=== PATIENT | male | born 1950 | race Caucasian/White ===

== ENCOUNTER 2016-09-06 10:58 | Emergency (ER) | payer MEDICAID, OTHER ==
[2016-09-06] MEDS ORDERED: HYDROmorphone 1 MG/ML SYRINGE IVP STA ×3 (11:21→15:28)
[2016-09-06] MEDS ORDERED: ONDANSETRON 4 MG/2 ML VIAL IVP STA (11:21)
[2016-09-06] MEDS ORDERED: SODIUM CHLORIDE 0.9% 1,000 ML IV ONE ×2 (11:21→15:48)
[2016-09-06] MEDS ORDERED: ONDANSETRON 4 MG/2 ML VIAL ONE (11:27)
[2016-09-06] MEDS ORDERED: HYDROmorphone 1 MG/ML SYRINGE ONE ×3 (11:27→15:41)
--- NOTE | 2016-09-06 11:28 | ED Physician Documentation ---
History of Present Illness - Stated complaint Stated Complaint: BACK,LEG,FOOT PX - Chief complaint Chief Complaint: Back Pain - Additonal information Additional information: hx from pt and sister 66 male Pmhx HTN no blood thinners 4 days ago was working in [email or web address], slipped on [employer], fell 12 ft down onto cement landed first on R foot,t hen on buttocks, then hit his head no LOC has had severe low back, inguinal and RLE pain in too much pain to get up so has been in bed urinating in a coffee can for 4 days - urine output getting less and darker possibly bloody denies ABEL denies neck pain complains of low sternal and upper mid abd pain c/of R inguinal and R testicular pain R buttock pain R LE pain Review of Systems Constitutional: denies: Fever Ears: denies: Drainage/discharge Nose: denies: Epistaxis Cardiac: reports: Chest pain / pressure Respiratory: denies: Dyspnea GI: reports: Abdominal Pain. denies: Vomiting, Diarrhea : reports: Hematuria Musculoskeletal: reports: Back pain, Extremity pain Neurologic: denies: Focal weakness, Numbness Endocrine: denies: Easy bruising / bleeding Immunocompromised: denies: Immunocompromised PD PAST MEDICAL HISTORY - Past Medical History Cardiovascular: Hypertension Respiratory: None Endocrine/Autoimmune: None GI: None : None HEENT: None Psych: None Musculoskeletal: None Derm: None - Past Surgical History HEENT: Tonsil/Adenoidectomy - Present Medications Home Medications: Ambulatory Orders Medication Instructions Recorded Confirmed Hydrocodone/Acetaminophen 1 each PO .FREQ PRN 09/03/12 09/06/16 [Hydrocodon-Acetaminophen 5-325] Lisinopril [Prinivil] 5 mg PO DAILY 09/03/12 09/06/16 - Allergies Allergies/Adverse Reactions: Allergies Allergy/AdvReac Type Severity Reaction Status Date / Time No Known Drug Allergies Allergy Verified 09/06/16 11:07 PD ED PE NORMAL - Vitals Vital signs reviewed: Yes (hypotesnive to SBP 80, tachy to HR 150 appears NSR on tele) - General General: Alert and 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 - HEENT HEENT: Atraumatic (no visible lac or swelling) - Neck Neck: No bony TTP (but high force mechanism and distracting injuries so collared and will image) - Cardiac Cardiac: RRR (tachy) - Respiratory Respiratory: No respiratory distress, Clear bilaterally, Other (no rib TTP, TTP s crepitus to low sternum) - Abdomen Abdomen: Soft, Other (mid upper abd pain, no licer spleen TTP, no guarding rebound bruising or distension, FAST = no FF, very small bladder) - Male Male : Other (no ecchymosis, testes desc and NT) - Derm Derm: Other (aged accymosis to valentin radial hand, R buttock, RLE) - Extremities Extremities: Other (valentin radial hand ecchymossis but NT and full ROM, pelvis stable, deformity swelling and ecchymosis s open wound to RLE, + pulse sens motor, calf cmpt soft) - Neuro Neuro: Alert and 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, 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, No motor deficit, No sensory deficit, Normal speech Results - Vitals Vitals: Vital Signs - 24 hr 09/06/16 09/06/16 09/06/16 11:03 11:24 12:00 Temperature 36.9 C Heart Rate 120 H 91 95 Respiratory 18 18 18 Rate Blood Pressure 88/67 L 105/73 125/96 H O2 Saturation 98 96 99 09/06/16 09/06/16 09/06/16 13:00 13:30 13:45 Temperature Heart Rate 80 80 80 Respiratory 17 19 20 Rate Blood Pressure 123/71 96/65 109/77 O2 Saturation 98 100 99 09/06/16 09/06/16 09/06/16 13:53 13:58 14:35 Temperature Heart Rate 80 80 79 Respiratory 20 16 17 Rate Blood Pressure 96/63 109/77 115/78 O2 Saturation 100 98 99 09/06/16 09/06/16 09/06/16 15:00 15:30 16:00 Temperature Heart Rate 81 82 94 Respiratory 14 12 12 Rate Blood Pressure 112/79 123/74 119/79 O2 Saturation 99 99 99 09/06/16 09/06/16 09/06/16 16:30 17:00 17:30 Temperature 36.8 C Heart Rate 83 82 80 Respiratory 19 20 20 Rate Blood Pressure 123/70 108/76 116/79 O2 Saturation 100 94 100 Oxygen O2 Source Room air - EKG (time done) 1116 Rate: Rate (enter#) (97) Rhythm: NSR [place]: Normal QRS: Normal Ischemia: Normal ST segments - Labs Labs: Laboratory Tests 09/06/16 09/06/16 09/06/16 11:15 11:15 11:15 WBC 13.2 H RBC 4.35 L Hgb 15.0 Hct 43.5 MCV 100.1 H MCH 34.6 H MCHC 34.5 RDW 12.3 Plt Count 255 MPV 7.3 L Neut # 10.8 H Lymph # 1.2 L Barron # 1.1 H Eos # 0.0 Baso # 0.1 Absolute Nucleated RBC 0.01 Nucleated RBCs 0.1 Sodium 135 Potassium 3.6 Chloride 94 L Carbon Dioxide 30 Anion Gap 11.0 BUN 15 Creatinine 0.7 Estimated GFR (MDRD) 114 Glucose 158 H Calcium 9.1 Total Bilirubin 1.2 H AST 30 ALT 25 Alkaline Phosphatase 68 Troponin I < 0.04 Total Protein 7.0 Albumin 3.7 Globulin 3.3 Albumin/Globulin Ratio 1.1 Lipase 24 Urine Color Urine Clarity Urine pH Ur Specific [place] Urine Protein Urine Glucose (UA) Urine Ketones Urine Occult Blood Urine Nitrite Urine Bilirubin Urine Urobilinogen Ur Leukocyte Esterase Ur Microscopic Review Urine Culture Comments Blood Type Blood Type Recheck Antibody Screen Crossmatch IS Only 09/06/16 09/06/16 09/06/16 11:15 13:36 16:00 WBC RBC Hgb Hct MCV MCH MCHC RDW Plt Count MPV Neut # Lymph # Barron # Eos # Baso # Absolute Nucleated RBC Nucleated RBCs Sodium Potassium Chloride Carbon Dioxide Anion Gap BUN Creatinine Estimated GFR (MDRD) Glucose Calcium Total Bilirubin AST ALT Alkaline Phosphatase Troponin I Total Protein Albumin Globulin Albumin/Globulin Ratio Lipase Urine Color DARK YELLOW Urine Clarity CLEAR Urine pH 5.5 Ur Specific [place] 1.010 Urine Protein NEGATIVE Urine Glucose (UA) NEGATIVE Urine Ketones 15 H Urine Occult Blood NEGATIVE Urine Nitrite NEGATIVE Urine Bilirubin NEGATIVE Urine Urobilinogen 4 H Ur Leukocyte Esterase NEGATIVE Ur Microscopic Review NOT INDICATED Urine Culture Comments NOT INDICATED Blood Type O POSITIVE Blood Type Recheck O POSITIVE Antibody Screen NEGATIVE Crossmatch IS Only See Detail - Rads (name of study) CTH Radiology: See rad report (no acute) CT CS Radiology: See rad report (no acute) CTA chest Radiology: See rad report (no acute) hands Radiology: See rad report (no fx) tib fib Radiology: See rad report ankle Radiology: See rad report (neg) foot Radiology: See rad report (comminuted displaced calcanela fracture) calcaneus Radiology: See rad report (comminuted intra-articualr right calcaneal fx mildly displaced) pelvis Radiology: See rad report (no acute fx) pcxr Radiology: See rad report (no acute) CT abd pelvis Radiology: See rad report (3.2 cm AAA L spine fx no solid organ injury or FF) CT L spine Radiology: See rad report (compression fx L2 and L3 20% loss of height, no posterior elements, L1 spinous process fx, L2 L transverse process fx) Departure - Departure Disposition: 02 Transfer Acute Care Hosp Clinical Impression: Tachycardia Fall Qualifiers: Encounter type: initial encounter Qualified Code(s): W19.XXXA - Unspecified fall, initial encounter Hypotension Qualifiers: Hypotension type: unspecified hypotension type Qualified Code(s): I95.9 - Hypotension, unspecified Fracture of lumbar spine Qualifiers: Encounter type: initial encounter Lumbar vertebra fracture level: unspecified lumbar vertebra Fracture type: closed Fracture morphology: unspecified fracture morphology Qualified Code(s): S32.009A - Unspecified fracture of unspecified lumbar vertebra, initial encounter for closed fracture Calcaneus fracture, right Qualifiers: Encounter type: initial encounter Calcaneus location: unspecified portion of calcaneus Fracture type: closed Fracture alignment: displaced Qualified Code(s) : S92.001A - Unspecified fracture of right calcaneus, initial encounter for closed fracture Condition: Fair Discharge Date/Time: 09/06/16 18:00
[2016-09-06 11:37] LABS: BASOPHILS # (AUTO) 0.1 10^3/uL (0.0-0.1); BASOPHILS % (AUTO) 0.6 %; EOSINOPHILS % (AUTO) 0.3 %; HCT - HEMATOCRIT 43.5 % (42.0-52.0); LYMPHOCYTES # (AUTO) 1.2 10^3/uL (1.5-3.5); LYMPHOCYTES % (AUTO) 9.4 %; MEAN CORPUSCULAR HEMOGLOBIN 34.6 pg (27.0-31.0); MEAN CORPUSCULAR HGB CONC 34.5 g/dL (32.0-36.0); MEAN CORPUSCULAR VOLUME 100.1 fL (80.0-94.0); MEAN PLATELET VOLUME 7.3 fL (7.4-11.4); MONOCYTES # (AUTO) 1.1 10^3/uL (0.0-1.0); MONOCYTES % (AUTO) 8.1 %; NEUTROPHILS # (AUTO) 10.8 10^3/uL (1.5-6.6); NEUTROPHILS % (AUTO) 81.6 %; NUCLEATED RED BLOOD CELLS AUTO 0.1 /100WBC; RED BLOOD COUNT 4.35 10^6/uL (4.70-6.10); RED CELL DISTRIBUTION WIDTH 12.3 % (12.0-15.0); UNCORRECTED WHITE BLOOD COUNT 13.2 x10^3/uL; WHITE BLOOD COUNT 13.2 x10^3/uL (4.8-10.8)
[2016-09-06 11:46] LABS: ALBUMIN/GLOBULIN RATIO 1.1 (1.0-2.2); BILIRUBIN,TOTAL 1.2 mg/dL (0.2-1.0); CALCIUM 9.1 mg/dL (8.5-10.3); CREATININE 0.7 mg/dL (0.6-1.2); POTASSIUM 3.6 mmol/L (3.5-5.0)
--- NOTE | 2016-09-06 12:17 | XRAY Report ---
EXAM: PELVIS RADIOGRAPHY EXAM DATE: 09/06/2016 11:48 AM. CLINICAL HISTORY: Fall injury. Pain. COMPARISON: None. TECHNIQUE: 1 view. FINDINGS: Bones: No definite radiographic evidence of acute fracture or bone lesions. There is diminished bilat eral femoral headneck offset. Joints: Degenerative changes of the visualized lower lumbar spine. Soft Tissues: Normal. No soft tissue swelling. IMPRESSION: 1. No definite radiographic evidence of acute bony pelvic injury. 2. Diminished bilateral femoral headneck offset which may be cause for cam-type femoral acetabular i mpingement. 3. Degenerative changes of the visualized lower lumbar spine. [facility] Referring Provider Line: [phone] SITE ID: [id number]
--- NOTE | 2016-09-06 12:18 | XRAY Report ---
EXAM: CHEST RADIOGRAPHY EXAM DATE: 09/06/2016 12:00 PM. CLINICAL HISTORY: Fall injury. Pain. COMPARISON: None. TECHNIQUE: 1 view. FINDINGS: Lungs/Pleura: No focal opacities evident. No pleural effusion. No pneumothorax. Mediastinum: Within exam limitations, cardiomediastinal contour is normal. Other: None. IMPRESSION: Normal single view chest. [facility] Referring Provider Line: [phone] SITE ID: [id number]
[2016-09-06] MEDS ORDERED: IOPAMIDOL-300 100 ML VIAL IVP ONE (12:51)
--- NOTE | 2016-09-06 13:03 | CT Preliminary Report ---
Exam: CT Chest Angio (PE) IMPRESSION: Normal pulmonary CT angiogram. No evidence of traumatic aortic injury. No pneumothorax or pulmonary contusion. No pulmonary emboli. [facility] SITE ID: [id number]
--- NOTE | 2016-09-06 13:04 | CT Preliminary Report ---
Exam: CT Head W/O IMPRESSION: No acute findings. No intracranial hemorrhage, or fractures. [facility] SITE ID: [id number]
--- NOTE | 2016-09-06 13:05 | CT Report ---
EXAM: CT ANGIOGRAM CHEST EXAM DATE: 09/06/2016 12:25 PM. CLINICAL HISTORY: Fell 12 ft onto cement hypotensive tachy. COMPARISON: None. TECHNIQUE: Routine helical imaging was performed through the chest in the pulmonary arterial phase. I V Contrast: 100 mL Isovue 300. Reconstructions: Coronal 3-D MIP reconstructions.Sagittal and coronal. In accordance with CT protocol optimization, one or more of the following dose reduction techniques w ere utilized for this exam: automated exposure control, adjustment of mA and/or KV based on patient s ize, or use of iterative reconstructive technique. FINDINGS: Pulmonary Arteries: Diagnostic quality: Adequate through the segmental arteries. No evidence for acute or chronic pulmona ry emboli. RV/LV is within normal limits. There is no interventricular septal bowing. There is no reflux of cont rast material in the IVC. Lungs/Pleura: No consolidation, nodules, or edema. No effusions or pneumothorax. Mediastinum: Normal. No cardiac enlargement or adenopathy. Thoracic Aorta: Unremarkable. No evidence of traumatic aortic injury. Upper Abdomen: Please see separate CT. Other: None. IMPRESSION: Normal pulmonary CT angiogram. No evidence of traumatic aortic injury. No pneumothorax or pulmonary contusion. No pulmonary emboli. [facility] Referring Provider Line: [phone] SITE ID: [id number]
--- NOTE | 2016-09-06 13:06 | CT Preliminary Report ---
Exam: CT Cervical Spine W/O IMPRESSION: Extensive degenerative changes. No evidence of acute fracture. [facility] SITE ID: [id number]
--- NOTE | 2016-09-06 13:07 | CT Report ---
EXAM: CT HEAD EXAM DATE: 09/06/2016 12:53 PM. CLINICAL HISTORY: Fell 12 ft onto cement hypotensive and tachycardia. COMPARISON: None. TECHNIQUE: Multiaxial CT images were obtained from the foramen magnum to the vertex. IV contrast: Non e. Reformats: Coronal. In accordance with CT protocol optimization, one or more of the following dose reduction techniques w ere utilized for this exam: automated exposure control, adjustment of mA and/or KV based on patient s ize, or use of iterative reconstructive technique. FINDINGS: Parenchyma: No intraparenchymal hemorrhage. No evidence of mass, midline shift, or CT findings of inf arction. Daly-white differentiation is distinct. Extraaxial Spaces: Normal for age. No subdural or epidural collections identified. Ventricles: Normal in size and position. Sinuses: Imaged paranasal sinuses, orbits, and mastoids show no significant abnormality. Bones: No evidence of fracture or calvarial defect. Other: None. IMPRESSION: No acute findings. No intracranial hemorrhage, or fractures. [facility] Referring Provider Line: [phone] SITE ID: [id number]
--- NOTE | 2016-09-06 13:09 | CT Report ---
EXAM: CT CERVICAL SPINE WITHOUT CONTRAST DATE: 09/06/2016 12:53 PM HISTORY: Fell 12 ft onto cement hypotensive tachy. COMPARISONS: None. TECHNIQUE: Thin-section axial images were acquired of the cervical spine without contrast. Post-proce ssing: Coronal and sagittal reformats. Other: None. In accordance with CT protocol optimization, one or more of the following dose reduction techniques w ere utilized for this exam: automated exposure control, adjustment of mA and/or KV based on patient s ize, or use of iterative reconstructive technique. FINDINGS: Alignment: Normal. No scoliosis or spondylolisthesis. Bones: No fracture or bone lesion. Interspace Levels/Facets: C1-C2: Unremarkable. C2-C3: Mild facet arthropathy. C3-C4: Right worse than left facet arthropathy, producing right worse than left osseous neural forami nal narrowing. C4-C5: Left worse than right facet arthropathy, producing left worse than right osseous neural forami nal narrowing. C5-C6: Disk osteophyte and facet arthropathy, producing mild spinal stenosis and bilateral foraminal narrowing. C6-C7: Disk osteophyte and facet arthropathy, producing mild spinal stenosis and bilateral foraminal narrowing. C7-T1: Unremarkable. Musculature: Normal. No fatty atrophy. Other: The paravertebral and prevertebral soft tissues are normal. The lung apices are clear. IMPRESSION: Extensive degenerative changes. No evidence of acute fracture. [facility] Referring Provider Line: [phone] SITE ID: [id number]
--- NOTE | 2016-09-06 13:10 | CT Preliminary Report ---
Exam: CT Lumbar Spine W/O IMPRESSION: Compression fractures of L2 and L3, with approximately 20% anterior height loss of L2. Mi nimally displaced fractures of the spinous process of L1 and the left transverse process of L2. [facility] SITE ID: [id number]
--- NOTE | 2016-09-06 13:13 | CT Report ---
EXAM: CT LUMBAR SPINE WITHOUT CONTRAST EXAM DATE: 09/06/2016 12:53 PM. CLINICAL HISTORY: Fell 12 ft severe L spine pain. COMPARISONS: None. TECHNIQUE: Thin-section axial images were acquired of the lumbar spine from T12 to S1 without contras t. Post-processing: Coronal and sagittal reformats. Other: None. In accordance with CT protocol optimization, one or more of the following dose reduction techniques w ere utilized for this exam: automated exposure control, adjustment of mA and/or KV based on patient s ize, or use of iterative reconstructive technique. FINDINGS: Alignment: Normal. No scoliosis or spondylolisthesis. Bones: Five isp-ydz-imrazzp lumbar vertebral bodies are present. There is anterior wedge compression deformity of L2, with approximately 20% anterior height loss, as well as a mild compression deformity of L3. No extension into the posterior elements is identified. There is a minimally displaced fractu re of the spinous process of L1, and the left transverse process of L2. Disk Levels/Facets: T12-L1: Unremarkable. L1-L2: Mild broad-based disk bulge, without significant spinal or foraminal narrowing. L2-L3: Mild broad-based disk bulge, without significant spinal or foraminal narrowing. L3-L4: Moderate broad-based disk bulge, producing mild bilateral foraminal narrowing. L4-L5: Moderate broad-based disk bulge, producing mild bilateral foraminal narrowing. L5-S1: Unremarkable. Musculature: Normal. No fatty atrophy. Other: Minimal aneurysmal dilatation of the abdominal aorta distally, measuring 3.2 cm. IMPRESSION: Compression fractures of L2 and L3, with approximately 20% anterior height loss of L2. Mi nimally displaced fractures of the spinous process of L1 and the left transverse process of L2. [facility] Referring Provider Line: [phone] SITE ID: [id number]
--- NOTE | 2016-09-06 13:33 | XRAY Preliminary Report ---
Exam: XR Hand 3 View BILAT IMPRESSION: Old, healed right fifth metacarpal fracture. No evidence of acute fracture. Right worse t lamb left osteoarthritis. [facility] SITE ID: [id number]
--- NOTE | 2016-09-06 13:34 | XRAY Preliminary Report ---
Exam: XR Calcaneus RT IMPRESSION: Comminuted, intra-articular right calcaneal fracture, mildly displaced. [facility] SITE ID: [id number]
--- NOTE | 2016-09-06 13:35 | XRAY Preliminary Report ---
Exam: XR Tib/Fib RT IMPRESSION: Normal tibia/fibula radiography. [facility] SITE ID: [id number]
--- NOTE | 2016-09-06 13:36 | XRAY Preliminary Report ---
Exam: XR Ankle 3 View RT IMPRESSION: No evidence of tibia or fibula fracture. Comminuted, mildly displaced calcaneal fracture. [facility] SITE ID: [id number]
--- NOTE | 2016-09-06 13:36 | XRAY Report ---
EXAMS: 1. Right Hand Radiography 2. Left Hand Radiography EXAM DATE: 09/06/2016 01:14 PM. CLINICAL HISTORY: Fall 12 ft to [place] bruising valentin radial hands. COMPARISON: None. TECHNIQUE: 3 views each hand. FINDINGS: Right: Bones: Old, healed fifth metacarpal fracture. No evidence of acute fracture. Joints: Osteoarthritis, worst in the first carpometacarpal joint. Soft Tissues: Normal. No soft tissue swelling. Left: Bones: Normal. No fractures or bone lesions. Joints: Osteoarthritis, less severe than in the right hand. Soft Tissues: Normal. No soft tissue swelling. IMPRESSION: Old, healed right fifth metacarpal fracture. No evidence of acute fracture. Right worse t lamb left osteoarthritis. [facility] Referring Provider Line: [phone] SITE ID: [id number]
--- NOTE | 2016-09-06 13:37 | XRAY Report ---
EXAM: RIGHT CALCANEUS RADIOGRAPHY EXAM DATE: 09/06/2016 01:15 PM. CLINICAL HISTORY: Fall 12 ft onto cement. COMPARISON: None. TECHNIQUE: 2 views. FINDINGS: Bones: Comminuted right calcaneal fracture, with mild displacement. Joints: Fracture extension to the talocalcaneal joints. Soft Tissues: Soft tissue swelling. IMPRESSION: Comminuted, intra-articular right calcaneal fracture, mildly displaced. [facility] Referring Provider Line: [phone] SITE ID: [id number]
--- NOTE | 2016-09-06 13:38 | XRAY Report ---
EXAM: RIGHT TIBIA/FIBULA RADIOGRAPHY EXAM DATE: 09/06/2016 01:14 PM. CLINICAL HISTORY: Fell 12 ft deformity RLE. COMPARISON: None. TECHNIQUE: 2 views. FINDINGS: Bones: Normal. No fracture or bone lesion. Joints: The visualized knee and ankle joints are normal. No effusions. Soft Tissues: Normal. No soft tissue swelling. IMPRESSION: Normal tibia/fibula radiography. [facility] Referring Provider Line: [phone] SITE ID: [id number]
--- NOTE | 2016-09-06 13:38 | XRAY Preliminary Report ---
Exam: XR Foot 3 View RT IMPRESSION: Comminuted, mildly displaced calcaneal fracture. [facility] SITE ID: [id number]
--- NOTE | 2016-09-06 13:39 | XRAY Report ---
EXAM: RIGHT ANKLE RADIOGRAPHY EXAM DATE: 09/06/2016 01:12 PM. CLINICAL HISTORY: Fell 12 ft deformity RLE. COMPARISON: None. TECHNIQUE: 3 views. FINDINGS: Bones: Comminuted right calcaneal fracture, better seen on calcaneal films of the same day. No tibia or fibula fracture. Joints: Likely intra-articular extension of calcaneal fracture. Soft Tissues: Soft tissue swelling. IMPRESSION: No evidence of tibia or fibula fracture. Comminuted, mildly displaced calcaneal fracture. [facility] Referring Provider Line: [phone] SITE ID: [id number]
--- NOTE | 2016-09-06 13:40 | XRAY Report ---
EXAM: RIGHT FOOT RADIOGRAPHY EXAM DATE: 09/06/2016 01:13 PM. CLINICAL HISTORY: Fell 12 ft, deformity to RLE. COMPARISON: None. TECHNIQUE: 3 views. FINDINGS: Bones: Comminuted, mildly displaced calcaneal fracture. Joints: Likely intra-articular extension of the calcaneal fracture. Soft Tissues: Soft tissue swelling. IMPRESSION: Comminuted, mildly displaced calcaneal fracture. [facility] Referring Provider Line: [phone] SITE ID: [id number]
--- NOTE | 2016-09-06 15:14 | CT Preliminary Report ---
Exam: CT Abdomen/Pelvis W/ IMPRESSION: Small distal abdominal aortic aneurysm, measuring 3.2 cm. Lumbar spine fractures, better delineated on lumbar spine CT of the same day. No evidence of solid or hollow organ injury. [facility] SITE ID: [id number]
--- NOTE | 2016-09-06 15:17 | CT Report ---
EXAM: CT ABDOMEN AND PELVIS EXAM DATE: 09/06/2016 12:53 PM. CLINICAL HISTORY: Fell 12 ft onto cement hypotensive tachy. COMPARISONS: None. TECHNIQUE: Routine helical CT imaging was performed through the abdomen and pelvis. IV contrast: 100 mL Isovue 300. Enteric contrast: No. Reconstructions: Coronal and sagittal. In accordance with CT protocol optimization, one or more of the following dose reduction techniques w ere utilized for this exam: automated exposure control, adjustment of mA and/or KV based on patient s ize, or use of iterative reconstructive technique. FINDINGS: Lung Bases: Please see separate chest CT. Liver: Normal. No masses. Gallbladder/Bile Ducts: Unremarkable. Spleen: Normal. Pancreas: Normal. Adrenal Glands: Normal. Kidneys: Cortical cysts. No hydronephrosis or nephrolithiasis. Peritoneal Cavity/Bowel: Normal. No free fluid, free air or adenopathy. No masses or acute inflammato ry process. The appendix is well visualized and normal. Pelvic Organs: Normal. The bladder and visualized pelvic organs are within normal limits. Vasculature: Mild dilatation of the distal abdominal aorta, measuring 3.2 cm. Bones: Lumbar spine fractures, better delineated on lumbar spine CT of the same day. Other: None. IMPRESSION: Small distal abdominal aortic aneurysm, measuring 3.2 cm. Lumbar spine fractures, better delineated on lumbar spine CT of the same day. No evidence of solid or hollow organ injury. [facility] Referring Provider Line: [phone] SITE ID: [id number]
[2016-09-06 16:20] LABS: PH,URINE 5.5 PH (5.0-7.5)
[2016-09-06 16:28] LABS: BILIRUBIN,URINE NEGATIVE (NEGATIVE); UA CHARGE (STRIP ONLY) YES; UR CULTURE IF IND NOT INDICATED
[2016-09-06] MEDS ORDERED: NICOTINE 21 MG PATCH TOP STA (16:52)
[2016-09-06] MEDS ORDERED: NICOTINE 21 MG PATCH TOP ONE (16:57)
[2016-09-06 17:53] VITALS: BP 116/79
== END 2016-09-06 18:00 | disposition short-term general hospital (02) ==
LOC: ED 10:58
DX: S32.018A Other fracture of first lumbar vertebra, initial encounter for closed fracture (principal); S32.020A Wedge compression fracture of second lumbar vertebra, initial encounter for closed fracture; S32.030A Wedge compression fracture of third lumbar vertebra, initial encounter for closed fracture; S92.061A Displaced intraarticular fracture of right calcaneus, initial encounter for closed fracture; S32.028A Other fracture of second lumbar vertebra, initial encounter for closed fracture; W17.89XA Other fall from one level to another, initial encounter; E86.0 Dehydration; R00.0 Tachycardia, unspecified; I44.4 Left anterior fascicular block; R94.31 Abnormal electrocardiogram [ECG] [EKG]; I71.4 Abdominal aortic aneurysm, without rupture; I95.9 Hypotension, unspecified; I10 Essential (primary) hypertension
CPT/HCPCS: 36415; 70450; 71010; 71275; 72125; 72131; 72170; 73130; 73590; 73610; 73630; 73650; 74177; 80053; 81003; 83690; 84484; 85025; 86850; 86900; 86901; 86920; 93005; 93010; 96361; 96374; 96375; 96376; 99285; A9270; J1170; Q9967; 81001; 87086

== ENCOUNTER 2017-09-25 09:02 | Emergency (ER) | payer MEDICAID, MEDICARE ==
[2017-09-25 09:14] VITALS: BP 117/82
[2017-09-25] MEDS ORDERED: AMOXICILLIN 250 MG CAPSULE PO STA (10:17)
--- NOTE | 2017-09-25 10:19 | ED Physician Documentation ---
History of Present Illness - Stated complaint Stated Complaint: L FACE SWELLING - Chief complaint Chief Complaint: Heent - Additonal information Additional information: hx from pt 67 male R upper dental decay and pain waiting for dental need ab swelling waxes and wanes no fever no immunosupr Review of Systems Constitutional: denies: Fever Throat: reports: Dental pain / toothache Immunocompromised: denies: Immunocompromised PD PAST MEDICAL HISTORY - Past Medical History Past Medical History: Yes Cardiovascular: Hypertension Respiratory: None Endocrine/Autoimmune: None GI: None : None HEENT: None Psych: None Musculoskeletal: None Derm: None - Past Surgical History Past Surgical History: Yes Ortho: Shoulder arthroplasty, Spine surgery HEENT: Tonsil/Adenoidectomy - Present Medications Home Medications: Ambulatory Orders Medication Instructions Recorded Confirmed Hydrocodone/Acetaminophen 1 each PO .FREQ PRN 09/03/12 09/06/16 [Hydrocodon-Acetaminophen 5-325] Lisinopril [Prinivil] 5 mg PO DAILY 09/03/12 09/06/16 Amoxicillin 500 mg PO Q8H #30 capsule 09/25/17 - Allergies Allergies/Adverse Reactions: Allergies Allergy/AdvReac Type Severity Reaction Status Date / Time No Known Drug Allergies Allergy Verified 09/25/17 09:14 - Social History Does the pt smoke?: Yes Smoking Status: Current every day smoker Does the pt drink ETOH?: Yes Does the pt have substance abuse?: No - Immunizations Immunizations: TDAP current <10years - POLST Patient has POLST: No PD ED PE NORMAL - Vitals Vital signs reviewed: Yes (RR is not 97) - General General: Alert and 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 - HEENT HEENT: Other (extensive deay TTP upper right prmoalr molar, no drainable asbcess no trisumus, no submandibular or neck swelling, + adenopathy) - Cardiac Cardiac: RRR, No murmur - Respiratory Respiratory: No respiratory distress Results - Vitals Vitals: Vital Signs - 24 hr 09/25/17 09:11 Temperature 36.7 C Heart Rate 96 Respiratory 97 H Rate Blood Pressure 117/82 H O2 Saturation 95 Oxygen O2 Source Room air PD MEDICAL DECISION MAKING - Sepsis Event Vital Signs: Vital Signs - 24 hr 09/25/17 09:11 Temperature 36.7 C Heart Rate 96 Respiratory 97 H Rate Blood Pressure 117/82 H O2 Saturation 95 Oxygen O2 Source Room air Departure - Departure Disposition: 01 Home, Self Care Clinical Impression: Dental infection Condition: Good Instructions: ED Abscess Dental Prescriptions: Amoxicillin 500 mg PO Q8H #30 capsule Comments: Motrin (with food) and tylenol as needed for pain Follow up with your dentist as planned
== END 2017-09-25 10:15 | disposition home or self-care (01) ==
LOC: ED 09:02
DX: K04.7 Periapical abscess without sinus (principal); I10 Essential (primary) hypertension
CPT/HCPCS: 99283; A9270

== ENCOUNTER 2017-11-03 10:58 | Day surgery (SDC) | payer MEDICARE ==
[~2017-11-03 10:58] MED LIST: ceFAZolin 2 GM/50 ML 2 GM/50 ML BAG IV ONE
[2017-11-03] MEDS ORDERED: LACTATED RINGERS 1,000 ML IV ONE (11:03)
[2017-11-03] MEDS ORDERED: BUPIVACAINE 0.5% PF 30 ML VIAL ONE (11:43)
[2017-11-03] MEDS ORDERED: BUPIVACAINE 0.5% PF 30 ML VIAL INFIL ONE ×2 (13:46)
[2017-11-03] MEDS ORDERED: ROPIVACAINE 0.5% PF 20 ML AMPULE EP ONE (14:00)
[2017-11-03] MEDS ORDERED: MIDAZOLAM 2 MG/2 ML VIAL IVP ONE (14:00)
[2017-11-03] MEDS ORDERED: DEXAMETHASONE 4 MG/ML VIAL IVP ONE (14:00)
[2017-11-03] MEDS ORDERED: fentaNYL 100 MCG/2 ML VIAL IVP ONE (14:00)
[2017-11-03] MEDS ORDERED: LIDOCAINE-MPF 2% 5 ML VIAL IM ONE (14:00)
--- NOTE | 2017-11-03 14:27 | OPERATIVE REPORT ---
Operative Report - General Procedure Date: 11/03/17 Planned Procedure: Excision of LEFT elbow mass x3 (suspect olecranon bursae) Pre-Op Diagnosis: LEFT elbow mass x3 (suspect olecranon bursae) Procedure Performed: Excision of LEFT elbow mass x3 (suspect olecranon bursae) Post Op Diagnosis: LEFT elbow mass x3 (suspect olecranon bursae) - Procedure Note Primary Surgeon: Dave Frausto MD Anesthesia Provider: Alissa Reyna CRNA and Dave Martin MD Anesthesia Technique: Local (20 mL of 1/2% marcaine), Regional block IV Fluids (mL): 400 Estimated Blood Loss (mL): 30 Complications: None. - Other Other Information/Narrative: OPERATIVE DESCRIPTION/REPORT: After verbal and written informed consent was obtained detailing the risks of infection, bleeding requiring transfusion with its risks, nerve injury, and , and after I met with the patient confirming the surgery and the site of the surgery and after initialing the site of the surgery with a surgical marker , the patient was brought to the operative suite and placed supine on the operating table. Great care was taken to avoid pressure points to prevent pressure necrosis or nerve injury. Monitoring devices were applied along with TEDs and pneumatic compressive stockings (to prevent DVT). The patient received preoperative antibiotics for surgical prophylaxis. Alissa Reyna placed a regional block and the patient was insensate for the entire procedure. Dr. Martin then took over the patient's care. The patient was prepped and draped in the usual sterile manner. With the patient draped my initials were clearly visible. A "time in" then confirmed that the patient was identified with 3 identifiers (name, date and medical record number), the history and physical was in the chart, the signed consent confirming the procedure was in the chart, the patient was in the correct position, the aforementioned prophylactic measures were in place or given, we had the correct personnel and equipment to complete the procedure and that anesthesia, surgery and nursing were given an opportunity to express any concerns. With the agreement of everyone in the room, we proceeded with the operation. An elliptical incision was made encompassing the lesions and dissection was carried down to the subcutaneous tissues using a combination of Bovie electracautery, and scalpel. Hemostasis was obtained via application of Bovie. The lesions were totally excised and sent for pathologic evaluation. The apparent connection to the joint was cauterized closed. The skin incision was approximated using interrupted alternating simple and mattress 3-0 Nylon. A dressing was applied. At this point a time out was performed that confirmed that all the counts were correct, the procedure that was performed, the blood loss, the IV fluids administered, and the patients condition. Having tolerated the procedure well, the patient was subsequently taken to recovery room in good and stable condition. [employer] disclaimer: This document was created in part using voice recognition technology. Because of the inherent limitations of the system ([employer]'s [employer] user manual states that the licensee understands that speech recognition is a statistical process and that recognition errors are inherent in the process), occasional same sounding word substitutions and grammatical errors do occur and persist despite proofreading. Please read this document for context.
[2017-11-03 14:43] VITALS: BP 150/95
== END 2017-11-03 10:59 | disposition home or self-care (01) ==
LOC: SDS 10:58
PROVIDERS: ATTEND Surgery
PROC: 0JBH0ZZ Excision of Left Lower Arm Subcutaneous Tissue and Fascia, Open Approach (ICD-10-PCS; principal; 2017-11-03 12:30)
DX: L72.0 Epidermal cyst (principal); M25.522 Pain in left elbow; J43.9 Emphysema, unspecified; I10 Essential (primary) hypertension; F17.210 Nicotine dependence, cigarettes, uncomplicated
CPT/HCPCS: 11406; 88304; J0690; J7120

== ENCOUNTER 2022-04-28 09:36 | Inpatient (IN) | payer MEDICARE ==
--- NOTE | 2022-04-28 10:27 | ED Physician Documentation ---
PD HPI DYSPNEA - Stated complaint Stated Complaint: SOA - Chief complaint Chief Complaint: Resp - History obtained from History obtained from: Patient, Family (his grandson gives independent description of his symptoms progression over the past several days.) - History of Present Illness Timing - onset: How many days ago (5-6) Timing - onset during: Light activity Timing - duration: Days (The patient states he has had gradually worsening general weakness, cough, wheezing and trouble breathing over the last 5 to 6 days which is significantly worsened into today. His grandson is with him and corroborates the information.) Timing - details: Gradual onset, Still present Inciting event(s): URI, Other (history of COPD, has nebs/MDIs at home. Does not have home oxygen.) Associated symptoms: Cough, Wheezing, Chest pain / discomfort. No: Fever, Bilateral edema Similar symptoms before: Diagnosis (COPD exacerbations with URIs and infections in the past.) Recently seen: Not recently seen Review of Systems Constitutional: reports: Chills, Myalgias Nose: reports: Congestion Throat: denies: Sore throat Cardiac: reports: Palpitations (for several days). denies: Chest pain / pressure, Pedal edema, Calf pain Respiratory: reports: Dyspnea, Cough, Wheezing GI: denies: Vomiting, Diarrhea Skin: denies: Rash Neurologic: denies: Altered mental status PD PAST MEDICAL HISTORY - Past Medical History Cardiovascular: Hypertension, Other Respiratory: COPD, Emphysema Endocrine/Autoimmune: None GI: GERD : None HEENT: None Psych: None Musculoskeletal: Chronic back pain Derm: None - Past Surgical History Past Surgical History: Yes Ortho: Shoulder arthroplasty, Spine surgery HEENT: Tonsil/Adenoidectomy - Present Medications Home Medications: Ambulatory Orders Medication Instructions Recorded Confirmed Albuterol Sulfate [Proair Hfa 1 puffs PO Q4HR PRN 11/03/17 11/03/17 Inhaler] Amlodipine Besylate [Norvasc] 10 mg PO DAILY 04/28/22 Hydrocodone/Acetaminophen 1 - 2 tab PO Q12H PRN 04/28/22 [Hydrocodone-Acetamin 10-325 mg] Lisinopril [Zestril] 30 mg PO DAILY 04/28/22 - Allergies Allergies/Adverse Reactions: Allergies Allergy/AdvReac Type Severity Reaction Status Date / Time No Known Drug Allergies Allergy Verified 04/28/22 10:16 - Social History Does the pt smoke?: Yes Smoking Status: Current every day smoker Does the pt drink ETOH?: Yes Does the pt have substance abuse?: No - Immunizations Immunizations: TDAP current <10years - POLST Patient has POLST: No PD ED PE NORMAL - Vitals Vital signs reviewed: Yes - General General: Alert and 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, Well developed/nourished, Other (He is having work of breathing with partial sentence dyspnea and prolonged expiratory phase with diffuse wheezing.) - HEENT HEENT: Pharynx benign. No: Moist mucous membranes - Neck Neck: Supple, no meningeal sign, No adenopathy - Cardiac Cardiac: No: RRR (Irregular and fast heart rate ranging from 1 20-1 45 consistent with atrial fibrillation and bundle branch block.) - Respiratory Respiratory: Other (Notable diffuse expiratory wheezing with prolonged expiratory phase and partial sentence dyspnea. Oxygenation is initially low but improved with nasal cannula or partial facemask. He is in proved to better oxygenation after DuoNeb x2.). No: Clear bilaterally - Abdomen Abdomen: Soft, Non tender - Derm Derm: Normal color, Warm and dry - Extremities Extremities: Normal ROM s pain, No edema, No calf tenderness / cord - Neuro Neuro: Alert and 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, No motor deficit, Normal speech Eye Opening: Spontaneous Motor: Obeys Commands Verbal: Oriented GCS Score: 15 Results - Vitals Vitals: Vital Signs - 24 hr 04/28/22 04/28/22 04/28/22 10:07 10:51 10:52 Temperature 36 C L Heart Rate 145 H 89 131 H Respiratory 24 19 24 Rate Blood Pressure 111/83 H 113/90 H O2 Saturation 91 L 98 If not protocol 3 : Oxygen Flow, liters/minute 04/28/22 04/28/22 04/28/22 10:58 11:26 11:47 Temperature Heart Rate 138 H 129 H 139 H Respiratory 21 24 18 Rate Blood Pressure 113/90 H 105/85 H O2 Saturation 99 96 If not protocol 3 : Oxygen Flow, liters/minute 04/28/22 04/28/22 04/28/22 12:08 12:10 12:39 Temperature Heart Rate 131 H 131 H 137 H Respiratory 24 24 24 Rate Blood Pressure 134/118 H 122/90 H O2 Saturation 100 100 If not protocol 4 4 : Oxygen Flow, liters/minute 04/28/22 04/28/22 04/28/22 13:20 13:27 13:35 Temperature Heart Rate 133 H 122 H 122 H Respiratory 26 H 31 H 26 H Rate Blood Pressure 126/78 119/93 H O2 Saturation 98 100 If not protocol 4 2 : Oxygen Flow, liters/minute 04/28/22 04/28/22 04/28/22 14:16 14:52 15:53 Temperature Heart Rate 156 H 143 H 131 H Respiratory 24 24 24 Rate Blood Pressure 121/87 H 103/79 144/126 H O2 Saturation 100 96 100 If not protocol 2 2 2 : Oxygen Flow, liters/minute Oxygen O2 Source Nasal cannula - EKG (time done) 10:22 Rate: Rate (enter#) (142) Rhythm: Atrial fibrillation Intervals: RBBB Ischemia: Non specific changes Compare to prior EKG: Changed from prior EKG (Prior EKG from several years ago showed sinus rhythm without a bundle branch block.) - Labs Labs: Laboratory Tests 04/28/22 04/28/22 04/28/22 10:18 10:18 10:24 WBC 20.6 H RBC 4.87 Hgb 17.2 Hct 50.3 MCV 103.3 H MCH 35.3 H MCHC 34.2 RDW 12.4 Plt Count 230 MPV 10.2 Neut # (Auto) 13.7 H Lymph # (Auto) 1.1 L Clare # (Auto) 1.7 H Eos # (Auto) 3.9 H Baso # (Auto) 0.1 Absolute Nucleated RBC 0.00 Nucleated RBC % 0.0 Manual Slide Review Indicated WBC Morphology 2 PT 11.3 INR 1.0 D-Dimer 522.1 H Bld Gas Analysis Time Sample Site ABG pH ABG pCO2 ABG pO2 ABG HCO3 ABG Total CO2 ABG O2 Saturation ABG Base Excess Casper Test O2 Delivery Device O2 Liters/Min Sodium Potassium Chloride Carbon Dioxide Anion Gap BUN Creatinine Estimated GFR (MDRD) Glucose Calcium Magnesium Total Bilirubin AST ALT Alkaline Phosphatase Troponin I High Sens B-Natriuretic Peptide Total Protein Albumin Globulin Albumin/Globulin Ratio Lipase Nasal Adenovirus (PCR) Nasal B. parapertussis DNA (PCR) Nasal Coronavir 229E PCR Nasal Coronavir HKU1 PCR Nasal Coronavir NL63 PCR Nasal Coronavir OC43 PCR Nasal Enterovir/Rhinovir PCR Nasal Influenza B PCR Nasal Influenza A PCR Nasal Parainfluen 1 PCR Nasal Parainfluen 2 PCR Nasal Parainfluen 3 PCR Nasal Parainfluen 4 PCR Nasal RSV (PCR) Nasal B.pertussis DNA PCR Nasal C.pneumoniae (PCR) Damian Human Metapneumo PCR Nasal M.pneumoniae (PCR) Nasal SARS-CoV-2 (PCR) 04/28/22 04/28/22 04/28/22 10:24 10:24 10:24 WBC RBC Hgb Hct MCV MCH MCHC RDW Plt Count MPV Neut # (Auto) Lymph # (Auto) Clare # (Auto) Eos # (Auto) Baso # (Auto) Absolute Nucleated RBC Nucleated RBC % Manual Slide Review WBC Morphology PT INR D-Dimer Bld Gas Analysis Time Sample Site ABG pH ABG pCO2 ABG pO2 ABG HCO3 ABG Total CO2 ABG O2 Saturation ABG Base Excess Casper Test O2 Delivery Device O2 Liters/Min Sodium 117 L* Potassium 6.2 H* Chloride 75 L* Carbon Dioxide 31 Anion Gap 11.0 BUN 21 H Creatinine 0.6 Estimated GFR (MDRD) 134 Glucose 124 H Calcium 8.9 Magnesium 1.9 Total Bilirubin 1.0 AST 45 H ALT 41 Alkaline Phosphatase 68 Troponin I High Sens 81.3 H* B-Natriuretic Peptide Total Protein 7.2 Albumin 3.5 Globulin 3.7 Albumin/Globulin Ratio 0.9 L Lipase 30 Nasal Adenovirus (PCR) Nasal B. parapertussis DNA (PCR) Nasal Coronavir 229E PCR Nasal Coronavir HKU1 PCR Nasal Coronavir NL63 PCR Nasal Coronavir OC43 PCR Nasal Enterovir/Rhinovir PCR Nasal Influenza B PCR Nasal Influenza A PCR Nasal Parainfluen 1 PCR Nasal Parainfluen 2 PCR Nasal Parainfluen 3 PCR Nasal Parainfluen 4 PCR Nasal RSV (PCR) Nasal B.pertussis DNA PCR Nasal C.pneumoniae (PCR) Damian Human Metapneumo PCR Nasal M.pneumoniae (PCR) Nasal SARS-CoV-2 (PCR) 04/28/22 04/28/22 04/28/22 10:24 10:39 12:30 WBC RBC Hgb Hct MCV MCH MCHC RDW Plt Count MPV Neut # (Auto) Lymph # (Auto) Clare # (Auto) Eos # (Auto) Baso # (Auto) Absolute Nucleated RBC Nucleated RBC % Manual Slide Review WBC Morphology PT INR D-Dimer Bld Gas Analysis Time 1239 Sample Site LEFT BRACHIAL ABG pH 7.31 L ABG pCO2 65 H* ABG pO2 114 H ABG HCO3 32.2 H ABG Total CO2 34.2 H ABG O2 Saturation 98 ABG Base Excess 3.5 H Casper Test NOT APPLICABLE O2 Delivery Device NASAL CANNULA O2 Liters/Min 2.00 Sodium Potassium Chloride Carbon Dioxide Anion Gap BUN Creatinine Estimated GFR (MDRD) Glucose Calcium Magnesium Total Bilirubin AST ALT Alkaline Phosphatase Troponin I High Sens B-Natriuretic Peptide 628 H Total Protein Albumin Globulin Albumin/Globulin Ratio Lipase Nasal Adenovirus (PCR) NOT DETECTED Nasal B. parapertussis DNA (PCR) NOT DETECTED Nasal Coronavir 229E PCR NOT DETECTED Nasal Coronavir HKU1 PCR NOT DETECTED Nasal Coronavir NL63 PCR NOT DETECTED Nasal Coronavir OC43 PCR DETECTED A Nasal Enterovir/Rhinovir PCR NOT DETECTED Nasal Influenza B PCR NOT DETECTED Nasal Influenza A PCR NOT DETECTED Nasal Parainfluen 1 PCR NOT DETECTED Nasal Parainfluen 2 PCR NOT DETECTED Nasal Parainfluen 3 PCR NOT DETECTED Nasal Parainfluen 4 PCR NOT DETECTED Nasal RSV (PCR) NOT DETECTED Nasal B.pertussis DNA PCR NOT DETECTED Nasal C.pneumoniae (PCR) NOT DETECTED Damian Human Metapneumo PCR NOT DETECTED Nasal M.pneumoniae (PCR) NOT DETECTED Nasal SARS-CoV-2 (PCR) NOT DETECTED 04/28/22 04/28/22 13:55 14:36 WBC RBC Hgb Hct MCV MCH MCHC RDW Plt Count MPV Neut # (Auto) Lymph # (Auto) Clare # (Auto) Eos # (Auto) Baso # (Auto) Absolute Nucleated RBC Nucleated RBC % Manual Slide Review WBC Morphology PT INR D-Dimer Bld Gas Analysis Time Sample Site ABG pH ABG pCO2 ABG pO2 ABG HCO3 ABG Total CO2 ABG O2 Saturation ABG Base Excess Casper Test O2 Delivery Device O2 Liters/Min Sodium 117 L* Potassium 5.7 H Chloride 77 L* Carbon Dioxide 29 Anion Gap 11.0 BUN 18 Creatinine 0.6 Estimated GFR (MDRD) 134 Glucose 109 H Calcium 8.3 L Magnesium Total Bilirubin AST ALT Alkaline Phosphatase Troponin I High Sens 47.5 H* B-Natriuretic Peptide Total Protein Albumin Globulin Albumin/Globulin Ratio Lipase Nasal Adenovirus (PCR) Nasal B. parapertussis DNA (PCR) Nasal Coronavir 229E PCR Nasal Coronavir HKU1 PCR Nasal Coronavir NL63 PCR Nasal Coronavir OC43 PCR Nasal Enterovir/Rhinovir PCR Nasal Influenza B PCR Nasal Influenza A PCR Nasal Parainfluen 1 PCR Nasal Parainfluen 2 PCR Nasal Parainfluen 3 PCR Nasal Parainfluen 4 PCR Nasal RSV (PCR) Nasal B.pertussis DNA PCR Nasal C.pneumoniae (PCR) Damian Human Metapneumo PCR Nasal M.pneumoniae (PCR) Nasal SARS-CoV-2 (PCR) - Rads (name of study) chest xray Radiology: Prelim report reviewed, EMP read indepedently (Diffuse is interstitial changes consistent with either CHF versus pneumonitis. No effusions. No focal infiltrates.), See rad report chest cTangio Radiology: Prelim report reviewed, See rad report PD Medical Decision Making - ED course Complexity details: d/w patient, d/w family (grandson) Reviewed Lab Results: The patient's chest x-ray shows interstitial fullness. This could be indication for congestive heart failure although the patient does not have history of CHF and does not have any leg edema nor fine crackles per se. Other consideration would be viral pneumonitis and this perhaps fits better since he has been having general illness, fatigue, poor oral intake and cough with wheezing progressing over the last 5 to 6 days. He does have a history of COPD and this has been worse with the current illness. His grandson says the patient has been using his nebulizer and inhalers at home without any improvement. The patient does not have any known history of atrial fibrillation but is in apparent A. fib right now with a fast rate. I presume this is subsequent to illness and exacerbation of his COPD with potential cor pulmonale. His initial troponin is mildly elevated at 80. His BNP is showing moderate elevation at 600s. No prior labs are available for the BNP so no comparisons. We are obtaining respiratory viral panel. Presume he has a an acute viral illness. This subsequently did show a non-COVID coronavirus. Is chemistry panel was also abnormal with a sodium of 117. Again no prior labs for this. He has had poor oral intake for the last several days and per his report. I feel he is likely under hydrated and so was given some IV fluids of just saline as a small bolus. We do not want to to quickly correct his sodium level but I do feel he is likely under hydrated. His potassium was somewhat elevated at 6.5, however his creatinine is good so with no history of renal insufficiency. I think this may likely be falsely elevated with possible hemolysis. We will recheck it. He was given a dose of insulin and D10 initially to correct the potassium while we are reevaluating. A recheck of the potassium however before those meds were even administered showed it only 5.7. I did talk with the hospitalist who initially was clearly stating the patient was appropriate for admission here to the ICU given his multiple illnesses. Subsequently the hospitalist did asked that we repeat the troponin and also get a CT angiogram to evaluate for more significant heart involvement or PE. These are being done. The patient's breathing status did improve with repeat nebulizer treatments. He appears more relaxed with his breathing. I do not feel that he is tiring but more just relaxed with increased airflow. He is maintaining oxygenation at this point now which is nasal cannula and does not need the facemask anymore at this point. The patient is fairly sick with multiple system problems of viral respiratory illness with exacerbation of his COPD and respiratory distress. He is also apparently a new onset A. fib with a right bundle branch block. The monitors kept alarming incessantly because it was interpreting as V. tach despite appearance otherwise. He was given diltiazem IV bolus dosings and then put on a drip to try to slow the rate. He has notable hyponatremia and hyperkalemia. These are being corrected slowly. We want to avoid too quick of correction of the sodium. At this point presumption will be admission to our ICU under the hospitalist service as the repeat troponin is now only 47. He is still going for his PE study. - Critical Care Time(min): 50 Time Includes: Direct patient care (resp distress, hypoxic initially. rapid atrial fib requiring iV meds/drip. Repeat nebs for breathing. ), Reassess patient, Document care, Medical consult Data interpretation: Labs, CXR Procedures excluded from critical care time: EKG Departure - Departure Disposition: 66 [facility] DC/Xfer Clinical Impression: Acute exacerbation of COPD with asthma, Acute hyponatremia, Dyspnea, Atrial fibrillation with rapid ventricular response, RBBB, Lower resp. tract infection Condition: Serious Record reviewed to determine appropriate education?: Yes Discharge Date/Time: 04/28/22 17:15
[2022-04-28 10:34] LABS: BASOPHILS # (AUTO) 0.1 10^3/uL (0.0-0.1); BASOPHILS % (AUTO) 0.2 %; EOSINOPHILS # (AUTO) 3.9 10^3/uL (0.0-0.7); HCT - HEMATOCRIT 50.3 % (42.0-52.0); HGB - HEMOGLOBIN 17.2 g/dL (14.0-18.0); LYMPHOCYTES # (AUTO) 1.1 10^3/uL (1.5-3.5); LYMPHOCYTES % (AUTO) 5.3 %; MEAN CORPUSCULAR HEMOGLOBIN 35.3 pg (27.0-31.0); MEAN CORPUSCULAR HGB CONC 34.2 g/dL (32.0-36.0); MEAN CORPUSCULAR VOLUME 103.3 fL (80.0-94.0); MEAN PLATELET VOLUME 10.2 fL (7.4-11.4); MONOCYTES # (AUTO) 1.7 10^3/uL (0.0-1.0); MONOCYTES % (AUTO) 8.1 %; NEUTROPHILS # (AUTO) 13.7 10^3/uL (1.5-6.6); NEUTROPHILS % (AUTO) 66.3 %; PLT - PLATELET COUNT 230 10^3/uL (130-450); RED BLOOD COUNT 4.87 10^6/uL (4.70-6.10); RED CELL DISTRIBUTION WIDTH 12.4 % (12.0-15.0); WHITE BLOOD COUNT 20.6 x10^3/uL (4.8-10.8)
[2022-04-28 10:36] LABS: SLIDE REVIEW? Indicated
[2022-04-28] MEDS ORDERED: IPRATROPIUM/ALBUTEROL 3 ML NEB INH ONE (10:38)
[2022-04-28] MEDS ORDERED: IPRATROPIUM/ALBUTEROL 3 ML NEB INH STA ×3 (10:42→13:27)
[2022-04-28] MEDS ORDERED: diltiaZEM INJ 5 MG/ML VIAL IVP STA ×4 (10:42→17:37)
--- NOTE | 2022-04-28 10:43 | XRAY Report ---
PROCEDURE: Chest 1 View X-Ray INDICATIONS: Chest pain TECHNIQUE: One view of the chest was acquired. COMPARISON: Single view the chest dated 09/06/2016. FINDINGS: Surgical changes and devices: None. Lungs and pleura: There is mild interstitial prominence in a perihilar distribution. No focal airspa ce consolidation. No pleural effusion or pneumothorax. Mediastinum: Mediastinal contours appear normal. Heart size is normal. Bones and chest wall: No suspicious bony lesions. Overlying soft tissues appear unremarkable. IMPRESSION: Mild bilateral perihilar interstitial prominence which may be associated with mild edema. Reviewed by: Genesis Alves MD on 04/28/2022 10:41 AM [facility] Approved by: Genesis Alves MD on 04/28/2022 10:41 AM [facility] Station ID: [id number]
[2022-04-28 10:48] LABS: ALBUMIN 3.5 g/dL (3.2-5.5); ALBUMIN/GLOBULIN RATIO 0.9 (1.0-2.2); CALCIUM 8.9 mg/dL (8.5-10.3); CREATININE 0.6 mg/dL (0.6-1.2); TOTAL PROTEIN 7.2 g/dL (6.7-8.2)
[2022-04-28 10:51] LABS: POTASSIUM 6.2 mmol/L (3.5-5.0)
[2022-04-28 10:53] LABS: WBC MORPHOLOGY (MULTIPLE) 2 (NORMAL)
[2022-04-28] MEDS ORDERED: SODIUM CHLORIDE 0.9% 500 ML IV STA (10:56)
[2022-04-28] MEDS ORDERED: ALBUTEROL NEB 2.5 MG/3 ML INH STA (11:59)
[2022-04-28] MEDS ORDERED: diltiaZEM INJ 125 MG in DEXTROSE 5% 100 ML IV SCH (12:00)
[2022-04-28 12:10] LABS: B. PARAPERTUSSIS- RESP PCR PAN NOT DETECTED; B. PERTUSSIS- RESP PCR PANEL NOT DETECTED; C. PNEUMONIAE- RESP PCR PANEL NOT DETECTED; CORONAVIRUS 229E-RESP PCR NOT DETECTED; CORONAVIRUS HKU1-RESP PCR NOT DETECTED; CORONAVIRUS NL63-RESP PCR NOT DETECTED; CORONAVIRUS OC43-RESP PCR DETECTED; HUMAN METAPNEUMOVIRUS NOT DETECTED; INFLUENZA A- RESP PCR PANEL NOT DETECTED; INFLUENZA B - RESP PCR PANEL NOT DETECTED; M. PNEUMONIAE- RESP PCR PANEL NOT DETECTED; PARAINFLUENZA VIRUS 1 NOT DETECTED; PARAINFLUENZA VIRUS 2 NOT DETECTED; PARAINFLUENZA VIRUS 3 NOT DETECTED; PARAINFLUENZA VIRUS 4 NOT DETECTED; RHINOVIRUS/ENTEROVIRUS NOT DETECTED; RSV- RESP PCR PANEL NOT DETECTED; SARS-CoV-2 -RESP PCR PANEL NOT DETECTED
[2022-04-28 12:41] LABS: ABG HCO3 32.2 mmol/L (22.0-26.0); ABG PH 7.31 (7.35-7.45); ABG PO2 114 mmHg (80-100); ABG TCO2 34.2 MMOL/L (21.0-29.0)
[2022-04-28 12:42] LABS: ABG BASE EXCESS 3.5 mmol/L (-2.0-3.0); ABG OXYGEN SATURATION 98 % (94-98)
[2022-04-28 12:43] LABS: ABG PCO2 65 mmHg (34-45)
[2022-04-28] MEDS ORDERED: FUROSEMIDE 20 MG/2 ML VIAL IVP STA (13:27)
[2022-04-28] MEDS ORDERED: DEXAMETHASONE 10 MG/ML VIAL IVP STA (13:28)
[2022-04-28] MEDS ORDERED: DEXTROSE 10% 250 ML IV STA (14:04)
[2022-04-28] MEDS ORDERED: INSULIN REGULAR HUMAN 100 UNIT/1 ML 10 ML MDV IVP STA (14:05)
[2022-04-28] MEDS ORDERED: iohexoL-300 100 ML VIAL ONE (14:30)
[2022-04-28 14:51] LABS: CALCIUM 8.3 mg/dL (8.5-10.3); CREATININE 0.6 mg/dL (0.6-1.2); POTASSIUM 5.7 mmol/L (3.5-5.0)
[2022-04-28] MEDS ORDERED: cefTRIAXone 1 GM VIAL IVP STA (15:54)
[2022-04-28] MEDS ORDERED: AZITHROMYCIN INJ 500 MG in SODIUM CHLORIDE 0.9% 250 ML IV STA (15:54)
--- NOTE | 2022-04-28 15:59 | CT Report ---
PROCEDURE: ANGIO CHEST W/WO INDICATIONS: dyspnea, new atrial fib. CONTRAST: 80mL Omni 300 TECHNIQUE: After the administration of intravenous contrast, 2 mm axial images were acquired from the pulmonary apices to the posterior costophrenic angles during the arterial phase. In addition, 1 mm lung kernel and 5 mm soft tissue kernel reconstructions were performed. 3-dimensional coronal oblique maximum int ensity projection (MIP) reformats, 8 mm axial MIP, and 5 mm coronal and sagittal MPR reformats were t hen performed through the thorax. For radiation dose reduction, the following was used: automated exp osure control, adjustment of mA and/or kV according to patient size. COMPARISON: Chest x-ray 04/28/2022 CT chest Angio-Seal 04/08/2016 FINDINGS: Image quality: There is limited visualization of the abdomen secondary to artifact from spinal fixat ion hardware Pulmonary arteries: Pulmonary arteries are normal in size, and demonstrate no intraluminal filling d efects to suggest central pulmonary embolism. Lungs and pleura: Right posterior pleural-based nodule versus scarring is present measuring approxima tely 4 mm compared to 2 mm on prior exam, as seen on series 6 image 58. Patchy opacity is present in the right lower lobe. In addition, nodular clusters are scattered throughout the lungs bilaterally. N o pleural effusions or pneumothorax. Central and peripheral airways are patent. Mediastinum: Heart size is normal, without pericardial effusion. No mediastinal or hilar adenopathy . Thoracic aorta is normal in caliber and enhancement. Esophagus is normal in caliber, with mild to moderate hiatal hernia. Bones and chest wall: No suspicious bony lesions. Ribs and thoracic spine appear intact throughout. No axillary or supraclavicular adenopathy. The thyroid is normal in size and there are no incident al findings. Abdomen: Simple left renal cyst is present. Visualized upper abdominal solid organs appear normal in the early arterial phase of enhancement. IMPRESSION: No pulmonary embolism. Small patchy area of opacity is present within the right base as well as scattered pulmonary nodules suggestive of infection/inflammation. Please consider atypical etiologies such as fungal or mycobacte rial and recommend interval follow-up after appropriate therapy to document resolution. CLINICAL RECOMMENDATION STATEMENTS: In patients <35 years with an ITN detected on CT, MRI, or extrathyroidal ultrasound, the Committee re commends further evaluation with dedicated thyroid ultrasound if the nodule is "e1 cm and has no susp icious imaging features, and if the patient has normal life expectancy. In patients "e35 years with an ITN detected on CT, MRI, or extrathyroidal ultrasound, the Committee r ecommends further evaluation with dedicated thyroid ultrasound if the nodule is "e1.5 cm and has no s uspicious imaging features, and if the patient has normal life expectancy. (ACR, 2014) Reviewed by: Pina Kern MD on 04/28/2022 3:57 PM PST Approved by: Pina Kern MD on 04/28/2022 3:57 PM PST Station ID: [id number]
[2022-04-28] MEDS ORDERED: ONDANSETRON 4 MG/2 ML VIAL IVP PRN (16:01)
[2022-04-28] MEDS ORDERED: LORazepam 2 MG/ML VIAL IVP PRN (16:15)
[2022-04-28 16:22] LABS: MUDS CUTOFF CONCENTRATIONS CUTOFF CONC BELOW:
[2022-04-28 16:30] LABS: BILIRUBIN,URINE NEGATIVE (NEGATIVE); GLUCOSE, URINE (UA) NEGATIVE (NEGATIVE); KETONES,URINE (UA) TRACE mg/dL (NEGATIVE); LEUKOCYTE ESTERASE, URINE NEGATIVE (NEGATIVE); NITRITE,URINE NEGATIVE (NEGATIVE); OCCULT BLOOD,URINE NEGATIVE (NEGATIVE); PH,URINE 5.5 PH (5.0-7.5); PROTEIN,URINE NEGATIVE (NEGATIVE); UROBILINOGEN,URINE 0.2 (NORMAL) E.U./dL (NORMAL)
[2022-04-28 16:34] LABS: CLARITY,URINE CLEAR (CLEAR)
[2022-04-28 16:42] LABS: AMPHETAMINE SCREEN,URINE NEGATIVE (NEGATIVE); BARBITURATE SCREEN,UR NEGATIVE (NEGATIVE); BENZODIAZEPINES SCREEN, URINE NEGATIVE (NEGATIVE); COCAINE SCREEN URINE NEGATIVE (NEGATIVE); METHADONE SCREEN, URINE NEGATIVE (NEGATIVE); METHAMPHETAMINES SCREEN, URINE NEGATIVE (NEGATIVE); OPIATE SCREEN, URINE POSITIVE (NEGATIVE); OXYCODONE SCREEN, URINE NEGATIVE (NEGATIVE); PROPOXYPHENE SCREEN, URINE NEGATIVE (NEGATIVE); THC CANNABINOID SCREEN, URINE NEGATIVE (NEGATIVE); TRICYCLIC ANTIDEPRESSANT,URINE NEGATIVE (NEGATIVE)
[2022-04-28 16:45] LABS: ALBUMIN/GLOBULIN RATIO 0.9 (1.0-2.2); BILIRUBIN,TOTAL 0.9 mg/dL (0.2-1.0); CALCIUM 8.4 mg/dL (8.5-10.3); CREATININE 0.6 mg/dL (0.6-1.2); TOTAL PROTEIN 6.2 g/dL (6.7-8.2)
[2022-04-28 16:46] LABS: BACTERIA,URINE None Seen /HPF (None Seen); RBC,URINE 0-5 /HPF (0-5); SQUAMOUS EPITHELIAL CELL,UR NONE SEEN (<= Few); WBC,URINE 0-3 /HPF (0-3)
[2022-04-28 16:48] LABS: PT - PROTHROMBIN TIME 11.3 secs (9.9-12.6)
[2022-04-28 16:49] LABS: POTASSIUM 6.1 mmol/L (3.5-5.0)
[2022-04-28] MEDS ORDERED: SODIUM CHLORIDE 0.9% 1,000 ML IV SCH (17:00)
[2022-04-28] MEDS ORDERED: iohexoL-300 100 ML VIAL IVP ONE (17:29)
[2022-04-28] MEDS: SODIUM CHLORIDE FLUSH 0.9% 10 ML SYRINGE IVP SCH ×2 (17:36→23:53)
[2022-04-28] MEDS: MORPHINE 2 MG/ML CARPUJECT IVP PRN ×2 (17:44→23:53)
[2022-04-28] MEDS: ACETAMINOPHEN 325 MG TABLET PO PRN (19:57)
--- NOTE | 2022-04-28 20:03 | HISTORY & PHYSICAL EXAMINATION ---
Chief Complaint - Chief Complaint Chief Complaint: Short of breath, cough History of Present Illness - Admitted From Admitted From:: ED - History Obtained From History obtained from: ED provider and the patient - History of Present Illness HPI Comment/Other: This is a 71-year-old male who lives with his son. He is retired from [employer] and [employer]. He drinks 6 beers a day. 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 He has a history of an aneurysm and points to his abdomen. He is a smoker, has a Hx of COPD, is not on home oxygen. The patient presented with 4-5 days of worsening shortness of breath and a cough. He was eating less and less and becoming more weak during this time. In the ED he was found to be in severe respiratory distress, tachypneic, and in new onset of A. fib with RVR. He received Cardizem IV pushes x2 then started on a Cardizem drip. He received Duo nebs and given supplemental oxygen for severe resp distress with desaturation of 91% on room air. His ABG showed pH , pCO2 , pO2 . A lung work-up showed that he has no PE by CTA chest but does have an infiltrate. The ED provider spoke to me about management on the Hospitalist service, and patient is being admitted to the ICU, to continue his IV diltiazem drip and treat his COPD exacerbation and CAP. I discussed the patient's wishes regarding his CODE STATUS and he wants to be a Full Code. History - Past Medical History Cardiovascular: reports: Hypertension, Other Respiratory: reports: COPD, Emphysema Endocrine/Autoimmune: reports: None GI: reports: GERD : reports: None HEENT: reports: None Psych: reports: None Musculoskeletal: reports: Chronic back pain Derm: reports: None MRSA Hx?: No - Past Surgical History Ortho: reports: Shoulder arthroplasty, Spine surgery HEENT: reports: Tonsil/Adenoidectomy - Family & Social History Family History Comment/Other: He does not know about family Hx he said Living arrangement: At home Living Situation: With family Social History Notes: He smokes 1-2 PPD. He drinks 6 beers a day. He denies illicit drug use. - POLST Patient has POLST: No Meds/Allgy - Home Medications Home Medications: Ambulatory Orders Medication Instructions Recorded Confirmed Albuterol Sulfate [Proair Hfa 1 puffs PO Q4HR PRN 11/03/17 11/03/17 Inhaler] Amlodipine Besylate [Norvasc] 10 mg PO DAILY 04/28/22 Hydrocodone/Acetaminophen 1 - 2 tab PO Q12H PRN 04/28/22 [Hydrocodone-Acetamin 10-325 mg] Lisinopril [Zestril] 30 mg PO DAILY 04/28/22 - Allergies Allergies/Adverse Reactions: Allergies Allergy/AdvReac Type Severity Reaction Status Date / Time No Known Drug Allergies Allergy Verified 04/28/22 10:16 Review of Systems - Constitutional Constitutional: reports: Weakness - Respiratory Respiratory: reports: Cough, Sputum production, Wheezing, SOB at rest, SOB with exertion - All Other Systems All Other Systems: reports: Reviewed and negative Exam - Vital Signs Reviewed Vital Signs: Yes Vital Signs: Vital Signs x48h Temp Pulse Pulse Resp BP BP BP 04/28/22 19:00 85 31 H 89/77 L 04/28/22 18:00 115 H 33 H 104/66 04/28/22 17:52 106/59 L 04/28/22 17:38 120 H 28 H 114/74 04/28/22 17:33 04/28/22 17:31 124 H 26 H 107/93 H 04/28/22 17:28 129 H 33 H 118/90 H 04/28/22 17:00 36.8 C 134 H 30 H 116/87 H 04/28/22 16:49 125 H 24 04/28/22 16:15 132 H 24 126/92 H 04/28/22 15:53 131 H 24 144/126 H 04/28/22 14:52 143 H 24 103/79 04/28/22 14:16 156 H 24 121/87 H 04/28/22 13:35 122 H 26 H 119/93 H 04/28/22 13:27 122 H 31 H 04/28/22 13:20 133 H 26 H 126/78 04/28/22 12:39 137 H 24 122/90 H 04/28/22 12:10 131 H 24 04/28/22 12:08 131 H 24 134/118 H Pulse Ox O2 Flow Rate 04/28/22 19:00 95 1 04/28/22 18:00 92 2 04/28/22 17:52 04/28/22 17:38 94 2 04/28/22 17:33 1 04/28/22 17:31 93 2 04/28/22 17:28 93 2 04/28/22 17:00 93 2 04/28/22 16:49 99 04/28/22 16:15 100 2 04/28/22 15:53 100 2 04/28/22 14:52 96 2 04/28/22 14:16 100 2 04/28/22 13:35 100 2 04/28/22 13:27 04/28/22 13:20 98 4 04/28/22 12:39 100 4 04/28/22 12:10 04/28/22 12:08 100 4 - Physical Exam General Appearance: positive: Mild distress (from SOB, has on O2 per n.c. is taking breaths during a sentence), Other (Disheveled, long unkempt hair, long peoples) Eyes Bilateral: positive: Normal inspection, No lid inflammation ENT: positive: Other (Is edentulous upper except 1 black tooth. lower teeth has front teeth missing, others are yellow) Neck: positive: Other (Cannot eval JVP due to long hair and long peoples) Respiratory: positive: Wheezes, Rhonchi Cardiovascular: positive: Other (Cannot hear heart sounds over the loud rhonchi) Abdomen: positive: Non-tender, No distention Skin: positive: Warm, Diaphoresis Extremities: positive: Non-tender, No pedal edema Neurologic/Psychiatric: positive: Oriented x3, Motor nml (No tremor) Conclusion/Plan - Problem List (1) Atrial fibrillation with rapid ventricular response Conclusion/Plan: The patient cannot feel any palpitations. He denies having had recent chest pain. His troponins are negative x2. Plan: Continue with IV diltiazem drip in the ICU, for rate control. Monitor on telemetry Will evaluate for hyperthyroidism, check a TSH Most likely the etiology is his poor pulmonary status, which will be treated. Will obtain an Echo. Without knowing his ejection fraction, currently has [id number] score is 1, therefore will not begin anticoagulants, but start him on an aspirin daily for stroke prophylaxis. (2) New onset a-fib Conclusion/Plan: As in #1. Plan: He does not know what diagnosis he sees his turbine engine assembler for. Will try to obtain records either from his PCP or if he remembers the name, from his Logistics Intern (3) COPD exacerbation Conclusion/Plan: Patient does have positive coronavirus, but it is not SARS COVID-19 He likely has underlying COPD from his smoking history Plan: Give DuoNebs 4 times daily scheduled and every 4 hours as needed Will give Mucinex for pulmonary toilet Will give inhaled steroids via nebulizer We will also treat the pulmonary infection Suppl O2 to keep sats 89-93% in a COPDer (4) CAP (community acquired pneumonia) Conclusion/Plan: He is tachycardic, and has an elevated WBC of 20. No fever. No lactic acid was ordered at admission. He has rhonchi and a wet cough and tachypnea, even at rest. Plan: Obtain sputum for culture We will also obtain blood cultures Continue with empiric ceftriaxone and Zithromax Mucinex for expectoration (5) Alcohol abuse Conclusion/Plan: When asked if he drinks alcohol he admitted he is a beer drinker. When asked how much he drinks, he said "let's say 6 a day". He says his last beer was 4-5 days ago, when he started to feel bad. Plan: Will order a CIWA protocol, and IV Ativan as needed for withdrawal symptoms Will order banana bag in NS starting in the a.m. Will eventually loomis to oral daily thiamine Will request a consult for dealing with alcohol abuse (6) Hyponatremia Conclusion/Plan: Patient did report poor oral intake for the last 3 days which may be adding to hypovolemic hyponatremia. He also admits to 6 beers a day, therefore could have beer potomania as the cause of this low sodium Plan: Continue with IV normal saline. Will follow his serum sodium every 6 hours. Plan is for correction of not more than 6 to 8 mEq in 24 hours (7) Hyperkalemia Conclusion/Plan: Unclear etiology since he has normal BUN/creatinine. Hemolysis was suspected and another potassium was run, came back at 5.7 Plan: Avoid potassium-retaining meds Follow BMP daily (8) Tobacco use Conclusion/Plan: Plan: Nicotine patch will be ordered (9) Poor dentition Conclusion/Plan: Patient has only 1 upper tooth tjat is black and many missing lower teeth, some are black. He says he pulled all those missing teeth on his own because they were very loose and painful. He denies drug abuse. Plan: Will order urine tox screen (MUDS) and check a serum alcohol level Will order oral care Will order a soft diet (10) Abnormal EKG Conclusion/Plan: His EKG is changed from the last one here, done in 2017. The new RBB and extreme right axis deviation suggest Cor Pulmonale. Plan: Will obtain Echo - Lab Results Fish Bones: 04/28/22 10:24 04/28/22 16:14 - Diagnostic Imaging Results Diagnostic Imaging Results: positive: Final report reviewed - EKG Results EKG Interpreted Independently: Yes EKG Comparison: Changed from prior EKG EKG Findings: A. fib with RVR, rate 120-140, right bundle branch block, extreme right axis deviation. Since EKG from 2017, all findings are new, he was in NSR with a narrow QRS complex then. - Other Other Results/Comments: Attestation: The patient is expected to be discharged or transferred to another facility within 96 hours: Yes.
[2022-04-28] MEDS: SODIUM CHLORIDE FLUSH 0.9% 10 ML SYRINGE IVP PRN (20:07)
[2022-04-28] MEDS: diltiaZEM INJ 125 MG in DEXTROSE 5% 100 ML IV SCH (20:28)
[2022-04-28] MEDS ORDERED: ASPIRIN CHEW 81 MG TABLET PO ONE (20:45)
[2022-04-28] MEDS ORDERED: IPRATROPIUM/ALBUTEROL 3 ML NEB INH PRN (20:45)
[2022-04-28] MEDS: NICOTINE 14 MG PATCH TOP SCH (21:12)
[2022-04-28] MEDS: guaiFENesin 600 MG TABLET PO SCH (21:13)
[2022-04-28] MEDS: FAMOTIDINE 20 MG TABLET PO SCH (21:13)
[2022-04-28] MEDS: BUDESONIDE 0.5 MG/2 ML NEB INH SCH (21:27)
[2022-04-28] MEDS: IPRATROPIUM/ALBUTEROL 3 ML NEB INH SCH (21:27)
[2022-04-28] MEDS: ZINC OXIDE 20% OINT 30 GM TUBE TOP PRN (23:00)
[2022-04-29] MEDS ORDERED: INSULIN REGULAR HUMAN 300 UNIT/3 ML VIAL IVP ONE ×2 (00:27→09:26)
[2022-04-29] MEDS ORDERED: DEXTROSE 50% ABBOJECT 25 GM/50 ML SYRINGE IVP ONE ×2 (00:27→09:26)
--- NOTE | 2022-04-29 00:29 | PROVIDER PROGRESS NOTE ---
Hospitalist Cross-cover Note - Cross-Cover Note Cross-Cover Note: Hospitalist Cross Cover K 6.5, prior 6.1 - ordered yelitza iglesias/D50 F/u labs. D/w RN.
[2022-04-29] MEDS: SODIUM CHLORIDE FLUSH 0.9% 10 ML SYRINGE IVP PRN ×4 (00:41→21:14)
[2022-04-29] MEDS ORDERED: SODIUM ZIRCONIUM CYCLOSILICATE 5 GM PACKET PO ONE (01:00)
[2022-04-29] MEDS ORDERED: METOPROLOL 5 MG/5 ML VIAL IVP STA ×2 (01:49→09:24)
[2022-04-29] MEDS ORDERED: BENZONATATE 100 MG CAPSULE PO ONE (02:00)
[2022-04-29] MEDS: diltiaZEM INJ 125 MG in DEXTROSE 5% 100 ML IV SCH ×3 (05:36→20:53)
[2022-04-29 06:05] LABS: BASOPHILS % (AUTO) 0.2 %; EOSINOPHILS # (AUTO) 0.2 10^3/uL (0.0-0.7); EOSINOPHILS % (AUTO) 1.1 %; HCT - HEMATOCRIT 46.3 % (42.0-52.0); HGB - HEMOGLOBIN 15.6 g/dL (14.0-18.0); LYMPHOCYTES # (AUTO) 0.8 10^3/uL (1.5-3.5); LYMPHOCYTES % (AUTO) 4.6 %; MEAN CORPUSCULAR HEMOGLOBIN 35.2 pg (27.0-31.0); MEAN CORPUSCULAR HGB CONC 33.7 g/dL (32.0-36.0); MEAN CORPUSCULAR VOLUME 104.5 fL (80.0-94.0); MEAN PLATELET VOLUME 9.6 fL (7.4-11.4); MONOCYTES # (AUTO) 1.2 10^3/uL (0.0-1.0); MONOCYTES % (AUTO) 6.5 %; NEUTROPHILS # (AUTO) 15.4 10^3/uL (1.5-6.6); NEUTROPHILS % (AUTO) 86.4 %; PLT - PLATELET COUNT 179 10^3/uL (130-450); RED BLOOD COUNT 4.43 10^6/uL (4.70-6.10); RED CELL DISTRIBUTION WIDTH 12.4 % (12.0-15.0); WHITE BLOOD COUNT 17.8 x10^3/uL (4.8-10.8)
[2022-04-29 06:06] LABS: CALCIUM, IONIZED 1.03 mmol/L (1.15-1.33); VBG PH 7.315 (7.31-7.41)
[2022-04-29 06:20] LABS: CALCIUM 8.3 mg/dL (8.5-10.3); CREATININE 0.6 mg/dL (0.6-1.2); MAGNESIUM 1.7 mg/dL (1.7-2.8); PHOSPHORUS 3.4 mg/dL (2.5-4.6)
[2022-04-29] MEDS: MAGNESIUM OXIDE 400 MG TABLET PO SCH ×2 (07:06→15:13)
[2022-04-29] MEDS: CALCIUM CARBONATE CHEW 500 MG TABLET PO SCH ×2 (07:06→12:04)
[2022-04-29] MEDS: BUDESONIDE 0.5 MG/2 ML NEB INH SCH ×2 (07:25→19:07)
[2022-04-29] MEDS: IPRATROPIUM/ALBUTEROL 3 ML NEB INH SCH ×4 (07:25→19:07)
[2022-04-29] MEDS: SODIUM CHLORIDE 0.9% 1,000 ML IV SCH ×3 (08:19→22:00)
[2022-04-29] MEDS: ASPIRIN EC 81 MG TABLET PO SCH (08:26)
[2022-04-29] MEDS: cefTRIAXone 1 GM in SODIUM CHLORIDE 0.9% MINIBAG 100 ML IV SCH (08:26)
[2022-04-29] MEDS: ENOXAPARIN 40 MG/0.4 ML SYRINGE SUBQ SCH (08:26)
[2022-04-29] MEDS: FAMOTIDINE 20 MG TABLET PO SCH ×2 (08:27→20:27)
[2022-04-29] MEDS: SODIUM CHLORIDE FLUSH 0.9% 10 ML SYRINGE IVP SCH ×2 (08:27→16:24)
[2022-04-29] MEDS: NICOTINE 14 MG PATCH TOP SCH (08:27)
[2022-04-29] MEDS: guaiFENesin 600 MG TABLET PO SCH ×2 (08:27→20:29)
[2022-04-29] MEDS: MORPHINE 2 MG/ML CARPUJECT IVP PRN ×4 (08:28→20:30)
[2022-04-29] MEDS ORDERED: THIAMINE 100 MG TABLET PO SCH (09:00)
[2022-04-29] MEDS ORDERED: MULTIVITAMIN 10 ML, THIAMINE INJ 100 MG, MAGNESIUM SULFATE 2 GM, FOLIC ACID INJ 1 MG in... IV SCH ×5 (09:00)
[2022-04-29] MEDS ORDERED: SODIUM CHLORIDE 0.9% 500 ML IV ONE (09:25)
[2022-04-29] MEDS ORDERED: FUROSEMIDE 20 MG/2 ML VIAL IVP STA (09:25)
[2022-04-29] MEDS: METOPROLOL TARTRATE 25 MG TABLET PO SCH ×3 (10:14→21:13)
--- NOTE | 2022-04-29 12:04 | PHARMACY PROGRESS NOTE ---
- Best Possible Medication History Admit Date and Time: 04/28/22 1601 Processed by: Pharmacy Medication History completed: Yes Patient Interview: Completed Secondary Source(s): Prescription bottles, Pharmacy records (pt is still taking amlodipine 5mg (filled 09/18) even though recent refill is 10mg) As the person ultimately responsible for medication therapy, providers are able to order a medication from an existing home medication list in [facility] via the "Reconcile Routine" prior to Confirmation of that medication by academic support director. Such practice is discouraged except when the physician, in their clinical judgment, deems that a medical need exists for a medication without regard to previous use.
[2022-04-29 12:21] LABS: CREATININE 0.6 mg/dL (0.6-1.2); POTASSIUM 5.5 mmol/L (3.5-5.0)
[2022-04-29] MEDS: ZINC OXIDE 20% OINT 30 GM TUBE TOP PRN (15:14)
[2022-04-29] MEDS: AZITHROMYCIN INJ 500 MG in SODIUM CHLORIDE 0.9% 250 ML IV SCH (16:24)
[2022-04-29] MEDS: ACETAMINOPHEN 325 MG TABLET PO PRN ×2 (16:24→20:27)
[2022-04-29 16:56] LABS: CALCIUM, IONIZED 1.06 mmol/L (1.15-1.33); VBG PH 7.324 (7.31-7.41)
[2022-04-29 17:03] LABS: MAGNESIUM 2.4 mg/dL (1.7-2.8); POTASSIUM 5.4 mmol/L (3.5-5.0)
[2022-04-29] MEDS ORDERED: CALCIUM GLUC 1,000MG/50ML-NACL 1,000 MG/50 ML BAG IV ONE (17:39)
--- NOTE | 2022-04-29 20:30 | PROVIDER PROGRESS NOTE ---
Progress Note April 29, 2022 8:25 PM I have been trying to control his heart rate today. Gave him Lopressor 5 mg IV push, and resumed Lopressor 25 mg p.o. twice daily. Heart rate is now down to 90 5 in the evening. Unfortunately has been hypotensive off and on. He was 113 systolic this morning and then dropped to 85 systolic. Stayed in the 90s until the afternoon. Blood pressure came back up to 110 and as high as 124. I gave him a dose of Lasix For low urine output, and he had urine output of 1651 at the time of this dictation. Oxygen has stayed between 1 to 2 L nasal cannula to maintain O2 sats at 92 to 95%. He has been borderline tachypneic all day long at 25 breaths/min and up to 33 breaths/min. Exam: Temperature is 36.9, heart rate 95, blood pressure 97/83. Respirations 33. 95% saturated on 1 L. He is an exhausted elderly gentleman who looks much older than stated age. Some of his teeth are missing. Interesting we have of his peoples. His long peoples has been braided. So he is well-groomed. Voice is low and hoarse. But no throat erythema Shotty neck nodes, but no JVD and a supple Coarse upper airway sounds, occasional rhonchi, and diminished at the bases with fast shallow respiration Irregular rate and rhythm that was very fast this morning and now in the 90s Abdomen soft, nontender, hypoactive bowel sounds Extremities without edema Was 116 last night. 119 this morning, 119 at noon, and 123 tonight. Potassium 5.4 after I gave him an amp of D50 and insulin BUN 16, creatinine 0.6, magnesium 2.4 White cell count coming down to 17.8 from 20.6 Hemoglobin 15.6, hematocrit 46.3, MCV 104.5, platelets 179 Assessment/Plan (1) Atrial fibrillation with rapid ventricular response Conclusion/Plan: The patient cannot feel any palpitations. He denies having had recent chest pain. His troponins are negative x2.But I feel like he has been slowly sliding into congestive heart failure just because of the fast heart rate. As such I gave him Lasix today. He has had good response. I have also given him Lopressor IV and po and that is also worked. But it is resulted in low blood pressure. His TSH is suppressed at 0.19. He does not take thyroid medication at home. Echocardiogram was done today and his ejection fraction is 55 to 60% with indeterminate left ventricular filling pattern due to atrial fibrillation. The left ventricular septal wall is flattened in diastole and systole consistent with right ventricular volume and pressure overload. Systolic function is severely impaired. Left atrial volume index is normal. He has moderate to severe right atrial enlargement. Mild to moderate tricuspid regurgitation. RVSP at rest is [address] angiogram was already done of the chest. He does not have pulmonary emboli. He has right posterior pleural-based nodules that are slightly larger than last exam. He has a small patchy area of opacity in the right lung base Plan: Continue with IV diltiazem drip in the ICU For rate control but slowly start to taper it as I increase his Lopressor Monitor on telemetry Check free T4, free T3, and thyroid ultrasound. We do not have nuclear medicine so I cannot do thyroid uptake. I am hoping the metoprolol will be enough without me having to resort toward use of methimazole, etc. Most likely the etiology is his poor pulmonary status, which will be treated. Increase lopressor from 25 mg po bid today to 50 mg po bid tomorrow Currently has [id number] score is 1, therefore will not begin anticoagulants, but start him on an aspirin daily for stroke prophylaxis. Daughter and son updated at the bedside this morning. (2) New onset a-fib Conclusion/Plan: As in #1. Plan: He does not know what diagnosis he sees his aquatic life laborer for. We are still trying to obtain records from either from his PCP or if he remembers the name, from his Machine Maintenance Technician (3) COPD exacerbation Conclusion/Plan: Patient does have positive coronavirus, but it is not SARS COVID-19 He likely has underlying COPD from his smoking history Plan: Continue +DuoNebs 4 times daily scheduled and every 4 hours as needed +Mucinex for pulmonary toilet + inhaled steroids via nebulizer +treat the pulmonary infection +Suppl O2 to keep sats 89-93% in a COPDer +add solumedrol 40 mg IVP for 3 doses (4) CAP (community acquired pneumonia) Conclusion/Plan: He is tachycardic, and has an elevated WBC of 20. No fever. No lactic acid was ordered at admission. He has rhonchi and a wet cough and tachypnea, even at rest. Sputum gram stain shows many gram-positive cocci, gram-negative bacilli, moderate gram-positive bacilli, many white cells. Culture is pending.Blood culture received and being processed. Plan: Review cultures when ready Continue with empiric ceftriaxone and Zithromax Mucinex for expectoration (5) Alcohol abuse Conclusion/Plan: When asked if he drinks alcohol he admitted he is a beer drinker. When asked how much he drinks, he said "let's say 6 a day". He says his last beer was 4-5 days ago, when he started to feel bad. Plan: On CIWA protocol, and IV Ativan as needed for withdrawal symptoms On banana bag in starting in the a.m. but I will change to po for tomorrow after todays' bag is done (6) Hyponatremia Conclusion/Plan: Patient did report poor oral intake for the last 3 days which may be adding to hypovolemic hyponatremia. He also admits to 6 beers a day, therefore could have beer potomania as the cause of this low sodium With normal saline, sodium has responded 04/28 at 10:30 am 117>> 118>> 119>> 123 this afternoon Plan: Continue with IV normal saline. Will follow his serum sodium every 6 hours. Plan is for correction of not more than 6 to 8 mEq in 24 hours (7) Hyperkalemia Conclusion/Plan: Unclear etiology since he has normal BUN/creatinine. Hemolysis was suspected and another potassium was run, came back at 5.7. This morning it continues to be elevated so I gave him an amp of D50 and insulin IV push. Potassium is come back down. Plan: Avoid potassium-retaining meds Follow BMP daily (8) Tobacco use Conclusion/Plan: Plan: Nicotine patch Use ongoing (9) Poor dentition Conclusion/Plan: Patient has only 1 upper tooth tjat is black and many missing lower teeth, some are black. He says he pulled all those missing teeth on his own because they were very loose and painful. He denies drug abuse. Tox screen is negative. Serum alcohol level undetectable. Plan: Oral care and a soft diet (10) Abnormal EKG Conclusion/Plan: His EKG is changed from the last one here, done in 2017. The new RBB and extreme right axis deviation suggest Cor Pulmonale.Echocardiogram today confirms cor pulmonale. He is not having a pulmonary embolus. He may have pulmonary hypertension from his COPD. RV dysfunction is severe. As such my focus will be diuresis. And controlling his COPD
[2022-04-29] MEDS: methylPREDNISolone SUCCINATE 40 MG/ML VIAL IVP SCH (21:14)
[2022-04-29 23:13] LABS: CALCIUM, IONIZED 1.11 mmol/L (1.15-1.33); VBG PH 7.277 (7.31-7.41)
[2022-04-30] MEDS: MORPHINE 2 MG/ML CARPUJECT IVP PRN ×6 (00:34→23:06)
[2022-04-30] MEDS: ACETAMINOPHEN 325 MG TABLET PO PRN ×4 (00:34→16:25)
[2022-04-30] MEDS: SODIUM CHLORIDE FLUSH 0.9% 10 ML SYRINGE IVP SCH ×3 (00:34→16:42)
[2022-04-30 04:47] LABS: CALCIUM, IONIZED 1.13 mmol/L (1.15-1.33); VBG PH 7.249 (7.31-7.41)
[2022-04-30 05:02] LABS: MAGNESIUM 2.4 mg/dL (1.7-2.8); PHOSPHORUS 3.2 mg/dL (2.5-4.6)
[2022-04-30] MEDS: methylPREDNISolone SUCCINATE 40 MG/ML VIAL IVP SCH ×3 (06:15→21:05)
[2022-04-30] MEDS: IPRATROPIUM/ALBUTEROL 3 ML NEB INH SCH ×4 (07:00→19:00)
[2022-04-30] MEDS: BUDESONIDE 0.5 MG/2 ML NEB INH SCH ×2 (07:00→19:00)
[2022-04-30 07:54] LABS: BASOPHILS % (AUTO) 0.2 %; HCT - HEMATOCRIT 45.5 % (42.0-52.0); HGB - HEMOGLOBIN 14.6 g/dL (14.0-18.0); LYMPHOCYTES # (AUTO) 0.6 10^3/uL (1.5-3.5); LYMPHOCYTES % (AUTO) 3.9 %; MEAN CORPUSCULAR HEMOGLOBIN 35.4 pg (27.0-31.0); MEAN CORPUSCULAR HGB CONC 32.1 g/dL (32.0-36.0); MEAN CORPUSCULAR VOLUME 110.2 fL (80.0-94.0); MEAN PLATELET VOLUME 10.4 fL (7.4-11.4); MONOCYTES # (AUTO) 0.9 10^3/uL (0.0-1.0); MONOCYTES % (AUTO) 5.7 %; NEUTROPHILS # (AUTO) 14.4 10^3/uL (1.5-6.6); NEUTROPHILS % (AUTO) 88.1 %; NRBC ABSOLUTE COUNT (AUTO) 0.02 x10^3/uL; NUCLEATED RED BLOOD CELLS AUTO 0.1 /100WBC; PLT - PLATELET COUNT 201 10^3/uL (130-450); RED BLOOD COUNT 4.13 10^6/uL (4.70-6.10); RED CELL DISTRIBUTION WIDTH 12.7 % (12.0-15.0); WHITE BLOOD COUNT 16.3 x10^3/uL (4.8-10.8)
[2022-04-30 07:58] LABS: SLIDE REVIEW? Indicated
[2022-04-30 08:17] LABS: CALCIUM 8.4 mg/dL (8.5-10.3); CREATININE 0.8 mg/dL (0.6-1.2)
[2022-04-30 08:19] LABS: POTASSIUM 6.1 mmol/L (3.5-5.0)
[2022-04-30] MEDS: METOPROLOL TARTRATE 25 MG TABLET PO SCH ×2 (08:21→20:00)
[2022-04-30] MEDS: THIAMINE 100 MG TABLET PO SCH (08:22)
[2022-04-30] MEDS: guaiFENesin 600 MG TABLET PO SCH ×2 (08:23→20:00)
[2022-04-30] MEDS: NICOTINE 14 MG PATCH TOP SCH (08:23)
[2022-04-30] MEDS: ASPIRIN EC 81 MG TABLET PO SCH (08:23)
[2022-04-30] MEDS: FAMOTIDINE 20 MG TABLET PO SCH ×2 (08:23→20:00)
[2022-04-30] MEDS: FUROSEMIDE 20 MG/2 ML VIAL IVP SCH (08:23)
[2022-04-30 08:26] LABS: PLATELET ESTIMATE, MANUAL NORMAL (130-450,000) (NORMAL); PLATELET MORPHOLOGY NORMAL APPEARANCE (NORMAL); RBC MORPHOLOGY (MULTIPLE) 2+ MACROCYTOSIS (NORMAL)
[2022-04-30] MEDS: cefTRIAXone 1 GM in SODIUM CHLORIDE 0.9% MINIBAG 100 ML IV SCH (08:33)
[2022-04-30] MEDS: ENOXAPARIN 40 MG/0.4 ML SYRINGE SUBQ SCH (08:34)
[2022-04-30] MEDS: diltiaZEM INJ 125 MG in DEXTROSE 5% 100 ML IV SCH ×2 (08:35→20:05)
[2022-04-30] MEDS: PRENATAL VITAMIN TABLET PO SCH (09:15)
[2022-04-30] MEDS: SODIUM CHLORIDE 0.9% 1,000 ML IV SCH (11:40)
[2022-04-30] MEDS: SODIUM CHLORIDE FLUSH 0.9% 10 ML SYRINGE IVP PRN (12:44)
[2022-04-30] MEDS ORDERED: INSULIN REGULAR HUMAN 300 UNIT/3 ML VIAL IVP ONE (14:02)
[2022-04-30] MEDS ORDERED: DEXTROSE 50% ABBOJECT 25 GM/50 ML SYRINGE IVP ONE (14:02)
--- NOTE | 2022-04-30 15:58 | PROVIDER PROGRESS NOTE ---
Progress Note April 30, 2022 3:57 PM ICU note Subjective I felt that the patient has COPD, and whether the COPD caused him to go into for A. fib or pneumonia caused him into A. fib a prolonged episode of atrial fibrillation was causing him to have acute heart failure. I been working on slowing down his heart rate between yesterday and today. He is now on 50 mg p.o. twice daily of metoprolol. This morning his heart rate was in the 80s and 90s. Blood pressure was a little low. Patient was not aware of having palpitations so he really could not tell me if they were gone or not. He thinks that his shortness of breath is better but he was not sure. By this afternoon he is stable with regards to his heart rate but he is refusing to get up out of the chair. He says he is just too tired to want a work with physical therapy. He also tells me that he has pain in his back. Wants to know if he can get different pain medicine besides oxycodone for his back pain since it severe. He says that the pain is off and on and even has it at home. Nursing reports that he has Emili rash in his groin. It is asking for nystatin. His main complaint is just feeling hot. He wants a fan. He wants all of his clothes and sheets taken off. Daughter is exasperated because he keeps on "showing off his junk". But he says he does not care who sees because he is just too hot. He wants a fan. Active Medications Acetaminophen (Acetaminophen 325 Mg Tablet) 650 mg PO Q4HR PRN PRN Reason: Pain 1 to 4, or Fever Last Admin: 04/30/22 12:41 Dose: 650 mg Albuterol/Ipratropium (Ipratropium/Albuterol 3 Ml Neb) 3 ml INH Q4HR PRN PRN Reason: Wheezing Albuterol/Ipratropium (Ipratropium/Albuterol 3 Ml Neb) 3 ml INH RTQID [facility] Last Admin: 04/30/22 15:34 Dose: 3 ml Aspirin (Aspirin Ec 81 Mg Tablet) 81 mg PO DAILY [facility] Last Admin: 04/30/22 08:23 Dose: 81 mg Budesonide (Budesonide 0.5 Mg/2 Ml Neb) 0.5 mg INH RTBID [facility] Last Admin: 04/30/22 07:00 Dose: 0.5 mg Enoxaparin Sodium (Enoxaparin 40 Mg/0.4 Ml Syringe) 40 mg SUBQ DAILY [facility] Last Admin: 04/30/22 08:34 Dose: 40 mg Famotidine (Famotidine 20 Mg Tablet) 20 mg PO BID [facility] Last Admin: 04/30/22 08:23 Dose: 20 mg Furosemide (Furosemide 20 Mg/2 Ml Vial) 20 mg IVP DAILY [facility] Last Admin: 04/30/22 08:23 Dose: 20 mg Guaifenesin (Guaifenesin 600 Mg Tablet) 600 mg PO BID [facility] Last Admin: 04/30/22 08:23 Dose: 600 mg Diltiazem HCl 125 mg/ Dextrose 125 mls @ 5 mls/hr IV .Q25H [facility]; Protocol Last Titration: 04/30/22 15:11 Dose: 15 mg/hr, 15 mls/hr Azithromycin 500 mg/ Sodium (Chloride) 250 mls @ 250 mls/hr IV Q24H [facility] Last Infusion: 04/29/22 17:50 Dose: Infused Ceftriaxone Sodium 1 gm/ (Sodium Chloride) 100 mls @ 200 mls/hr IV DAILY [facility] Last Infusion: 04/30/22 09:03 Dose: Infused Sodium Chloride (Normal Saline 0.9%) 1,000 mls @ 75 mls/hr IV .[id number] [facility] Last Admin: 04/30/22 11:40 Dose: 75 mls/hr Lorazepam (Lorazepam 2 Mg/Ml Vial) 1 mg IVP Q30M PRN; Protocol PRN Reason: CIWA >8 Methylprednisolone (Methylprednisolone Succinate 40 Mg/Ml Vial) 40 mg IVP TID [facility] Last Admin: 04/30/22 14:38 Dose: 40 mg Metoprolol Tartrate (Metoprolol Tartrate 25 Mg Tablet) 50 mg PO BID [facility] Last Admin: 04/30/22 08:21 Dose: 50 mg Morphine Sulfate (Morphine 2 Mg/Ml Carpuject) 2 mg IVP Q4HR PRN PRN Reason: Dyspnea or pain 7-10 Multi-Ingredient Ointment (Zinc Oxide 20% Oint 30 Gm Tube) 1 applic TOP PRN PRN PRN Reason: Skin Care Last Admin: 04/29/22 15:14 Dose: 1 applic Nicotine (Nicotine 14 Mg Patch) 1 patch TOP DAILY [facility] Last Admin: 04/30/22 08:23 Dose: 1 patch Nystatin (Nystatin Cream 15 Gm Tube) 1 applic TOP BID [facility] Ondansetron HCl (Ondansetron 4 Mg/2 Ml Vial) 4 mg IVP Q6HR PRN PRN Reason: Nausea / Vomiting Multivit/Folic Acid/Iron ( Vitamin Tablet) 1 tab PO DAILYWM [facility] Last Admin: 04/30/22 09:15 Dose: 1 tab Sodium Chloride (Sodium Chloride Flush 0.9% 10 Ml Syringe) 10 ml IVP 0100,0900,1700 [facility] Last Admin: 04/30/22 08:25 Dose: 10 ml Sodium Chloride (Sodium Chloride Flush 0.9% 10 Ml Syringe) 10 ml IVP PRN PRN PRN Reason: NEEDED PER PROVIDER ORDERS Last Admin: 04/30/22 12:44 Dose: 10 ml Thiamine HCl (Thiamine 100 Mg Tablet) 100 mg PO DAILY [facility] Last Admin: 04/30/22 08:22 Dose: 100 mg Albuterol Sulfate [Proair Hfa Inhaler] 1 - 2 puffs PO QID PRN 11/03/17 Hydrocodone/Acetaminophen [Hydrocodone-Acetamin 10-325 mg] 1 - 2 tab PO Q12H PRN 04/28/22 Lisinopril [Zestril] 30 mg PO DAILY 04/28/22 Omeprazole 1 cap PO DAILY 04/29/22 amLODIPine [Norvasc] 1 tab PO DAILY 04/29/22 Exam: Alert elderly gentleman who looks much older than stated age, partially edentulous, disheveled. Blood pressure 121/73, and as of 3:30 PM his heart rate is back up to 137. Respirations are got down to 18 and are now back up to 27. He is on 2 L nasal cannula and saturating at 96%. Neck is supple Pain is in the right shoulder, right upper back and worse with movement. Lungs have prolonged end exhalation and now I can hear faint wheezing with rhonchi. He gets easily tachypneic with me trying to sit him up and listen to him or him trying to talk to me. A fast irregular heart rate Abdomen is soft, nontender. He has a [place] catheter in place. The skin of his groin has Emili. Extremities do not have edema. Neurologically he appears to be slightly deaf, very forgetful. Restless but exhausted. But no focal deficits. He uses his arms and hands to reach for food, blankets, anything to make himself comfortable. Speech is low and gruff but audible and lucid. Sodium is 122. He had gotten up to 125 this morning and came back down again. Potassium is 6.1 and I have given him an amp of D50 as well as 10 units of IV push insulin again. BUN 22, creatinine 0.9 BNP 708 White cell count 16.3. Has come down from 20.6 on admission. Hemoglobin 14.6. Has come down from 17.2 on admission. Hematocrit 45.5. Platelets 201 Sputum culture from April 29 has mixed oropharyngeal eulalio present. No beta strep present. There is 2+ gram-negative dick growth also identified. Blood culture from April 28 is without growth after 1 day Assessment/Plan (1) Atrial fibrillation with rapid ventricular response Conclusion/Plan: The patient cannot feel any palpitations. He denies having had recent chest pain. The DD has been worked through to rule out GA, PE or thyroid. His troponins are negative x2. But I feel like he has been slowly sliding into conge stive heart failure just because of the fast heart rate. As such I gave him Lasix yesterday and today. He has had good response. I gave him Lopressor IV and po and that also worked. But it is resulted in low blood pressure. His TSH is suppressed at 0.19. He does not take thyroid medication at home. Echocardiogram was done 04/29 and his ejection fraction is 55 to 60% with indeterminate left ventricular filling pattern due to atrial fibrillation. The left ventricular septal wall is flattened in diastole and systole consistent with right ventricular volume and pressure overload. Systolic function is severely impaired. Left atrial volume index is normal. He has moderate to severe right atrial enlargement. Mild to moderate tricuspid regurgitation. RVSP at rest is [address] angiogram was already done of the chest. He does not have pulmonary emboli. He has right posterior pleural-based nodules that are slightly larger than last exam. He has a small patchy area of opacity in the right lung base Plan: Continue with IV diltiazem drip in the ICU For rate control but slowly start to taper it as I increase his Lopressor. He is on 50 mg po bid now. Still has moments where his heart rate goes up to 130 but right back down to 80s. Continue to monitor on telemetry Check free T4, free T3, and thyroid ultrasound and those are pending. We do not have nuclear medicine so I cannot do thyroid uptake. I am hoping the metoprolol will be enough without me having to resort toward use of methimazole, etc. Most likely the etiology is his poor pulmonary status, which will be treated. He can't have a fan due to his respiratory isolation panel, so aid is getting a cooling rag Currently has [id number] score is 1, therefore will not begin anticoagulants, but start him on an aspirin daily for stroke prophylaxis. Daughter and son updated at the bedside this afternoon. She shares with me that she is a little conflicted right now. Dad did not want to come to the hospital. He did not want any of this. And she is slowly starting to realize that when he leaves here, he may actually go back to smoking and drinking. I told her that he is here now. We will do the best we can by them. We will get him through this phase. But when he is home, and they have time to talk, seriously sit down and discuss goals of care. And his heart as it may be for her, she may have to honor his wishes to not be hospitalized again. If that does happen, to make sure he meets with his primary care provider and get things like advanced wishes, and a POLST form filled out. (2) New onset a-fib Conclusion/Plan: As in #1. 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 No fever. No lactic acid was ordered at admission. He had rhonchi and a wet cough and tachypnea, even at rest. Overnight, his ta chycardia has improved. I would say more than 75% of the time he is in goal of <100 BPM. He continues to have wheezing, rhonchus respiration that brings up phlegm. WBC slightly down. Sputum gram stain shows many gram-positive cocci, gram-negative bacilli, moderate gram-positive bacilli, many white cells. Culture shows mixed oropharangeal eulalio plus a GNR. Blood culture negative. Plan: On empiric ceftriaxone and Zithromax and I will change to single agent levaquin for GNR coverage. Mucinex for expectoration (5) Alcohol abuse Conclusion/Plan: When asked if he drinks alcohol he admitted he is a beer drinker. When asked how much he drinks, he said "let's say 6 a day". He says his last beer was 4-5 days ago, when he started to feel bad.s/p banana bag IV for the first day and now on po vitamins since 04/29. Plan: On CIWA protocol, and IV Ativan as needed for withdrawal symptoms Son says that he is getting go home and get rid of all the beer. And is not to let dad buy anymore. Daughter wonders if dad will still figure out a way to go back to drinking. Again, this is an issue that they will have to dress in the outpatient setting with a lot of hard conversations between them as a family. In the end the patient will have to do want to do this on his own. (6) Hyponatremia Conclusion/Plan: Patient did report poor oral intake for the last 3 days which may be adding to hypovolemic hyponatremia. He also admits to 6 beers a day, therefore could have beer potomania as the cause of this low sodium With normal saline, sodium has responded 04/28 at 10:30 am 117>> 118>> 119>> 123>>121>>125>>122 this afternoon Plan: Continue with IV normal saline. Will follow his serum sodium every 6 hours. Plan is for correction of not more than 6 to 8 mEq in 24 hours (7) Hyperkalemia Conclusion/Plan: Unclear etiology since he has normal BUN/creatinine. Hemolysis was suspected and another potassium was run, came back at 5.7. On a daily basis and this morning it continues to be elevated so I gave him another amp of D50 and insulin IV push. Potassium does come down but I am not clear about the mechanism of wh y he does this. Plan: Avoid potassium-retaining meds Follow BMP daily (8) Tobacco use Conclusion/Plan: Plan: Nicotine patch Use ongoing (9) Poor dentition Conclusion/Plan: Patient has only 1 upper tooth tjat is black and many missing lower teeth, some are black. He says he pulled all those missing teeth on his own because they were very loose and painful. He denies drug abuse. Tox screen is negative. Serum alcohol level undetectable. Plan: Oral care and a soft diet (10) Abnormal EKG Conclusion/Plan: His EKG is changed from the last one here, done in 2017. The new RBB and extreme right axis deviation suggest Cor Pulmonale.Echocardiogram today confirms cor pulmonale. He is not having a pulmonary embolus. He may have pulmonary hypertension from his COPD. RV dysfunction is severe. As such my focus will be diuresis. And controlling his COPD
[2022-04-30] MEDS: AZITHROMYCIN INJ 500 MG in SODIUM CHLORIDE 0.9% 250 ML IV SCH (16:27)
[2022-04-30 17:23] LABS: FREE T3 2.02 pg/mL (2.5-3.9)
[2022-04-30 17:25] LABS: FREE T4 (FREE THYROXINE) 0.68 ng/dL (0.58-1.64)
[2022-04-30] MEDS: NYSTATIN CREAM 15 GM TUBE TOP SCH ×2 (19:26→20:01)
[2022-04-30] MEDS: levoFLOXacin 750 MG/150 ML 750 MG/150 ML BAG IV SCH (19:47)
[2022-04-30 23:44] LABS: CALCIUM, IONIZED 1.06 mmol/L (1.15-1.33); VBG PH 7.302 (7.31-7.41)
[2022-04-30 23:58] LABS: POTASSIUM 6.3 mmol/L (3.5-5.0)
[2022-05-01] MEDS ORDERED: DEXTROSE 50% ABBOJECT 25 GM/50 ML SYRINGE IVP ONE (00:16)
[2022-05-01] MEDS ORDERED: INSULIN REGULAR HUMAN 300 UNIT/3 ML VIAL IVP ONE (00:17)
--- NOTE | 2022-05-01 00:20 | PROVIDER PROGRESS NOTE ---
Regulatory Consultant Note - Regulatory Consultant Note Regulatory Consultant Note: K elevated again d50/insulin and lokema ordered
[2022-05-01] MEDS: SODIUM CHLORIDE FLUSH 0.9% 10 ML SYRINGE IVP SCH ×3 (00:41→16:23)
[2022-05-01] MEDS: SODIUM CHLORIDE 0.9% 1,000 ML IV SCH ×2 (00:50→15:13)
[2022-05-01] MEDS ORDERED: SODIUM ZIRCONIUM CYCLOSILICATE 5 GM PACKET PO ONE (01:00)
[2022-05-01] MEDS ORDERED: CALCIUM GLUC 1,000MG/50ML-NACL 1,000 MG/50 ML BAG IV ONE (01:29)
--- NOTE | 2022-05-01 01:44 | Ultrasound Report ---
PROCEDURE: Head or Neck Soft Tissue INDICATIONS: hyperthryoid TECHNIQUE: Real-time scanning was performed of the thyroid gland, with image documentation. COMPARISON: None FINDINGS: Right: Thyroid lobe measures 4.5 x 2.2 x 1.3 cm, and is heterogeneous in echotexture. Left: Thyroid lobe measures 4.5 x 2.2 x 1.5 cm, and is heterogeneous in echotexture. Isthmus: 0.7 cm thick. Nodule number: 1 Location: Inferior right lobe Size: Less than 0.5 cm. Composition: Solid Echogenicity: Hyperechoic Shape: wider than tall. Margins: Smooth Echogenic foci: None. Total points: 3 ACR TI-RADS category: TI-RADS 3-probably suspicious. Nodule number: 2 Location: Inferior left lobe Size: 1.2 x 0.9 x 1.0 cm. Composition: Cystic Echogenicity: Anechoic Shape: wider than tall. Margins: Smooth Echogenic foci: None Total points: 0 ACR TI-RADS category: TI-RADS 0: Benign. Nodule number: 3 Location: Medial left lobe Size: Less than 0.5 cm. Composition: Cystic Echogenicity: Anechoic Shape: wider than tall. Margins: Smooth Echogenic foci: None Total points: 0 ACR TI-RADS category: TI-RADS 0: Benign. IMPRESSION: 1. Small hyperechoic TI-RADS 3 nodule in the inferior right lobe. Given its size, no further follow-u p is warranted as per recommendations below. ACR TI-RADS definitions and recommendations: TI-RADS 1 (benign): 0 points. FNA not needed. TI-RADS 2 (not suspicious): 2 points. FNA not needed. TI-RADS 3 (mildly suspicious): 3 points. "FNA if 2.5 cm or larger, follow up if 1.5 cm or larger (at 1, 3, and 5 years). TI-RADS 4 (moderately suspicious): 4-6 points. "FNA if 1.5 cm or larger, follow up if 1 cm or larger (at 1, 2, 3, and 5 years). TI-RADS 5 (highly suspicious): 7 points or more. "FNA if 1 cm or larger, follow up if 0.5 cm or larger (every year for 5 years). Reviewed by: Juancarlos Blanco MD on 05/01/2022 1:53 AM PST Approved by: Juancarlos Blanco MD on 05/01/2022 1:53 AM PST Station ID: [id number]
[2022-05-01] MEDS: MORPHINE 2 MG/ML CARPUJECT IVP PRN ×5 (02:24→20:22)
[2022-05-01] MEDS: ACETAMINOPHEN 325 MG TABLET PO PRN ×5 (04:09→21:28)
[2022-05-01 05:01] LABS: BASOPHILS % (AUTO) 0.1 %; HCT - HEMATOCRIT 42.8 % (42.0-52.0); HGB - HEMOGLOBIN 13.7 g/dL (14.0-18.0); LYMPHOCYTES # (AUTO) 0.7 10^3/uL (1.5-3.5); LYMPHOCYTES % (AUTO) 4.4 %; MEAN CORPUSCULAR HEMOGLOBIN 34.9 pg (27.0-31.0); MEAN CORPUSCULAR VOLUME 108.9 fL (80.0-94.0); MONOCYTES # (AUTO) 1.1 10^3/uL (0.0-1.0); MONOCYTES % (AUTO) 7.3 %; NEUTROPHILS # (AUTO) 12.8 10^3/uL (1.5-6.6); NEUTROPHILS % (AUTO) 85.8 %; PLT - PLATELET COUNT 153 10^3/uL (130-450); RED BLOOD COUNT 3.93 10^6/uL (4.70-6.10); RED CELL DISTRIBUTION WIDTH 12.5 % (12.0-15.0); WHITE BLOOD COUNT 14.9 x10^3/uL (4.8-10.8)
[2022-05-01 05:05] LABS: CALCIUM, IONIZED 1.12 mmol/L (1.15-1.33); VBG PH 7.285 (7.31-7.41)
[2022-05-01 05:16] LABS: CALCIUM 8.7 mg/dL (8.5-10.3); CREATININE 0.7 mg/dL (0.6-1.2); MAGNESIUM 2.1 mg/dL (1.7-2.8); PHOSPHORUS 2.6 mg/dL (2.5-4.6); POTASSIUM 5.3 mmol/L (3.5-5.0)
[2022-05-01] MEDS: methylPREDNISolone SUCCINATE 40 MG/ML VIAL IVP SCH ×3 (05:58→22:02)
[2022-05-01] MEDS: diltiaZEM INJ 125 MG in DEXTROSE 5% 100 ML IV SCH ×2 (05:59→18:19)
[2022-05-01] MEDS: IPRATROPIUM/ALBUTEROL 3 ML NEB INH SCH ×4 (07:46→18:54)
[2022-05-01] MEDS: BUDESONIDE 0.5 MG/2 ML NEB INH SCH ×3 (07:46→18:56)
[2022-05-01] MEDS: ASPIRIN EC 81 MG TABLET PO SCH (08:41)
[2022-05-01] MEDS: METOPROLOL TARTRATE 25 MG TABLET PO SCH ×2 (08:41→20:39)
[2022-05-01] MEDS: PRENATAL VITAMIN TABLET PO SCH (08:41)
[2022-05-01] MEDS: THIAMINE 100 MG TABLET PO SCH (08:42)
[2022-05-01] MEDS: FAMOTIDINE 20 MG TABLET PO SCH ×2 (08:42→20:41)
[2022-05-01] MEDS: FUROSEMIDE 20 MG/2 ML VIAL IVP SCH (08:42)
[2022-05-01] MEDS: guaiFENesin 600 MG TABLET PO SCH ×2 (08:44→20:41)
[2022-05-01] MEDS: ENOXAPARIN 40 MG/0.4 ML SYRINGE SUBQ SCH (08:44)
[2022-05-01] MEDS: NICOTINE 14 MG PATCH TOP SCH (08:48)
[2022-05-01] MEDS: NYSTATIN CREAM 15 GM TUBE TOP SCH ×2 (08:50→20:40)
[2022-05-01] MEDS: SODIUM ZIRCONIUM CYCLOSILICATE 5 GM PACKET PO SCH ×3 (11:17→22:01)
[2022-05-01] MEDS: levoFLOXacin 750 MG/150 ML 750 MG/150 ML BAG IV SCH (16:00)
[2022-05-01] MEDS: SACCHAROMYCES BOULARDII 250 MG CAPSULE PO SCH (16:23)
--- NOTE | 2022-05-01 18:55 | PROVIDER PROGRESS NOTE ---
Progress Note May 01, 2022 6:51 PM Although have been able to slow down his heart rate. He still on a Cardizem drip, as well as the metoprolol. He is exhausted, panting. Short of breath. Audibly wheezing even be just ending at the bedside. Potassium was elevated last night and he received an amp of D50 and another dose of IV insulin. Active Medications Acetaminophen (Acetaminophen 325 Mg Tablet) 650 mg PO Q4HR PRN PRN Reason: Pain 1 to 4, or Fever Last Admin: 05/01/22 15:58 Dose: 650 mg Albuterol/Ipratropium (Ipratropium/Albuterol 3 Ml Neb) 3 ml INH Q4HR PRN PRN Reason: Wheezing Albuterol/Ipratropium (Ipratropium/Albuterol 3 Ml Neb) 3 ml INH RTQID [facility] Last Admin: 05/01/22 15:26 Dose: 3 ml Aspirin (Aspirin Ec 81 Mg Tablet) 81 mg PO DAILY [facility] Last Admin: 05/01/22 08:41 Dose: 81 mg Budesonide (Budesonide 0.5 Mg/2 Ml Neb) 0.5 mg INH RTBID [facility] Last Admin: 05/01/22 07:46 Dose: 0.5 mg Diltiazem HCl (Diltiazem 60 Mg Tablet) 60 mg PO Q6HR [facility] Enoxaparin Sodium (Enoxaparin 40 Mg/0.4 Ml Syringe) 40 mg SUBQ DAILY [facility] Last Admin: 05/01/22 08:44 Dose: 40 mg Famotidine (Famotidine 20 Mg Tablet) 20 mg PO BID [facility] Last Admin: 05/01/22 08:42 Dose: 20 mg Furosemide (Furosemide 20 Mg/2 Ml Vial) 20 mg IVP DAILY [facility] Last Admin: 05/01/22 08:42 Dose: 20 mg Guaifenesin (Guaifenesin 600 Mg Tablet) 600 mg PO BID [facility] Last Admin: 05/01/22 08:44 Dose: 600 mg Diltiazem HCl 125 mg/ Dextrose 125 mls @ 5 mls/hr IV .Q25H [facility]; Protocol Last Admin: 05/01/22 18:19 Dose: 15 mg/hr, 15 mls/hr Sodium Chloride (Normal Saline 0.9%) 1,000 mls @ 75 mls/hr IV .[id number] [facility] Last Admin: 05/01/22 15:13 Dose: 75 mls/hr Levofloxacin (Levaquin 750 Mg/150 Ml) 750 mg in 150 mls @ 100 mls/hr IV Q24H [facility] Last Admin: 05/01/22 16:00 Dose: 100 mls/hr Lorazepam (Lorazepam 2 Mg/Ml Vial) 1 mg IVP Q30M PRN; Protocol PRN Reason: CIWA >8 Methylprednisolone (Methylprednisolone Succinate 40 Mg/Ml Vial) 40 mg IVP TID [facility] Last Admin: 05/01/22 15:12 Dose: 40 mg Metoprolol Tartrate (Metoprolol Tartrate 25 Mg Tablet) 50 mg PO BID [facility] Last Admin: 05/01/22 08:41 Dose: 50 mg Morphine Sulfate (Morphine 2 Mg/Ml Carpuject) 2 mg IVP Q4HR PRN PRN Reason: Dyspnea or pain 7-10 Last Admin: 05/01/22 15:59 Dose: 2 mg Multi-Ingredient Ointment (Zinc Oxide 20% Oint 30 Gm Tube) 1 applic TOP PRN PRN PRN Reason: Skin Care Last Admin: 04/29/22 15:14 Dose: 1 applic Nicotine (Nicotine 14 Mg Patch) 1 patch TOP DAILY [facility] Last Admin: 05/01/22 08:48 Dose: 1 patch Nystatin (Nystatin Cream 15 Gm Tube) 1 applic TOP BID [facility] Last Admin: 05/01/22 08:50 Dose: 1 applic Ondansetron HCl (Ondansetron 4 Mg/2 Ml Vial) 4 mg IVP Q6HR PRN PRN Reason: Nausea / Vomiting Multivit/Folic Acid/Iron ( Vitamin Tablet) 1 tab PO DAILYWM [facility] Last Admin: 05/01/22 08:41 Dose: 1 tab Saccharomyces Boulardii (Saccharomyces Boulardii 250 Mg Capsule) 250 mg PO BIDWM [facility] Last Admin: 05/01/22 16:23 Dose: 250 mg Sodium Chloride (Sodium Chloride Flush 0.9% 10 Ml Syringe) 10 ml IVP 0100,0900,1700 [facility] Last Admin: 05/01/22 16:23 Dose: 10 ml Sodium Chloride (Sodium Chloride Flush 0.9% 10 Ml Syringe) 10 ml IVP PRN PRN PRN Reason: NEEDED PER PROVIDER ORDERS Last Admin: 04/30/22 12:44 Dose: 10 ml Sodium Zirconium Cyclosilicate (Sodium Zirconium Cyclosilicate 5 Gm Packet) 10 gm PO TID [facility] Stop: 05/02/22 22:01 Last Admin: 05/01/22 15:13 Dose: 10 gm Thiamine HCl (Thiamine 100 Mg Tablet) 100 mg PO DAILY [facility] Last Admin: 05/01/22 08:42 Dose: 100 mg Albuterol Sulfate [Proair Hfa Inhaler] 1 - 2 puffs PO QID PRN 11/03/17 Hydrocodone/Acetaminophen [Hydrocodone-Acetamin 10-325 mg] 1 - 2 tab PO Q12H PRN 04/28/22 Lisinopril [Zestril] 30 mg PO DAILY 04/28/22 Omeprazole 1 cap PO DAILY 04/29/22 amLODIPine [Norvasc] 1 tab PO DAILY 04/29/22 Temperature is 36.2. Heart rate is 98 at 5 PM. Blood pressure 118/95. Respirations 24. He is 92% on 2 L nasal cannula. 5 foot 11 inches tall, 82 kg. Yesterday he was +2969 cc. Today he is +1980 cc in his fluid balance as of this dictation. Neck is supple I do not see JVD Barrel chest, wheezing diffusely but no use accessory muscles. Minimal exertion causes shortness of breath so he lays very still Tachycardic irregular rate and rhythm Abdomen is obese, soft, protuberant In spite of the positive fluid balance and not feeling any edema Neurologically he just appears confused, tired, but speech is normal. No focal deficits. Sodium is 125. Potassium 5.3. BUN 20, creatinine 0.7. Free T4 0.68 Free T3 is 2.02 and low White cell count 14.9, hemoglobin 13.7, hematocrit 42.8 and platelets 153 Blood culture is negative from April 28 Respiratory culture from April 29 is growing Pseudomonas Assessment/Plan (1) Atrial fibrillation with rapid ventricular response Conclusion/Plan: No PE, OR, or thyroid toxicosis. Cycle troponins are negative x2. Most likely sliding into congestive heart failure because of tachycardia from atrial fibrillation for too long. Echocardiogram is of the an ejection fraction of 55 to 60%. He also seems to have chamber findings consistent with right ventricular volume and pressure overload. Right ventricle systolic function severely impaired. Plan: Continue the diltiazem drip. But I am going to start tapering off by starting Cardizem 60 mg p.o. every 6 hours. Continue metoprolol Continue ICU status Lasix 20 mg IV push (2) New onset a-fib Conclusion/Plan: As in #1. Plan: He does not know what diagnosis he sees his equipment maintenance supervisor for. We are still trying to obtain records from either from his PCP or if he remembers the name, from his Silk Screen Frame Assembler (3) COPD exacerbation Conclusion/Plan: Patient does have positive coronavirus, but it is not SARS COVID-19 He likely has underlying COPD from his smoking history Plan: Continue +DuoNebs 4 times daily scheduled and every 4 hours as needed +Mucinex for pulmonary toilet + inhaled steroids via nebulizer +treat the pulmonary infection +Suppl O2 to keep sats 89-93% in a COPDer +on solumedrol 40 mg IVP for 3 doses but I will extend to 5 doses since he is responding (4) CAP (community acquired pneumonia) Conclusion/Plan: He was tachycardic, and had an elevated WBC of 20. No fever. No lactic acid was ordered at admission. He had rhonchi and a wet cough and tachypnea, even at rest. Overnight, his tachycardia has improved. I would say more than 75% of the time he is in goal of <100 BPM. He continues to have wheezing, rhonchus respiration that brings up phlegm. WBC slightly down. Sputum gram stain shows many gram-positive cocci, gram-negative bacilli, moderate gram-positive bacilli, many white cells. Culture shows mixed oropharangeal eulalio plus a GNR. Blood culture negative. On April 30 I changed him to Levaquin on the basis of the gram-negative bacill i. Today he is identified as growing Pseudomonas aeruginosa. Plan: Continue Levaquin (5) Alcohol abuse Conclusion/Plan: When asked if he drinks alcohol he admitted he is a beer drinker. When asked how much he drinks, he said "let's say 6 a day". He says his last beer was 4-5 days ago, when he started to feel bad.s/p banana bag IV for the first day and now on po vitamins since 04/29. Plan: On CIWA protocol, and IV Ativan as needed for withdrawal symptoms Son says that he is getting go home and get rid of all the beer. And is not to let dad buy anymore. Daughter wonders if dad will still figure out a way to go back to drinking. Again, this is an issue that they will have to dress in the outpatient setting with a lot of hard conversations between them as a family. In the end the patient will have to do want to do this on his own. (6) Hyponatremia Conclusion/Plan: Patient did report poor oral intake for the last 3 days which may be adding to hypovolemic hyponatremia. He also admits to 6 beers a day, therefore could have beer potomania as the cause of this low sodium With normal saline, sodium has responded 04/28 at 10:30 am 117>> 118>> 119>> 123>>121>>125>>122>>125 this afternoon Plan: Continue with IV normal saline. Will follow his serum sodium every 6 hours. Plan is for correction of not more than 6 to 8 mEq in 24 hours (7) Hyperkalemia Conclusion/Plan: Unclear etiology since he has normal BUN/creatinine. Hemolysis was suspected and another potassium was run, came back at 5.7. On a daily basis and this morning it continues to be elevated so I gave him another amp of D50 and insulin IV push. Potassium does come down but I am not clear about the mechanism of why he does this. The only thing I can think of is that he is an alcoholic and there is disruption of renin-angiotensin system with this. Plan: Start Lokelma at 10 mg p.o. 3 times daily for 48 hours. Then switch to 10 p.o. daily and adjust as needed. Avoid potassium-retaining meds Follow BMP daily (8) Tobacco use Conclusion/Plan: Plan: Nicotine patch Use ongoing (9) Poor dentition Conclusion/Plan: Patient has only 1 upper tooth tjat is black and many missing lower teeth, some are black. He says he pulled all those missing teeth on his own because they were very loose and painful. He denies drug abuse. Tox screen is negative. Serum alcohol level undetectable. Plan: Oral care and a soft diet (10) Abnormal EKG Conclusion/Plan: His EKG is changed from the last one here, done in 2017. The new RBB and extreme right axis deviation suggest Cor Pulmonale.Echocardiogram today confirms cor pulmonale. He is not having a pulmonary embolus. He may have pulmonary hypertension from his COPD. RV dysfunction is severe. As such my focus will be diuresis. And controlling his COPD
[2022-05-02] MEDS: MORPHINE 2 MG/ML CARPUJECT IVP PRN ×3 (01:11→13:48)
[2022-05-02] MEDS: SODIUM CHLORIDE FLUSH 0.9% 10 ML SYRINGE IVP SCH ×5 (01:13→22:14)
[2022-05-02] MEDS: SODIUM CHLORIDE 0.9% 1,000 ML IV SCH (04:26)
[2022-05-02 04:56] LABS: BASOPHILS % (AUTO) 0.1 %; EOSINOPHILS % (AUTO) 0.1 %; HCT - HEMATOCRIT 42.8 % (42.0-52.0); HGB - HEMOGLOBIN 13.9 g/dL (14.0-18.0); LYMPHOCYTES # (AUTO) 0.6 10^3/uL (1.5-3.5); LYMPHOCYTES % (AUTO) 5.4 %; MEAN CORPUSCULAR HEMOGLOBIN 35.2 pg (27.0-31.0); MEAN CORPUSCULAR HGB CONC 32.5 g/dL (32.0-36.0); MEAN CORPUSCULAR VOLUME 108.4 fL (80.0-94.0); MEAN PLATELET VOLUME 9.7 fL (7.4-11.4); MONOCYTES # (AUTO) 0.7 10^3/uL (0.0-1.0); MONOCYTES % (AUTO) 6.4 %; NEUTROPHILS # (AUTO) 9.5 10^3/uL (1.5-6.6); NEUTROPHILS % (AUTO) 86.2 %; PLT - PLATELET COUNT 156 10^3/uL (130-450); RED BLOOD COUNT 3.95 10^6/uL (4.70-6.10); RED CELL DISTRIBUTION WIDTH 12.5 % (12.0-15.0)
[2022-05-02 05:04] LABS: CALCIUM 8.5 mg/dL (8.5-10.3); CREATININE 0.6 mg/dL (0.6-1.2); POTASSIUM 4.8 mmol/L (3.5-5.0)
[2022-05-02 06:09] LABS: MAGNESIUM 1.9 mg/dL (1.7-2.8); PHOSPHORUS 2.3 mg/dL (2.5-4.6)
[2022-05-02] MEDS: SODIUM ZIRCONIUM CYCLOSILICATE 5 GM PACKET PO SCH ×3 (06:10→21:55)
[2022-05-02] MEDS: methylPREDNISolone SUCCINATE 40 MG/ML VIAL IVP SCH ×3 (06:10→22:00)
[2022-05-02] MEDS: ACETAMINOPHEN 325 MG TABLET PO PRN (07:00)
[2022-05-02] MEDS: BUDESONIDE 0.5 MG/2 ML NEB INH SCH ×2 (07:36→19:07)
[2022-05-02] MEDS: IPRATROPIUM/ALBUTEROL 3 ML NEB INH SCH ×4 (07:37→19:07)
[2022-05-02] MEDS: METOPROLOL TARTRATE 25 MG TABLET PO SCH ×2 (08:41→20:47)
[2022-05-02] MEDS: ASPIRIN EC 81 MG TABLET PO SCH (08:42)
[2022-05-02] MEDS: PRENATAL VITAMIN TABLET PO SCH (08:42)
[2022-05-02] MEDS: DIGOXIN 500 MCG/2 ML AMP IVP SCH (08:44)
[2022-05-02] MEDS: HYDROcod/ACETAM 5/325 MG TABLET PO SCH ×3 (08:46→21:53)
[2022-05-02] MEDS: SACCHAROMYCES BOULARDII 250 MG CAPSULE PO SCH ×2 (08:48→17:49)
[2022-05-02] MEDS: NEUTRA-PHOS 250 MG TABLET PO SCH ×2 (08:48→11:04)
[2022-05-02] MEDS: FAMOTIDINE 20 MG TABLET PO SCH ×2 (08:48→20:49)
[2022-05-02] MEDS: guaiFENesin 600 MG TABLET PO SCH ×2 (08:48→20:49)
[2022-05-02] MEDS: NICOTINE 14 MG PATCH TOP SCH (08:49)
[2022-05-02] MEDS: THIAMINE 100 MG TABLET PO SCH (08:49)
[2022-05-02] MEDS: ENOXAPARIN 40 MG/0.4 ML SYRINGE SUBQ SCH (08:55)
[2022-05-02] MEDS ORDERED: FUROSEMIDE 20 MG/2 ML VIAL IVP SCH (09:00)
[2022-05-02] MEDS: NYSTATIN CREAM 15 GM TUBE TOP SCH ×2 (11:04→20:53)
[2022-05-02] MEDS: SODIUM CHLORIDE FLUSH 0.9% 10 ML SYRINGE IVP PRN ×2 (14:31→18:32)
[2022-05-02] MEDS: levoFLOXacin 750 MG/150 ML 750 MG/150 ML BAG IV SCH (16:46)
[2022-05-02] MEDS ORDERED: diltiaZEM INJ 5 MG/ML VIAL IVP ONE (17:19)
--- NOTE | 2022-05-02 17:24 | PROVIDER PROGRESS NOTE ---
Subjective - Prog Note Date Prog Note Date: 05/02/22 Prog Note Time: 17:22 - Subjective Subjective: I have got him off the Cardizem drip and started him on Cardizem CD 60 mg p.o. every 6 hours. I have given at single dose of Lanoxin 0.25. And plan to do that daily. Lopressor is 100 mg p.o. twice daily. And with that pulse does not stay consistently down. He is in the 130s, 140s. Blood pressure stable. I am giving him Lasix due to congestive heart failure as well. Although urine output is adequate and he has urinated 1400 cc today, he still not a negative fluid balance. Son is at the bedside has given dad dinner. Current Medications - Current Medications Current Medications: Active Medications Acetaminophen (Acetaminophen 325 Mg Tablet) 650 mg PO Q4HR PRN PRN Reason: Pain 1 to 4, or Fever Last Admin: 05/02/22 07:00 Dose: 650 mg Hydrocodone Bitart/Acetaminophen (Hydrocod/Acetam 5/325 Mg Tablet) 1 tab PO TID [facility] Last Admin: 05/02/22 14:20 Dose: 1 tab Albuterol/Ipratropium (Ipratropium/Albuterol 3 Ml Neb) 3 ml INH Q4HR PRN PRN Reason: Wheezing Albuterol/Ipratropium (Ipratropium/Albuterol 3 Ml Neb) 3 ml INH RTQID [facility] Last Admin: 05/02/22 16:36 Dose: 3 ml Aspirin (Aspirin Ec 81 Mg Tablet) 81 mg PO DAILY [facility] Last Admin: 05/02/22 08:42 Dose: 81 mg Budesonide (Budesonide 0.5 Mg/2 Ml Neb) 0.5 mg INH RTBID [facility] Last Admin: 05/02/22 07:36 Dose: 0.5 mg Digoxin (Digoxin 500 Mcg/2 Ml Amp) 250 mcg IVP DAILY [facility] Last Admin: 05/02/22 08:44 Dose: 250 mcg Diltiazem HCl (Diltiazem 60 Mg Tablet) 60 mg PO Q6HR [facility] Last Admin: 05/02/22 12:49 Dose: 60 mg Diltiazem HCl (Diltiazem Inj 5 Mg/Ml Vial) 15 mg IVP ONCE ONE Stop: 05/02/22 17:20 Enoxaparin Sodium (Enoxaparin 40 Mg/0.4 Ml Syringe) 40 mg SUBQ DAILY [facility] Last Admin: 05/02/22 08:55 Dose: 40 mg Famotidine (Famotidine 20 Mg Tablet) 20 mg PO BID [facility] Last Admin: 05/02/22 08:48 Dose: 20 mg Furosemide (Furosemide 20 Mg/2 Ml Vial) 40 mg IVP BID [facility] Guaifenesin (Guaifenesin 600 Mg Tablet) 600 mg PO BID [facility] Last Admin: 05/02/22 08:48 Dose: 600 mg Diltiazem HCl 125 mg/ Dextrose 125 mls @ 5 mls/hr IV .Q25H [facility]; Protocol Last Titration: 05/01/22 22:18 Dose: 0 mg/hr, 0 mls/hr Levofloxacin (Levaquin 750 Mg/150 Ml) 750 mg in 150 mls @ 100 mls/hr IV Q24H [facility] Last Admin: 05/02/22 16:46 Dose: 100 mls/hr Lorazepam (Lorazepam 2 Mg/Ml Vial) 1 mg IVP Q30M PRN; Protocol PRN Reason: CIWA >8 Methylprednisolone (Methylprednisolone Succinate 40 Mg/Ml Vial) 40 mg IVP TID [facility] Last Admin: 05/02/22 14:19 Dose: 40 mg Metoprolol Tartrate (Metoprolol Tartrate 25 Mg Tablet) 100 mg PO BID [facility] Last Admin: 05/02/22 08:41 Dose: 100 mg Morphine Sulfate (Morphine 2 Mg/Ml Carpuject) 2 mg IVP Q4HR PRN PRN Reason: Dyspnea or pain 7-10 Last Admin: 05/02/22 13:48 Dose: 2 mg Multi-Ingredient Ointment (Zinc Oxide 20% Oint 30 Gm Tube) 1 applic TOP PRN PRN PRN Reason: Skin Care Last Admin: 04/29/22 15:14 Dose: 1 applic Nicotine (Nicotine 14 Mg Patch) 1 patch TOP DAILY [facility] Last Admin: 05/02/22 08:49 Dose: 1 patch Nystatin (Nystatin Cream 15 Gm Tube) 1 applic TOP BID [facility] Last Admin: 05/02/22 11:04 Dose: 1 applic Ondansetron HCl (Ondansetron 4 Mg/2 Ml Vial) 4 mg IVP Q6HR PRN PRN Reason: Nausea / Vomiting Multivit/Folic Acid/Iron ( Vitamin Tablet) 1 tab PO DAILYWM [facility] Last Admin: 05/02/22 08:42 Dose: 1 tab Saccharomyces Boulardii (Saccharomyces Boulardii 250 Mg Capsule) 250 mg PO BIDWM [facility] Last Admin: 05/02/22 08:48 Dose: 250 mg Sodium Chloride (Sodium Chloride Flush 0.9% 10 Ml Syringe) 10 ml IVP 0100,0900,1700 [facility] Last Admin: 05/02/22 09:08 Dose: 10 ml Sodium Chloride (Sodium Chloride Flush 0.9% 10 Ml Syringe) 10 ml IVP PRN PRN PRN Reason: NEEDED PER PROVIDER ORDERS Last Admin: 05/02/22 14:31 Dose: 10 ml Sodium Zirconium Cyclosilicate (Sodium Zirconium Cyclosilicate 5 Gm Packet) 10 gm PO TID [facility] Stop: 05/02/22 22:01 Last Admin: 05/02/22 14:25 Dose: 10 gm Thiamine HCl (Thiamine 100 Mg Tablet) 100 mg PO DAILY [facility] Last Admin: 05/02/22 08:49 Dose: 100 mg Albuterol Sulfate [Proair Hfa Inhaler] 1 - 2 puffs PO QID PRN 11/03/17 Hydrocodone/Acetaminophen [Hydrocodone-Acetamin 10-325 mg] 1 - 2 tab PO Q12H PRN 04/28/22 Lisinopril [Zestril] 30 mg PO DAILY 04/28/22 Omeprazole 1 cap PO DAILY 04/29/22 amLODIPine [Norvasc] 1 tab PO DAILY 04/29/22 Objective - Vital Signs/Intake & Output Reviewed Vital Signs: Yes Vital Signs: Vital Signs x48h Temp Pulse Pulse Resp BP BP Pulse Ox 05/02/22 17:00 70 17 116/74 100 05/02/22 16:46 147 H 05/02/22 16:25 131 H 16 05/02/22 16:00 129 H 21 122/91 H 94 05/02/22 15:30 139 H 05/02/22 15:00 113 H 20 105/65 95 05/02/22 14:32 138 H 05/02/22 14:00 36.3 C L 136 H 25 H 112/82 H 98 05/02/22 13:30 139 H 05/02/22 13:00 129 H 22 119/90 H 95 05/02/22 12:49 118/86 H 05/02/22 12:30 140 H 05/02/22 12:00 112 H 24 116/86 H 95 05/02/22 11:38 122 H 20 05/02/22 11:30 139 H 05/02/22 11:00 109 H 22 109/91 H 95 05/02/22 10:00 114 H 19 113/86 H 99 05/02/22 09:50 86 L O2 Flow Rate 05/02/22 17:00 1.5 05/02/22 16:46 05/02/22 16:25 1 05/02/22 16:00 1.5 05/02/22 15:30 05/02/22 15:00 1.5 05/02/22 14:32 05/02/22 14:00 1.5 05/02/22 13:30 05/02/22 13:00 1.5 05/02/22 12:49 05/02/22 12:30 05/02/22 12:00 1.5 05/02/22 11:38 1.5 05/02/22 11:30 05/02/22 11:00 1.5 05/02/22 10:00 1.5 05/02/22 09:50 1 Intake & Output: Intake & Output 04/29/22 04/30/22 05/01/22 05/02/22 23:59 23:59 23:59 23:59 Intake Total 3921.117 4201.917 3403.334 1902.25 Output Total 1710 1232 1412 1451 Balance 2211.117 2969.917 1991.334 451.25 - Objective General Appearance: positive: Alert (Short of breath but able to complete full sentences with me. He is lying at about 20 to 25 degrees, and audible gurgling in his lungs without a stethoscope), Mild distress Eyes Bilateral: positive: PERRL, EOMI Neck: positive: No JVD. negative: Stiff neck Respiratory: positive: Rales, Rhonchi, Other (Exhausted, tired, and gets tachypneic with just minimal exertion such as setting them up. Physical there is been unable to work with him because of the severe shortness of breath) Cardiovascular: positive: Irregularly irregular, Tachycardia Abdomen: positive: Non-tender, No organomegaly, Nml bowel sounds, No distention Skin: positive: Warm, Dry Extremities: positive: Full ROM, No pedal edema Neurologic/Psychiatric: positive: CN's nml (2-12), Motor nml (No focal deficits, no tremors, but generalized weakness and debility), Disoriented to time - Lab Results Fish Bones: 05/02/22 04:28 05/02/22 04:28 Other Labs: Lab Results x24hrs 05/02/22 05/02/22 05/02/22 Range/Units 04:28 04:28 04:28 WBC 11.0 H (4.8-10.8) x10^3/uL RBC 3.95 L (4.70-6.10) 10^6/uL Hgb 13.9 L (14.0-18.0) g/dL Hct 42.8 (42.0-52.0) % MCV 108.4 H (80.0-94.0) fL MCH 35.2 H (27.0-31.0) pg MCHC 32.5 (32.0-36.0) g/dL RDW 12.5 (12.0-15.0) % Plt Count 156 (130-450) 10^3/uL MPV 9.7 (7.4-11.4) fL Neut # (Auto) 9.5 H (1.5-6.6) 10^3/uL Lymph # (Auto) 0.6 L (1.5-3.5) 10^3/uL Crockett # (Auto) 0.7 (0.0-1.0) 10^3/uL Eos # (Auto) 0.0 (0.0-0.7) 10^3/uL Baso # (Auto) 0.0 (0.0-0.1) 10^3/uL Absolute Nucleated RBC 0.00 x10^3/uL Nucleated RBC % 0.0 /100WBC Sodium 126 L (135-145) mmol/L Potassium 4.8 (3.5-5.0) mmol/L Chloride 89 L (101-111) mmol/L Carbon Dioxide 29 (21-32) mmol/L Anion Gap 8.0 (6-13) BUN 17 (6-20) mg/dL Creatinine 0.6 (0.6-1.2) mg/dL Estimated GFR (MDRD) 134 (>89) Glucose 152 H (70-100) mg/dL Calcium 8.5 (8.5-10.3) mg/dL Phosphorus 2.3 L (2.5-4.6) mg/dL Magnesium 1.9 (1.7-2.8) mg/dL ABX Reporting Has patient been on IV antibiotics over the past 48 hours?: Yes Assessment/Plan - Problem List (1) Atrial fibrillation with rapid ventricular response Impression: No PE, NM, or thyroid toxicosis. Cycle troponins are negative x2. Most likely sliding into congestive heart failure because of tachycardia from atrial fibrillation for too long. Echocardiogram is of the an ejection fraction of 55 to 60%. He also seems to have chamber findings consistent with right ventricular volume and pressure overload. Right ventricle systolic function severely impaired. Cardizem drip discontinued by yesterday evening. Now on Cardizem 60 every 6 hours. Metoprolol 100 mg p.o. twice daily. Lanoxin 0.25 mg given this morning. No real results. I gave him Lasix 40 mg IV push instead of 20 and he has had adequate urine output but not enough Plan: Diltiazem 15 mg IV push x1 Lopressor 5 mg IV push x1 ICU status to remain Increase Lasix to 40 mg IV push twice daily (2) New onset a-fib Conclusion/Plan: As in #1. Plan: He does not know what diagnosis he sees his senior software systems engineer for. We are still trying to obtain records from either from his PCP or if he remembers the name, from his Refrigeration Systems Installer (3) COPD exacerbation Conclusion/Plan: Patient does have positive coronavirus, but it is not SARS COVID-19 He likely has underlying COPD from his smoking history Plan: Continue +DuoNebs 4 times daily scheduled and every 4 hours as needed +Mucinex for pulmonary toilet + inhaled steroids via nebulizer +treat the pulmonary infection +Suppl O2 to keep sats 89-93% in a COPDer +I will stop Solu-Medrol IV (4) CAP (community acquired pneumonia) Conclusion/Plan: He was tachycardic, and had an elevated WBC of 20. No fever. No lactic acid was ordered at admission. He had rhonchi and a wet cough and tachypnea, even at rest. Overnight, his tachycardia has improved. I would say more than 75% of the time he is in goal of <100 BPM. He continues to have wheezing, rhonchus respiration that brings up phlegm. WBC slightly down. Sputum gram stain shows many gram-positive cocci, gram-negative bacilli, moderate gram-positive bacilli, many white cells. Culture shows mixed oropharangeal eulalio plus a GNR. Blood culture negative. On April 30, I changed him to Levaquin on the basis of the gram-negative bacilli. Identified as growing Pseudomonas aeruginosa 2/ Plan: Continue Levaquin, Day #3 after tx w rocephin and azithromycin (5) Alcohol abuse Conclusion/Plan: When asked if he drinks alcohol he admitted he is a beer drinker. When asked how much he drinks, he said "let's say 6 a day". He says his last beer was 4-5 days ago, when he started to feel bad.s/p banana bag IV for the first day and now on po vitamins since 04/29. Plan: On CIWA protocol, and IV Ativan as needed for withdrawal symptoms Son says that he is getting go home and get rid of all the beer. And is not to let dad buy anymore. Daughter wonders if dad will still figure out a way to go back to drinking. Again, this is an issue that they will have to dress in the outpatient setting with a lot of hard conversations between them as a family. In the end the patient will have to do want to do this on his own. (6) Hyponatremia Conclusion/Plan: Patient did report poor oral intake for the last 3 days which may be adding to hypovolemic hyponatremia. He also admits to 6 beers a day, therefore could have beer potomania as the cause of this low sodium With normal saline, sodium has responded 04/28 at 10:30 am 117>> 118>> 119>> 123>>121>>125>>122>>125>>126 Plan: NS stopped today to avoid fluid overload. (7) Hyperkalemia Conclusion/Plan: Unclear etiology since he has normal BUN/creatinine. Hemolysis was suspected and another potassium was run, came back at 5.7. On a daily basis and this morning it continues to be elevated so I gave him another amp of D50 and insulin IV push. Potassium does come down but I am not clear about the mechanism of why he does this. The only thing I can think of is that he is an alcoholic and there is disruption of renin-angiotensin system with this. I Started Lokelma at 10 mg p.o. 3 times daily for 48 hours. Its working and that potassium was 4.8 this morning. Switch to 10 p.o. daily tomorrow and adjust as needed. Plan: Avoid potassium-retaining meds Follow BMP daily as above w Lokelma (8) Tobacco use Conclusion/Plan: Plan: Nicotine patch Use ongoing (9) Poor dentition Conclusion/Plan: Patient has only 1 upper tooth tjat is black and many missing lower teeth, some are black. He says he pulled all those missing teeth on his own because they were very loose and painful. He denies drug abuse. Tox screen is negative. Serum alcohol level undetectable. Plan: Oral care and a soft diet (10) Abnormal EKG Conclusion/Plan: His EKG is changed from the last one here, done in 2017. The new RBB and extreme right axis deviation suggest Cor Pulmonale.Echocardiogram today confirms cor pulmonale. He is not having a pulmonary embolus. He may have pulmonary hypertension from his COPD. RV dysfunction is severe. As such my focus will be diuresis. And controlling his COPD
[2022-05-02] MEDS ORDERED: METOPROLOL 5 MG/5 ML VIAL IVP STA (19:24)
[2022-05-02] MEDS: FUROSEMIDE 20 MG/2 ML VIAL IVP SCH (20:52)
[2022-05-03] MEDS: ACETAMINOPHEN 325 MG TABLET PO PRN (02:01)
[2022-05-03] MEDS: MORPHINE 2 MG/ML CARPUJECT IVP PRN ×3 (03:33→16:36)
[2022-05-03] MEDS: HYDROcod/ACETAM 5/325 MG TABLET PO SCH ×3 (05:39→21:44)
[2022-05-03] MEDS: methylPREDNISolone SUCCINATE 40 MG/ML VIAL IVP SCH ×2 (05:39→20:58)
[2022-05-03] MEDS: BUDESONIDE 0.5 MG/2 ML NEB INH SCH ×2 (06:58→18:11)
[2022-05-03] MEDS: IPRATROPIUM/ALBUTEROL 3 ML NEB INH SCH ×4 (06:58→18:11)
[2022-05-03] MEDS ORDERED: AMIODARONE 150 MG/100 ML 100 ML IV ONE ×2 (07:42→13:32)
[2022-05-03] MEDS ORDERED: AMIODARONE 360 MG/200 ML 200 ML IV ONE ×2 (07:42→13:32)
[2022-05-03] MEDS ORDERED: ESMOLOL 100 MG/10 ML VIAL IVP ONE (07:44)
[2022-05-03] MEDS: METOPROLOL TARTRATE 25 MG TABLET PO SCH (07:59)
[2022-05-03] MEDS: DIGOXIN 500 MCG/2 ML AMP IVP SCH (07:59)
[2022-05-03] MEDS ORDERED: AMIODARONE 360 MG/200 ML 200 ML IV SCH ×3 (08:00→20:00)
[2022-05-03] MEDS: NICOTINE 14 MG PATCH TOP SCH (08:08)
[2022-05-03] MEDS: FAMOTIDINE 20 MG TABLET PO SCH ×2 (08:10→20:59)
[2022-05-03] MEDS: THIAMINE 100 MG TABLET PO SCH ×2 (08:11→08:22)
[2022-05-03] MEDS: ASPIRIN EC 81 MG TABLET PO SCH (08:13)
[2022-05-03] MEDS: guaiFENesin 600 MG TABLET PO SCH ×2 (08:13→20:59)
[2022-05-03 08:16] LABS: HCT - HEMATOCRIT 43.3 % (42.0-52.0); HGB - HEMOGLOBIN 14.2 g/dL (14.0-18.0); LYMPHOCYTES # (AUTO) 0.4 10^3/uL (1.5-3.5); LYMPHOCYTES % (AUTO) 5.3 %; MEAN CORPUSCULAR HEMOGLOBIN 35.1 pg (27.0-31.0); MEAN CORPUSCULAR HGB CONC 32.8 g/dL (32.0-36.0); MEAN CORPUSCULAR VOLUME 106.9 fL (80.0-94.0); MEAN PLATELET VOLUME 9.9 fL (7.4-11.4); MONOCYTES # (AUTO) 0.6 10^3/uL (0.0-1.0); MONOCYTES % (AUTO) 7.7 %; NEUTROPHILS # (AUTO) 6.6 10^3/uL (1.5-6.6); NEUTROPHILS % (AUTO) 85.6 %; PLT - PLATELET COUNT 151 10^3/uL (130-450); RED BLOOD COUNT 4.05 10^6/uL (4.70-6.10); RED CELL DISTRIBUTION WIDTH 12.5 % (12.0-15.0); WHITE BLOOD COUNT 7.8 x10^3/uL (4.8-10.8)
[2022-05-03] MEDS: SACCHAROMYCES BOULARDII 250 MG CAPSULE PO SCH ×2 (08:22→17:37)
[2022-05-03] MEDS: PRENATAL VITAMIN TABLET PO SCH (08:22)
[2022-05-03] MEDS: SODIUM CHLORIDE FLUSH 0.9% 10 ML SYRINGE IVP SCH ×2 (08:23→17:38)
[2022-05-03] MEDS: ENOXAPARIN 40 MG/0.4 ML SYRINGE SUBQ SCH (08:25)
[2022-05-03 08:26] LABS: CALCIUM 8.6 mg/dL (8.5-10.3); CALCIUM, IONIZED 1.08 mmol/L (1.15-1.33); CREATININE 0.6 mg/dL (0.6-1.2); POTASSIUM 4.1 mmol/L (3.5-5.0); VBG PH 7.424 (7.31-7.41)
[2022-05-03] MEDS: FUROSEMIDE 20 MG/2 ML VIAL IVP SCH ×2 (08:30→20:59)
[2022-05-03] MEDS: ESMOLOL 2.5 GM/250 ML BAG IV SCH ×3 (08:57→13:27)
[2022-05-03] MEDS: NYSTATIN CREAM 15 GM TUBE TOP SCH (09:13)
[2022-05-03 09:15] LABS: MAGNESIUM 1.9 mg/dL (1.7-2.8); PHOSPHORUS 2.5 mg/dL (2.5-4.6)
[2022-05-03] MEDS ORDERED: SODIUM ZIRCONIUM CYCLOSILICATE 5 GM PACKET PO SCH (14:00)
[2022-05-03] MEDS: CALCIUM CARBONATE CHEW 500 MG TABLET PO SCH ×2 (15:13→18:22)
[2022-05-03] MEDS: levoFLOXacin 750 MG/150 ML 750 MG/150 ML BAG IV SCH (17:27)
--- NOTE | 2022-05-03 17:55 | PROVIDER PROGRESS NOTE ---
Progress Note May 03, 2022 5:34 PM This morning I tried an esmolol drip on him. In reading up-to-date, I was looking for a drug that I could try and control his rate with. He is considered with preserved ejection fraction. Really did not change his rate and it dropped his pressure into the 60s systolic. So I stop the esmolol and switch him to amiodarone which is more for rate control in reduced ejection fraction.. Amiodarone has not made much difference and he is on 140. As of now he has been on a Cardizem drip, Cardizem 60 mg p.o. every 6 hours, metoprolol 100 mg p.o. twice daily was discontinued this morning because of esmolol. Digoxin several doses and now on a daily basis. Nothing is working at controlling his rate. With regards to diuresis, he was -293 yesterday. As of this dictation he is - 699 cc. Today is the first time the patient voluntarily asked to get out of bed. We walked him to the bedside chair and he watched some TV and ate some food. Today was also the first time he wanted some food and ate some pancakes. After a while he was tired and got back in bed. But this is a tremendous improvement in someone who has been very grumpy, not wanting to get up and move, and refused to work with physical therapy. Active Medications Acetaminophen (Acetaminophen 325 Mg Tablet) 650 mg PO Q4HR PRN PRN Reason: Pain 1 to 4, or Fever Last Admin: 05/03/22 02:01 Dose: 650 mg Hydrocodone Bitart/Acetaminophen (Hydrocod/Acetam 5/325 Mg Tablet) 1 tab PO TID [facility] Last Admin: 05/03/22 13:51 Dose: 1 tab Albuterol/Ipratropium (Ipratropium/Albuterol 3 Ml Neb) 3 ml INH Q4HR PRN PRN Reason: Wheezing Albuterol/Ipratropium (Ipratropium/Albuterol 3 Ml Neb) 3 ml INH RTQID [facility] Last Admin: 05/03/22 15:07 Dose: 3 ml Apixaban (Apixaban 5 Mg Tablet) 5 mg PO BID [facility] Aspirin (Aspirin Ec 81 Mg Tablet) 81 mg PO DAILY [facility] Last Admin: 05/03/22 08:13 Dose: 81 mg Budesonide (Budesonide 0.5 Mg/2 Ml Neb) 0.5 mg INH RTBID [facility] Last Admin: 05/03/22 06:58 Dose: 0.5 mg Calcium Carbonate/Glycine (Calcium Carbonate Chew 500 Mg Tablet) 1,250 mg PO Q4H [facility]; Protocol Stop: 05/03/22 19:01 Last Admin: 05/03/22 15:13 Dose: 1,250 mg Digoxin (Digoxin 500 Mcg/2 Ml Amp) 250 mcg IVP DAILY [facility] Last Admin: 05/03/22 07:59 Dose: 250 mcg Diltiazem HCl (Diltiazem 60 Mg Tablet) 60 mg PO Q6HR [facility] Last Admin: 05/03/22 11:57 Dose: 60 mg Famotidine (Famotidine 20 Mg Tablet) 20 mg PO BID [facility] Last Admin: 05/03/22 08:10 Dose: 20 mg Furosemide (Furosemide 20 Mg/2 Ml Vial) 40 mg IVP BID [facility] Last Admin: 05/03/22 08:30 Dose: 40 mg Guaifenesin (Guaifenesin 600 Mg Tablet) 600 mg PO BID [facility] Last Admin: 05/03/22 08:13 Dose: 600 mg Levofloxacin (Levaquin 750 Mg/150 Ml) 750 mg in 150 mls @ 100 mls/hr IV Q24H [facility] Last Admin: 05/03/22 17:27 Dose: 100 mls/hr Esmolol HCl (Brevibloc) 2.5 gm in 250 mls @ 24.75 mls/hr IV .Q10H7M [facility]; Protocol Last Titration: 05/03/22 13:45 Dose: 0 mg/kg/min, 0 mls/hr Amiodarone HCl/Dextrose (Nexterone 360 Mg/200 Ml) 200 mls @ 33.333 mls/hr IV ONCE ONE Stop: 05/03/22 19:31 Last Admin: 05/03/22 13:52 Dose: 33.333 mls/hr Amiodarone HCl/Dextrose (Nexterone 360 Mg/200 Ml) 200 mls @ 16.667 mls/hr IV .Q12H [facility] Lorazepam (Lorazepam 2 Mg/Ml Vial) 1 mg IVP Q30M PRN; Protocol PRN Reason: CIWA >8 Methylprednisolone (Methylprednisolone Succinate 40 Mg/Ml Vial) 40 mg IVP BID [facility] Morphine Sulfate (Morphine 2 Mg/Ml Carpuject) 2 mg IVP Q4HR PRN PRN Reason: Dyspnea or pain 7-10 Last Admin: 05/03/22 16:36 Dose: 2 mg Multi-Ingredient Ointment (Zinc Oxide 20% Oint 30 Gm Tube) 1 applic TOP PRN PRN PRN Reason: Skin Care Last Admin: 04/29/22 15:14 Dose: 1 applic Nicotine (Nicotine 14 Mg Patch) 1 patch TOP DAILY [facility] Last Admin: 05/03/22 08:08 Dose: 1 patch Nystatin (Nystatin Cream 15 Gm Tube) 1 applic TOP BID [facility] Last Admin: 05/03/22 09:13 Dose: 1 applic Ondansetron HCl (Ondansetron 4 Mg/2 Ml Vial) 4 mg IVP Q6HR PRN PRN Reason: Nausea / Vomiting Multivit/Folic Acid/Iron ( Vitamin Tablet) 1 tab PO DAILYWM [facility] Last Admin: 05/03/22 08:22 Dose: 1 tab Saccharomyces Boulardii (Saccharomyces Boulardii 250 Mg Capsule) 250 mg PO BIDWM [facility] Last Admin: 05/03/22 17:37 Dose: 250 mg Sodium Chloride (Sodium Chloride Flush 0.9% 10 Ml Syringe) 10 ml IVP 0100,0900,1700 [facility] Last Admin: 05/03/22 17:38 Dose: 10 ml Sodium Chloride (Sodium Chloride Flush 0.9% 10 Ml Syringe) 10 ml IVP PRN PRN PRN Reason: NEEDED PER PROVIDER ORDERS Last Admin: 05/02/22 18:32 Dose: 10 ml Sodium Zirconium Cyclosilicate (Sodium Zirconium Cyclosilicate 5 Gm Packet) 10 gm PO 1400 [facility] Last Admin: 05/03/22 13:52 Dose: 10 gm Thiamine HCl (Thiamine 100 Mg Tablet) 100 mg PO DAILY [facility] Last Admin: 05/03/22 08:22 Dose: 100 mg Home Meds: Albuterol Sulfate [Proair Hfa Inhaler] 1 - 2 puffs PO QID PRN 11/03/17 Hydrocodone/Acetaminophen [Hydrocodone-Acetamin 10-325 mg] 1 - 2 tab PO Q12H PRN 04/28/22 Lisinopril [Zestril] 30 mg PO DAILY 04/28/22 Omeprazole 1 cap PO DAILY 04/29/22 amLODIPine [Norvasc] 1 tab PO DAILY 04/29/22 Exam: Temperature is 36.9. Heart rate varies between 126-140. Blood pressure is 119/87 on the amiodarone drip. Respirations are 14. He is 93% on room air. He came off nasal cannula oxygen this morning at around 11 AM. Patient appears much more comfortable in spite of his heart rate. He keeps on insisting that he does not feel the fast heart rate. He does not have tachypnea, his voice is stronger. Neck has shotty adenopathy and is supple Coarse upper airway sounds, scant wheezing. Yesterday he was audibly gurgling without a stethoscope and that is gone today. No tachypnea at rest. Only gets tachypneic and short of breath with getting up out of bed Abdomen is soft, nontender, nondistended, and last bowel movement was April 30 Extremities are only with trace edema Neurologically he is alert, oriented to the fact he is in the hospital. Has flashes of anger and frustration because he just does not want to be here. He never wanted to be here in the first place and is mad at his daughter. Sodium 132. He began at 117 on admission. Slowly coming up Potassium is 4.1. After several D50's and IV insulin pushes, I started him on Lokelma 10, 3 times daily for 2 days. His potassium has responded to that and was 4.8 yesterday BUN and creatinine are stable at 18 and 0.6. Random glucose 205, phosphorus 2.5, magnesium 1.9 White cell count normal at 7.8, hemoglobin 14.2, hematocrit 43, platelets 151 Respiratory culture with Pseudomonas aeruginosa Blood culture negative after 2 days Assessment/plan 1. Atrial fibrillation with rapid ventricular response. This is a new diagnosis for him. No PE, [place], thyrotoxicosis. Cycle troponins were plateaued or stable. I feel that he has had some congestive heart failure because of the A. fib has been so prolonged. Echocardiogram showed an ejection fraction of 55 to 60% and right-sided failure seems evident. Summary of what I have tried is in history of today. I spoke to cardiology on-call at [facility]. Sujatha Kelly was able to advise me over the phone. He recommends metoprolol 100 mg every 6 hours. Diltiazem CD2 140 mg twice daily and load the dig. If this does not work, unfortunately, we really need to prove if he has a clot in his atrium or not. Because the next step would be cardioversion. He knows that we cannot get transesophageal echo here. If we can get a really good CT of the heart, and be convinced there is no clot, we can then cardiovert him here. If we cannot, he will need transfer. 2. COPD exacerbation. He was positive for non-COVID coronavirus. His underlying COPD is from smoking. He is on duo nebs, Mucinex, inhaled steroids, and most currently Levaquin for Pseudomonas in his phlegm. He is also been able to come off oxygen today. Overall I would say he is improved from this problem. I am hoping he is at baseline. Plan: Discontinue Solu-Medrol and continue the nebulizers 3. Community-acquired pneumonia. Status post 3 days of Rocephin and azithromycin. Now on Levaquin. He is now on a 6-day here. Because of his illness, I would continue Levaquin until he has been on antibiotics for 10 days. 4. Alcohol abuse. Initially he was on CIWA protocol but he never went through withdrawal. Currently on multivitamins. 5. Hyponatremia has finally resolved. Stop IV fluids 6. Hyperkalemia has also resolved with Lokelma. I will reduce that to once a day. 7. Tobacco abuse. Continue nicotine patch 8. Poor dentition. He is on oral care and a soft diet. 9. Cor pulmonale on echocardiogram. Especially made worse by his A. fib with RVR. He is responding to the diuresis today. This is the first time he has been up and not so dyspneic.
[2022-05-03] MEDS: METOPROLOL TARTRATE 50 MG TABLET PO SCH (18:28)
[2022-05-03] MEDS: ZINC OXIDE 20% OINT 30 GM TUBE TOP PRN (19:59)
[2022-05-03] MEDS: APIXABAN 5 MG TABLET PO SCH (20:59)
[2022-05-03] MEDS: diltiaZEM CD 240 MG CAPSULE PO SCH (20:59)
[2022-05-04] MEDS: METOPROLOL TARTRATE 50 MG TABLET PO SCH ×4 (00:04→17:08)
[2022-05-04] MEDS: NYSTATIN CREAM 15 GM TUBE TOP SCH ×3 (00:06→22:02)
[2022-05-04] MEDS: SODIUM CHLORIDE FLUSH 0.9% 10 ML SYRINGE IVP SCH ×3 (00:06→17:06)
[2022-05-04] MEDS: IPRATROPIUM/ALBUTEROL 3 ML NEB INH SCH ×4 (07:25→20:01)
[2022-05-04] MEDS: BUDESONIDE 0.5 MG/2 ML NEB INH SCH ×2 (07:25→20:00)
[2022-05-04] MEDS ORDERED: AMIODARONE 150 MG/100 ML 100 ML IV ONE (07:42)
[2022-05-04 08:09] LABS: CALCIUM 8.7 mg/dL (8.5-10.3); CREATININE 0.7 mg/dL (0.6-1.2); POTASSIUM 3.9 mmol/L (3.5-5.0)
[2022-05-04] MEDS: MORPHINE 2 MG/ML CARPUJECT IVP PRN (08:13)
[2022-05-04 09:00] LABS: CALCIUM, IONIZED 1.07 mmol/L (1.15-1.33); VBG PH 7.456 (7.31-7.41)
[2022-05-04] MEDS: AMIODARONE 150 MG/100 ML 100 ML IV SCH ×4 (09:07→22:03)
[2022-05-04] MEDS: PRENATAL VITAMIN TABLET PO SCH (09:08)
[2022-05-04] MEDS: APIXABAN 5 MG TABLET PO SCH ×2 (09:08→21:10)
[2022-05-04] MEDS: ASPIRIN EC 81 MG TABLET PO SCH (09:08)
[2022-05-04] MEDS: SACCHAROMYCES BOULARDII 250 MG CAPSULE PO SCH ×2 (09:08→17:06)
[2022-05-04 09:09] LABS: MAGNESIUM 1.8 mg/dL (1.7-2.8); PHOSPHORUS 2.7 mg/dL (2.5-4.6)
[2022-05-04] MEDS: FAMOTIDINE 20 MG TABLET PO SCH ×2 (09:09→21:10)
[2022-05-04] MEDS: FUROSEMIDE 20 MG/2 ML VIAL IVP SCH ×2 (09:09→21:10)
[2022-05-04] MEDS: DIGOXIN 500 MCG/2 ML AMP IVP SCH (09:09)
[2022-05-04] MEDS: guaiFENesin 600 MG TABLET PO SCH ×2 (09:09→21:10)
[2022-05-04] MEDS: diltiaZEM CD 240 MG CAPSULE PO SCH ×2 (09:09→21:10)
[2022-05-04] MEDS: NICOTINE 14 MG PATCH TOP SCH (09:10)
[2022-05-04] MEDS: methylPREDNISolone SUCCINATE 40 MG/ML VIAL IVP SCH ×2 (09:10→21:10)
[2022-05-04] MEDS: HYDROcod/ACETAM 5/325 MG TABLET PO SCH ×8 (09:12→23:13)
[2022-05-04 10:17] LABS: BASOPHILS % (AUTO) 0.1 %; HCT - HEMATOCRIT 41.5 % (42.0-52.0); HGB - HEMOGLOBIN 13.7 g/dL (14.0-18.0); LYMPHOCYTES # (AUTO) 0.5 10^3/uL (1.5-3.5); LYMPHOCYTES % (AUTO) 4.5 %; MEAN CORPUSCULAR VOLUME 106.1 fL (80.0-94.0); MEAN PLATELET VOLUME 10.1 fL (7.4-11.4); MONOCYTES # (AUTO) 0.9 10^3/uL (0.0-1.0); MONOCYTES % (AUTO) 7.9 %; NEUTROPHILS # (AUTO) 9.5 10^3/uL (1.5-6.6); PLT - PLATELET COUNT 137 10^3/uL (130-450); RED BLOOD COUNT 3.91 10^6/uL (4.70-6.10); RED CELL DISTRIBUTION WIDTH 12.5 % (12.0-15.0); WHITE BLOOD COUNT 11.1 x10^3/uL (4.8-10.8)
[2022-05-04] MEDS: CALCIUM CARBONATE CHEW 500 MG TABLET PO SCH ×2 (11:02→14:57)
[2022-05-04] MEDS: MAGNESIUM OXIDE 400 MG TABLET PO SCH ×2 (11:02→17:05)
--- NOTE | 2022-05-04 13:17 | PROVIDER PROGRESS NOTE ---
Progress Note May 04, 2022 12:49 PM Seen this morning. Always watching TV, and I have to mute the remote because is pretty loud. He really did not want to talk to me this morning. Said he wanted his pain medicine because he feels "lousy" and hurts all over. I had resumed Vicodin twice a day but he tells me that he takes 4 tablets a day. He explains that he takes 1 Vicodin and cuts it in half and takes half of Vicodin every 2 hours when he is awake. He really does not feel the palpitations. I explained to him that I spoke to cardiology yesterday and change him to a new drug regimen. He is still on amiodarone drip. Digoxin daily. Cardizem CD 240 twice daily, metoprolol 100 mg p.o. every 6 hours. He waved me away and says "I do not care". He really just wants me to change his Vicodin. As such I really cannot get a review of systems on him this morning. He is not in a good mood. Active Medications Hydrocodone Bitart/Acetaminophen (Hydrocod/Acetam 5/325 Mg Tablet) 0.5 tab PO Q2H [facility] Last Admin: 05/04/22 13:09 Dose: 0.5 tab Albuterol/Ipratropium (Ipratropium/Albuterol 3 Ml Neb) 3 ml INH Q4HR PRN PRN Reason: Wheezing Albuterol/Ipratropium (Ipratropium/Albuterol 3 Ml Neb) 3 ml INH RTQID [facility] Last Admin: 05/04/22 11:18 Dose: Not Given Apixaban (Apixaban 5 Mg Tablet) 5 mg PO BID [facility] Last Admin: 05/04/22 09:08 Dose: 5 mg Aspirin (Aspirin Ec 81 Mg Tablet) 81 mg PO DAILY [facility] Last Admin: 05/04/22 09:08 Dose: 81 mg Budesonide (Budesonide 0.5 Mg/2 Ml Neb) 0.5 mg INH RTBID [facility] Last Admin: 05/04/22 07:25 Dose: 0.5 mg Calcium Carbonate/Glycine (Calcium Carbonate Chew 500 Mg Tablet) 1,250 mg PO Q4H [facility]; Protocol Stop: 05/04/22 14:01 Last Admin: 05/04/22 11:02 Dose: 1,250 mg Digoxin (Digoxin 500 Mcg/2 Ml Amp) 250 mcg IVP DAILY [facility] Last Admin: 05/04/22 09:09 Dose: 250 mcg Diltiazem HCl (Diltiazem Cd 240 Mg Capsule) 240 mg PO BID [facility] Last Admin: 05/04/22 09:09 Dose: 240 mg Famotidine (Famotidine 20 Mg Tablet) 20 mg PO BID [facility] Last Admin: 05/04/22 09:09 Dose: 20 mg Furosemide (Furosemide 20 Mg/2 Ml Vial) 40 mg IVP BID [facility] Last Admin: 05/04/22 09:09 Dose: 40 mg Guaifenesin (Guaifenesin 600 Mg Tablet) 600 mg PO BID [facility] Last Admin: 05/04/22 09:09 Dose: 600 mg Levofloxacin (Levaquin 750 Mg/150 Ml) 750 mg in 150 mls @ 100 mls/hr IV Q24H [facility] Last Admin: 05/03/22 17:27 Dose: 100 mls/hr Amiodarone HCl/Dextrose (Nexterone 150 Mg/100 Ml Bag) 100 mls @ 20 mls/hr IV Q5H [facility] Last Admin: 05/04/22 13:09 Dose: 0.5 mg/min, 20 mls/hr Lorazepam (Lorazepam 2 Mg/Ml Vial) 1 mg IVP Q30M PRN; Protocol PRN Reason: CIWA >8 Magnesium Oxide (Magnesium Oxide 400 Mg Tablet) 400 mg PO Q6H [facility]; Protocol Stop: 05/04/22 16:01 Last Admin: 05/04/22 11:02 Dose: 400 mg Methylprednisolone (Methylprednisolone Succinate 40 Mg/Ml Vial) 40 mg IVP BID [facility] Last Admin: 05/04/22 09:10 Dose: 40 mg Metoprolol Tartrate (Metoprolol Tartrate 50 Mg Tablet) 100 mg PO Q6H [facility] Last Admin: 05/04/22 13:08 Dose: 100 mg Morphine Sulfate (Morphine 2 Mg/Ml Carpuject) 2 mg IVP Q4HR PRN PRN Reason: Dyspnea or pain 7-10 Last Admin: 05/04/22 08:13 Dose: 2 mg Multi-Ingredient Ointment (Zinc Oxide 20% Oint 30 Gm Tube) 1 applic TOP PRN PRN PRN Reason: Skin Care Last Admin: 05/03/22 19:59 Dose: 1 applic Nicotine (Nicotine 14 Mg Patch) 1 patch TOP DAILY [facility] Last Admin: 05/04/22 09:10 Dose: 1 patch Nystatin (Nystatin Cream 15 Gm Tube) 1 applic TOP BID [facility] Last Admin: 05/04/22 09:11 Dose: 1 applic Ondansetron HCl (Ondansetron 4 Mg/2 Ml Vial) 4 mg IVP Q6HR PRN PRN Reason: Nausea / Vomiting Multivit/Folic Acid/Iron ( Vitamin Tablet) 1 tab PO DAILYWM [facility] Last Admin: 05/04/22 09:08 Dose: 1 tab Saccharomyces Boulardii (Saccharomyces Boulardii 250 Mg Capsule) 250 mg PO BIDWM [facility] Last Admin: 05/04/22 09:08 Dose: 250 mg Sodium Chloride (Sodium Chloride Flush 0.9% 10 Ml Syringe) 10 ml IVP 0100,0900,1700 [facility] Last Admin: 05/04/22 09:12 Dose: 10 ml Sodium Chloride (Sodium Chloride Flush 0.9% 10 Ml Syringe) 10 ml IVP PRN PRN PRN Reason: NEEDED PER PROVIDER ORDERS Last Admin: 05/02/22 18:32 Dose: 10 ml Thiamine HCl (Thiamine 100 Mg Tablet) 100 mg PO DAILY [facility] Last Admin: 05/03/22 08:22 Dose: 100 mg Home Meds: Albuterol Sulfate [Proair Hfa Inhaler] 1 - 2 puffs PO QID PRN 11/03/17 Hydrocodone/Acetaminophen [Hydrocodone-Acetamin 10-325 mg] 1 - 2 tab PO Q12H PRN 04/28/22 Lisinopril [Zestril] 30 mg PO DAILY 04/28/22 Omeprazole 1 cap PO DAILY 04/29/22 amLODIPine [Norvasc] 1 tab PO DAILY 04/29/22 Exam: Temperature is 36.7. Heart rate continues to be tacky between 120 and as high as 155. Blood pressure 104/71. Respirations 25. He was on room air yesterday but needed to go back on oxygen in the solvent recoverer hours as he was asleep. This morning he is needing 1 L to saturating between 89 to 93%. My goal is to keep it between 88 to 92%. Alert, oriented to place, not time. Neck is supple shoddy adenopathy Lungs have prolonged and exhalation, a right lower lung rub, occasional coarse rhonchi. Gurgling lung sounds and quite a bit of phlegm have resolved over the last 2 days. When he gets up out of bed to sit in a chair he gets quite tachypneic and it takes him about 2 minutes to recover. Tachycardic irregular rate and rhythm Abdomen protuberant, soft, nontender, normal bowel sounds and his last bowel movement was May 01. [place] is draining clear, yellow urine. He almost accidentally pulled it out when he was trying to get up to the chair. Extremities have 1+ edema. Neurologically he is oriented to place, person, but short attention span. Irritable. Can get quite angry at times. And then he can be flat, unresponsive. He is consistent in saying "I just want a get out of here". Lab: Sodium is 132. Started at 117 on admission. Been slowly climbing every day. Potassium 3.9. Unresponsive to D50 and IV insulin push x4. Started on Lokelma 10 mg, 3 times daily, for 2 days. Potassium responded and came down to 4.1 yesterday. BUN 20, creatinine 0.7, fasting glucose 147, phosphorus 2.7, magnesium 1.8 White cell count 11.1. Back up again from 7.8 yesterday. Hemoglobin 13.7. Hematocrit 41.5. Platelets 137 Assessment/plan 1. New onset atrial fibrillation with rapid ventricular response. No PE, ID, thyrotoxicosis. Cycled troponins were plateaued or stable. Congestive heart failure resulted from this. A. fib is very prolonged and rate has not been able to be slowed down. Echocardiogram shows an ejection fraction of 55 to 60%, and right-sided heart failure is seen. Treatment up to now has been Cardizem drip with metoprolol and digoxin. Cardizem 60 mg p.o. every 6 hours with metoprolol 100 mg p.o. twice daily and digoxin. I spoke to [facility] cardiology May 03 and they recommend Cardizem CD to 40 mg p.o. twice daily, metoprolol 100 mg p.o. every 6 hours, digoxin. I still have him on amiodarone. If this does not work I am supposed to be considering transferring to higher level of care. He will need a transesophageal echo to evaluate for clot, and then cardioversion. He did suggest that if we cannot get a transesophageal echo to consider a CT of the chest to really look at the heart. Get a radiologist that knows what he is looking to see if there is clot in the heart or not. Plan: Today is day #2 of this. I started this therapy yesterday afternoon. I will give it another 24 hours. If this does not work we will have to consider transfer. 2. Cor pulmonale and probable acute right-sided heart failure made worse by Neal ventura with RVR. I have been aggressively diuresing for 2 days now. I initially started at 20 mg of Lasix and increased to 40 mg of Lasix to then 40 mg twice daily. There is been a noticeable improvement in mobility, shortness of breath. Fluid balance started getting minimally negative on May 02 at -294. May 03 he was -1219. As of today he is -475. Daily weights still not being recorded. When the order was written on April 28 weight was recorded at 77.56 kg. He is 82.5 today. Or at least that is what is recorded on the top of the information sheet on this patient for today. I will speak to nursing. 3. Community-acquired pneumonia. Status post 3 days of Rocephin and azithromycin. Now on Levaquin. Today is day 7 of antibiotics. I plan on 10 days total. Sputum cultures grew out Pseudomonas and Levaquin covers that. 4. COPD. He was felt to be in acute exacerbation during the stay. He was positive for non-COVID coronavirus. He has underlying COPD from smoking. Tr eatment has consisted of DuoNebs, Mucinex, inhaled steroids, IV steroids and antibiotics. Oxygen requirement has lessened over the last 2 days. He was on room air for a while yesterday but this morning had to come back on oxygen as he went to sleep. Intravenous steroids decreased to twice daily May 03. I will give 1 dose tomorrow then stop. 5. Hyperkalemia. Did not respond to D50 and insulin after several times. He is not on any medications that would do this. In reviewing the literature, it is associated with cirrhosis. It has to do with cation exchange at the kidney tubules. In any case, he is responding to Lokelma. He has successfully come down with 10 mg 3 times a day. I then decreasing to 10 mg daily. Today he is 3.9. I will stop Lokelma and resume it as needed. 6. Hyponatremia on admission. Again associated with cirrhosis. With normal saline, he has come up to 132 since May 03. IV fluids stopped May 02. He is not on any maintenance IV fluids right now. We are encouraging him to make sure he drinks enough water. But not too much. 7. Alcohol abuse. Was placed on CIWA protocol but did not need it. Currently on multivitamins. 8. Tobacco abuse. On a nicotine patch. 9. Poor dentition, on oral care, soft diet, and has been seen by head well puller.
[2022-05-04] MEDS: levoFLOXacin 750 MG/150 ML 750 MG/150 ML BAG IV SCH (17:06)
[2022-05-04] MEDS: SODIUM CHLORIDE FLUSH 0.9% 10 ML SYRINGE IVP PRN (21:11)
[2022-05-04] MEDS: ZINC OXIDE 20% OINT 30 GM TUBE TOP PRN (22:03)
[2022-05-05] MEDS: METOPROLOL TARTRATE 50 MG TABLET PO SCH ×3 (00:07→12:58)
[2022-05-05] MEDS: HYDROcod/ACETAM 5/325 MG TABLET PO SCH ×8 (00:57→15:12)
[2022-05-05] MEDS: SODIUM CHLORIDE FLUSH 0.9% 10 ML SYRINGE IVP SCH ×2 (00:57→09:24)
[2022-05-05] MEDS: AMIODARONE 150 MG/100 ML 100 ML IV SCH ×2 (03:17→09:21)
[2022-05-05 05:17] LABS: CALCIUM 8.9 mg/dL (8.5-10.3); CREATININE 0.7 mg/dL (0.6-1.2); POTASSIUM 3.9 mmol/L (3.5-5.0)
[2022-05-05 06:02] LABS: MAGNESIUM 1.6 mg/dL (1.7-2.8); PHOSPHORUS 2.3 mg/dL (2.5-4.6)
[2022-05-05 06:02] LABS: BASOPHILS % (AUTO) 0.1 %; HCT - HEMATOCRIT 44.6 % (42.0-52.0); HGB - HEMOGLOBIN 14.4 g/dL (14.0-18.0); LYMPHOCYTES # (AUTO) 0.4 10^3/uL (1.5-3.5); LYMPHOCYTES % (AUTO) 2.6 %; MEAN CORPUSCULAR HEMOGLOBIN 34.4 pg (27.0-31.0); MEAN CORPUSCULAR HGB CONC 32.3 g/dL (32.0-36.0); MEAN CORPUSCULAR VOLUME 106.7 fL (80.0-94.0); MEAN PLATELET VOLUME 9.9 fL (7.4-11.4); MONOCYTES # (AUTO) 1.1 10^3/uL (0.0-1.0); MONOCYTES % (AUTO) 6.6 %; NEUTROPHILS # (AUTO) 14.2 10^3/uL (1.5-6.6); NEUTROPHILS % (AUTO) 89.4 %; PLT - PLATELET COUNT 130 10^3/uL (130-450); RED BLOOD COUNT 4.18 10^6/uL (4.70-6.10); RED CELL DISTRIBUTION WIDTH 12.6 % (12.0-15.0); WHITE BLOOD COUNT 15.9 x10^3/uL (4.8-10.8)
[2022-05-05] MEDS ORDERED: MAGNESIUM OXIDE 400 MG TABLET PO ONE (06:05)
[2022-05-05] MEDS: NEUTRA-PHOS 250 MG TABLET PO SCH ×2 (06:35→09:23)
[2022-05-05] MEDS: BUDESONIDE 0.5 MG/2 ML NEB INH SCH (07:21)
[2022-05-05] MEDS: IPRATROPIUM/ALBUTEROL 3 ML NEB INH SCH ×2 (07:22→11:30)
[2022-05-05] MEDS: CALCIUM CARBONATE CHEW 500 MG TABLET PO SCH ×2 (09:20→12:58)
[2022-05-05] MEDS: SACCHAROMYCES BOULARDII 250 MG CAPSULE PO SCH (09:21)
[2022-05-05] MEDS: APIXABAN 5 MG TABLET PO SCH (09:21)
[2022-05-05] MEDS: PRENATAL VITAMIN TABLET PO SCH (09:21)
[2022-05-05] MEDS: FUROSEMIDE 20 MG/2 ML VIAL IVP SCH (09:22)
[2022-05-05] MEDS: guaiFENesin 600 MG TABLET PO SCH (09:22)
[2022-05-05] MEDS: diltiaZEM CD 240 MG CAPSULE PO SCH (09:22)
[2022-05-05] MEDS: DIGOXIN 500 MCG/2 ML AMP IVP SCH (09:22)
[2022-05-05] MEDS: FAMOTIDINE 20 MG TABLET PO SCH (09:22)
[2022-05-05] MEDS: ASPIRIN EC 81 MG TABLET PO SCH (09:22)
[2022-05-05] MEDS: methylPREDNISolone SUCCINATE 40 MG/ML VIAL IVP SCH (09:23)
[2022-05-05] MEDS: NICOTINE 14 MG PATCH TOP SCH (09:24)
[2022-05-05] MEDS: THIAMINE 100 MG TABLET PO SCH (09:24)
[2022-05-05] MEDS: NYSTATIN CREAM 15 GM TUBE TOP SCH (09:24)
[2022-05-05] MEDS ORDERED: AMIODARONE 200 MG TABLET PO SCH (10:00)
[2022-05-05 14:05] VITALS: BP 118/83
--- NOTE | 2022-05-05 14:25 | Discharge Plan ---
Discharge Plan Problem Reviewed?: Yes Disposition: 06 Home Health Service Condition: Poor Prescriptions: diltiaZEM CD [Cardizem Cd] 240 mg PO BID #60 cap Ipratropium/Albuterol [Duoneb] 3 ml INH RTQID #120 ml Apixaban [Eliquis] 5 mg PO BID #60 tab Metoprolol Tartrate [Lopressor] 100 mg PO BID #60 tab Nystatin Cream [Mycostatin Cream] 1 applic TOP BID #3 each HYDROcod/ACETAM 5/325 [[place] 5/325] 0.5 tab PO Q2H #30 tab Budesonide [Pulmicort] 0.5 mg INH RTBID #60 ml Diet: Regular Activity Restrictions: Activity as Tolerated Shower Restrictions: No Driving Restrictions: Yes (no driving) Health Concerns: You have emphysema, smoke currently, and drink about a sixpack a day of beer and came into the hospital with 4 to 5 days of coughing, progressive shortness of breath, and just not eating very well because you had no appetite. You getting weaker and weaker and your family brought you to the emergency room. They found you to have a new irregular heartbeat that is very fast. That irregular heartbeat is called atrial fibrillation. In addition to the irregular heartbeat, you had a coronavirus that was not COVID but still caused you to have viral pneumonia and decompensation of your emphysema. We treated you with steroids, nebulizers, oxygen, and multiple, multiple, multiple medications to try and slow down your heart rate. Nothing worked. You are now better from your pneumonia. You are better from your emphysema. You have finally started eating again. You are very sure that you no longer want to come to the hospital again. I have explained to you that you cannot maintain a heart rate this fast for very long before eventually you will start to go into severe congestive heart failure and be very short of breath. You understand that. You said you do not want to stay anymore. The neck step would have been to transfer you to [place] to get your heart regulated and you have decided you really do not want to do that. On the day of discharge you made it very clear to me, your son Satnam, and your daughter Millie, as well as your sister that you want to go home. What ever happens will happen. You do not ever want to come back to the hospital again. You understand that you could possibly at home and you are at peace with that. Plan of Treatment: We currently have you on a very large dose of heart rate lowering medication. It is a tremendous amount of medicine. This dosing was recommended by cardiology at [facility]. Their understanding was that you were going to go see them to get your heart regulated but you do not want to do that anymore. So I will be sending you home on: 1. Cardizem CD 240 mg tablet twice a day 2. Metoprolol 100 mg tablet twice a day (the double backer wanted you on 4 times a day but that really is a lot of medicine) 3. Digoxin 0.125 mg tablet once a day 4. A blood thinner to prevent you from having strokes from the irregular heartbeat. I have sent you home on Eliquis but if your insurance plan wants to do have Xarelto or Pradaxa the pharmacist consider substitute for that. You have chronic pain. You take half of Vicodin tablet every 2 hours when you are awake. I have given you 30 tablets and you need to get refills from your primary care provider. For your emphysema I am prescribing DuoNeb nebulizer up to 4 times a day. As needed. And you will take on a regular dosage, not as needed, a steroid called Pulmicort/budesonide twice a day. Please see your primary care provider in follow-up. Your regular primary care provider is Anna Gregorio. Please see her as soon as possible In making clear that you never wanted to come back to the hospital and received aggressive treatment, you had me fill out a POLST form you are I DO NOT RESUSCITATE, comfort measures only. You do not want to be ever hospitalized again. I asked her several times if you understood that you did not want come back to the hospital and you said you understood and did not want to come back. Your daughter Millie, son Satnam are on the back of that POLST form as emergency contacts. Copy of the POLST form is For our records and you are given the original No Smoking: If you smoke, Please STOP! Call for help. Follow-up with: Marcela Gregorio ARNP [Primary Care Provider] -
--- NOTE | 2022-05-05 16:38 | DISCHARGE SUMMARY ---
"Discharge Summary Admit Date: 04/28/22 Discharge Date: 05/05/22 Discharging Provider: Violeta Rossi MD Primary Care Provider: Marcela Gregorio Code Status: Do Not Attempt Resuscitation Condition at Discharge: Poor Discharge Disposition: Home Health Service - DIAGNOSES Discharge Diagnoses with Status of Each Condition: 1. Atrial fibrillation with rapid ventricular response, present on admission and still present at discharge. 2. COPD with exacerbation 3. Coronavirus, [id number], infection 4. Acute on chronic respiratory failure with hypercapnia and hypoxia resolved now with chronic respiratory failure with hypoxia 5. Acute urinary retention 6. Cor pulmonale 7. Acute right-sided heart failure 8. Community-acquired pneumonia, Pseudomonas aeruginosa on sputum 9. Hyperkalemia 10. Hyponatremia 11. Chronic alcohol abuse 12. Chronic tobacco abuse 13. Poor dentition - HPI History of Present Illness: This is a 71-year-old male who lives with his son. He is retired from [employer] and [employer]. He drinks 6 beers a day. He has a Manager Government for some cardiac diagnosis that he is not aware of. He has a history of an aneurysm and points to his abdomen. He is a smoker, has a Hx of COPD, is not on home oxygen. The patient presented with 4-5 days of worsening shortness of breath and a cough. He was eating less and less and becoming more weak during this time. In the ED he was found to be in severe respiratory distress, tachypneic, and in new onset of A. fib with RVR. He received Cardizem IV pushes x2 then started on a Cardizem drip. He received Duo nebs and given supplemental oxygen for severe resp distress with desaturation of 91% on room air. His ABG showed pH , pCO2 , pO2 . A lung work-up showed that he has no PE by CTA chest but does have an infiltrate. The ED provider spoke to me about management on the Hospitalist service, and patient is being admitted to the ICU, to continue his IV diltiazem drip and treat his COPD exacerbation and CAP. I discussed the patient's wishes regarding his CODE STATUS and he wants to be a Full Code. - Past Medical History Cardiovascular: reports: Hypertension, Other Respiratory: reports: COPD, Emphysema Endocrine/Autoimmune: reports: None GI: reports: GERD : reports: None HEENT: reports: None Psych: reports: None Musculoskeletal: reports: Chronic back pain Derm: reports: None MRSA Hx?: No - Past Surgical History Ortho: reports: Shoulder arthroplasty, Spine surgery HEENT: reports: Tonsil/Adenoidectomy - CONSULTS | PROCEDURES Procedures: 1. Echocardiogram with normal left ventricular size and function. Ejection fraction 55%. Left atrium normal. Mildly dilated right ventricle with severely reduced function. Moderate pulmonary hypertension. Atrial fibrillation present. Moderate to severe right atrial enlargement. Mild to moderate tricuspid regurgitation. RVSP at rest 54 mmHg. 2. Chest x-ray with mild bilateral perihilar interstitial prominence associated with mild edema 3. Chest/thorax CT angiogram does not show pulmonary embolism. Pulmonary no dules present. Patchy lung opacities in the right lower lobe. The nodular clusters are scattered throughout both lung asencio bilaterally. Thoracic aorta normal. (Patient states he has a history of an abdominal aortic aneurysm) 4. Pseudomonas aeruginosa on sputum 5. Blood cultures negative at 5 days 6. Thyroid ultrasound has a small hyperechoic nodule in the inferior right pole. Given its size no further follow-up needed. 7. TSH 0.19 and low. Free thyroxine is 0.68 and normal. Free T3 is 2.02 and borderline low with normal being 2.5 - HOSPITAL COURSE Hospital Course: The patient's medical problems gradually improved and resolved with diuretics, appropriate IV fluids, antibiotics. Steroids. Emphysema improved to the point that he was able to get out of bed and ambulate in the room but was still significantly dyspneic with exertion. He was not hypoxic at rest with O2 sats of 91% on room air. With exertion on room air his O2 sats were 85%. On 2 L nasal cannula his O2 sats were 92%. I am ordering home oxygen, room air at rest, 2 L/min with exertion to treat his COPD. It took us quite some time to turn the corner with regards to his endurance and his appetite. He just was not eating for several days and finally the last 2 to 3 days of admission started increasing his food intake. However, the 1 thing that we could not control was his heart rate. He initially was tried on Cardizem IV push. Lopressor IV push. Then a Cardizem drip. Then transitioning to Cardizem 60 mg p.o. every 6 hours. We tried an esmolol drip, that only bottomed out his pressure. And no rate control. Then I tried amiodarone drip. Again no effect on his pulse rate at all. I spoke to [facility] cardiology on-call and they recommended Cardizem CD2 140 mg p.o. twice daily. Metoprolol 100 mg p.o. every 6 hours. Daily digoxin. I started anticoagulation because of the A-fib and he is on Eliquis now. All of that did not control his heart rate. In the meantime the patient was improving his endurance in the room, and starting to eat more. His personal frustration at being in the hospital was more and more evident. He had always told his children that he did not want to be in the hospital. Did not want things done to him. But he had gotten so sick at home that his daughter called the ambulance and that is what brought him in. He made it very clear to his son Satnam and his daughter Millie, that he did not want to do this again. When the time came for me to suggest transfer to higher level of care to [facility] for cardioversion and a transesophageal echo he refused. He also had me fill out a POLST form in front of his daughter, son, and sister to be DO NOT RESUSCITATE, comfort measures. He did not want to come back to the hospital. I told him that he was doing so much better, and I would really like to see if controlling his heart rate would make a difference in his overall status but he refused. I also explained to him that his heart could not take this for much longer. You basically running a marathon for the entire week he was here. This was a new diagnosis. And eventually his heart would give out on him and he may at home because of heart failure and COPD. He said that was okay with him. He told us that he did not have any intention of stopping drinking. Nor did he have any intention of stopping smoking. He just wanted us to leave him alone and to let him live his life as he saw fit. He did receive empiric antibiotics for his pneumonia. This was changed to Levaquin when Pseudomonas was identified. Within 24 hours of changing him to Levaquin he turned the corner from a cardiopulmonary perspective except for the heart rate. At discharge the patient's heart rate still varies between 108 and as high as 133. It is A-fib. Temperature is 36.6. Blood pressure 118/83, respirations 30 with walking in the room, 22 at baseline sitting. O2 sats are as above. He is a disheveled elderly gentleman who looks older than stated age. He is managed to bradycardia his peoples into 4 separate little ronnie. Shotty neck adenopathy. Coarse upper airway lung sounds. During his admission he had rhonchi, wheezing, and gurgling. The gurgling was audible without stethoscope. Today he is with prolonged and exhalation, and occasional cough that brings up phlegm but much improved overall. He is easily tachypneic with exertion. A fast irregular rate and rhythm. Abdomen is protuberant, soft, nontender with normal bowel sounds. Extremities without edema. [place] had been discontinued yesterday and has had no more recurrence of urinary urgency. Or retention. He is ambulating in the room with standby assist using a walker. Greater than 30 minutes was spent coordinating discharge. While children disagreed with their father's decision, they were supporting him and were going to go home with him and make sure he stayed okay. I did send him out on Cardizem CD twice daily, but I reduce the Lopressor to twice daily just for the sake that it may be nervous to send him home on Lopressor 4 times a day. He is also on digoxin 0.125 daily. I hope he follows up with his primary care provider. I hope that she is able to send him to his cell preparer and may be his cell preparer can talk him into getting further care for his A-fib with RVR. - ALLERGIES Allergies/Adverse Reactions: Allergies Allergy/AdvReac Type Severity Reaction Status Date / Time No Known Drug Allergies Allergy Verified 04/28/22 10:16 - MEDICATIONS Home Medications: Ambulatory Orders Medication Instructions Recorded Confirmed Albuterol Sulfate [Proair Hfa 1 - 2 puffs PO QID PRN 11/03/17 04/29/22 Inhaler] Omeprazole 1 cap PO DAILY 04/29/22 04/29/22 Apixaban [Eliquis] 5 mg PO BID #60 tab 05/05/22 Budesonide [Pulmicort] 0.5 mg INH RTBID #60 ml 05/05/22 Digoxin [Lanoxin] 125 mcg PO DAILY #30 tablet 05/05/22 HYDROcod/ACETAM 5/325 [[place] 5/325] 0.5 tab PO Q2H #30 tab 05/05/22 Ipratropium/Albuterol [Duoneb] 3 ml INH RTQID #120 ml 05/05/22 Metoprolol Tartrate [Lopressor] 100 mg PO BID #60 tab 05/05/22 Nystatin Cream [Mycostatin Cream] 1 applic TOP BID #3 each 05/05/22 diltiaZEM CD [Cardizem Cd] 240 mg PO BID #60 cap 05/05/22 guaiFENesin [Mucinex] 600 mg PO BID tab 05/05/22 - LABS Result Diagrams: 05/05/22 05:53 05/05/22 04:21"
== END 2022-05-05 15:35 | disposition home health service (06) | DRG 177 ==
LOC: ED 09:36 → ICU 16:01
PROVIDERS: ADMIT Internal Medicine; ATTEND Specialist
DX: J15.1 Pneumonia due to Pseudomonas (principal); J96.21 Acute and chronic respiratory failure with hypoxia; J96.22 Acute and chronic respiratory failure with hypercapnia; E87.1 Hypo-osmolality and hyponatremia; I48.91 Unspecified atrial fibrillation; J22 Unspecified acute lower respiratory infection; Z20.822 Contact with and (suspected) exposure to COVID-19; I10 Essential (primary) hypertension; F17.200 Nicotine dependence, unspecified, uncomplicated; J43.9 Emphysema, unspecified; B34.2 Coronavirus infection, unspecified; R33.9 Retention of urine, unspecified; I27.81 Cor pulmonale (chronic); I11.0 Hypertensive heart disease with heart failure; I50.811 Acute right heart failure; E87.5 Hyperkalemia; F10.10 Alcohol abuse, uncomplicated; F17.210 Nicotine dependence, cigarettes, uncomplicated; R53.1 Weakness; Z66 Do not resuscitate; R63.0 Anorexia; Z68.23 Body mass index [BMI] 23.0-23.9, adult; E04.1 Nontoxic single thyroid nodule; I27.20 Pulmonary hypertension, unspecified; I45.10 Unspecified right bundle-branch block; R94.31 Abnormal electrocardiogram [ECG] [EKG]; I95.9 Hypotension, unspecified; R91.8 Other nonspecific abnormal finding of lung field; R00.0 Tachycardia, unspecified; K08.109 Complete loss of teeth, unspecified cause, unspecified class; M54.9 Dorsalgia, unspecified; B37.2 Candidiasis of skin and nail; M25.511 Pain in right shoulder; H91.90 Unspecified hearing loss, unspecified ear; G89.29 Other chronic pain
CPT/HCPCS: 36415; 36600; 71045; 71275; 76536; 80048; 80053; 80306; 81001; 82330; 82803; 83690; 83735; 83880; 84100; 84132; 84295; 84439; 84443; 84481; 84484; 85025; 85379; 85610; 87040; 87070; 87077; 87150; 87181; 87205; 87633; 93005; 93306; 94640; 94761; 96361; 96374; 96375; 97161; 99285; 99291; A9270; G0480; J0282; J1650; J1815; J3411; J3490; J7626; Q9967; 80320; 87086

== ENCOUNTER 2022-07-01 14:53 | Outpatient (CLI) | payer MEDICARE | END 2022-07-01 14:54 | disposition critical access hospital (66) | LOC: EMS 14:53 | DX: R41.0 Disorientation, unspecified (principal); R53.1 Weakness | CPT/HCPCS: A0425; A0429 ==

== ENCOUNTER 2022-07-01 15:18 | Inpatient (IN) | payer MEDICARE ==
[2022-07-01] MEDS ORDERED: SODIUM CHLORIDE 0.9% 1,000 ML IV STA ×3 (15:27→18:08)
--- NOTE | 2022-07-01 15:38 | ED Physician Documentation ---
History of Present Illness - Stated complaint Stated Complaint: CONFUSION - Chief complaint Chief Complaint: Neuro - History obtained from History obtained from: Patient, EMS - Additonal information Additional information: Patient is a 71-year-old male who is brought in by EMS today. Reported complaint is weakness and confusion. He reportedly lives at home alone. His family checks on him daily. EMS states that the family told them he has had increased confusion over the past 1 week. Today they went to check on him and found him on the ground, covered in feces. EMS was dispatched and brought the patient here. Upon arrival, the patient is awake, alert. He states that he fell this morning, injuring his back. He states he did strike his head. He is on Eliquis for atrial fibrillation. Denies any fevers. States that he has a chronic cough. He states that he has mid and low back pain. No numbness or tingling. He usually takes Vicodin for pain at home. He does drink beer on a regular basis. Review of Systems Constitutional: denies: Fever Nose: denies: Rhinorrhea / runny nose, Congestion Throat: denies: Sore throat Cardiac: denies: Chest pain / pressure Respiratory: reports: Cough (chronic, unchanged) GI: reports: Diarrhea. denies: Abdominal Pain, Nausea, Vomiting, Hematemesis, Bloody / black stool : denies: Dysuria Skin: denies: Rash Musculoskeletal: reports: Back pain (mid/low back). denies: Neck pain Neurologic: reports: Head injury. denies: Focal weakness, Numbness, Headache PD PAST MEDICAL HISTORY - Past Medical History Cardiovascular: Hypertension, Atrial fibrillation, Other Respiratory: COPD, Emphysema Endocrine/Autoimmune: None GI: GERD : None HEENT: None Psych: None Musculoskeletal: Chronic back pain Derm: None - Past Surgical History Past Surgical History: Yes Ortho: Shoulder arthroplasty, Spine surgery HEENT: Tonsil/Adenoidectomy - Present Medications Home Medications: Ambulatory Orders Medication Instructions Recorded Confirmed Albuterol Sulfate [Proair Hfa 1 - 2 puffs PO QID PRN 11/03/17 04/29/22 Inhaler] Omeprazole 1 cap PO DAILY 04/29/22 04/29/22 Apixaban [Eliquis] 5 mg PO BID #60 tab 05/05/22 Budesonide [Pulmicort] 0.5 mg INH RTBID #60 ml 05/05/22 Digoxin [Lanoxin] 125 mcg PO DAILY #30 tablet 05/05/22 HYDROcod/ACETAM 5/325 [[place] 5/325] 0.5 tab PO Q2H #30 tab 05/05/22 Ipratropium/Albuterol [Duoneb] 3 ml INH RTQID #120 ml 05/05/22 Metoprolol Tartrate [Lopressor] 100 mg PO BID #60 tab 05/05/22 Nystatin Cream [Mycostatin Cream] 1 applic TOP BID #3 each 05/05/22 diltiaZEM CD [Cardizem Cd] 240 mg PO BID #60 cap 05/05/22 guaiFENesin [Mucinex] 600 mg PO BID tab 05/05/22 - Allergies Allergies/Adverse Reactions: Allergies Allergy/AdvReac Type Severity Reaction Status Date / Time No Known Drug Allergies Allergy Verified 04/28/22 10:16 - Social History Does the pt smoke?: Yes Smoking Status: Current every day smoker Does the pt drink ETOH?: Yes Does the pt have substance abuse?: No - Immunizations Immunizations: TDAP current <10years - POLST Patient has POLST: No PD ED PE NORMAL - Vitals Vital signs reviewed: Yes - General General: No acute distress, Well developed/nourished, Other (Alert, oriented to person and place, not to time) - HEENT HEENT: PERRL, Moist mucous membranes - Neck Neck: Supple, no meningeal sign, No bony TTP - Cardiac Cardiac: RRR, Strong equal pulses - Respiratory Respiratory: No respiratory distress, Clear bilaterally - Abdomen Abdomen: Soft, Non tender, Non distended - Back Back: Other (Tender palpation lower thoracic and upper lumbar spine, midline. No step-off or deformity.) - Derm Derm: Warm and dry, No rash - Extremities Extremities: No deformity, No tenderness to palpate, Normal ROM s pain, Other (Skin tears to the left forearm, very small, do not need repair.) - Neuro Neuro: mastic floor layer 2-12 intact, No motor deficit, No sensory deficit, Normal speech, Other (Normal sensation in the bilateral lower extremities. Able to move toes, knees and hips bilaterally. No saddle anesthesia) - Psych Psych: Normal mood, Normal affect Results - Vitals Vitals: Vital Signs - 24 hr 07/01/22 07/01/22 07/01/22 15:22 15:58 16:31 Temperature 37.1 C Heart Rate 122 H 101 H 120 H Respiratory 22 22 20 Rate Blood Pressure 84/62 L 102/72 105/93 H O2 Saturation 94 96 94 If not protocol 3 3 : Oxygen Flow, liters/minute 07/01/22 07/01/22 07/01/22 17:33 18:08 18:40 Temperature Heart Rate 135 H 134 H 135 H Respiratory 26 H 21 21 Rate Blood Pressure 121/77 120/66 123/78 O2 Saturation 94 97 94 If not protocol 3 3 3 : Oxygen Flow, liters/minute 07/01/22 19:13 Temperature Heart Rate 121 H Respiratory 21 Rate Blood Pressure 124/75 O2 Saturation 94 If not protocol 3 : Oxygen Flow, liters/minute Oxygen O2 Source Nasal cannula Oxygen Flow Rate 3 - EKG (time done) 1923 EKG releavant findings:: EKG personally interpreted by author of this note. Relevant findings are: Rate: Rate (enter#) (about 150) Rhythm: Atrial fibrillation [place]: Anterior hemiblock (LAFB) Intervals: RBBB Compare to prior EKG: Unchanged from prior EKG (04-28-22) - Labs Labs: Laboratory Tests 07/01/22 07/01/22 07/01/22 15:53 15:53 15:53 WBC 14.3 H RBC 2.90 L Hgb 10.0 L Hct 31.3 L MCV 107.9 H MCH 34.5 H MCHC 31.9 L RDW 13.4 Plt Count 168 MPV 10.5 Neut # (Auto) MEASUREMENT ANALYST Lymph # (Auto) MEASUREMENT ANALYST [place] # (Auto) MEASUREMENT ANALYST Eos # (Auto) MEASUREMENT ANALYST Baso # (Auto) MEASUREMENT ANALYST Absolute Nucleated RBC MEASUREMENT ANALYST Total Counted 100 Band Neuts % (Manual) 6 Abnorm Lymph % (Manual) 0 Nucleated RBC % MEASUREMENT ANALYST Neutrophils # (Manual) 13.0 H Lymphocytes # (Manual) 0.3 L Monocytes # (Manual) 1.0 Eosinophils # (Manual) 0.0 Basophils # (Manual) 0.0 Differential Comment MANUAL DIFFERENTIAL Manual Slide Review Indicated Platelet Estimate NORMAL (130-450,000) Platelet Morphology NORMAL APPEARANCE RBC Morph Micro Appear 3+ STOMATOCYTES Sodium 138 Potassium 3.5 Chloride 80 L* Carbon Dioxide 41 H* Anion Gap 17.0 H BUN 19 Creatinine 1.1 Estimated GFR (MDRD) 66 L Glucose 100 Lactic Acid Calcium 8.4 L Phosphorus 3.3 Magnesium 1.3 L Total Bilirubin 1.2 H AST 41 ALT 16 Alkaline Phosphatase 57 Total Creatine Kinase 308 H Total Protein 6.1 L Albumin 2.7 L Globulin 3.4 Albumin/Globulin Ratio 0.8 L Lipase 22 TSH 0.73 Urine Color Urine Clarity Urine pH Ur Specific [place] Urine Protein Urine Glucose (UA) Urine Ketones Urine Occult Blood Urine Nitrite Urine Bilirubin Urine Urobilinogen Ur Leukocyte Esterase Urine RBC Urine WBC Urine WBC Clumps Ur Squamous Epith Cells Urine Bacteria Ur Microscopic Review Urine Culture Comments Nasal Adenovirus (PCR) Nasal B. parapertussis DNA (PCR) Nasal Coronavir 229E PCR Nasal Coronavir HKU1 PCR Nasal Coronavir NL63 PCR Nasal Coronavir OC43 PCR Nasal Enterovir/Rhinovir PCR Nasal Influenza B PCR Nasal Influenza A PCR Nasal Parainfluen 1 PCR Nasal Parainfluen 2 PCR Nasal Parainfluen 3 PCR Nasal Parainfluen 4 PCR Nasal RSV (PCR) Nasal B.pertussis DNA PCR Nasal C.pneumoniae (PCR) Damian Human Metapneumo PCR Nasal M.pneumoniae (PCR) Nasal SARS-CoV-2 (PCR) Salicylates < 6.0 Urine Opiates Screen Ur Oxycodone Screen Urine Methadone Screen Ur Propoxyphene Screen Acetaminophen < 10 L Ur Barbiturates Screen Ur Tricyclics Screen Ur Phencyclidine Scrn Ur Amphetamine Screen U Methamphetamines Scrn U Benzodiazepines Scrn Urine Cocaine Screen U Cannabinoids Screen Ethyl Alcohol < 5.0 07/01/22 07/01/22 07/01/22 16:13 16:13 17:36 WBC RBC Hgb Hct MCV MCH MCHC RDW Plt Count MPV Neut # (Auto) Lymph # (Auto) [place] # (Auto) Eos # (Auto) Baso # (Auto) Absolute Nucleated RBC Total Counted Band Neuts % (Manual) Abnorm Lymph % (Manual) Nucleated RBC % Neutrophils # (Manual) Lymphocytes # (Manual) Monocytes # (Manual) Eosinophils # (Manual) Basophils # (Manual) Differential Comment Manual Slide Review Platelet Estimate Platelet Morphology RBC Morph Micro Appear Sodium Potassium Chloride Carbon Dioxide Anion Gap BUN Creatinine Estimated GFR (MDRD) Glucose Lactic Acid 3.2 H* Calcium Phosphorus Magnesium Total Bilirubin AST ALT Alkaline Phosphatase Total Creatine Kinase Total Protein Albumin Globulin Albumin/Globulin Ratio Lipase TSH Urine Color YELLOW Urine Clarity HAZY Urine pH 7.0 Ur Specific [place] 1.010 Urine Protein 100 H Urine Glucose (UA) NEGATIVE Urine Ketones NEGATIVE Urine Occult Blood LARGE H Urine Nitrite NEGATIVE Urine Bilirubin NEGATIVE Urine Urobilinogen 1 (NORMAL) Ur Leukocyte Esterase LARGE H Urine RBC 11-25 H Urine WBC >25 H Urine WBC Clumps PRESENT Ur Squamous Epith Cells NONE SEEN Urine Bacteria Many H Ur Microscopic Review INDICATED Urine Culture Comments INDICATED Nasal Adenovirus (PCR) NOT DETECTED Nasal B. parapertussis DNA (PCR) NOT DETECTED Nasal Coronavir 229E PCR NOT DETECTED Nasal Coronavir HKU1 PCR NOT DETECTED Nasal Coronavir NL63 PCR NOT DETECTED Nasal Coronavir OC43 PCR NOT DETECTED Nasal Enterovir/Rhinovir PCR NOT DETECTED Nasal Influenza B PCR NOT DETECTED Nasal Influenza A PCR NOT DETECTED Nasal Parainfluen 1 PCR NOT DETECTED Nasal Parainfluen 2 PCR NOT DETECTED Nasal Parainfluen 3 PCR NOT DETECTED Nasal Parainfluen 4 PCR NOT DETECTED Nasal RSV (PCR) NOT DETECTED Nasal B.pertussis DNA PCR NOT DETECTED Nasal C.pneumoniae (PCR) NOT DETECTED [place] Human Metapneumo PCR NOT DETECTED Nasal M.pneumoniae (PCR) NOT DETECTED Nasal SARS-CoV-2 (PCR) NOT DETECTED Salicylates Urine Opiates Screen POSITIVE H Ur Oxycodone Screen NEGATIVE Urine Methadone Screen NEGATIVE Ur Propoxyphene Screen NEGATIVE Acetaminophen Ur Barbiturates Screen NEGATIVE Ur Tricyclics Screen NEGATIVE Ur Phencyclidine Scrn NEGATIVE Ur Amphetamine Screen NEGATIVE U Methamphetamines Scrn NEGATIVE U Benzodiazepines Scrn NEGATIVE Urine Cocaine Screen NEGATIVE U Cannabinoids Screen NEGATIVE Ethyl Alcohol - Rads (name of study) CT head Relevant Findings:: Final report received, See rad report CT neck Relevant Findings:: Final report received, See rad report CT chest Relevant Findings:: Final report received, See rad report CT abd/pelvis Relevant Findings:: Final report received, See rad report PD Medical Decision Making - ED course Complexity details: reviewed results, re-evaluated patient, considered differential, d/w patient, d/w weight loss sales consultant ED course: 71-year-old male presents to the emergency department found to be in atrial fibrillation with rapid ventricular response. Initially hypotensive, responded well to IV fluids. Lactate is elevated, appears to be uroseptic. Started on Rocephin. Patient's mental status continued to improve with IV fluids. Head CT, cervical spine CT, chest CT did not show any acute abnormalities. Abdomen pelvis CT do show a infrarenal abdominal aortic aneurysm that is larger than 6 years ago, but still under the threshold for surgery. There is no rupture. Also appears to have cystitis on CT. The patient's atrial fibrillation with rapid ventricular response was unable to be controlled with IV pushes, therefore a diltiazem drip was started. He is on Eliquis at home. We will admit the patient for further care. This document was made in part using voice recognition software. While efforts are made to proofread this document, sound alike and grammatical errors may occur. Patient has a POLST form that states DNR. - Sepsis Event Sepsis Onset Date: 07/01/22 Sepsis Onset Time: 18:34 Current Stage of Sepsis: Sepsis Possible source of Sepsis: Genitourinary Mental/Cognitive Status: Alert/Oriented X3 Reason for not giving 30ml/kg crystalloid fluids: Not in septic shock Capillary refill: Less than 2 seconds Peripheral Pulse Strength: 2+ Slightly Diminished Peripheral Pulse Location: Radial Bedside ultrasound performed: No Departure - Departure Disposition: 66 [facility] DC/Xfer Clinical Impression: Atrial fibrillation with RVR Sepsis Qualifiers: Sepsis type: sepsis due to unspecified organism Sepsis acute organ dysfunction status: without acute organ dysfunction Qualified Code(s): A41.9 - Sepsis, unspecified organism UTI (urinary tract infection) Qualifiers: Urinary tract infection type: acute cystitis Hematuria presence: without hematuria Qualified Code(s): N30.00 - Acute cystitis without hematuria Condition: Stable Discharge Date/Time: 07/01/22 20:11
[2022-07-01 15:58] LABS: BASOPHILS % (AUTO) 0.3 %; HCT - HEMATOCRIT 31.3 % (42.0-52.0); LYMPHOCYTES % (AUTO) 1.6 %; MEAN CORPUSCULAR HEMOGLOBIN 34.5 pg (27.0-31.0); MEAN CORPUSCULAR HGB CONC 31.9 g/dL (32.0-36.0); MEAN CORPUSCULAR VOLUME 107.9 fL (80.0-94.0); MEAN PLATELET VOLUME 10.5 fL (7.4-11.4); MONOCYTES % (AUTO) 3.4 %; NEUTROPHILS % (AUTO) 94.1 %; PLT - PLATELET COUNT 168 10^3/uL (130-450); RED CELL DISTRIBUTION WIDTH 13.4 % (12.0-15.0); WHITE BLOOD COUNT 14.3 x10^3/uL (4.8-10.8)
[2022-07-01 15:59] LABS: SLIDE REVIEW? Indicated
[2022-07-01 16:00] LABS: ABNORMAL LYMPHS % (MANUAL) 0 %
[2022-07-01 16:18] LABS: MUDS CUTOFF CONCENTRATIONS CUTOFF CONC BELOW:
[2022-07-01 16:19] LABS: ACETAMINOPHEN < 10 ug/mL (10-30); ALBUMIN 2.7 g/dL (3.2-5.5); ALBUMIN/GLOBULIN RATIO 0.8 (1.0-2.2); ALKALINE PHOSPHATASE 57 IU/L (42-121); ALT ALANINE AMINOTRANSFERASE 16 IU/L (10-60); AST ASPARTATE AMINOTRANSFERASE 41 IU/L (10-42); BILIRUBIN,TOTAL 1.2 mg/dL (0.2-1.0); BUN - BLOOD UREA NITROGEN 19 mg/dL (6-20); CALCIUM 8.4 mg/dL (8.5-10.3); CK- CREATINE KINASE 308 IU/L (22-269); CREATININE 1.1 mg/dL (0.6-1.2); ETOH - ETHANOL < 5.0 mg/dL; GFR - MDRD 66 (>89); GLUCOSE 100 mg/dL (70-100); LIPASE 22 U/L (22-51); MAGNESIUM 1.3 mg/dL (1.7-2.8); PHOSPHORUS 3.3 mg/dL (2.5-4.6); POTASSIUM 3.5 mmol/L (3.5-5.0); SALICYLATE < 6.0 mg/dL; SODIUM 138 mmol/L (135-145); TOTAL PROTEIN 6.1 g/dL (6.7-8.2)
[2022-07-01 16:21] LABS: BILIRUBIN,URINE NEGATIVE (NEGATIVE); GLUCOSE, URINE (UA) NEGATIVE (NEGATIVE); KETONES,URINE (UA) NEGATIVE (NEGATIVE); LEUKOCYTE ESTERASE, URINE LARGE (NEGATIVE); NITRITE,URINE NEGATIVE (NEGATIVE); OCCULT BLOOD,URINE LARGE (NEGATIVE); PROTEIN,URINE 100 mg/dL (NEGATIVE); UROBILINOGEN,URINE 1 (NORMAL) E.U./dL (NORMAL)
[2022-07-01 16:22] LABS: CARBON DIOXIDE - CO2 41 mmol/L (21-32); CHLORIDE 80 mmol/L (101-111)
[2022-07-01 16:27] LABS: CLARITY,URINE HAZY (CLEAR)
[2022-07-01] MEDS ORDERED: iohexoL-300 100 ML VIAL ONE (16:27)
[2022-07-01 16:36] LABS: AMPHETAMINE SCREEN,URINE NEGATIVE (NEGATIVE); COCAINE SCREEN URINE NEGATIVE (NEGATIVE); METHAMPHETAMINES SCREEN, URINE NEGATIVE (NEGATIVE); OPIATE SCREEN, URINE POSITIVE (NEGATIVE); THC CANNABINOID SCREEN, URINE NEGATIVE (NEGATIVE)
[2022-07-01 16:37] LABS: BARBITURATE SCREEN,UR NEGATIVE (NEGATIVE); BENZODIAZEPINES SCREEN, URINE NEGATIVE (NEGATIVE); METHADONE SCREEN, URINE NEGATIVE (NEGATIVE); OXYCODONE SCREEN, URINE NEGATIVE (NEGATIVE); PROPOXYPHENE SCREEN, URINE NEGATIVE (NEGATIVE); TRICYCLIC ANTIDEPRESSANT,URINE NEGATIVE (NEGATIVE)
[2022-07-01] MEDS ORDERED: MAGNESIUM SULFATE 2 GRAM 2 GM/50 ML BAG IV ONE ×2 (16:38→19:21)
[2022-07-01 16:42] LABS: WBC CLUMPS,URINE PRESENT; WBC,URINE >25 /HPF (0-3)
[2022-07-01 16:43] LABS: BACTERIA,URINE Many /HPF (None Seen); SQUAMOUS EPITHELIAL CELL,UR NONE SEEN (<= Few)
[2022-07-01 16:56] LABS: BAND NEUTROPHILS % (MANUAL) 6 %; LYMPHOCYTES # (MANUAL) 0.3 10^3/uL (1.5-3.5); LYMPHOCYTES % (MANUAL) 2 %
[2022-07-01 16:57] LABS: DIFFERENTIAL COMMENT MANUAL DIFFERENTIAL; PLATELET ESTIMATE, MANUAL NORMAL (130-450,000) (NORMAL); PLATELET MORPHOLOGY NORMAL APPEARANCE (NORMAL); RBC MORPHOLOGY (MULTIPLE) 3+ STOMATOCYTES (NORMAL)
[2022-07-01] MEDS ORDERED: diltiaZEM INJ 5 MG/ML VIAL IVP STA (17:06)
[2022-07-01] MEDS ORDERED: cefTRIAXone 1 GM VIAL IVP STA (17:06)
[2022-07-01 17:19] LABS: B. PARAPERTUSSIS- RESP PCR PAN NOT DETECTED; B. PERTUSSIS- RESP PCR PANEL NOT DETECTED; C. PNEUMONIAE- RESP PCR PANEL NOT DETECTED; CORONAVIRUS 229E-RESP PCR NOT DETECTED; CORONAVIRUS HKU1-RESP PCR NOT DETECTED; CORONAVIRUS NL63-RESP PCR NOT DETECTED; CORONAVIRUS OC43-RESP PCR NOT DETECTED; HUMAN METAPNEUMOVIRUS NOT DETECTED; INFLUENZA A- RESP PCR PANEL NOT DETECTED; INFLUENZA B - RESP PCR PANEL NOT DETECTED; M. PNEUMONIAE- RESP PCR PANEL NOT DETECTED; PARAINFLUENZA VIRUS 1 NOT DETECTED; PARAINFLUENZA VIRUS 2 NOT DETECTED; PARAINFLUENZA VIRUS 3 NOT DETECTED; PARAINFLUENZA VIRUS 4 NOT DETECTED; RHINOVIRUS/ENTEROVIRUS NOT DETECTED; RSV- RESP PCR PANEL NOT DETECTED; SARS-CoV-2 -RESP PCR PANEL NOT DETECTED
--- NOTE | 2022-07-01 17:30 | CT Report ---
PROCEDURE: HEAD WO INDICATIONS: fall, altered, head pain, on eliquis TECHNIQUE: Noncontrast 4.5 mm thick angled axial sections acquired from the foramen magnum to the vertex. For r adiation dose reduction, the following was used: automated exposure control, adjustment of mA and/or kV according to patient size. COMPARISON: CT head 09/06/2016. FINDINGS: Image quality: Excellent. CSF spaces: Basal cisterns are patent. No extra-axial fluid collections. Ventricles are age-approp riate in size and shape. Brain: No midline shift. No intracranial masses or hemorrhage. Mild age-appropriate parenchymal vol ume loss with resulting ventricular and sulcal prominence. Skull and face: Calvarium and visualized facial bones are intact, without suspicious lesions. Sinuses: Visualized sinuses and mastoids are clear. IMPRESSION: No acute intracranial pathology. Reviewed by: Ernesto Jacobs MD on 07/01/2022 5:28 PM PDT Approved by: Ernesto Jacobs MD on 07/01/2022 5:28 PM PDT Station ID: [id number]
--- NOTE | 2022-07-01 17:34 | CT Report ---
PROCEDURE: CERVICAL SPINE WO INDICATIONS: fall, altered TECHNIQUE: Noncontrast 3 mm thick sections acquired from the skull base to the T4 level. Sagittal and coronal r eformats were then constructed. For radiation dose reduction, the following was used: automated exp osure control, adjustment of mA and/or kV according to patient size. COMPARISON: Cervical spine CT 09/06/2016 FINDINGS: Image quality: Excellent. Bones: No acute fractures or dislocations. Visualized superior ribs are intact. Multilevel disc sp pietro narrowing and degenerative endplate changes are seen. There is multilevel uncovertebral joint and facet hypertrophy resulting in multifocal neural foraminal narrowing. No high-grade narrowing of the bony spinal canal is seen. Soft tissues: Prevertebral soft tissues are normal in thickness. No paravertebral hematomas. No ap ical pneumothoraces. Atherosclerotic calcifications are seen at the bilateral carotid bifurcations. IMPRESSION: No acute, displaced fracture or traumatic subluxation. Multilevel spondylosis has mildly progressed w hen compared to the CT from 09/06/2016. Reviewed by: Ernesto Jacobs MD on 07/01/2022 5:32 PM PDT Approved by: Ernesto Jacobs MD on 07/01/2022 5:32 PM PDT Station ID: [id number]
[2022-07-01] MEDS ORDERED: iohexoL-300 100 ML VIAL IVP ONE (17:47)
--- NOTE | 2022-07-01 18:19 | CT Report ---
PROCEDURE: CHEST W INDICATIONS: fall, altered, back/chest pain CONTRAST: 100ml Omnipaque 300 TECHNIQUE: After the administration of intravenous contrast, 1 mm axial images were acquired from the pulmonary apices through the posterior costophrenic angles. Axial 5 mm soft tissue kernel reconstructions were performed as well as 8 mm axial MIP and coronal and sagittal 5 mm reformations. For radiation dose reduction, the following was used: automated exposure control, adjustment of mA and/or kV according to patient size. COMPARISON: CTA chest 09/06/2016. FINDINGS: Image quality: Excellent. Lungs and pleura: No pleural effusions. No pneumothorax. No suspicious pulmonary nodules which requi re follow up. Mild posterior dependent atelectasis in the lung bases. No focal pulmonary contusion or laceration. Evaluation of the lungs is mildly degraded by respiratory motion. Mediastinum: Heart size is borderline enlarged. No pericardial effusions. Moderate coronary artery ca lcifications. No mediastinal adenopathy by size criteria. No large vessel abnormality. Chest wall and lower neck: Thyroid is unremarkable. No axillary or supraclavicular adenopathy by size . Bones: No aggressive osseous abnormality. No left lower rib fractures are seen. No definite acute dis placed rib fracture is seen. No acute vertebral body compression fracture. Mild chronic compression d eformity of the L2 vertebral body. Postsurgical changes are partially imaged in the lumbar spine. Upper Abdomen: See the report from the CT of the abdomen and pelvis performed at same time. IMPRESSION: No acute osseous fracture or acute traumatic findings are seen in the chest. Reviewed by: Ernesto Jacobs MD on 07/01/2022 6:18 PM PDT Approved by: Ernesto Jacobs MD on 07/01/2022 6:18 PM PDT Station ID: [id number]
--- NOTE | 2022-07-01 18:27 | CT Report ---
PROCEDURE: ABDOMEN/PELVIS W INDICATIONS: fall, abd/back pain, altered CONTRAST: 100ml Omnipaque 300 TECHNIQUE: After the administration of intravenous contrast, 5 mm thick sections acquired from the diaphragms to the symphysis. 5 mm thick coronal and sagittal reformats were acquired. For radiation dose reducti on, the following was used: automated exposure control, adjustment of mA and/or kV according to hoang ent size. COMPARISON: CT abdomen/pelvis 09/06/2016 FINDINGS: Image quality: Excellent. Lung bases and heart: Mild dependent atelectasis at the left lung base. Liver: Unremarkable. Gallbladder and biliary tree: Unremarkable. No biliary dilation. Spleen: Unremarkable. Pancreas: Unremarkable. Adrenals: Unremarkable. Kidneys and ureters: Bilateral renal cysts. Bowel and peritoneum: No bowel distension. No pathologic free fluid. Lymph nodes: No central or retroperitoneal adenopathy. Vessels: Fusiform infrarenal abdominal aortic aneurysm is seen measuring up to 4.3 x 4.3 cm in diamet er. Severe aortic other scattered calcifications. PELVIS Reproductive organs: Unremarkable. Bladder: Bladder is decompressed, which limits evaluation. There may be trace pericystic fat strandin g. Recommend correlation for cystitis. Lymph nodes: Unremarkable. Bones: No aggressive osseous abnormality. Postsurgical changes are seen from L1 through L3. Mild winterizer bethanie compression fracture of L2. No acute osseous fracture is seen. Other: Small bilateral fat-containing inguinal hernias small fat-containing periumbilical hernia. Mil d soft tissue anasarca . IMPRESSION: 1.No acute traumatic findings in the abdomen or pelvis. 2.Subtle fat stranding adjacent to the decompressed bladder could indicate cystitis. Recommend clinic al correlation. 3.Mild diffuse soft tissue anasarca and may be related to mild fluid overload. 4.Fusiform infrarenal abdominal aortic aneurysm measuring 4.3 cm, previously measuring 3.3 cm in diam eter on CT from 09/06/2016. Reviewed by: Ernesto Jacobs MD on 07/01/2022 6:25 PM PDT Approved by: Ernesto Jacobs MD on 07/01/2022 6:25 PM PDT Station ID: [id number]
[2022-07-01] MEDS: diltiaZEM INJ 125 MG in DEXTROSE 5% 100 ML IV STA (18:41)
[2022-07-01] MEDS ORDERED: TEMAZEPAM 15 MG CAPSULE PO PRN (19:16)
[2022-07-01] MEDS ORDERED: IPRATROPIUM 0.2 MG/ML NEB INH PRN (19:16)
[2022-07-01] MEDS ORDERED: ALBUTEROL NEB 2.5 MG/3 ML INH PRN (19:16)
--- NOTE | 2022-07-01 19:30 | HISTORY & PHYSICAL EXAMINATION ---
Chief Complaint - Chief Complaint Chief Complaint: Found on floor by family members History of Present Illness - Admitted From Admitted From:: Home - History Obtained From Records Reviewed: Yes History obtained from: ER, Chart review and RN Exam Limitations: Patient has altered mental status - History of Present Illness HPI Comment/Other: Patient is a 71-year-old male who is brought in by EMS today. Reported complaint is weakness and confusion. He reportedly lives at home alone. His family checks on him daily. EMS states that the family told them he has had increased confusion over the past 1 week. Today they went to check on him and found him on the ground, covered in feces. EMS was dispatched and brought the patient here. Upon arrival, the patient is awake, alert. He states that he fell this morning, injuring his back. He states he did strike his head. He is on Eliquis for atrial fibrillation. Denies any fevers. States that he has a chronic cough. He states that he has mid and low back pain. No numbness or tingling. He usually takes Vicodin for pain at home. He does drink beer on a regular basis. 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 No other active complaints, has 2 ivlines, refused central line,hemodyanmics are acceptable, continue to be on Cardizem drip for his A fib for rate control, EKG pending ER MD will call me if any significant abnormality. History - Past Medical History Cardiovascular: reports: Hypertension, Atrial fibrillation, Other Respiratory: reports: COPD, Emphysema Endocrine/Autoimmune: reports: None GI: reports: GERD : reports: None HEENT: reports: None Psych: reports: None Musculoskeletal: reports: Chronic back pain Derm: reports: None MRSA Hx?: No - Past Surgical History Ortho: reports: Shoulder arthroplasty, Spine surgery HEENT: reports: Tonsil/Adenoidectomy - Family & Social History Family History Comment/Other: He does not know about family Hx he said Living Situation: With family Social History Notes: He smokes 1-2 PPD. He drinks 6 beers a day. He denies illicit drug use. - POLST Patient has POLST: No Meds/Allgy - Home Medications Home Medications: Ambulatory Orders Medication Instructions Recorded Confirmed Albuterol Sulfate [Proair Hfa 1 - 2 puffs PO QID PRN 11/03/17 04/29/22 Inhaler] Omeprazole 1 cap PO DAILY 04/29/22 04/29/22 Apixaban [Eliquis] 5 mg PO BID #60 tab 05/05/22 Budesonide [Pulmicort] 0.5 mg INH RTBID #60 ml 05/05/22 Digoxin [Lanoxin] 125 mcg PO DAILY #30 tablet 05/05/22 HYDROcod/ACETAM 5/325 [[place] 5/325] 0.5 tab PO Q2H #30 tab 05/05/22 Ipratropium/Albuterol [Duoneb] 3 ml INH RTQID #120 ml 05/05/22 Metoprolol Tartrate [Lopressor] 100 mg PO BID #60 tab 05/05/22 Nystatin Cream [Mycostatin Cream] 1 applic TOP BID #3 each 05/05/22 diltiaZEM CD [Cardizem Cd] 240 mg PO BID #60 cap 05/05/22 guaiFENesin [Mucinex] 600 mg PO BID tab 05/05/22 - Allergies Allergies/Adverse Reactions: Allergies Allergy/AdvReac Type Severity Reaction Status Date / Time No Known Drug Allergies Allergy Verified 04/28/22 10:16 Review of Systems - Constitutional Constitutional: reports: Weakness - Cardiovascular Cariovascular: reports: Irregular heart rate, Palpitations - Respiratory Respiratory: reports: Cough, SOB with exertion - Neurological Neurological: reports: Memory problems Prior Level of Functionality: Independent lives alone Exam - Vital Signs Vital Signs: Vital Signs x48h Temp Pulse Resp BP Pulse Ox O2 Flow Rate 07/01/22 19:13 121 H 21 124/75 94 3 07/01/22 18:40 135 H 21 123/78 94 3 07/01/22 18:08 134 H 21 120/66 97 3 07/01/22 17:33 135 H 26 H 121/77 94 3 07/01/22 16:31 120 H 20 105/93 H 94 3 07/01/22 15:58 101 H 22 102/72 96 3 07/01/22 15:22 37.1 C 122 H 22 84/62 L 94 - Physical Exam General Appearance: positive: No acute distress Eyes Bilateral: positive: Normal inspection ENT: positive: Dry mucous membranes Neck: positive: Nml inspection, Thyroid nml Respiratory: positive: Chest non-tender Cardiovascular: positive: Irregularly irregular Abdomen: positive: Non-tender, Nml bowel sounds Back: positive: Nml inspection Skin: positive: Other (Bruise and skin tears) Extremities: positive: Full ROM, Nml appearance Neurologic/Psychiatric: positive: Other (Moving all 4 extremities, falls asleep and confused) Sepsis Event Note (H) - Evaluation Current Stage of Sepsis: Sepsis Possible source of Sepsis: positive: Genitourinary Conclusion/Plan - Problem List (1) Atrial fibrillation with rapid ventricular response Conclusion/Plan: Admit to ICU Cardizme Drip at 5 mg/hr Start po cardizem in order to assist wean off of the drip Continue Digoxin Check Dig level in am Continue Metoprolol EKG pending to be followed Rate control strategy found on ground by family all work up negative for any bleeding Will continue Eliquis (2) Sepsis Conclusion/Plan: IVF Repoeat lactic acid as per protocol IV rocephin since source is UTI Allso mildly dehydrate likely contributed from ETOH use Qualifiers: Sepsis type: sepsis due to unspecified organism Sepsis acute organ dysfunction status: without acute organ dysfunction Qualified Code(s): A41.9 - Sepsis, unspecified organism (3) UTI (urinary tract infection) Conclusion/Plan: Follow up on cultures IV rocephin Monitor ofr urinary retention Qualifiers: Urinary tract infection type: acute cystitis Hematuria presence: without hematuria Qualified Code(s): N30.00 - Acute cystitis without hematuria (4) Alcohol abuse Conclusion/Plan: Monitor for any signs of withdrawl Ativan ivp prn anxiety, signs of with drawl (5) Tachycardia Conclusion/Plan: Multifactorial Optimize electrolyes Replace Mg Hydration Pt/OT evel pain control if any pain when asked by me in ER patient did not have any pain - Lab Results Lab results reviewed: Yes Fish Bones: 07/01/22 15:53 07/01/22 15:53 - EKG Results EKG Interpreted Independently: No EKG Comparison: Other (EKG not done and will be done soon in ER)
[2022-07-01] MEDS ORDERED: LORazepam 2 MG/ML VIAL IVP PRN ×2 (19:40→22:14)
[2022-07-01] MEDS: SODIUM CHLORIDE 0.9% 1,000 ML IV SCH (20:52)
[2022-07-01] MEDS: HYDROcod/ACETAM 5/325 MG TABLET PO PRN (20:58)
[2022-07-01] MEDS: METOPROLOL TARTRATE 50 MG TABLET PO SCH (21:02)
[2022-07-01] MEDS: FAMOTIDINE 20 MG TABLET PO SCH (21:02)
[2022-07-01] MEDS: APIXABAN 5 MG TABLET PO SCH (21:03)
[2022-07-01] MEDS: diltiaZEM 30 MG TABLET PO SCH (21:03)
[2022-07-02] MEDS: HYDROcod/ACETAM 5/325 MG TABLET PO PRN (01:20)
[2022-07-02] MEDS: SODIUM CHLORIDE FLUSH 0.9% 10 ML SYRINGE IVP SCH ×3 (01:20→16:46)
[2022-07-02 04:26] LABS: BASOPHILS % (AUTO) 0.3 %; HCT - HEMATOCRIT 27.4 % (42.0-52.0); HGB - HEMOGLOBIN 8.8 g/dL (14.0-18.0); LYMPHOCYTES % (AUTO) 3.1 %; MEAN CORPUSCULAR HEMOGLOBIN 35.1 pg (27.0-31.0); MEAN CORPUSCULAR HGB CONC 32.1 g/dL (32.0-36.0); MEAN CORPUSCULAR VOLUME 109.2 fL (80.0-94.0); MEAN PLATELET VOLUME 10.7 fL (7.4-11.4); MONOCYTES % (AUTO) 3.5 %; NEUTROPHILS % (AUTO) 92.7 %; PLT - PLATELET COUNT 160 10^3/uL (130-450); RED BLOOD COUNT 2.51 10^6/uL (4.70-6.10); RED CELL DISTRIBUTION WIDTH 13.4 % (12.0-15.0); WHITE BLOOD COUNT 10.3 x10^3/uL (4.8-10.8)
[2022-07-02 04:27] LABS: CALCIUM, IONIZED 1.02 mmol/L (1.15-1.33); VBG PH 7.511 (7.31-7.41)
[2022-07-02 04:31] LABS: ABNORMAL LYMPHS % (MANUAL) 0 %
[2022-07-02] MEDS: diltiaZEM INJ 125 MG in DEXTROSE 5% 100 ML IV STA (04:34)
[2022-07-02 04:39] LABS: ALBUMIN 2.3 g/dL (3.2-5.5); ALBUMIN/GLOBULIN RATIO 0.9 (1.0-2.2); BILIRUBIN,TOTAL 0.9 mg/dL (0.2-1.0); CALCIUM 7.8 mg/dL (8.5-10.3); MAGNESIUM 2.1 mg/dL (1.7-2.8); PHOSPHORUS 4.2 mg/dL (2.5-4.6); POTASSIUM 3.1 mmol/L (3.5-5.0)
[2022-07-02 04:48] LABS: BAND NEUTROPHILS % (MANUAL) 7 %; DIFFERENTIAL COMMENT MANUAL DIFFERENTIAL; LYMPHOCYTES # (MANUAL) 0.3 10^3/uL (1.5-3.5); LYMPHOCYTES % (MANUAL) 3 %; METAMYELOCYTES % (MANUAL) 2 %; MONOCYTES # (MANUAL) 0.1 10^3/uL (0.0-1.0); NEUTROPHILS # (MANUAL) 9.7 10^3/uL (1.5-6.6); PLATELET ESTIMATE, MANUAL NORMAL (130-450,000) (NORMAL); PLATELET MORPHOLOGY NORMAL APPEARANCE (NORMAL); RBC MORPHOLOGY (MULTIPLE) NORMAL APPEARANCE (NORMAL); WBC MORPHOLOGY (MULTIPLE) NORMAL APPEARANCE (NORMAL)
[2022-07-02] MEDS: POTASSIUM CHLOR 10 MEQ/100 ML 10 MEQ/100 ML BAG IV SCH ×8 (05:16→18:29)
[2022-07-02 05:52] LABS: MAGNESIUM 2.2 mg/dL (1.7-2.8); PHOSPHORUS 4.3 mg/dL (2.5-4.6)
[2022-07-02] MEDS: BUDESONIDE 0.5 MG/2 ML NEB INH SCH ×2 (06:51→20:00)
[2022-07-02] MEDS: IPRATROPIUM/ALBUTEROL 3 ML NEB INH SCH ×4 (06:51→20:00)
[2022-07-02] MEDS: CALCIUM CARBONATE CHEW 500 MG TABLET PO SCH ×2 (06:55→11:12)
[2022-07-02] MEDS: SODIUM CHLORIDE 0.9% 1,000 ML IV SCH ×2 (06:56→15:32)
[2022-07-02] MEDS ORDERED: PANTOPRAZOLE 40 MG TABLET PO SCH (07:00)
[2022-07-02] MEDS: cefTRIAXone 1 GM in SODIUM CHLORIDE 0.9% MINIBAG 100 ML IV SCH (08:29)
[2022-07-02] MEDS: APIXABAN 5 MG TABLET PO SCH ×2 (08:29→09:16)
[2022-07-02] MEDS: diltiaZEM 30 MG TABLET PO SCH (08:30)
[2022-07-02] MEDS: METOPROLOL TARTRATE 50 MG TABLET PO SCH (08:30)
[2022-07-02] MEDS: FAMOTIDINE 20 MG TABLET PO SCH ×2 (08:30→09:16)
[2022-07-02] MEDS ORDERED: DIGOXIN 125 MCG TABLET PO SCH (09:00)
[2022-07-02] MEDS ORDERED: ethyl alcohoL 62% SWAB AMPULE NAS ONE (09:05)
[2022-07-02] MEDS: ethyl alcohoL 62% SWAB AMPULE NAS SCH (10:10)
--- NOTE | 2022-07-02 11:48 | PHARMACY PROGRESS NOTE ---
- Best Possible Medication History Admit Date and Time: 07/01/221915 Processed by: Pharmacy Medication History completed: Yes Patient Interview: Pt unable to participate Secondary Source(s): Insurance records (Cannot get a hold of daughter who is the next of kin. Pt also unable to participate due to confusion. Medrec performed utilizing insurance records.) As the person ultimately responsible for medication therapy, providers are able to order a medication from an existing home medication list in [facility] via the "Reconcile Routine" prior to Confirmation of that medication by computer support analyst. Such practice is discouraged except when the physician, in their clinical judgment, deems that a medical need exists for a medication without regard to previous use.
[2022-07-02] MEDS ORDERED: METOPROLOL 5 MG/5 ML VIAL IVP PRN (11:50)
[2022-07-02] MEDS ORDERED: SODIUM CHLORIDE 0.9% 500 ML IV ONE (11:53)
[2022-07-02] MEDS ORDERED: DIGOXIN 500 MCG/2 ML AMP IVP STA (11:55)
[2022-07-02] MEDS: NICOTINE 21 MG PATCH TOP SCH (12:20)
[2022-07-02 12:53] LABS: DIGOXIN 0.7 ng/mL
--- NOTE | 2022-07-02 15:03 | PROVIDER PROGRESS NOTE ---
Subjective - Subjective Pt reports feeling: No change Objective - Vital Signs/Intake & Output Reviewed Vital Signs: Yes Vital Signs: Vital Signs Temp Pulse Pulse Resp BP Pulse Ox O2 Flow Rate 07/02/22 14:37 85 27 H 07/02/22 14:00 76 15 102/64 98 2 07/02/22 13:00 87 29 H 100/60 95 2 07/02/22 12:00 98.6 C H 79 25 H 102/61 95 2 07/02/22 11:00 87 22 94/58 L 95 2 Intake & Output: Intake & Output 06/29/22 06/30/22 07/01/22 07/02/22 23:59 23:59 23:59 23:59 Intake Total 2571.522 2411.666 Output Total 2500 918 Balance -7603.631 6184.666 - Objective General Appearance: positive: Mild distress (from coughing, despite being somnolent) Eyes Bilateral: positive: No lid inflammation ENT: positive: Other (Very disheveled, has dark, leathery skin and flushed cheeks and no) Neck: positive: Nml inspection Respiratory: positive: Other (Poor air mvm, rhonchi heard) Cardiovascular: positive: No murmur (but distant heart sounds) Abdomen: positive: No distention Skin: positive: Warm, Other (skin bruising and some skin tears present) Extremities: positive: Non-tender, No pedal edema Neurologic/Psychiatric: positive: Other (Somnolent, awakens and is confused, is moving all extremities spontaneously) - Lab Results Fish Bones: 07/02/22 04:13 07/02/22 13:21 Other Labs: Lab Results x24hrs 07/02/22 07/02/22 07/02/22 Range/Units 13:21 05:28 04:13 WBC (4.8-10.8) x10^3/uL RBC (4.70-6.10) 10^6/uL Hgb (14.0-18.0) g/dL Hct (42.0-52.0) % MCV (80.0-94.0) fL MCH (27.0-31.0) pg MCHC (32.0-36.0) g/dL RDW (12.0-15.0) % Plt Count (130-450) 10^3/uL MPV (7.4-11.4) fL Neut # (Auto) Lymph # (Auto) Freestone # (Auto) Eos # (Auto) Baso # (Auto) Absolute Nucleated RBC Total Counted Band Neuts % (Manual) (0 - 10) % Abnorm Lymph % (Manual) % Metamyelocytes % ( - 0) % Nucleated RBC % Neutrophils # (Manual) (1.5-6.6) 10^3/uL Lymphocytes # (Manual) (1.5-3.5) 10^3/uL Monocytes # (Manual) (0.0-1.0) 10^3/uL Eosinophils # (Manual) (0-0.7) 10^3/uL Basophils # (Manual) (0-0.1) 10^3/uL Differential Comment Manual Slide Review WBC Morphology (NORMAL) Platelet Estimate (NORMAL) Platelet Morphology (NORMAL) RBC Morph Micro Appear (NORMAL) VBG pH (7.31-7.41) Ionized Calcium (1.15-1.33) mmol/L Sodium (135-145) mmol/L Potassium 3.2 L (3.5-5.0) mmol/L Chloride (101-111) mmol/L Carbon Dioxide (21-32) mmol/L Anion Gap (6-13) BUN (6-20) mg/dL Creatinine (0.6-1.2) mg/dL Estimated GFR (MDRD) (>89) Glucose (70-100) mg/dL Lactic Acid (0.5-2.2) mmol/L Calcium (8.5-10.3) mg/dL Phosphorus 4.3 (2.5-4.6) mg/dL Magnesium 2.2 (1.7-2.8) mg/dL Total Bilirubin (0.2-1.0) mg/dL AST (10-42) IU/L ALT (10-60) IU/L Alkaline Phosphatase (42-121) IU/L Total Creatine Kinase (22-269) IU/L Troponin I High Sens (2.3-19.7) ng/L Total Protein (6.7-8.2) g/dL Albumin (3.2-5.5) g/dL Globulin (2.1-4.2) g/dL Albumin/Globulin Ratio (1.0-2.2) Lipase (22-51) U/L TSH (0.34-5.60) uIU/mL Urine Color Urine Clarity (CLEAR) Urine pH (5.0-7.5) PH Ur Specific Blaine (1.002-1.030) Urine Protein (NEGATIVE) mg/dL Urine Glucose (UA) (NEGATIVE) mg/dL Urine Ketones (NEGATIVE) mg/dL Urine Occult Blood (NEGATIVE) Urine Nitrite (NEGATIVE) Urine Bilirubin (NEGATIVE) Urine Urobilinogen (NORMAL) E.U./dL Ur Leukocyte Esterase (NEGATIVE) Urine RBC (0-5) /HPF Urine WBC (0-3) /HPF Urine WBC Clumps Ur Squamous Epith Cells (<= Few) Urine Bacteria (None Seen) /HPF Ur Microscopic Review Urine Culture Comments Nasal Adenovirus (PCR) Nasal B. parapertussis DNA (PCR) Nasal Coronavir 229E PCR Nasal Coronavir HKU1 PCR Nasal Coronavir NL63 PCR Nasal Coronavir OC43 PCR Nasal Enterovir/Rhinovir PCR Nasal Influenza B PCR Nasal Influenza A PCR Nasal Parainfluen 1 PCR Nasal Parainfluen 2 PCR Nasal Parainfluen 3 PCR Nasal Parainfluen 4 PCR Nasal RSV (PCR) Nasal Screen MRSA (PCR) (NEGATIVE) Nasal B.pertussis DNA PCR Nasal C.pneumoniae (PCR) Damian Human Metapneumo PCR Nasal M.pneumoniae (PCR) Nasal SARS-CoV-2 (PCR) Last Dose Date UNK Last Dose Time UNK Digoxin 0.7 ng/mL Salicylates mg/dL Urine Opiates Screen (NEGATIVE) Ur Oxycodone Screen (NEGATIVE) Urine Methadone Screen (NEGATIVE) Ur Propoxyphene Screen (NEGATIVE) Acetaminophen (10-30) ug/mL Ur Barbiturates Screen (NEGATIVE) Ur Tricyclics Screen (NEGATIVE) Ur Phencyclidine Scrn (NEGATIVE) Ur Amphetamine Screen (NEGATIVE) U Methamphetamines Scrn (NEGATIVE) U Benzodiazepines Scrn (NEGATIVE) Urine Cocaine Screen (NEGATIVE) U Cannabinoids Screen (NEGATIVE) Ethyl Alcohol mg/dL 07/02/22 07/02/22 07/02/22 Range/Units 04:13 04:13 04:13 WBC (4.8-10.8) x10^3/uL RBC (4.70-6.10) 10^6/uL Hgb (14.0-18.0) g/dL Hct (42.0-52.0) % MCV (80.0-94.0) fL MCH (27.0-31.0) pg MCHC (32.0-36.0) g/dL RDW (12.0-15.0) % Plt Count (130-450) 10^3/uL MPV (7.4-11.4) fL Neut # (Auto) Lymph # (Auto) Fre[place] # (Auto) Eos # (Auto) Baso # (Auto) Absolute Nucleated RBC Total Counted Band Neuts % (Manual) (0 - 10) % Abnorm Lymph % (Manual) % Metamyelocytes % ( - 0) % Nucleated RBC % Neutrophils # (Manual) (1.5-6.6) 10^3/uL Lymphocytes # (Manual) (1.5-3.5) 10^3/uL Monocytes # (Manual) (0.0-1.0) 10^3/uL Eosinophils # (Manual) (0-0.7) 10^3/uL Basophils # (Manual) (0-0.1) 10^3/uL Differential Comment Manual Slide Review WBC Morphology (NORMAL) Platelet Estimate (NORMAL) Platelet Morphology (NORMAL) RBC Morph Micro Appear (NORMAL) VBG pH 7.511 H (7.31-7.41) Ionized Calcium 1.02 L (1.15-1.33) mmol/L Sodium 138 (135-145) mmol/L Potassium 3.1 L (3.5-5.0) mmol/L Chloride 84 L (101-111) mmol/L Carbon Dioxide 42 H* (21-32) mmol/L Anion Gap 12.0 (6-13) BUN 20 (6-20) mg/dL Creatinine 1.0 (0.6-1.2) mg/dL Estimated GFR (MDRD) 74 L (>89) Glucose 114 H (70-100) mg/dL Lactic Acid 0.9 (0.5-2.2) mmol/L Calcium 7.8 L (8.5-10.3) mg/dL Phosphorus 4.2 (2.5-4.6) mg/dL Magnesium 2.1 (1.7-2.8) mg/dL Total Bilirubin 0.9 (0.2-1.0) mg/dL AST 29 (10-42) IU/L ALT 13 (10-60) IU/L Alkaline Phosphatase 51 (42-121) IU/L Total Creatine Kinase (22-269) IU/L Troponin I High Sens (2.3-19.7) ng/L Total Protein 5.0 L (6.7-8.2) g/dL Albumin 2.3 L (3.2-5.5) g/dL Globulin 2.7 (2.1-4.2) g/dL Albumin/Globulin Ratio 0.9 L (1.0-2.2) Lipase (22-51) U/L TSH (0.34-5.60) uIU/mL Urine Color Urine Clarity (CLEAR) Urine pH (5.0-7.5) PH Ur Specific Blaine (1.002-1.030) Urine Protein (NEGATIVE) mg/dL Urine Glucose (UA) (NEGATIVE) mg/dL Urine Ketones (NEGATIVE) mg/dL Urine Occult Blood (NEGATIVE) Urine Nitrite (NEGATIVE) Urine Bilirubin (NEGATIVE) Urine Urobilinogen (NORMAL) E.U./dL Ur Leukocyte Esterase (NEGATIVE) Urine RBC (0-5) /HPF Urine WBC (0-3) /HPF Urine WBC Clumps Ur Squamous Epith Cells (<= Few) Urine Bacteria (None Seen) /HPF Ur Microscopic Review Urine Culture Comments Nasal Adenovirus (PCR) Nasal B. parapertussis DNA (PCR) Nasal Coronavir 229E PCR Nasal Coronavir HKU1 PCR Nasal Coronavir NL63 PCR Nasal Coronavir OC43 PCR Nasal Enterovir/Rhinovir PCR Nasal Influenza B PCR Nasal Influenza A PCR Nasal Parainfluen 1 PCR Nasal Parainfluen 2 PCR Nasal Parainfluen 3 PCR Nasal Parainfluen 4 PCR Nasal RSV (PCR) Nasal Screen MRSA (PCR) (NEGATIVE) Nasal B.pertussis DNA PCR Nasal C.pneumoniae (PCR) Damian Human Metapneumo PCR Nasal M.pneumoniae (PCR) Nasal SARS-CoV-2 (PCR) Last Dose Date Last Dose Time Digoxin ng/mL Salicylates mg/dL Urine Opiates Screen (NEGATIVE) Ur Oxycodone Screen (NEGATIVE) Urine Methadone Screen (NEGATIVE) Ur Propoxyphene Screen (NEGATIVE) Acetaminophen (10-30) ug/mL Ur Barbiturates Screen (NEGATIVE) Ur Tricyclics Screen (NEGATIVE) Ur Phencyclidine Scrn (NEGATIVE) Ur Amphetamine Screen (NEGATIVE) U Methamphetamines Scrn (NEGATIVE) U Benzodiazepines Scrn (NEGATIVE) Urine Cocaine Screen (NEGATIVE) U Cannabinoids Screen (NEGATIVE) Ethyl Alcohol mg/dL 07/02/22 07/01/22 07/01/22 Range/Units 04:13 20:19 19:25 WBC 10.3 (4.8-10.8) x10^3/uL RBC 2.51 L (4.70-6.10) 10^6/uL Hgb 8.8 L (14.0-18.0) g/dL Hct 27.4 L (42.0-52.0) % MCV 109.2 H (80.0-94.0) fL MCH 35.1 H (27.0-31.0) pg MCHC 32.1 (32.0-36.0) g/dL RDW 13.4 (12.0-15.0) % Plt Count 160 (130-450) 10^3/uL MPV 10.7 (7.4-11.4) fL Neut # (Auto) Not Reportable Lymph # (Auto) Not Reportable Freestone # (Auto) Not Reportable Eos # (Auto) Not Reportable Baso # (Auto) Not Reportable Absolute Nucleated RBC Not Reportable Total Counted 100 Band Neuts % (Manual) 7 (0 - 10) % Abnorm Lymph % (Manual) 0 % Metamyelocytes % 2 H ( - 0) % Nucleated RBC % Not Reportable Neutrophils # (Manual) 9.7 H (1.5-6.6) 10^3/uL Lymphocytes # (Manual) 0.3 L (1.5-3.5) 10^3/uL Monocytes # (Manual) 0.1 (0.0-1.0) 10^3/uL Eosinophils # (Manual) 0.0 (0-0.7) 10^3/uL Basophils # (Manual) 0.0 (0-0.1) 10^3/uL Differential Comment MANUAL DIFFERENTIAL Manual Slide Review WBC Morphology NORMAL APPEARANCE (NORMAL) Platelet Estimate NORMAL (130-450,000) (NORMAL) Platelet Morphology NORMAL APPEARANCE (NORMAL) RBC Morph Micro Appear NORMAL APPEARANCE (NORMAL) VBG pH (7.31-7.41) Ionized Calcium (1.15-1.33) mmol/L Sodium (135-145) mmol/L Potassium (3.5-5.0) mmol/L Chloride (101-111) mmol/L Carbon Dioxide (21-32) mmol/L Anion Gap (6-13) BUN (6-20) mg/dL Creatinine (0.6-1.2) mg/dL Estimated GFR (MDRD) (>89) Glucose (70-100) mg/dL Lactic Acid (0.5-2.2) mmol/L Calcium (8.5-10.3) mg/dL Phosphorus (2.5-4.6) mg/dL Magnesium (1.7-2.8) mg/dL Total Bilirubin (0.2-1.0) mg/dL AST (10-42) IU/L ALT (10-60) IU/L Alkaline Phosphatase (42-121) IU/L Total Creatine Kinase (22-269) IU/L Troponin I High Sens 50.3 H* (2.3-19.7) ng/L Total Protein (6.7-8.2) g/dL Albumin (3.2-5.5) g/dL Globulin (2.1-4.2) g/dL Albumin/Globulin Ratio (1.0-2.2) Lipase (22-51) U/L TSH (0.34-5.60) uIU/mL Urine Color Urine Clarity (CLEAR) Urine pH (5.0-7.5) PH Ur Specific Blaine (1.002-1.030) Urine Protein (NEGATIVE) mg/dL Urine Glucose (UA) (NEGATIVE) mg/dL Urine Ketones (NEGATIVE) mg/dL Urine Occult Blood (NEGATIVE) Urine Nitrite (NEGATIVE) Urine Bilirubin (NEGATIVE) Urine Urobilinogen (NORMAL) E.U./dL Ur Leukocyte Esterase (NEGATIVE) Urine RBC (0-5) /HPF Urine WBC (0-3) /HPF Urine WBC Clumps Ur Squamous Epith Cells (<= Few) Urine Bacteria (None Seen) /HPF Ur Microscopic Review Urine Culture Comments Nasal Adenovirus (PCR) Nasal B. parapertussis DNA (PCR) Nasal Coronavir 229E PCR Nasal Coronavir HKU1 PCR Nasal Coronavir NL63 PCR Nasal Coronavir OC43 PCR Nasal Enterovir/Rhinovir PCR Nasal Influenza B PCR Nasal Influenza A PCR Nasal Parainfluen 1 PCR Nasal Parainfluen 2 PCR Nasal Parainfluen 3 PCR Nasal Parainfluen 4 PCR Nasal RSV (PCR) Nasal Screen MRSA (PCR) POSITIVE A* (NEGATIVE) Nasal B.pertussis DNA PCR Nasal C.pneumoniae (PCR) Damian Human Metapneumo PCR Nasal M.pneumoniae (PCR) Nasal SARS-CoV-2 (PCR) Last Dose Date Last Dose Time Digoxin ng/mL Salicylates mg/dL Urine Opiates Screen (NEGATIVE) Ur Oxycodone Screen (NEGATIVE) Urine Methadone Screen (NEGATIVE) Ur Propoxyphene Screen (NEGATIVE) Acetaminophen (10-30) ug/mL Ur Barbiturates Screen (NEGATIVE) Ur Tricyclics Screen (NEGATIVE) Ur Phencyclidine Scrn (NEGATIVE) Ur Amphetamine Screen (NEGATIVE) U Methamphetamines Scrn (NEGATIVE) U Benzodiazepines Scrn (NEGATIVE) Urine Cocaine Screen (NEGATIVE) U Cannabinoids Screen (NEGATIVE) Ethyl Alcohol mg/dL 07/01/22 07/01/22 07/01/22 Range/Units 17:36 16:13 16:13 WBC (4.8-10.8) x10^3/uL RBC (4.70-6.10) 10^6/uL Hgb (14.0-18.0) g/dL Hct (42.0-52.0) % MCV (80.0-94.0) fL MCH (27.0-31.0) pg MCHC (32.0-36.0) g/dL RDW (12.0-15.0) % Plt Count (130-450) 10^3/uL MPV (7.4-11.4) fL Neut # (Auto) Lymph # (Auto) Freestone # (Auto) Eos # (Auto) Baso # (Auto) Absolute Nucleated RBC Total Counted Band Neuts % (Manual) (0 - 10) % Abnorm Lymph % (Manual) % Metamyelocytes % ( - 0) % Nucleated RBC % Neutrophils # (Manual) (1.5-6.6) 10^3/uL Lymphocytes # (Manual) (1.5-3.5) 10^3/uL Monocytes # (Manual) (0.0-1.0) 10^3/uL Eosinophils # (Manual) (0-0.7) 10^3/uL Basophils # (Manual) (0-0.1) 10^3/uL Differential Comment Manual Slide Review WBC Morphology (NORMAL) Platelet Estimate (NORMAL) Platelet Morphology (NORMAL) RBC Morph Micro Appear (NORMAL) VBG pH (7.31-7.41) Ionized Calcium (1.15-1.33) mmol/L Sodium (135-145) mmol/L Potassium (3.5-5.0) mmol/L Chloride (101-111) mmol/L Carbon Dioxide (21-32) mmol/L Anion Gap (6-13) BUN (6-20) mg/dL Creatinine (0.6-1.2) mg/dL Estimated GFR (MDRD) (>89) Glucose (70-100) mg/dL Lactic Acid 3.2 H* (0.5-2.2) mmol/L Calcium (8.5-10.3) mg/dL Phosphorus (2.5-4.6) mg/dL Magnesium (1.7-2.8) mg/dL Total Bilirubin (0.2-1.0) mg/dL AST (10-42) IU/L ALT (10-60) IU/L Alkaline Phosphatase (42-121) IU/L Total Creatine Kinase (22-269) IU/L Troponin I High Sens (2.3-19.7) ng/L Total Protein (6.7-8.2) g/dL Albumin (3.2-5.5) g/dL Globulin (2.1-4.2) g/dL Albumin/Globulin Ratio (1.0-2.2) Lipase (22-51) U/L TSH (0.34-5.60) uIU/mL Urine Color YELLOW Urine Clarity HAZY (CLEAR) Urine pH 7.0 (5.0-7.5) PH Ur Specific Blaine 1.010 (1.002-1.030) Urine Protein 100 H (NEGATIVE) mg/dL Urine Glucose (UA) NEGATIVE (NEGATIVE) mg/dL Urine Ketones NEGATIVE (NEGATIVE) mg/dL Urine Occult Blood LARGE H (NEGATIVE) Urine Nitrite NEGATIVE (NEGATIVE) Urine Bilirubin NEGATIVE (NEGATIVE) Urine Urobilinogen 1 (NORMAL) (NORMAL) E.U./dL Ur Leukocyte Esterase LARGE H (NEGATIVE) Urine RBC 11-25 H (0-5) /HPF Urine WBC >25 H (0-3) /HPF Urine WBC Clumps PRESENT Ur Squamous Epith Cells NONE SEEN (<= Few) Urine Bacteria Many H (None Seen) /HPF Ur Microscopic Review INDICATED Urine Culture Comments INDICATED Nasal Adenovirus (PCR) NOT DETECTED Nasal B. parapertussis DNA (PCR) NOT DETECTED Nasal Coronavir 229E PCR NOT DETECTED Nasal Coronavir HKU1 PCR NOT DETECTED Nasal Coronavir NL63 PCR NOT DETECTED Nasal Coronavir OC43 PCR NOT DETECTED Nasal Enterovir/Rhinovir PCR NOT DETECTED Nasal Influenza B PCR NOT DETECTED Nasal Influenza A PCR NOT DETECTED Nasal Parainfluen 1 PCR NOT DETECTED Nasal Parainfluen 2 PCR NOT DETECTED Nasal Parainfluen 3 PCR NOT DETECTED Nasal Parainfluen 4 PCR NOT DETECTED Nasal RSV (PCR) NOT DETECTED Nasal Screen MRSA (PCR) (NEGATIVE) Nasal B.pertussis DNA PCR NOT DETECTED Nasal C.pneumoniae (PCR) NOT DETECTED Damian Human Metapneumo PCR NOT DETECTED Nasal M.pneumoniae (PCR) NOT DETECTED Nasal SARS-CoV-2 (PCR) NOT DETECTED Last Dose Date Last Dose Time Digoxin ng/mL Salicylates mg/dL Urine Opiates Screen POSITIVE H (NEGATIVE) Ur Oxycodone Screen NEGATIVE (NEGATIVE) Urine Methadone Screen NEGATIVE (NEGATIVE) Ur Propoxyphene Screen NEGATIVE (NEGATIVE) Acetaminophen (10-30) ug/mL Ur Barbiturates Screen NEGATIVE (NEGATIVE) Ur Tricyclics Screen NEGATIVE (NEGATIVE) Ur Phencyclidine Scrn NEGATIVE (NEGATIVE) Ur Amphetamine Screen NEGATIVE (NEGATIVE) U Methamphetamines Scrn NEGATIVE (NEGATIVE) U Benzodiazepines Scrn NEGATIVE (NEGATIVE) Urine Cocaine Screen NEGATIVE (NEGATIVE) U Cannabinoids Screen NEGATIVE (NEGATIVE) Ethyl Alcohol mg/dL 07/01/22 07/01/22 07/01/22 Range/Units 15:53 15:53 15:53 WBC 14.3 H (4.8-10.8) x10^3/uL RBC 2.90 L (4.70-6.10) 10^6/uL Hgb 10.0 L (14.0-18.0) g/dL Hct 31.3 L (42.0-52.0) % MCV 107.9 H (80.0-94.0) fL MCH 34.5 H (27.0-31.0) pg MCHC 31.9 L (32.0-36.0) g/dL RDW 13.4 (12.0-15.0) % Plt Count 168 (130-450) 10^3/uL MPV 10.5 (7.4-11.4) fL Neut # (Auto) [employer] MAINFRAME DEVELOPER Lymph # (Auto) COBOL MAINFRAME DEVELOPER Freestone # (Auto) COBOL MAINFRAME DEVELOPER Eos # (Auto) COBOL MAINFRAME DEVELOPER Baso # (Auto) COBOL MAINFRAME DEVELOPER Absolute Nucleated RBC [employer]BOL MAINFRAME DEVELOPER Total Counted 100 Band Neuts % (Manual) 6 (0 - 10) % Abnorm Lymph % (Manual) 0 % Metamyelocytes % ( - 0) % Nucleated RBC % COBOL MAINFRAME DEVELOPER Neutrophils # (Manual) 13.0 H (1.5-6.6) 10^3/uL Lymphocytes # (Manual) 0.3 L (1.5-3.5) 10^3/uL Monocytes # (Manual) 1.0 (0.0-1.0) 10^3/uL Eosinophils # (Manual) 0.0 (0-0.7) 10^3/uL Basophils # (Manual) 0.0 (0-0.1) 10^3/uL Differential Comment MANUAL DIFFERENTIAL Manual Slide Review Indicated WBC Morphology (NORMAL) Platelet Estimate NORMAL (130-450,000) (NORMAL) Platelet Morphology NORMAL APPEARANCE (NORMAL) RBC Morph Micro Appear 3+ STOMATOCYTES (NORMAL) VBG pH (7.31-7.41) Ionized Calcium (1.15-1.33) mmol/L Sodium 138 (135-145) mmol/L Potassium 3.5 (3.5-5.0) mmol/L Chloride 80 L* (101-111) mmol/L Carbon Dioxide 41 H* (21-32) mmol/L Anion Gap 17.0 H (6-13) BUN 19 (6-20) mg/dL Creatinine 1.1 (0.6-1.2) mg/dL Estimated GFR (MDRD) 66 L (>89) Glucose 100 (70-100) mg/dL Lactic Acid (0.5-2.2) mmol/L Calcium 8.4 L (8.5-10.3) mg/dL Phosphorus 3.3 (2.5-4.6) mg/dL Magnesium 1.3 L (1.7-2.8) mg/dL Total Bilirubin 1.2 H (0.2-1.0) mg/dL AST 41 (10-42) IU/L ALT 16 (10-60) IU/L Alkaline Phosphatase 57 (42-121) IU/L Total Creatine Kinase 308 H (22-269) IU/L Troponin I High Sens (2.3-19.7) ng/L Total Protein 6.1 L (6.7-8.2) g/dL Albumin 2.7 L (3.2-5.5) g/dL Globulin 3.4 (2.1-4.2) g/dL Albumin/Globulin Ratio 0.8 L (1.0-2.2) Lipase 22 (22-51) U/L TSH 0.73 (0.34-5.60) uIU/mL Urine Color Urine Clarity (CLEAR) Urine pH (5.0-7.5) PH Ur Specific Blaine (1.002-1.030) Urine Protein (NEGATIVE) mg/dL Urine Glucose (UA) (NEGATIVE) mg/dL Urine Ketones (NEGATIVE) mg/dL Urine Occult Blood (NEGATIVE) Urine Nitrite (NEGATIVE) Urine Bilirubin (NEGATIVE) Urine Urobilinogen (NORMAL) E.U./dL Ur Leukocyte Esterase (NEGATIVE) Urine RBC (0-5) /HPF Urine WBC (0-3) /HPF Urine WBC Clumps Ur Squamous Epith Cells (<= Few) Urine Bacteria (None Seen) /HPF Ur Microscopic Review Urine Culture Comments Nasal Adenovirus (PCR) Nasal B. parapertussis DNA (PCR) Nasal Coronavir 229E PCR Nasal Coronavir HKU1 PCR Nasal Coronavir NL63 PCR Nasal Coronavir OC43 PCR Nasal Enterovir/Rhinovir PCR Nasal Influenza B PCR Nasal Influenza A PCR Nasal Parainfluen 1 PCR Nasal Parainfluen 2 PCR Nasal Parainfluen 3 PCR Nasal Parainfluen 4 PCR Nasal RSV (PCR) Nasal Screen MRSA (PCR) (NEGATIVE) Nasal B.pertussis DNA PCR Nasal C.pneumoniae (PCR) Damian Human Metapneumo PCR Nasal M.pneumoniae (PCR) Nasal SARS-CoV-2 (PCR) Last Dose Date Last Dose Time Digoxin ng/mL Salicylates < 6.0 mg/dL Urine Opiates Screen (NEGATIVE) Ur Oxycodone Screen (NEGATIVE) Urine Methadone Screen (NEGATIVE) Ur Propoxyphene Screen (NEGATIVE) Acetaminophen < 10 L (10-30) ug/mL Ur Barbiturates Screen (NEGATIVE) Ur Tricyclics Screen (NEGATIVE) Ur Phencyclidine Scrn (NEGATIVE) Ur Amphetamine Screen (NEGATIVE) U Methamphetamines Scrn (NEGATIVE) U Benzodiazepines Scrn (NEGATIVE) Urine Cocaine Screen (NEGATIVE) U Cannabinoids Screen (NEGATIVE) Ethyl Alcohol < 5.0 mg/dL Sepsis Event Note (H) - Evaluation Current Stage of Sepsis: Sepsis Possible source of Sepsis: positive: Genitourinary Assessment/Plan - Problem List (1) Sepsis Impression: The source appears to be a UTI. All labs were reviewed. His repeat lactic acid as per protocol, has normalized. However he is still hypotensive, has AMS, and elevated Bands of 7% on his CBC Plan: Cont IV fluids Cont IV rocephin since for source being a UTI Allso mildly dehydrate likely contributed from ETOH use Qualifiers: Sepsis type: sepsis due to unspecified organism Sepsis acute organ dysfunction status: without acute organ dysfunction Qualified Code(s): A41.9 - Sepsis, unspecified organism (2) Hypotension This is probably multifactorial: From his sepsis, from dehydration and from his tachycardia Plan: Remain in the ICU We will obtain an Echo If his EF is normal we will give saline boluses and cont iv fluids (3) AMS He reportedly lives at home alone. His family checks on him daily. EMS said that the family reported he had increased confusion over the past 1 week and when they went to check on him, they found him on the ground, covered in feces. He is mostly asleep today, when awakens he is oriented to self only. He did not pass his RN's swallow screen. This persistent AMS may be from the sepsis and hypotension, but more likely from alcohol withdrawl. Plan: On his BMP has an elevated bicarb, therefore he is likely a CO2 retainer, so will order titratimng suppl O2 down, target sats can be 88% or above, otherwise he will get sleepy from CO2 narcosis. Remain in ICU Supportive care, treating his blood pressure and infection (4) Alcohol abuse Conclusion/Plan: He does drink beer, the amount is unknown. When he was here in 2019, abstaining from alcohol was advised and he refused to do that saying it was one of his pleasures. Plan: Monitor for signs of withdrawl, will order a CIWA protocol Ativan ivp prn anxiety, signs of withdrawl on CIWA protocol PT/OT evals eventually, when he awakens (5) UTI (urinary tract infection) Conclusion/Plan: As per abn U/A Plan: Await cultures Continue empiric IV rocephin Monitor of urinary retention Qualifiers: Urinary tract infection type: acute cystitis Hematuria presence: without hematuria Qualified Code(s): N30.00 - Acute cystitis without hematuria (6) Atrial fibrillation Conclusion/Plan: He was admitted to the ICU needing a Cardizem drip at 5 mg/hr due to Afib with RVR. The Cardizem drip is off and the heart rate is A-fib in the 80s today. Since he was found on ground by family, and all work up negative for any bleeding, Eliquis was to be resumed today, but hje cannot swallow. Plan: Since he is unable to swallow, we cannot resume his oral Cardizem, metoprolol or oral digoxin Will continue Digoxin in iv form. Check a Dig level before that We will obtain an Echocardiogram. From the Echo we will get his CHADS2 score. From his CHADS2 score, we will ascertain if he needs Eliquis to be resumed, he cannot take it currently since he cannot swallow. (7) Tobacco use Despite being somnolent, he has a deep and very wet and productive cough. Exan shows poor air movement, as in a COPDer. On his BMP has an elevatedbicarb, therefore he is likely a CO2 retainer Plan: We will give a nicotine patch topically When he is more awake, we will start p.o. meds for pulmonary toilet (8) Poor hygiene He was found on the ground of his house covered with feces Plan: When he is stable we will order showering (9) Tachycardia Conclusion/Plan: Resolved Multifactorial: from dehydration, sepsis, hypotension, Plan: Optimize electrolyes following BMP daily Cont iv hydration since he cannot swallow yet Qualifiers: Sepsis type: sepsis due to unspecified organism Sepsis acute organ dysfunction status: without acute organ dysfunction
[2022-07-02] MEDS: ACETAMINOPHEN 325 MG TABLET PO PRN ×2 (16:13→20:11)
[2022-07-02] MEDS: POTASSIUM CHLORIDE 20 MEQ/15 ML UDC PO SCH (22:30)
[2022-07-03] MEDS: SODIUM CHLORIDE FLUSH 0.9% 10 ML SYRINGE IVP SCH ×3 (00:07→16:52)
[2022-07-03] MEDS: POTASSIUM CHLORIDE 20 MEQ/15 ML UDC PO SCH (00:35)
[2022-07-03] MEDS: SODIUM CHLORIDE 0.9% 1,000 ML IV SCH ×3 (01:09→19:58)
[2022-07-03 05:02] LABS: CALCIUM, IONIZED 1.07 mmol/L (1.15-1.33); VBG PH 7.438 (7.31-7.41)
[2022-07-03 05:05] LABS: HCT - HEMATOCRIT 28.4 % (42.0-52.0); HGB - HEMOGLOBIN 8.9 g/dL (14.0-18.0); MEAN CORPUSCULAR HEMOGLOBIN 34.9 pg (27.0-31.0); MEAN CORPUSCULAR HGB CONC 31.3 g/dL (32.0-36.0); MEAN CORPUSCULAR VOLUME 111.4 fL (80.0-94.0); MEAN PLATELET VOLUME 10.9 fL (7.4-11.4); RED BLOOD COUNT 2.55 10^6/uL (4.70-6.10); RED CELL DISTRIBUTION WIDTH 13.5 % (12.0-15.0); WHITE BLOOD COUNT 8.8 x10^3/uL (4.8-10.8)
[2022-07-03 05:17] LABS: ALBUMIN 2.3 g/dL (3.2-5.5); ALBUMIN/GLOBULIN RATIO 0.8 (1.0-2.2); BILIRUBIN,TOTAL 0.5 mg/dL (0.2-1.0); CALCIUM 7.9 mg/dL (8.5-10.3); CREATININE 0.7 mg/dL (0.6-1.2); POTASSIUM 3.4 mmol/L (3.5-5.0); TOTAL PROTEIN 5.3 g/dL (6.7-8.2)
[2022-07-03 05:24] LABS: DIGOXIN 0.5 ng/mL
[2022-07-03 05:55] LABS: PHOSPHORUS 2.5 mg/dL (2.5-4.6)
[2022-07-03] MEDS: CALCIUM CARBONATE CHEW 500 MG TABLET PO SCH ×2 (06:10→09:16)
[2022-07-03] MEDS: BUDESONIDE 0.5 MG/2 ML NEB INH SCH ×2 (06:41→20:30)
[2022-07-03] MEDS: IPRATROPIUM/ALBUTEROL 3 ML NEB INH SCH ×4 (06:41→20:30)
[2022-07-03] MEDS ORDERED: DIGOXIN 500 MCG/2 ML AMP IVP SCH (09:00)
[2022-07-03] MEDS: ethyl alcohoL 62% SWAB AMPULE NAS SCH ×2 (09:07→21:12)
[2022-07-03] MEDS: cefTRIAXone 1 GM in SODIUM CHLORIDE 0.9% MINIBAG 100 ML IV SCH (09:07)
[2022-07-03] MEDS: PRENATAL VITAMIN TABLET PO SCH (09:07)
[2022-07-03] MEDS: guaiFENesin 600 MG TABLET PO SCH ×2 (09:07→21:12)
[2022-07-03] MEDS: POTASSIUM CHLORIDE 20 MEQ TABLET PO SCH ×2 (09:07→09:49)
[2022-07-03] MEDS: NICOTINE 21 MG PATCH TOP SCH (09:07)
[2022-07-03] MEDS: THIAMINE 100 MG TABLET PO SCH (09:08)
--- NOTE | 2022-07-03 09:25 | PROVIDER PROGRESS NOTE ---
Subjective - Subjective Pt reports feeling: Improved (I saw him twice today, in the morning he was asleep and slept through breakfast, at midday he was awake and able to feed himself pured food, spoke normally) Objective - Vital Signs/Intake & Output Reviewed Vital Signs: Yes Vital Signs: Vital Signs Temp Pulse Pulse Resp BP Pulse Ox O2 Flow Rate 07/03/22 09:08 93 07/03/22 09:00 97 26 H 129/78 100 2 07/03/22 08:00 98 29 H 128/85 H 97 2 07/03/22 07:45 37.3 C 07/03/22 07:00 111 H 36 H 135/80 H 89 L 2 07/03/22 06:42 104 H 32 H 2 07/03/22 06:00 93 22 112/78 100 2 Intake & Output: Intake & Output 06/30/22 07/01/22 07/02/22 07/03/22 23:59 23:59 23:59 23:59 Intake Total 4242.158 9676.333 961.667 Output Total 2500 1408 670 Balance -2347.883 0003.333 291.667 - Objective General Appearance: positive: No acute distress, Alert, Other (Disheveled hair, but has a long well-kempt peoples) Eyes Bilateral: positive: Normal inspection, No lid inflammation ENT: positive: ENT inspection nml, No signs of dehydration, Other (Poor dentition, several missing teeth in front) Neck: positive: Nml inspection, No JVD Respiratory: positive: No respiratory distress, Rhonchi Cardiovascular: positive: No murmur Abdomen: positive: Non-tender, No distention Skin: positive: Warm, Dry Extremities: positive: Non-tender, No pedal edema - Lab Results Fish Bones: 07/03/22 04:25 07/03/22 04:25 Other Labs: Lab Results x24hrs 07/03/22 07/03/22 07/03/22 Range/Units 04:25 04:25 04:25 WBC (4.8-10.8) x10^3/uL RBC (4.70-6.10) 10^6/uL Hgb (14.0-18.0) g/dL Hct (42.0-52.0) % MCV (80.0-94.0) fL MCH (27.0-31.0) pg MCHC (32.0-36.0) g/dL RDW (12.0-15.0) % Plt Count (130-450) 10^3/uL MPV (7.4-11.4) fL VBG pH 7.438 H (7.31-7.41) Ionized Calcium 1.07 L (1.15-1.33) mmol/L Sodium (135-145) mmol/L Potassium (3.5-5.0) mmol/L Chloride (101-111) mmol/L Carbon Dioxide (21-32) mmol/L Anion Gap (6-13) BUN (6-20) mg/dL Creatinine (0.6-1.2) mg/dL Estimated GFR (MDRD) (>89) Glucose (70-100) mg/dL Calcium (8.5-10.3) mg/dL Phosphorus 2.5 (2.5-4.6) mg/dL Magnesium 2.0 (1.7-2.8) mg/dL Total Bilirubin (0.2-1.0) mg/dL AST (10-42) IU/L ALT (10-60) IU/L Alkaline Phosphatase (42-121) IU/L Total Protein (6.7-8.2) g/dL Albumin (3.2-5.5) g/dL Globulin (2.1-4.2) g/dL Albumin/Globulin Ratio (1.0-2.2) Last Dose Date 07/02/22 Last Dose Time 1155 Digoxin 0.5 ng/mL 07/03/22 07/03/22 07/02/22 Range/Units 04:25 04:25 20:51 WBC 8.8 (4.8-10.8) x10^3/uL RBC 2.55 L (4.70-6.10) 10^6/uL Hgb 8.9 L (14.0-18.0) g/dL Hct 28.4 L (42.0-52.0) % MCV 111.4 H (80.0-94.0) fL MCH 34.9 H (27.0-31.0) pg MCHC 31.3 L (32.0-36.0) g/dL RDW 13.5 (12.0-15.0) % Plt Count 152 (130-450) 10^3/uL MPV 10.9 (7.4-11.4) fL VBG pH (7.31-7.41) Ionized Calcium (1.15-1.33) mmol/L Sodium 139 (135-145) mmol/L Potassium 3.4 L 3.3 L (3.5-5.0) mmol/L Chloride 92 L (101-111) mmol/L Carbon Dioxide 40 H* (21-32) mmol/L Anion Gap 7.0 (6-13) BUN 20 (6-20) mg/dL Creatinine 0.7 (0.6-1.2) mg/dL Estimated GFR (MDRD) 112 (>89) Glucose 129 H (70-100) mg/dL Calcium 7.9 L (8.5-10.3) mg/dL Phosphorus (2.5-4.6) mg/dL Magnesium (1.7-2.8) mg/dL Total Bilirubin 0.5 (0.2-1.0) mg/dL AST 33 (10-42) IU/L ALT 16 (10-60) IU/L Alkaline Phosphatase 80 (42-121) IU/L Total Protein 5.3 L (6.7-8.2) g/dL Albumin 2.3 L (3.2-5.5) g/dL Globulin 3.0 (2.1-4.2) g/dL Albumin/Globulin Ratio 0.8 L (1.0-2.2) Last Dose Date Last Dose Time Digoxin ng/mL 07/02/22 07/02/22 Range/Units 13:21 04:13 WBC (4.8-10.8) x10^3/uL RBC (4.70-6.10) 10^6/uL Hgb (14.0-18.0) g/dL Hct (42.0-52.0) % MCV (80.0-94.0) fL MCH (27.0-31.0) pg MCHC (32.0-36.0) g/dL RDW (12.0-15.0) % Plt Count (130-450) 10^3/uL MPV (7.4-11.4) fL VBG pH (7.31-7.41) Ionized Calcium (1.15-1.33) mmol/L Sodium (135-145) mmol/L Potassium 3.2 L (3.5-5.0) mmol/L Chloride (101-111) mmol/L Carbon Dioxide (21-32) mmol/L Anion Gap (6-13) BUN (6-20) mg/dL Creatinine (0.6-1.2) mg/dL Estimated GFR (MDRD) (>89) Glucose (70-100) mg/dL Calcium (8.5-10.3) mg/dL Phosphorus (2.5-4.6) mg/dL Magnesium (1.7-2.8) mg/dL Total Bilirubin (0.2-1.0) mg/dL AST (10-42) IU/L ALT (10-60) IU/L Alkaline Phosphatase (42-121) IU/L Total Protein (6.7-8.2) g/dL Albumin (3.2-5.5) g/dL Globulin (2.1-4.2) g/dL Albumin/Globulin Ratio (1.0-2.2) Last Dose Date UNK Last Dose Time UNK Digoxin 0.7 ng/mL Sepsis Event Note (H) - Evaluation Current Stage of Sepsis: Sepsis Possible source of Sepsis: positive: Genitourinary Assessment/Plan - Problem List (1) Sepsis Impression: The source appears to be a UTI. All labs were reviewed. His repeat lactic acid has normalized. Today his hypotension has AMS are better, and elevated Bands of 7% on his CBC have decreased to Plan: Cont IV fluids Cont IV rocephin since for source being a UTI Qualifiers: Sepsis type: sepsis due to unspecified organism Sepsis acute organ dysfunction status: without acute organ dysfunction Qualified Code(s): A41.9 - Sepsis, unspecified organism (2) AMS He reportedly lives at home alone. His family checks on him daily. EMS said that the family reported he had increased confusion over the past 1 week and when they went to check on him, they found him on the ground, covered in feces. He is mostly asleep 4/5, awoke today and is oriented to self and slt to place. He did pass his RN's swallow screen. The persistent AMS was likely from the sepsis, hypotension and from alcohol withdrawal, all of which are better. Plan: On his BMP has an elevated bicarb, therefore he is likely a CO2 retainer, so will order titratimng suppl O2 down, target sats can be 88% or above, otherwise he will get sleepy from CO2 narcosis. Remain in ICU, transfer to [facility] tomorrow Start advancing his diet, continue treating his infection (3) Alcohol abuse Conclusion/Plan: He does drink beer, the amount is unknown. When he was here in 2019, abstaining from alcohol was advised and he refused to do that saying it was one of his pleasures. Plan: Continue CIWA protocol, with Ativan iv prn anxiety, signs of withdrawl on CIWA protocol PT/OT evals probably tomorrow, when he is more awake (4) UTI (urinary tract infection) Conclusion/Plan: As per abn U/A Plan: Await cultures Continue empiric IV rocephin Monitor for urinary retention Qualifiers: Urinary tract infection type: acute cystitis Hematuria presence: without hematuria Qualified Code(s): N30.00 - Acute cystitis without hematuria (5) Atrial fibrillation Conclusion/Plan: He was admitted to the ICU needing a Cardizem drip at 5 mg/hr due to Afib with RVR. The Cardizem drip is off and the heart rate is A-fib in the 80-100s today. Since he was found on ground by family, and all work up negative for any bleeding, Eliquis was to be resumed, but he cannot swallow. We obtained an Echocardiogram>> it showed normal LVEF of 55%, but Cor Pulmonale is present, likely from his heavy smoking Hx and COPD. From the Echo, his CHADS2 score = 0, therefore no anticoagulant is recommended, he can be on an aspirin daily for stroke prophylaxis. All labs were reviewed. His Dig level is not toxic. Plan: Since he was unable to swallow, we could not resume his oral Cardizem, metoprolol or oral digoxin. Will resume Digoxin and will start Toprol today. From his CHADS2 score, we ascertained that Eliquis is not necessary, he can be on an aspirin daily for stroke prophylaxis. (6) Tobacco use Despite being somnolent, he has a deep and very wet and productive cough. Exam shows poor air movement, as in a COPDer. All labs were reviewed. On his BMP, he has an elevated bicarb, therefore he is likely a CO2 retainer Plan: Continue a nicotine patch topically We will start p.o. meds for pulmonary toilet (7) Poor hygiene He was found on the ground of his house covered with feces Plan: When he is stable we will order OT eval and showering (8) Tachycardia Conclusion/Plan: Resolved Multifactorial: from alcohol withdrawal, dehydration, sepsis, and hypotension Plan: Optimize electrolyes following BMP daily Cont iv hydration until adequately hydrating orally (9) Hypotension Resolved with iv fluids This was probably multifactorial: From his sepsis, from dehydration and from his tachycardia Plan: Continue on IV fluids and will transfer out of ICU probably tomorrow
[2022-07-03] MEDS: ACETAMINOPHEN 325 MG TABLET PO PRN ×3 (11:34→21:12)
[2022-07-03] MEDS: ASPIRIN CHEW 81 MG TABLET PO SCH (11:35)
[2022-07-03] MEDS: KETOROLAC 30 MG/ML VIAL IVP PRN (18:04)
[2022-07-03] MEDS: METOPROLOL SUCCINATE 25 MG TABLET PO SCH (21:12)
[2022-07-03] MEDS: ZINC OXIDE 20% OINT 30 GM TUBE TOP SCH (21:13)
[2022-07-04] MEDS: SODIUM CHLORIDE FLUSH 0.9% 10 ML SYRINGE IVP SCH ×4 (00:19→23:35)
[2022-07-04] MEDS: guaiFENesin/DEXTROMETHORPHAN 10 ML UDC PO PRN (00:39)
[2022-07-04 05:02] LABS: HCT - HEMATOCRIT 28.7 % (42.0-52.0); HGB - HEMOGLOBIN 8.8 g/dL (14.0-18.0); MEAN CORPUSCULAR HEMOGLOBIN 34.5 pg (27.0-31.0); MEAN CORPUSCULAR HGB CONC 30.7 g/dL (32.0-36.0); MEAN CORPUSCULAR VOLUME 112.5 fL (80.0-94.0); MEAN PLATELET VOLUME 10.9 fL (7.4-11.4); RED BLOOD COUNT 2.55 10^6/uL (4.70-6.10); RED CELL DISTRIBUTION WIDTH 13.5 % (12.0-15.0); WHITE BLOOD COUNT 9.8 x10^3/uL (4.8-10.8)
[2022-07-04 05:06] LABS: CALCIUM, IONIZED 1.03 mmol/L (1.15-1.33); VBG PH 7.537 (7.31-7.41)
[2022-07-04 05:09] LABS: ALBUMIN 2.3 g/dL (3.2-5.5); ALBUMIN/GLOBULIN RATIO 0.8 (1.0-2.2); BILIRUBIN,TOTAL 0.6 mg/dL (0.2-1.0); CALCIUM 7.8 mg/dL (8.5-10.3); CREATININE 0.6 mg/dL (0.6-1.2); POTASSIUM 3.9 mmol/L (3.5-5.0); TOTAL PROTEIN 5.1 g/dL (6.7-8.2)
[2022-07-04] MEDS: SODIUM CHLORIDE 0.9% 1,000 ML IV SCH (05:57)
[2022-07-04] MEDS: CALCIUM CARBONATE CHEW 500 MG TABLET PO SCH ×2 (06:56→11:12)
[2022-07-04] MEDS: IPRATROPIUM/ALBUTEROL 3 ML NEB INH SCH ×4 (07:29→18:34)
[2022-07-04] MEDS: BUDESONIDE 0.5 MG/2 ML NEB INH SCH ×2 (07:29→18:34)
[2022-07-04] MEDS ORDERED: POTASSIUM CHLORIDE 20 MEQ TABLET PO ONE (08:00)
[2022-07-04] MEDS: PRENATAL VITAMIN TABLET PO SCH (08:21)
[2022-07-04] MEDS: THIAMINE 100 MG TABLET PO SCH (08:21)
[2022-07-04] MEDS: ethyl alcohoL 62% SWAB AMPULE NAS SCH ×2 (08:22→20:44)
[2022-07-04] MEDS: DIGOXIN 125 MCG TABLET PO SCH (08:22)
[2022-07-04] MEDS: ASPIRIN CHEW 81 MG TABLET PO SCH (08:22)
[2022-07-04] MEDS: NICOTINE 21 MG PATCH TOP SCH (08:22)
[2022-07-04] MEDS: guaiFENesin 600 MG TABLET PO SCH ×2 (08:22→20:43)
[2022-07-04] MEDS: cefTRIAXone 1 GM in SODIUM CHLORIDE 0.9% MINIBAG 100 ML IV SCH (08:23)
[2022-07-04] MEDS: ZINC OXIDE 20% OINT 30 GM TUBE TOP SCH ×2 (08:24→20:46)
[2022-07-04] MEDS: METOPROLOL SUCCINATE 25 MG TABLET PO SCH ×2 (08:24→20:44)
[2022-07-04] MEDS: ACETAMINOPHEN 325 MG TABLET PO PRN ×2 (11:09→20:43)
[2022-07-04 15:23] LABS: CALCIUM, IONIZED 1.08 mmol/L (1.15-1.33); VBG PH 7.49 (7.31-7.41)
[2022-07-04] MEDS: SODIUM CHLORIDE FLUSH 0.9% 10 ML SYRINGE IVP PRN (16:13)
[2022-07-04] MEDS: KETOROLAC 30 MG/ML VIAL IVP PRN ×2 (16:13→23:34)
--- NOTE | 2022-07-04 16:48 | PROVIDER PROGRESS NOTE ---
Assessment/Plan - Problem List (1) Bacteremia due to Enterobacter species Assessment/Plan: As per blood cx result. Source is his UTI. Plan: He has been on appropriate empiric IV antibiotics, based on the sensitivities of this Enterobacter Plan to change him to oral antibiotics, based on sensitivities we will start Cipro We will plan a 10-day total course of antibiotics, since he has responded well, no longer septic (2) Alcohol withdrawal Assessment/Plan: He reportedly lives at home alone. His family checks on him daily. EMS said that the family reported he had increased confusion over the past 1 week and when they went to check on him, they found him on the ground, covered in feces. He is awake and pass his RN's swallow screen. A diet was ordered. The persistent AMS was likely from the sepsis, hypotension and from alcohol withdrawal, all of which are better. Plan: On his BMP has an elevated bicarb, therefore he is likely a CO2 retainer, so will order titratimng suppl O2 down, target sats can be 88% or above, otherwise he will get sleepy from CO2 narcosis. Start advancing his diet, continue treating his infection He is out of ICU, on MedSurg today (3) UTI (urinary tract infection) Conclusion/Plan: His urine culture is growing Enterobacter, the same days and his blood. I reviewed the sensitivities. The empiric IV Rocephin was appropriate Plan: The empiric IV rocephin was appropriate and will change to Cipro oral, based on sens Continue [place] one more day for urinary retention Qualifiers: Urinary tract infection type: acute cystitis Hematuria presence: without hematuria Qualified Code(s): N30.00 - Acute cystitis without hematuria (4) Atrial fibrillation Conclusion/Plan: He was admitted to the ICU needing a Cardizem drip at 5 mg/hr due to Afib with RVR. The Cardizem drip is off and the heart rate is A-fib in the 80-100s today. Since he was found on ground by family, and all work up negative for any bleeding, Eliquis was to be resumed, but he cannot swallow. We obtained an Echocardiogram>> it showed normal LVEF of 55%, but Cor Pulmonale is present, likely from his heavy smoking Hx and COPD. From the Echo, his CHADS2 score = 0, therefore no anticoagulant is recommended, he can be on an aspirin daily for stroke prophylaxis. All labs were reviewed. His Dig level is not toxic. Plan: Since he was unable to swallow, we could not resume his oral Cardizem, metopr olol or oral digoxin. We can now resume all his po rate-control meds today. From his CHADS2 score, we ascertained that Eliquis is not necessary, he can be on an aspirin daily for stroke prophylaxis. This was ordered. (5) Tobacco use Despite being somnolent, he has a deep and very wet and productive cough. Exam shows poor air movement, as in a COPDer. All labs were reviewed. On his BMP, he has an elevated bicarb, therefore he is likely a CO2 retainer Plan: Continue a nicotine patch topically Cont p.o. meds for pulmonary toilet (6) Alcohol abuse Conclusion/Plan: He does drink beer, the amount is unknown. When he was here in 2019, abstaining from alcohol was advised and he refused to do that saying it was one of his pleasures. Plan: Continue CIWA protocol, with Ativan iv prn anxiety, signs of withdrawl on CIWA protocol PT/OT evals since he is more awake (7) Poor hygiene He was found on the ground of his house covered with feces Plan: When he is stable we will order OT eval and start showering (8) Tachycardia Conclusion/Plan: Resolved Multifactorial: from alcohol withdrawal, dehydration, sepsis, and hypotension Plan: Optimize electrolyes following BMP daily Cont iv hydration until adequately hydrating orally (9) Hypotension Resolved with iv fluids This was probably multifactorial: From his sepsis, from dehydration and from his tachycardia Plan: We can now resume all his po rate-control meds today. (10) Sepsis Impression: Resolved The source appeared to be a UTI caausing bacteremia. Plan: Cont IV fluids Cont antibx as above Qualifiers: Sepsis type: sepsis due to unspecified organism Sepsis acute organ dysfunction status: without acute organ dysfunction Qualified Code(s): A41.9 - Sepsis, unspecified organism - Current Meds Current Meds: Current Medications Generic Name Dose Route Start Last Admin Trade Name Freq PRN Reason Stop Dose Admin Acetaminophen 650 mg 07/01/22 19:16 07/04/22 11:09 Acetaminophen 325 Mg Tablet PO 650 mg Q4HR PRN Administration Pain 1 to 4, or Fever Albuterol/Ipratropium 3 ml 07/02/22 07:00 07/04/22 16:40 Ipratropium/Albuterol 3 Ml Neb INH Not Given RTQID STACEY Alcohol 1 amp 07/02/22 21:00 07/04/22 08:22 Ethyl Alcohol 62% Swab Ampule IRVING 1 amp BID STACEY Administration Aspirin 81 mg 07/03/22 12:00 07/04/22 08:22 Aspirin Chew 81 Mg Tablet PO 81 mg DAILY STACEY Administration Budesonide 0.5 mg 07/02/22 07:00 07/04/22 07:29 Budesonide 0.5 Mg/2 Ml Neb INH 0.5 mg RTBID STACEY Administration Digoxin 125 mcg 07/04/22 09:00 07/04/22 08:22 Digoxin 125 Mcg Tablet PO 125 mcg DAILY STACEY Administration Guaifenesin 600 mg 07/03/22 09:00 07/04/22 08:22 Guaifenesin 600 Mg Tablet PO 600 mg BID STACEY Administration Guaifenesin 10 ml 07/03/22 07:47 07/04/22 00:39 Guaifenesin/Dextromethorphan 10 Ml Udc PO 10 ml Q6HR PRN Administration Cough Ceftriaxone Sodium 1 gm/ 100 mls @ 200 mls/hr 07/02/22 09:00 07/04/22 08:23 Sodium Chloride IV 200 mls/hr DAILY STACEY Administration Ketorolac Tromethamine 30 mg 07/03/22 17:43 07/04/22 16:13 Ketorolac 30 Mg/Ml Vial IVP 07/08/22 17:42 30 mg Q6HR PRN Administration Severe Pain (Level 7-10) Metoprolol Succinate 25 mg 07/03/22 21:00 07/04/22 08:24 Metoprolol Succinate 25 Mg Tablet PO 25 mg BID STACEY Administration Multi-Ingredient Ointment 1 applic 07/03/22 21:00 07/04/22 08:24 Zinc Oxide 20% Oint 30 Gm Tube TOP 1 applic BID STACEY Administration Nicotine 1 patch 07/02/22 12:00 07/04/22 08:22 Nicotine 21 Mg Patch TOP 1 patch DAILY STACEY Administration Multivit/Folic Acid/Iron 1 tab 07/03/22 08:00 07/04/22 08:21 Vitamin Tablet PO 1 tab DAILYWM STACEY Administration Sodium Chloride 10 ml 07/02/22 01:00 07/04/22 08:23 Sodium Chloride Flush 0.9% 10 Ml Syringe IVP 10 ml 0100,0900,1700 STACEY Administration Sodium Chloride 10 ml 07/01/22 19:16 07/04/22 16:13 Sodium Chloride Flush 0.9% 10 Ml Syringe IVP 10 ml PRN PRN Administration NEEDED PER PROVIDER ORDERS Thiamine HCl 100 mg 07/03/22 09:00 07/04/22 08:21 Thiamine 100 Mg Tablet PO 100 mg DAILY STACEY Administration - Lab Result Fish Bone Diagrams: 07/06/22 05:20 07/06/22 05:20 - Additional Planning My Orders: My Active Orders 07/03/22 17:43 Ketorolac Inj (30Mg) [Toradol Inj (30Mg)] 30 mg IVP Q6HR PRN 07/03/22 21:00 Metoprolol Succinate [Toprol Xl] 25 mg PO BID Zinc Oxide 20% Oint [Zinc Oxide] 1 applic TOP BID 07/04/22 Evaluate and Treat OT [OT] Routine Evaluate and Treat PT [PT] Routine 07/04/22 09:00 Digoxin [Lanoxin] 125 mcg PO DAILY 07/04/22 Lunch DIET [Soft Mechanical Diet] [DIET] 07/04/22 14:32 Telemetry- [RC] Q4HR 07/05/22 05:00 CBC W/O DIFF (HEMOGRAM) [HEME] DAILYLAB CMP [COMPREHENSIVE METABOLIC PANEL] [CHEM] DAILYLAB 07/06/22 05:00 CBC W/O DIFF (HEMOGRAM) [HEME] DAILYLAB CMP [COMPREHENSIVE METABOLIC PANEL] [CHEM] DAILYLAB Subjective - Subjective Patient Reports: Resting Comfortably, Headache (Reminds us that we have not resumed his scheduled pain meds), Shortness of Breath (Describes shortness of breath with activities) Objective Vital Signs: Vital Signs - 24 hr 07/03/22 07/03/22 07/03/22 17:00 18:00 19:00 Temperature Heart Rate Heart Rate [ Brachial] Heart Rate [ 116 H 110 H 99 Monitoring electrodes] Heart Rate [ Sitting] Heart Rate [ Standing] Heart Rate [ Supine] Respiratory 22 30 H 30 H Rate Respiratory Rate [Sitting] Respiratory Rate [Standing] Respiratory Rate [Supine] Blood Pressure 145/91 H 133/81 H 130/76 [Left Brachial artery] Blood Pressure [Right Brachial artery] Blood Pressure [Sitting] Blood Pressure [Standing] Blood Pressure [Supine] O2 Saturation 95 95 96 O2 Saturation [ Sitting] O2 Saturation [ Standing] O2 Saturation [ Supine] O2 Saturation [ With Activity] If not protocol 2 2 2 : Oxygen Flow, liters/minute 07/03/22 07/03/22 07/03/22 20:00 20:30 21:00 Temperature 37.2 C Heart Rate 96 Heart Rate [ Brachial] Heart Rate [ 98 99 Monitoring electrodes] Heart Rate [ Sitting] Heart Rate [ Standing] Heart Rate [ Supine] Respiratory 22 24 25 H Rate Respiratory Rate [Sitting] Respiratory Rate [Standing] Respiratory Rate [Supine] Blood Pressure 140/86 H 133/96 H [Left Brachial artery] Blood Pressure [Right Brachial artery] Blood Pressure [Sitting] Blood Pressure [Standing] Blood Pressure [Supine] O2 Saturation 98 97 O2 Saturation [ Sitting] O2 Saturation [ Standing] O2 Saturation [ Supine] O2 Saturation [ With Activity] If not protocol 2 2 2 : Oxygen Flow, liters/minute 07/03/22 07/03/22 07/04/22 22:00 23:00 00:00 Temperature 37.2 C Heart Rate Heart Rate [ Brachial] Heart Rate [ 96 97 91 Monitoring electrodes] Heart Rate [ Sitting] Heart Rate [ Standing] Heart Rate [ Supine] Respiratory 25 H 20 28 H Rate Respiratory Rate [Sitting] Respiratory Rate [Standing] Respiratory Rate [Supine] Blood Pressure 139/92 H 131/84 H 147/99 H [Left Brachial artery] Blood Pressure [Right Brachial artery] Blood Pressure [Sitting] Blood Pressure [Standing] Blood Pressure [Supine] O2 Saturation 97 98 97 O2 Saturation [ Sitting] O2 Saturation [ Standing] O2 Saturation [ Supine] O2 Saturation [ With Activity] If not protocol 2 2 2 : Oxygen Flow, liters/minute 07/04/22 07/04/22 07/04/22 01:00 02:00 03:00 Temperature Heart Rate Heart Rate [ Brachial] Heart Rate [ 100 99 104 H Monitoring electrodes] Heart Rate [ Sitting] Heart Rate [ Standing] Heart Rate [ Supine] Respiratory 23 25 H 31 H Rate Respiratory Rate [Sitting] Respiratory Rate [Standing] Respiratory Rate [Supine] Blood Pressure 137/75 H 161/84 H 133/96 H [Left Brachial artery] Blood Pressure [Right Brachial artery] Blood Pressure [Sitting] Blood Pressure [Standing] Blood Pressure [Supine] O2 Saturation 95 96 97 O2 Saturation [ Sitting] O2 Saturation [ Standing] O2 Saturation [ Supine] O2 Saturation [ With Activity] If not protocol 2 2 2 : Oxygen Flow, liters/minute 07/04/22 07/04/22 07/04/22 04:00 05:00 06:00 Temperature Heart Rate Heart Rate [ Brachial] Heart Rate [ 102 H 100 93 Monitoring electrodes] Heart Rate [ Sitting] Heart Rate [ Standing] Heart Rate [ Supine] Respiratory 31 H 27 H 27 H Rate Respiratory Rate [Sitting] Respiratory Rate [Standing] Respiratory Rate [Supine] Blood Pressure 151/84 H 146/93 H 140/82 H [Left Brachial artery] Blood Pressure [Right Brachial artery] Blood Pressure [Sitting] Blood Pressure [Standing] Blood Pressure [Supine] O2 Saturation 96 98 97 O2 Saturation [ Sitting] O2 Saturation [ Standing] O2 Saturation [ Supine] O2 Saturation [ With Activity] If not protocol 2 2 2 : Oxygen Flow, liters/minute 07/04/22 07/04/22 07/04/22 07:00 07:33 08:00 Temperature 37.2 C Heart Rate 97 Heart Rate [ Brachial] Heart Rate [ 114 H 108 H Monitoring electrodes] Heart Rate [ Sitting] Heart Rate [ Standing] Heart Rate [ Supine] Respiratory 24 27 H 25 H Rate Respiratory Rate [Sitting] Respiratory Rate [Standing] Respiratory Rate [Supine] Blood Pressure 158/98 H 137/80 H [Left Brachial artery] Blood Pressure [Right Brachial artery] Blood Pressure [Sitting] Blood Pressure [Standing] Blood Pressure [Supine] O2 Saturation 97 96 O2 Saturation [ Sitting] O2 Saturation [ Standing] O2 Saturation [ Supine] O2 Saturation [ With Activity] If not protocol 2 2 2 : Oxygen Flow, liters/minute 07/04/22 07/04/22 07/04/22 08:28 09:00 10:00 Temperature Heart Rate Heart Rate [ Brachial] Heart Rate [ 113 H 115 H 91 Monitoring electrodes] Heart Rate [ Sitting] Heart Rate [ Standing] Heart Rate [ Supine] Respiratory 19 29 H 29 H Rate Respiratory Rate [Sitting] Respiratory Rate [Standing] Respiratory Rate [Supine] Blood Pressure 137/80 H 140/85 H 147/86 H [Left Brachial artery] Blood Pressure [Right Brachial artery] Blood Pressure [Sitting] Blood Pressure [Standing] Blood Pressure [Supine] O2 Saturation 94 92 96 O2 Saturation [ Sitting] O2 Saturation [ Standing] O2 Saturation [ Supine] O2 Saturation [ With Activity] If not protocol 2 2 : Oxygen Flow, liters/minute 07/04/22 07/04/22 07/04/22 10:30 10:35 11:00 Temperature Heart Rate Heart Rate [ Brachial] Heart Rate [ 95 Monitoring electrodes] Heart Rate [ 111 H 111 H Sitting] Heart Rate [ 101 H 101 H Standing] Heart Rate [ 91 91 Supine] Respiratory 17 Rate Respiratory 28 H Rate [Sitting] Respiratory 27 H Rate [Standing] Respiratory 32 H Rate [Supine] Blood Pressure 145/81 H [Left Brachial artery] Blood Pressure [Right Brachial artery] Blood Pressure 161/89 H 161/89 H [Sitting] Blood Pressure 142/82 H 142/82 H [Standing] Blood Pressure 147/86 H 147/86 H [Supine] O2 Saturation 93 O2 Saturation [ 96 Sitting] O2 Saturation [ 97 Standing] O2 Saturation [ 94 Supine] O2 Saturation [ 96 With Activity] If not protocol 2 : Oxygen Flow, liters/minute 07/04/22 07/04/22 07/04/22 11:35 12:00 16:00 Temperature 37 C 36.5 C Heart Rate 90 Heart Rate [ 90 Brachial] Heart Rate [ 108 H Monitoring electrodes] Heart Rate [ Sitting] Heart Rate [ Standing] Heart Rate [ Supine] Respiratory 19 28 H 18 Rate Respiratory Rate [Sitting] Respiratory Rate [Standing] Respiratory Rate [Supine] Blood Pressure 142/87 H [Left Brachial artery] Blood Pressure 147/79 H [Right Brachial artery] Blood Pressure [Sitting] Blood Pressure [Standing] Blood Pressure [Supine] O2 Saturation 95 100 O2 Saturation [ Sitting] O2 Saturation [ Standing] O2 Saturation [ Supine] O2 Saturation [ With Activity] If not protocol 2 2 2 : Oxygen Flow, liters/minute Oxygen O2 Source [With Activity] Nasal cannula O2 Source Nasal cannula Oxygen Flow Rate 3 I&O (Last 24 Hrs): Intake and Output Totals x24h 07/02/22 07/03/22 07/04/22 23:59 23:59 23:59 Intake Total 6090.333 3766.334 1798.333 Output Total 1408 1408 1337 Balance 4682.333 2358.334 461.333 General: Alert, Oriented x3 (Slow to answer but appropriate) HEENT: Mucous membr. moist/pink, Other (Hair is disheveled but peoples is well- kempt and clean, face is flushed and skin on face is oily) Neck: Supple, Other (Cannot evaluate JVP due to peoples) Neuro: Alert, Non Focal Cardiovascular: No murmurs Respiratory: No respiratory distress (At rest, is wearing O2 per nasal cannula) Abdomen: Soft, No tenderness Extremities: No clubbing, No edema - Results Results: Laboratory Results WBC 9.8 x10^3/uL (4.8-10.8) 07/04/22 04:39 RBC 2.55 10^6/uL (4.70-6.10) L 07/04/22 04:39 Hgb 8.8 g/dL (14.0-18.0) L 07/04/22 04:39 Hct 28.7 % (42.0-52.0) L 07/04/22 04:39 MCV 112.5 fL (80.0-94.0) H 07/04/22 04:39 MCH 34.5 pg (27.0-31.0) H 07/04/22 04:39 MCHC 30.7 g/dL (32.0-36.0) L 07/04/22 04:39 RDW 13.5 % (12.0-15.0) 07/04/22 04:39 Plt Count 127 10^3/uL (130-450) L 07/04/22 04:39 MPV 10.9 fL (7.4-11.4) 07/04/22 04:39 Neut # (Auto) Not Reportable 07/02/22 04:13 Lymph # (Auto) Not Reportable 07/02/22 04:13 Schley # (Auto) Not Reportable 07/02/22 04:13 Eos # (Auto) Not Reportable 07/02/22 04:13 Baso # (Auto) Not Reportable 07/02/22 04:13 Absolute Nucleated RBC Not Reportable 07/02/22 04:13 Total Counted 100 07/02/22 04:13 Band Neuts % (Manual) 7 % (0-10) 07/02/22 04:13 Abnorm Lymph % (Manual) 0 % 07/02/22 04:13 Metamyelocytes % 2 % (-0) H 07/02/22 04:13 Nucleated RBC % Not Reportable 07/02/22 04:13 Neutrophils # (Manual) 9.7 10^3/uL (1.5-6.6) H 07/02/22 04:13 Lymphocytes # (Manual) 0.3 10^3/uL (1.5-3.5) L 07/02/22 04:13 Monocytes # (Manual) 0.1 10^3/uL (0.0-1.0) 07/02/22 04:13 Eosinophils # (Manual) 0.0 10^3/uL (0-0.7) 07/02/22 04:13 Basophils # (Manual) 0.0 10^3/uL (0-0.1) 07/02/22 04:13 Differential Comment MANUAL DIFFERENTIAL 07/02/22 04:13 Manual Slide Review Indicated 07/01/22 15:53 WBC Morphology NORMAL APPEARANCE (NORMAL) 07/02/22 04:13 Platelet Estimate NORMAL (130-450,000) (NORMAL) 07/02/22 04:13 Platelet Morphology NORMAL APPEARANCE (NORMAL) 07/02/22 04:13 RBC Morph Micro Appear NORMAL APPEARANCE (NORMAL) 07/02/22 04:13 VBG pH 7.490 (7.31-7.41) H 07/04/22 15:20 Ionized Calcium 1.08 mmol/L (1.15-1.33) L 07/04/22 15:20 Sodium 140 mmol/L (135-145) 07/04/22 04:39 Potassium 3.9 mmol/L (3.5-5.0) 07/04/22 15:20 Chloride 97 mmol/L (101-111) L 07/04/22 04:39 Carbon Dioxide 38 mmol/L (21-32) H 07/04/22 04:39 Anion Gap 5.0 (6-13) L 07/04/22 04:39 BUN 18 mg/dL (6-20) 07/04/22 04:39 Creatinine 0.6 mg/dL (0.6-1.2) 07/04/22 04:39 Estimated GFR (MDRD) 134 (>89) 07/04/22 04:39 Glucose 103 mg/dL (70-100) H 07/04/22 04:39 Lactic Acid 0.9 mmol/L (0.5-2.2) 07/02/22 04:13 Calcium 7.8 mg/dL (8.5-10.3) L 07/04/22 04:39 Phosphorus 2.5 mg/dL (2.5-4.6) 07/03/22 04:25 Magnesium 2.0 mg/dL (1.7-2.8) 07/03/22 04:25 Total Bilirubin 0.6 mg/dL (0.2-1.0) 07/04/22 04:39 AST 41 IU/L (10-42) 07/04/22 04:39 ALT 25 IU/L (10-60) 07/04/22 04:39 Alkaline Phosphatase 93 IU/L (42-121) 07/04/22 04:39 Total Creatine Kinase 308 IU/L (22-269) H 07/01/22 15:53 Troponin I High Sens 50.3 ng/L (2.3-19.7) H* 07/01/22 19:25 Total Protein 5.1 g/dL (6.7-8.2) L 07/04/22 04:39 Albumin 2.3 g/dL (3.2-5.5) L 07/04/22 04:39 Globulin 2.8 g/dL (2.1-4.2) 07/04/22 04:39 Albumin/Globulin Ratio 0.8 (1.0-2.2) L 07/04/22 04:39 Lipase 22 U/L (22-51) 07/01/22 15:53 TSH 0.73 uIU/mL (0.34-5.60) 07/01/22 15:53 Urine Color YELLOW 07/01/22 16:13 Urine Clarity HAZY (CLEAR) 07/01/22 16:13 Urine pH 7.0 PH (5.0-7.5) 07/01/22 16:13 Ur Specific [place] 1.010 (1.002-1.030) 07/01/22 16:13 Urine Protein 100 mg/dL (NEGATIVE) H 07/01/22 16:13 Urine Glucose (UA) NEGATIVE mg/dL (NEGATIVE) 07/01/22 16:13 Urine Ketones NEGATIVE mg/dL (NEGATIVE) 07/01/22 16:13 Urine Occult Blood LARGE (NEGATIVE) H 07/01/22 16:13 Urine Nitrite NEGATIVE (NEGATIVE) 07/01/22 16:13 Urine Bilirubin NEGATIVE (NEGATIVE) 07/01/22 16:13 Urine Urobilinogen 1 (NORMAL) E.U./dL (NORMAL) 07/01/22 16:13 Ur Leukocyte Esterase LARGE (NEGATIVE) H 07/01/22 16:13 Urine RBC 11-25 /HPF (0-5) H 07/01/22 16:13 Urine WBC >25 /HPF (0-3) H 07/01/22 16:13 Urine WBC Clumps PRESENT 07/01/22 16:13 Ur Squamous Epith Cells NONE SEEN (<= Few) 07/01/22 16:13 Urine Bacteria Many /HPF (None Seen) H 07/01/22 16:13 Ur Microscopic Review INDICATED 07/01/22 16:13 Urine Culture Comments INDICATED 07/01/22 16:13 Nasal Adenovirus (PCR) NOT DETECTED 07/01/22 16:13 Nasal B. parapertussis DNA (PCR) NOT DETECTED 07/01/22 16:13 Nasal Coronavir 229E PCR NOT DETECTED 07/01/22 16:13 Nasal Coronavir HKU1 PCR NOT DETECTED 07/01/22 16:13 Nasal Coronavir NL63 PCR NOT DETECTED 07/01/22 16:13 Nasal Coronavir OC43 PCR NOT DETECTED 07/01/22 16:13 Nasal Enterovir/Rhinovir PCR NOT DETECTED 07/01/22 16:13 Nasal Influenza B PCR NOT DETECTED 07/01/22 16:13 Nasal Influenza A PCR NOT DETECTED 07/01/22 16:13 Nasal Parainfluen 1 PCR NOT DETECTED 07/01/22 16:13 Nasal Parainfluen 2 PCR NOT DETECTED 07/01/22 16:13 Nasal Parainfluen 3 PCR NOT DETECTED 07/01/22 16:13 Nasal Parainfluen 4 PCR NOT DETECTED 07/01/22 16:13 Nasal RSV (PCR) NOT DETECTED 07/01/22 16:13 Nasal Screen MRSA (PCR) POSITIVE (NEGATIVE) A* 07/01/22 20:19 Nasal B.pertussis DNA PCR NOT DETECTED 07/01/22 16:13 Nasal C.pneumoniae (PCR) NOT DETECTED 07/01/22 16:13 [place] Human Metapneumo PCR NOT DETECTED 07/01/22 16:13 Nasal M.pneumoniae (PCR) NOT DETECTED 07/01/22 16:13 Nasal SARS-CoV-2 (PCR) NOT DETECTED 07/01/22 16:13 Last Dose Date 07/02/22 07/03/22 04:25 Last Dose Time 1155 07/03/22 04:25 Digoxin 0.5 ng/mL 07/03/22 04:25 Salicylates < 6.0 mg/dL 07/01/22 15:53 Urine Opiates Screen POSITIVE (NEGATIVE) H 07/01/22 16:13 Ur Oxycodone Screen NEGATIVE (NEGATIVE) 07/01/22 16:13 Urine Methadone Screen NEGATIVE (NEGATIVE) 07/01/22 16:13 Ur Propoxyphene Screen NEGATIVE (NEGATIVE) 07/01/22 16:13 Acetaminophen < 10 ug/mL (10-30) L 07/01/22 15:53 Ur Barbiturates Screen NEGATIVE (NEGATIVE) 07/01/22 16:13 Ur Tricyclics Screen NEGATIVE (NEGATIVE) 07/01/22 16:13 Ur Phencyclidine Scrn NEGATIVE (NEGATIVE) 07/01/22 16:13 Ur Amphetamine Screen NEGATIVE (NEGATIVE) 07/01/22 16:13 U Methamphetamines Scrn NEGATIVE (NEGATIVE) 07/01/22 16:13 U Benzodiazepines Scrn NEGATIVE (NEGATIVE) 07/01/22 16:13 Urine Cocaine Screen NEGATIVE (NEGATIVE) 07/01/22 16:13 U Cannabinoids Screen NEGATIVE (NEGATIVE) 07/01/22 16:13 Ethyl Alcohol < 5.0 mg/dL 07/01/22 15:53 - Procedures Procedures: Procedures EXCISION OF L LOW ARM SUBCU/FASCIA, OPEN APPROACH (11/03/17) OTH CHEST CAGE OSTECTOMY (09/03/12) ROTATOR CUFF REPAIR (07/12/13) Sepsis Event Note (H) - Evaluation Current Stage of Sepsis: Sepsis Possible source of Sepsis: positive: Genitourinary
[2022-07-05] MEDS: KETOROLAC 30 MG/ML VIAL IVP PRN (05:26)
[2022-07-05 05:40] LABS: HCT - HEMATOCRIT 28.8 % (42.0-52.0); HGB - HEMOGLOBIN 8.9 g/dL (14.0-18.0); MEAN CORPUSCULAR HEMOGLOBIN 34.1 pg (27.0-31.0); MEAN CORPUSCULAR HGB CONC 30.9 g/dL (32.0-36.0); MEAN CORPUSCULAR VOLUME 110.3 fL (80.0-94.0); MEAN PLATELET VOLUME 10.7 fL (7.4-11.4); PLT - PLATELET COUNT 143 10^3/uL (130-450); RED BLOOD COUNT 2.61 10^6/uL (4.70-6.10); RED CELL DISTRIBUTION WIDTH 13.3 % (12.0-15.0); WHITE BLOOD COUNT 11.4 x10^3/uL (4.8-10.8)
[2022-07-05 05:49] LABS: ALBUMIN 2.2 g/dL (3.2-5.5); ALBUMIN/GLOBULIN RATIO 0.8 (1.0-2.2); BILIRUBIN,TOTAL 0.3 mg/dL (0.2-1.0); CALCIUM 7.9 mg/dL (8.5-10.3); CREATININE 0.6 mg/dL (0.6-1.2); POTASSIUM 3.8 mmol/L (3.5-5.0)
[2022-07-05] MEDS: IPRATROPIUM/ALBUTEROL 3 ML NEB INH SCH ×4 (07:42→17:27)
[2022-07-05] MEDS: BUDESONIDE 0.5 MG/2 ML NEB INH SCH ×2 (07:42→17:27)
[2022-07-05] MEDS: ACETAMINOPHEN 325 MG TABLET PO PRN (08:32)
[2022-07-05] MEDS: cefTRIAXone 1 GM in SODIUM CHLORIDE 0.9% MINIBAG 100 ML IV SCH (08:32)
[2022-07-05] MEDS: ASPIRIN CHEW 81 MG TABLET PO SCH (08:32)
[2022-07-05] MEDS: ethyl alcohoL 62% SWAB AMPULE NAS SCH ×2 (08:33→21:01)
[2022-07-05] MEDS: METOPROLOL SUCCINATE 25 MG TABLET PO SCH ×2 (08:33→20:58)
[2022-07-05] MEDS: PRENATAL VITAMIN TABLET PO SCH (08:33)
[2022-07-05] MEDS: THIAMINE 100 MG TABLET PO SCH (08:33)
[2022-07-05] MEDS: guaiFENesin 600 MG TABLET PO SCH ×2 (08:33→20:58)
[2022-07-05] MEDS: NICOTINE 21 MG PATCH TOP SCH (08:33)
[2022-07-05] MEDS: SODIUM CHLORIDE FLUSH 0.9% 10 ML SYRINGE IVP SCH ×3 (08:33→23:54)
[2022-07-05] MEDS: DIGOXIN 125 MCG TABLET PO SCH (08:33)
[2022-07-05] MEDS: ZINC OXIDE 20% OINT 30 GM TUBE TOP SCH ×2 (09:18→20:59)
[2022-07-05 09:29] LABS: BASOPHILS % (AUTO) 0.4 %; EOSINOPHILS % (AUTO) 0.9 %; LYMPHOCYTES % (AUTO) 10.8 %; MONOCYTES % (AUTO) 11.6 %; NEUTROPHILS % (AUTO) 70.4 %
[2022-07-05 09:33] LABS: SLIDE REVIEW? Indicated
[2022-07-05 09:43] LABS: ABNORMAL LYMPHS % (MANUAL) 0 %
[2022-07-05 09:47] LABS: BAND NEUTROPHILS % (MANUAL) 2 %; DIFFERENTIAL COMMENT MANUAL DIFFERENTIAL; EOSINOPHILS # (MANUAL) 0.1 10^3/uL (0-0.7); LYMPHOCYTES # (MANUAL) 1.5 10^3/uL (1.5-3.5); LYMPHOCYTES % (MANUAL) 13 %; METAMYELOCYTES % (MANUAL) 1 %; MONOCYTES # (MANUAL) 0.9 10^3/uL (0.0-1.0); NEUTROPHILS # (MANUAL) 8.8 10^3/uL (1.5-6.6); PLATELET ESTIMATE, MANUAL NORMAL (130-450,000) (NORMAL); PLATELET MORPHOLOGY NORMAL APPEARANCE (NORMAL); RBC MORPHOLOGY (MULTIPLE) 1+ MACROCYTOSIS (NORMAL)
[2022-07-05] MEDS: HYDROcod/ACETAM 10 MG/325 MG TABLET PO PRN ×2 (11:03→20:59)
--- NOTE | 2022-07-05 19:30 | PROVIDER PROGRESS NOTE ---
Assessment/Plan - Problem List (1) Bacteremia due to Enterobacter species Assessment/Plan: As per blood cx. Source is his UTI. Plan: Awaiting sens to adjust antibx. (2) UTI (urinary tract infection) Conclusion/Plan: As per abn U/A. The cx has grown out Eneterobacter. It is also in his blood cx. Plan: Await sens Continue empiric IV rocephin Monitor for urinary retention Qualifiers: Urinary tract infection type: acute cystitis Hematuria presence: without hematuria Qualified Code(s): N30.00 - Acute cystitis without hematuria (3) Atrial fibrillation Conclusion/Plan: Resolved He was admitted to the ICU needing a Cardizem drip at 5 mg/hr due to Afib with RVR. The Cardizem drip is off and the heart rate is A-fib in the 80-100s today. Since he was found on ground by family, and all work up negative for any bleeding, Eliquis was to be resumed, but he cannot swallow. We obtained an Echocardiogram>> it showed normal LVEF of 55%, but Cor Pulmonale is present, likely from his heavy smoking Hx and COPD. From the Echo, his CHADS2 score = 0, therefore no anticoagulant is recommended, he can be on an aspirin daily for stroke prophylaxis. All labs were reviewed. His Dig level is not toxic. Plan: When he was unable to swallow being on Ativan in the ICU, we could not resume his oral Cardizem, metoprolol or oral Digoxin. We are resuming these staggered, to not produce hypotension. From his CHADS2 score, we ascertained that Eliquis is not necessary, he can be on an aspirin daily for stroke prophylaxis. (4) PSVT Patient presented in A-fib, presumably because he had not taken his dig, Cardizem and metoprolol. He needed med adjustment then converted to sinus rhythm He is on MedSurg on telemetry and today he had a burst of PSVT at a very rapid rate of 178. Plan: He is going to be back on hisDdig and metoprolol and Cardizem doses. We will give additional beta-chelita, Cardizem or dig IV pushes if there are further PSVT's (5) Alcohol abuse Conclusion/Plan: He does drink beer, the amount is unknown. When he was here in 2019, abstaining from alcohol was advised and he refused to do that saying it was one of his pleasures. Plan: Continue CIWA protocol, with Ativan iv prn anxiety, signs of withdrawl on CIWA protocol Cont Thiamine and a vitamin PT/OT eval and management planned. (6) Tobacco use Despite being somnolent, he has a deep and very wet and productive cough. Exam shows poor air movement, as in a COPDer. All labs were reviewed. On his BMP, he has an elevated bicarb, therefore he is likely a CO2 retainer Plan: Continue a nicotine patch topically Continue p.o. meds for pulmonary toilet (7) Poor hygiene He was found on the ground of his house covered with feces Plan: When he is stable we will order OT and showering (8) Hypotension Resolved with iv fluids This was probably multifactorial: From his sepsis, from dehydration and from his tachycardia Plan: Continue on IV fluids and will taper down the iv rate (9) Sepsis Impression: Resolved The source appears to be a UTI. All labs were reviewed. His repeat lactic acid has normalized. Today his hypotension has AMS are better, and elevated Bands of 7% on his CBC have decreased to Plan: Cont IV fluids Cont IV rocephin for source being bacteremia from a UTI Qualifiers: Sepsis type: sepsis due to unspecified organism Sepsis acute organ dysfunction status: without acute organ dysfunction Qualified Code(s): A41.9 - Sepsis, unspecified organism (10) Alcohol withdrawal Assessment/Plan: Resolved He reportedly lives at home alone. His family checks on him daily. EMS said that the family reported he had increased confusion over the past 1 week and w hen they went to check on him, they found him on the ground, covered in feces. He was mostly asleep in the ICU, then awoke an was oriented to self and place. He did pass his RN's swallow screen. The persistent AMS was likely from the sepsis, hypotension and from alcohol withdrawal, all of which are better. Plan: Continue CIWA protocol, with Ativan iv prn anxiety, signs of withdrawl on CIWA protocol. SW to see re abuse - Current Meds Current Meds: Current Medications Generic Name Dose Route Start Last Admin Trade Name Freq PRN Reason Stop Dose Admin Acetaminophen 650 mg 07/01/22 19:16 07/05/22 08:32 Acetaminophen 325 Mg Tablet PO 650 mg Q4HR PRN Administration Pain 1 to 4, or Fever Hydrocodone Bitart/Acetaminophen 1 - 2 tab 07/05/22 10:38 07/05/22 11:03 Hydrocod/Acetam 10 Mg/325 Mg Tablet PO 2 tab Q12H PRN Administration Moderate Pain (Level 4-6) Albuterol/Ipratropium 3 ml 07/02/22 07:00 07/05/22 17:27 Ipratropium/Albuterol 3 Ml Neb INH Not Given RTQID STACEY Alcohol 1 amp 07/02/22 21:00 07/05/22 08:33 Ethyl Alcohol 62% Swab Ampule IRVING 1 amp BID STACEY Administration Aspirin 81 mg 07/03/22 12:00 07/05/22 08:32 Aspirin Chew 81 Mg Tablet PO 81 mg DAILY STACEY Administration Budesonide 0.5 mg 07/02/22 07:00 07/05/22 17:27 Budesonide 0.5 Mg/2 Ml Neb INH Not Given RTBID [facility] Digoxin 125 mcg 07/04/22 09:00 07/05/22 08:33 Digoxin 125 Mcg Tablet PO 125 mcg DAILY STACEY Administration Guaifenesin 600 mg 07/03/22 09:00 07/05/22 08:33 Guaifenesin 600 Mg Tablet PO 600 mg BID STACEY Administration Guaifenesin 10 ml 07/03/22 07:47 07/04/22 00:39 Guaifenesin/Dextromethorphan 10 Ml Udc PO 10 ml Q6HR PRN Administration Cough Ketorolac Tromethamine 30 mg 07/03/22 17:43 07/05/22 05:26 Ketorolac 30 Mg/Ml Vial IVP 07/08/22 17:42 30 mg Q6HR PRN Administration Severe Pain (Level 7-10) Metoprolol Succinate 25 mg 07/03/22 21:00 07/05/22 08:33 Metoprolol Succinate 25 Mg Tablet PO 25 mg BID [facility] Administration Multi-Ingredient Ointment 1 applic 07/03/22 21:00 07/05/22 09:18 Zinc Oxide 20% Oint 30 Gm Tube TOP 1 applic BID STACEY Administration Nicotine 1 patch 07/02/22 12:00 07/05/22 08:33 Nicotine 21 Mg Patch TOP 1 patch DAILY STACEY Administration Multivit/Folic Acid/Iron 1 tab 07/03/22 08:00 07/05/22 08:33 Vitamin Tablet PO 1 tab DAILYWM STACEY Administration Sodium Chloride 10 ml 07/02/22 01:00 07/05/22 18:12 Sodium Chloride Flush 0.9% 10 Ml Syringe IVP 10 ml 0100,0900,1700 STACEY Administration Sodium Chloride 10 ml 07/01/22 19:16 07/04/22 16:13 Sodium Chloride Flush 0.9% 10 Ml Syringe IVP 10 ml PRN PRN Administration NEEDED PER PROVIDER ORDERS Thiamine HCl 100 mg 07/03/22 09:00 07/05/22 08:33 Thiamine 100 Mg Tablet PO 100 mg DAILY STACEY Administration - Lab Result Fish Bone Diagrams: 07/08/22 04:38 07/08/22 04:38 - Additional Planning My Orders: My Active Orders 07/05/22 10:38 HYDROcodone/ACET 10/325 [[place] 10 mg/325 mg] 1 - 2 tab PO Q12H PRN 07/06/22 05:00 CBC - COMP BLD CT W/AUTO DIFF [HEME] DAILYLAB CMP [COMPREHENSIVE METABOLIC PANEL] [CHEM] DAILYLAB 07/06/22 09:00 levoFLOXacin [Levaquin] 750 mg PO DAILY 07/07/22 05:00 CBC - COMP BLD CT W/AUTO DIFF [HEME] DAILYLAB 07/08/22 05:00 CBC - COMP BLD CT W/AUTO DIFF [HEME] DAILYLAB Subjective - Subjective Patient Reports: Feeling Better (Feels slt stronger, but not moving around much yet.) Nursing Reports: Other (Cough has diminished) Objective Vital Signs: Vital Signs - 24 hr 07/04/22 07/04/22 07/05/22 21:00 23:48 05:26 Temperature 36.5 C 36.9 C 36.6 C Heart Rate Heart Rate [ 103 H 55 L 62 Brachial] Respiratory 16 20 20 Rate Blood Pressure [Left Brachial artery] Blood Pressure 135/70 H 133/79 H 133/81 H [Right Brachial artery] O2 Saturation 98 98 99 If not protocol 2 2 2 : Oxygen Flow, liters/minute 07/05/22 07/05/22 07/05/22 07:47 08:04 10:42 Temperature 36.5 C Heart Rate 62 61 Heart Rate [ 60 Brachial] Respiratory 17 20 18 Rate Blood Pressure [Left Brachial artery] Blood Pressure 140/88 H [Right Brachial artery] O2 Saturation 96 If not protocol 1.5 2 1.5 : Oxygen Flow, liters/minute 07/05/22 07/05/22 07/05/22 13:00 15:06 15:50 Temperature 36.6 C 36.5 C Heart Rate 86 Heart Rate [ 108 H 104 H Brachial] Respiratory 20 17 24 Rate Blood Pressure 110/72 120/61 [Left Brachial artery] Blood Pressure [Right Brachial artery] O2 Saturation 98 96 If not protocol 2 2 2 : Oxygen Flow, liters/minute Oxygen O2 Source [With Activity] Nasal cannula O2 Source Nasal cannula Oxygen Flow Rate 3 I&O (Last 24 Hrs): Intake and Output Totals x24h 07/03/22 07/04/22 07/05/22 23:59 23:59 23:59 Intake Total 3766.334 2218.333 960 Output Total 1408 1687 1000 Balance 2358.334 531.333 -40 General: Alert, Oriented x3 HEENT: Other (Disheveled, face i flushed, has a kempt peoples) Neck: Supple, Other (Cannot eval JVP due to peoples) Neuro: Alert, Non Focal (No tremor, no nystagmus) Cardiovascular: No murmurs Respiratory: No respiratory distress, Other (Poor air mvm but no wheezing or rhonchi) Abdomen: Soft, No tenderness Extremities: No clubbing, No edema, No tenderness/swelling - Results Results: Laboratory Results WBC 11.4 x10^3/uL (4.8-10.8) H 07/05/22 05:20 RBC 2.61 10^6/uL (4.70-6.10) L 07/05/22 05:20 Hgb 8.9 g/dL (14.0-18.0) L 07/05/22 05:20 Hct 28.8 % (42.0-52.0) L 07/05/22 05:20 MCV 110.3 fL (80.0-94.0) H 07/05/22 05:20 MCH 34.1 pg (27.0-31.0) H 07/05/22 05:20 MCHC 30.9 g/dL (32.0-36.0) L 07/05/22 05:20 RDW 13.3 % (12.0-15.0) 07/05/22 05:20 Plt Count 143 10^3/uL (130-450) 07/05/22 05:20 MPV 10.7 fL (7.4-11.4) 07/05/22 05:20 Neut # (Auto) Not Reportable 07/05/22 05:20 Lymph # (Auto) Not Reportable 07/05/22 05:20 [place] # (Auto) Not Reportable 07/05/22 05:20 Eos # (Auto) Not Reportable 07/05/22 05:20 Baso # (Auto) Not Reportable 07/05/22 05:20 Absolute Nucleated RBC Not Reportable 07/05/22 05:20 Total Counted 100 07/05/22 05:20 Band Neuts % (Manual) 2 % (0-10) 07/05/22 05:20 Abnorm Lymph % (Manual) 0 % 07/05/22 05:20 Metamyelocytes % 1 % (-0) H 07/05/22 05:20 Nucleated RBC % Not Reportable 07/05/22 05:20 Neutrophils # (Manual) 8.8 10^3/uL (1.5-6.6) H 07/05/22 05:20 Lymphocytes # (Manual) 1.5 10^3/uL (1.5-3.5) 07/05/22 05:20 Monocytes # (Manual) 0.9 10^3/uL (0.0-1.0) 07/05/22 05:20 Eosinophils # (Manual) 0.1 10^3/uL (0-0.7) 07/05/22 05:20 Basophils # (Manual) 0.0 10^3/uL (0-0.1) 07/05/22 05:20 Differential Comment MANUAL DIFFERENTIAL 07/05/22 05:20 Manual Slide Review Indicated 07/05/22 05:20 WBC Morphology NORMAL APPEARANCE (NORMAL) 07/02/22 04:13 Platelet Estimate NORMAL (130-450,000) (NORMAL) 07/05/22 05:20 Platelet Morphology NORMAL APPEARANCE (NORMAL) 07/05/22 05:20 RBC Morph Micro Appear 1+ MACROCYTOSIS (NORMAL) 07/05/22 05:20 VBG pH 7.490 (7.31-7.41) H 07/04/22 15:20 Ionized Calcium 1.08 mmol/L (1.15-1.33) L 07/04/22 15:20 Sodium 140 mmol/L (135-145) 07/05/22 05:20 Potassium 3.8 mmol/L (3.5-5.0) 07/05/22 05:20 Chloride 98 mmol/L (101-111) L 07/05/22 05:20 Carbon Dioxide 38 mmol/L (21-32) H 07/05/22 05:20 Anion Gap 4.0 (6-13) L 07/05/22 05:20 BUN 17 mg/dL (6-20) 07/05/22 05:20 Creatinine 0.6 mg/dL (0.6-1.2) 07/05/22 05:20 Estimated GFR (MDRD) 134 (>89) 07/05/22 05:20 Glucose 103 mg/dL (70-100) H 07/05/22 05:20 Lactic Acid 0.9 mmol/L (0.5-2.2) 07/02/22 04:13 Calcium 7.9 mg/dL (8.5-10.3) L 07/05/22 05:20 Phosphorus 2.5 mg/dL (2.5-4.6) 07/03/22 04:25 Magnesium 2.0 mg/dL (1.7-2.8) 07/03/22 04:25 Total Bilirubin 0.3 mg/dL (0.2-1.0) 07/05/22 05:20 AST 25 IU/L (10-42) 07/05/22 05:20 ALT 24 IU/L (10-60) 07/05/22 05:20 Alkaline Phosphatase 89 IU/L (42-121) 07/05/22 05:20 Ammonia 29.0 umol/L (7-35) 07/05/22 09:34 Total Creatine Kinase 308 IU/L (22-269) H 07/01/22 15:53 Troponin I High Sens 50.3 ng/L (2.3-19.7) H* 07/01/22 19:25 Total Protein 5.0 g/dL (6.7-8.2) L 07/05/22 05:20 Albumin 2.2 g/dL (3.2-5.5) L 07/05/22 05:20 Globulin 2.8 g/dL (2.1-4.2) 07/05/22 05:20 Albumin/Globulin Ratio 0.8 (1.0-2.2) L 07/05/22 05:20 Lipase 22 U/L (22-51) 07/01/22 15:53 TSH 0.73 uIU/mL (0.34-5.60) 07/01/22 15:53 Urine Color YELLOW 07/01/22 16:13 Urine Clarity HAZY (CLEAR) 07/01/22 16:13 Urine pH 7.0 PH (5.0-7.5) 07/01/22 16:13 Ur Specific [place] 1.010 (1.002-1.030) 07/01/22 16:13 Urine Protein 100 mg/dL (NEGATIVE) H 07/01/22 16:13 Urine Glucose (UA) NEGATIVE mg/dL (NEGATIVE) 07/01/22 16:13 Urine Ketones NEGATIVE mg/dL (NEGATIVE) 07/01/22 16:13 Urine Occult Blood LARGE (NEGATIVE) H 07/01/22 16:13 Urine Nitrite NEGATIVE (NEGATIVE) 07/01/22 16:13 Urine Bilirubin NEGATIVE (NEGATIVE) 07/01/22 16:13 Urine Urobilinogen 1 (NORMAL) E.U./dL (NORMAL) 07/01/22 16:13 Ur Leukocyte Esterase LARGE (NEGATIVE) H 07/01/22 16:13 Urine RBC 11-25 /HPF (0-5) H 07/01/22 16:13 Urine WBC >25 /HPF (0-3) H 07/01/22 16:13 Urine WBC Clumps PRESENT 07/01/22 16:13 Ur Squamous Epith Cells NONE SEEN (<= Few) 07/01/22 16:13 Urine Bacteria Many /HPF (None Seen) H 07/01/22 16:13 Ur Microscopic Review INDICATED 07/01/22 16:13 Urine Culture Comments INDICATED 07/01/22 16:13 Nasal Adenovirus (PCR) NOT DETECTED 07/01/22 16:13 Nasal B. parapertussis DNA (PCR) NOT DETECTED 07/01/22 16:13 Nasal Coronavir 229E PCR NOT DETECTED 07/01/22 16:13 Nasal Coronavir HKU1 PCR NOT DETECTED 07/01/22 16:13 Nasal Coronavir NL63 PCR NOT DETECTED 07/01/22 16:13 Nasal Coronavir OC43 PCR NOT DETECTED 07/01/22 16:13 Nasal Enterovir/Rhinovir PCR NOT DETECTED 07/01/22 16:13 Nasal Influenza B PCR NOT DETECTED 07/01/22 16:13 Nasal Influenza A PCR NOT DETECTED 07/01/22 16:13 Nasal Parainfluen 1 PCR NOT DETECTED 07/01/22 16:13 Nasal Parainfluen 2 PCR NOT DETECTED 07/01/22 16:13 Nasal Parainfluen 3 PCR NOT DETECTED 07/01/22 16:13 Nasal Parainfluen 4 PCR NOT DETECTED 07/01/22 16:13 Nasal RSV (PCR) NOT DETECTED 07/01/22 16:13 Nasal Screen MRSA (PCR) POSITIVE (NEGATIVE) A* 07/01/22 20:19 Nasal B.pertussis DNA PCR NOT DETECTED 07/01/22 16:13 Nasal C.pneumoniae (PCR) NOT DETECTED 07/01/22 16:13 [place] Human Metapneumo PCR NOT DETECTED 07/01/22 16:13 Nasal M.pneumoniae (PCR) NOT DETECTED 07/01/22 16:13 Nasal SARS-CoV-2 (PCR) NOT DETECTED 07/01/22 16:13 Last Dose Date 07/02/22 07/03/22 04:25 Last Dose Time 1155 07/03/22 04:25 Digoxin 0.5 ng/mL 07/03/22 04:25 Salicylates < 6.0 mg/dL 07/01/22 15:53 Urine Opiates Screen POSITIVE (NEGATIVE) H 07/01/22 16:13 Ur Oxycodone Screen NEGATIVE (NEGATIVE) 07/01/22 16:13 Urine Methadone Screen NEGATIVE (NEGATIVE) 07/01/22 16:13 Ur Propoxyphene Screen NEGATIVE (NEGATIVE) 07/01/22 16:13 Acetaminophen < 10 ug/mL (10-30) L 07/01/22 15:53 Ur Barbiturates Screen NEGATIVE (NEGATIVE) 07/01/22 16:13 Ur Tricyclics Screen NEGATIVE (NEGATIVE) 07/01/22 16:13 Ur Phencyclidine Scrn NEGATIVE (NEGATIVE) 07/01/22 16:13 Ur Amphetamine Screen NEGATIVE (NEGATIVE) 07/01/22 16:13 U Methamphetamines Scrn NEGATIVE (NEGATIVE) 07/01/22 16:13 U Benzodiazepines Scrn NEGATIVE (NEGATIVE) 07/01/22 16:13 Urine Cocaine Screen NEGATIVE (NEGATIVE) 07/01/22 16:13 U Cannabinoids Screen NEGATIVE (NEGATIVE) 07/01/22 16:13 Ethyl Alcohol < 5.0 mg/dL 07/01/22 15:53 - Procedures Procedures: Procedures EXCISION OF L LOW ARM SUBCU/FASCIA, OPEN APPROACH (11/03/17) OTH CHEST CAGE OSTECTOMY (09/03/12) ROTATOR CUFF REPAIR (07/12/13) Sepsis Event Note (H) - Evaluation Current Stage of Sepsis: Sepsis Possible source of Sepsis: positive: Genitourinary
[2022-07-05] MEDS: diltiaZEM CD 240 MG CAPSULE PO SCH (20:57)
[2022-07-06 05:31] LABS: BASOPHILS % (AUTO) 0.4 %; EOSINOPHILS % (AUTO) 2.2 %; HGB - HEMOGLOBIN 9.1 g/dL (14.0-18.0); LYMPHOCYTES % (AUTO) 14.2 %; MEAN CORPUSCULAR HEMOGLOBIN 33.7 pg (27.0-31.0); MEAN CORPUSCULAR HGB CONC 30.3 g/dL (32.0-36.0); MEAN CORPUSCULAR VOLUME 111.1 fL (80.0-94.0); MEAN PLATELET VOLUME 10.5 fL (7.4-11.4); MONOCYTES % (AUTO) 9.7 %; NEUTROPHILS % (AUTO) 65.5 %; PLT - PLATELET COUNT 173 10^3/uL (130-450); RED CELL DISTRIBUTION WIDTH 13.4 % (12.0-15.0); WHITE BLOOD COUNT 14.7 x10^3/uL (4.8-10.8)
[2022-07-06 05:43] LABS: ABNORMAL LYMPHS % (MANUAL) 0 %
[2022-07-06 05:45] LABS: ALBUMIN 2.2 g/dL (3.2-5.5); ALBUMIN/GLOBULIN RATIO 0.8 (1.0-2.2); BILIRUBIN,TOTAL 0.3 mg/dL (0.2-1.0); CREATININE 0.5 mg/dL (0.6-1.2); POTASSIUM 3.9 mmol/L (3.5-5.0); TOTAL PROTEIN 5.1 g/dL (6.7-8.2)
[2022-07-06 06:33] LABS: BAND NEUTROPHILS % (MANUAL) 8 %; DIFFERENTIAL COMMENT MANUAL DIFFERENTIAL; EOSINOPHILS # (MANUAL) 0.3 10^3/uL (0-0.7); LYMPHOCYTES # (MANUAL) 1.5 10^3/uL (1.5-3.5); LYMPHOCYTES % (MANUAL) 10 %; METAMYELOCYTES % (MANUAL) 2 %; MONOCYTES # (MANUAL) 2.4 10^3/uL (0.0-1.0); MYELOCYTES % (MANUAL) 3 %; NEUTROPHILS # (MANUAL) 9.8 10^3/uL (1.5-6.6); PLATELET ESTIMATE, MANUAL NORMAL (130-450,000) (NORMAL); RBC MORPHOLOGY (MULTIPLE) 2+ MACROCYTOSIS (NORMAL)
[2022-07-06] MEDS: IPRATROPIUM/ALBUTEROL 3 ML NEB INH SCH ×4 (06:47→18:08)
[2022-07-06] MEDS: BUDESONIDE 0.5 MG/2 ML NEB INH SCH ×2 (06:47→18:08)
[2022-07-06] MEDS: THIAMINE 100 MG TABLET PO SCH (09:01)
[2022-07-06] MEDS: levoFLOXacin 250 MG TABLET PO SCH (09:01)
[2022-07-06] MEDS: ASPIRIN CHEW 81 MG TABLET PO SCH (09:01)
[2022-07-06] MEDS: guaiFENesin 600 MG TABLET PO SCH ×2 (09:01→21:07)
[2022-07-06] MEDS: PRENATAL VITAMIN TABLET PO SCH (09:01)
[2022-07-06] MEDS: NICOTINE 21 MG PATCH TOP SCH (09:02)
[2022-07-06] MEDS: SODIUM CHLORIDE FLUSH 0.9% 10 ML SYRINGE IVP SCH ×2 (09:02→17:13)
[2022-07-06] MEDS: ethyl alcohoL 62% SWAB AMPULE NAS SCH ×2 (09:02→21:09)
[2022-07-06] MEDS: diltiaZEM CD 240 MG CAPSULE PO SCH ×2 (09:07→21:07)
[2022-07-06] MEDS: METOPROLOL SUCCINATE 25 MG TABLET PO SCH ×2 (09:07→21:07)
[2022-07-06] MEDS: DIGOXIN 125 MCG TABLET PO SCH (09:07)
[2022-07-06] MEDS: HYDROcod/ACETAM 10 MG/325 MG TABLET PO PRN ×2 (09:28→21:08)
[2022-07-06] MEDS: ZINC OXIDE 20% OINT 30 GM TUBE TOP SCH ×2 (09:29→21:09)
[2022-07-06] MEDS: SODIUM CHLORIDE FLUSH 0.9% 10 ML SYRINGE IVP PRN ×2 (12:56→13:51)
[2022-07-06] MEDS: ACETAMINOPHEN 325 MG TABLET PO PRN ×2 (12:56→17:13)
[2022-07-06] MEDS: KETOROLAC 30 MG/ML VIAL IVP PRN ×2 (12:56→19:01)
--- NOTE | 2022-07-06 13:36 | PROVIDER PROGRESS NOTE ---
Assessment/Plan - Problem List (1) Bacteremia due to Enterobacter species Assessment/Plan: As per blood cx results, sens were reviewed. Plan: Continue with changed oral antibx now on Levaquin Follow WBC daily Recheck blood cx to assure no growth now, with changed antibx (2) UTI (urinary tract infection) Conclusion/Plan: His urine culture also grew out Enterobacter. Sensitivities were reviewed, the empiric IV Rocephin was appropriate. He has been changed to oral antibiotics using Levo, based on the Enterobacter bacterium sensitive Plan: Continue po Levaquin Monitor for Qualifiers: Urinary tract infection type: acute cystitis Hematuria presence: without hematuria Qualified Code(s): N30.00 - Acute cystitis without hematuria (3) Urinary retention He first had a [place] when in the ICU, when he was going through alcohol withdrawal. The [place] has been removed. Today he tried voiding twice with no success and bladder scan showed 490 cc residual Plan: We will start tamsulosin in the a.m. and finasteride in the p.m. Will order straight cath as needed if he has over 450 cc of urine by bladder scan (4) Atrial fibrillation Conclusion/Plan: Resolved He was admitted to the ICU needing a Cardizem drip at 5 mg/hr due to Afib with RVR. The Cardizem drip is off and the heart rate is A-fib in the 80-100s today. Since he was found on ground by family, and all work up negative for any bleeding, Eliquis was to be resumed, but he cannot swallow. We obtained an Echocardiogram>> it showed normal LVEF of 55%, but Cor Pulmonale is present, likely from his heavy smoking Hx and COPD. From the Echo, his CHADS2 score = 0, therefore no anticoagulant is recommended, he can be on an aspirin daily for stroke prophylaxis. All labs were reviewed. His Dig level is not toxic. When he was unable to swallow, we could not resume his oral Cardizem, metoprolol or oral digoxin. He is now back on all his oral agents for HR control. Plan: From his CHADS2 score, we ascertained that Eliquis is not necessary, he can be on an aspirin daily for stroke prophylaxis. Continue this. (5) PSVT Patient presented in A-fib, presumably because he had not taken his dig, Cardizem and metoprolol. He needed med adjustment then converted to sinus rhythm He is on MedSurg on telemetry and today he had a burst of PSVT at a very rapid rate of 178. Plan: He is back on his Dig and metoprolol and Cardizem. Continue these. (6) Alcohol abuse Conclusion/Plan: He does drink beer, the amount is unknown. When he was here in 2019, abstaining from alcohol was advised and he refused to do that saying it was one of his pleasures. Plan: Continue CIWA protocol, with Ativan iv prn anxiety, signs of withdrawal on CIWA protocol PT/OT eval and treatment to continue. (7) Tobacco use Despite being somnolent, he had a deep and very wet and productive cough. Exam continues to show poor air movement, as in a COPDer. All labs were reviewed. On his BMP, he had an elevated bicarb, therefore he is likely a CO2 retainer Plan: Continue a nicotine patch topically, will decrease the dose now from 21 mg daily to 14 mg daily, with a plan to taper down after a week to 7 for a week then stop Cont p.o. meds for pulmonary toilet (8) Poor hygiene He was found on the ground of his house covered with feces Plan: Cont PT and OT and showering (9) Hypotension Resolved with iv fluids This was probably multifactorial: From his sepsis, from dehydration and from his tachycardia Plan: Continue on IV fluids and will taper rate down as he takes oral fluids (10) Sepsis Impression: Resolved The source appears to be a UTI. All labs were reviewed. His repeat lactic acid has normalized. Today his hypotension has AMS are better, and elevated Bands of 7% on his CBC have decreased to Plan: Cont IV fluids Cont antibx Qualifiers: Sepsis type: sepsis due to unspecified organism Sepsis acute organ dysfunction status: without acute organ dysfunction Qualified Code(s): A41.9 - Sepsis, unspecified organism (11) Alcohol withdrawal Assessment/Plan: Resolved He reportedly lives at home alone. His family checks on him daily. EMS said that the family reported he had increased confusion over the past 1 week and when they went to check on him, they found him on the ground, covered in feces. The persistent AMS was likely from the sepsis, hypotension and from alcohol withdrawal, all of which are better. He is now out of the ICU. Plan: for alcohol abuse recommendations - Current Meds Current Meds: Current Medications Generic Name Dose Route Start Last Admin Trade Name Freq PRN Reason Stop Dose Admin Acetaminophen 650 mg 07/01/22 19:16 07/06/22 12:56 Acetaminophen 325 Mg Tablet PO 650 mg Q4HR PRN Administration Pain 1 to 4, or Fever Hydrocodone Bitart/Acetaminophen 1 - 2 tab 07/05/22 10:38 07/06/22 09:28 Hydrocod/Acetam 10 Mg/325 Mg Tablet PO 2 tab Q12H PRN Administration Moderate Pain (Level 4-6) Albuterol/Ipratropium 3 ml 07/02/22 07:00 07/06/22 10:40 Ipratropium/Albuterol 3 Ml Neb INH 3 ml RTQID STACEY Administration Alcohol 1 amp 07/02/22 21:00 07/06/22 09:02 Ethyl Alcohol 62% Swab Ampule IRVING 1 amp BID STACEY Administration Aspirin 81 mg 07/03/22 12:00 07/06/22 09:01 Aspirin Chew 81 Mg Tablet PO 81 mg DAILY STACEY Administration Budesonide 0.5 mg 07/02/22 07:00 07/06/22 06:47 Budesonide 0.5 Mg/2 Ml Neb INH 0.5 mg RTBID STACEY Administration Digoxin 125 mcg 07/04/22 09:00 07/06/22 09:07 Digoxin 125 Mcg Tablet PO 125 mcg DAILY STACEY Administration Guaifenesin 600 mg 07/03/22 09:00 07/06/22 09:01 Guaifenesin 600 Mg Tablet PO 600 mg BID STACEY Administration Guaifenesin 10 ml 07/03/22 07:47 07/04/22 00:39 Guaifenesin/Dextromethorphan 10 Ml Udc PO 10 ml Q6HR PRN Administration Cough Ketorolac Tromethamine 30 mg 07/03/22 17:43 07/06/22 12:56 Ketorolac 30 Mg/Ml Vial IVP 07/08/22 17:42 30 mg Q6HR PRN Administration Severe Pain (Level 7-10) Levofloxacin 750 mg 07/06/22 09:00 07/06/22 09:01 Levofloxacin 250 Mg Tablet PO 750 mg DAILY STACEY Administration Metoprolol Succinate 25 mg 07/03/22 21:00 07/06/22 09:07 Metoprolol Succinate 25 Mg Tablet PO 25 mg BID STACEY Administration Multi-Ingredient Ointment 1 applic 07/03/22 21:00 07/06/22 09:29 Zinc Oxide 20% Oint 30 Gm Tube TOP 1 applic BID STACEY Administration Nicotine 1 patch 07/02/22 12:00 07/06/22 09:02 Nicotine 21 Mg Patch TOP 1 patch DAILY STACEY Administration Multivit/Folic Acid/Iron 1 tab 07/03/22 08:00 07/06/22 09:01 Vitamin Tablet PO 1 tab DAILYWM STACEY Administration Sodium Chloride 10 ml 07/02/22 01:00 07/06/22 09:02 Sodium Chloride Flush 0.9% 10 Ml Syringe IVP 10 ml 0100,0900,1700 STACEY Administration Sodium Chloride 10 ml 07/01/22 19:16 07/06/22 12:56 Sodium Chloride Flush 0.9% 10 Ml Syringe IVP 10 ml PRN PRN Administration NEEDED PER PROVIDER ORDERS Thiamine HCl 100 mg 07/03/22 09:00 07/06/22 09:01 Thiamine 100 Mg Tablet PO 100 mg DAILY STACEY Administration - Lab Result Fish Bone Diagrams: 07/08/22 04:38 07/08/22 04:38 - Additional Planning My Orders: My Active Orders 07/06/22 09:00 levoFLOXacin [Levaquin] 750 mg PO DAILY 07/06/22 09:16 [id number] CD [Cardizem Cd] 240 mg PO BID 07/06/22 13:36 Shower [RC] ONCE 07/07/22 05:00 CBC - COMP BLD CT W/AUTO DIFF [HEME] DAILYLAB 07/08/22 05:00 CBC - COMP BLD CT W/AUTO DIFF [HEME] DAILYLAB Subjective - Subjective Patient Reports: Resting Comfortably (Feels stronger, denies SOB) Objective Vital Signs: Vital Signs - 24 hr 07/05/22 07/05/22 07/05/22 15:06 15:50 19:00 Temperature 36.5 C Heart Rate 86 Heart Rate [ 104 H Brachial] Heart Rate [ Monitoring electrodes] Respiratory 17 24 Rate Blood Pressure 120/61 [Left Brachial artery] Blood Pressure [Right Brachial artery] O2 Saturation 96 If not protocol 2 2 2 : Oxygen Flow, liters/minute 07/05/22 07/05/22 07/06/22 20:20 23:58 05:00 Temperature 36.7 C 36.8 C 36.7 C Heart Rate Heart Rate [ 87 89 63 Brachial] Heart Rate [ Monitoring electrodes] Respiratory 20 20 18 Rate Blood Pressure [Left Brachial artery] Blood Pressure 135/70 H 125/87 H 129/77 [Right Brachial artery] O2 Saturation 96 97 95 If not protocol 2 1.5 1.5 : Oxygen Flow, liters/minute 07/06/22 07/06/22 07/06/22 06:49 08:11 09:05 Temperature 36.8 C Heart Rate 94 Heart Rate [ 82 Brachial] Heart Rate [ 105 H Monitoring electrodes] Respiratory 61 H 18 Rate Blood Pressure [Left Brachial artery] Blood Pressure 135/78 H 130/62 [Right Brachial artery] O2 Saturation 98 If not protocol 2 1.5 : Oxygen Flow, liters/minute 07/06/22 07/06/22 07/06/22 10:43 11:08 11:09 Temperature Heart Rate 57 L Heart Rate [ Brachial] Heart Rate [ Monitoring electrodes] Respiratory 19 Rate Blood Pressure [Left Brachial artery] Blood Pressure [Right Brachial artery] O2 Saturation 95 94 If not protocol 2 1.5 1 : Oxygen Flow, liters/minute 07/06/22 07/06/22 12:15 12:18 Temperature Heart Rate Heart Rate [ Brachial] Heart Rate [ Monitoring electrodes] Respiratory Rate Blood Pressure [Left Brachial artery] Blood Pressure [Right Brachial artery] O2 Saturation 87 L 88 L If not protocol 1 1.5 : Oxygen Flow, liters/minute Oxygen O2 Source [With Activity] Nasal cannula O2 Source Nasal cannula Oxygen Flow Rate 3 I&O (Last 24 Hrs): Intake and Output Totals x24h 07/04/22 07/05/22 07/06/22 23:59 23:59 23:59 Intake Total 2218.333 1360 240 Output Total 1687 1450 2200 Balance 531. General: Alert, Oriented x3 HEENT: EOMI, Other (Clean and no longer disheveled, face is flushed, has well kempt peoples) Neuro: Alert, Non Focal, Other (No tremor, no nystagmus) Cardiovascular: No murmurs Respiratory: Other (Poor air mvm, but no wheezing or rhonchi) Abdomen: Soft, No tenderness Extremities: No clubbing, No edema, No tenderness/swelling - Results Results: Laboratory Results WBC 14.7 x10^3/uL (4.8-10.8) H 07/06/22 05:20 RBC 2.70 10^6/uL (4.70-6.10) L 07/06/22 05:20 Hgb 9.1 g/dL (14.0-18.0) L 07/06/22 05:20 Hct 30.0 % (42.0-52.0) L 07/06/22 05:20 MCV 111.1 fL (80.0-94.0) H 07/06/22 05:20 MCH 33.7 pg (27.0-31.0) H 07/06/22 05:20 MCHC 30.3 g/dL (32.0-36.0) L 07/06/22 05:20 RDW 13.4 % (12.0-15.0) 07/06/22 05:20 Plt Count 173 10^3/uL (130-450) 07/06/22 05:20 MPV 10.5 fL (7.4-11.4) 07/06/22 05:20 Neut # (Auto) Not Reportable 07/06/22 05:20 Lymph # (Auto) Not Reportable 07/06/22 05:20 [place] # (Auto) Not Reportable 07/06/22 05:20 Eos # (Auto) Not Reportable 07/06/22 05:20 Baso # (Auto) Not Reportable 07/06/22 05:20 Absolute Nucleated RBC Not Reportable 07/06/22 05:20 Total Counted 100 07/06/22 05:20 Band Neuts % (Manual) 8 % (0-10) 07/06/22 05:20 Abnorm Lymph % (Manual) 0 % 07/06/22 05:20 Metamyelocytes % 2 % (-0) H 07/06/22 05:20 Myelocytes % 3 % (-0) H 07/06/22 05:20 Nucleated RBC % Not Reportable 07/06/22 05:20 Neutrophils # (Manual) 9.8 10^3/uL (1.5-6.6) H 07/06/22 05:20 Lymphocytes # (Manual) 1.5 10^3/uL (1.5-3.5) 07/06/22 05:20 Monocytes # (Manual) 2.4 10^3/uL (0.0-1.0) H 07/06/22 05:20 Eosinophils # (Manual) 0.3 10^3/uL (0-0.7) 07/06/22 05:20 Basophils # (Manual) 0.0 10^3/uL (0-0.1) 07/06/22 05:20 Differential Comment MANUAL DIFFERENTIAL 07/06/22 05:20 Manual Slide Review Indicated 07/05/22 05:20 WBC Morphology NORMAL APPEARANCE (NORMAL) 07/02/22 04:13 Platelet Estimate NORMAL (130-450,000) (NORMAL) 07/06/22 05:20 Platelet Morphology NORMAL APPEARANCE (NORMAL) 07/05/22 05:20 RBC Morph Micro Appear 2+ MACROCYTOSIS (NORMAL) 07/06/22 05:20 VBG pH 7.490 (7.31-7.41) H 07/04/22 15:20 Ionized Calcium 1.08 mmol/L (1.15-1.33) L 07/04/22 15:20 Sodium 140 mmol/L (135-145) 07/06/22 05:20 Potassium 3.9 mmol/L (3.5-5.0) 07/06/22 05:20 Chloride 96 mmol/L (101-111) L 07/06/22 05:20 Carbon Dioxide 38 mmol/L (21-32) H 07/06/22 05:20 Anion Gap 6.0 (6-13) 07/06/22 05:20 BUN 14 mg/dL (6-20) 07/06/22 05:20 Creatinine 0.5 mg/dL (0.6-1.2) L 07/06/22 05:20 Estimated GFR (MDRD) 165 (>89) 07/06/22 05:20 Glucose 96 mg/dL (70-100) 07/06/22 05:20 Lactic Acid 0.9 mmol/L (0.5-2.2) 07/02/22 04:13 Calcium 8.0 mg/dL (8.5-10.3) L 07/06/22 05:20 Phosphorus 2.5 mg/dL (2.5-4.6) 07/03/22 04:25 Magnesium 2.0 mg/dL (1.7-2.8) 07/03/22 04:25 Total Bilirubin 0.3 mg/dL (0.2-1.0) 07/06/22 05:20 AST 22 IU/L (10-42) 07/06/22 05:20 ALT 20 IU/L (10-60) 07/06/22 05:20 Alkaline Phosphatase 83 IU/L (42-121) 07/06/22 05:20 Ammonia 29.0 umol/L (7-35) 07/05/22 09:34 Total Creatine Kinase 308 IU/L (22-269) H 07/01/22 15:53 Troponin I High Sens 50.3 ng/L (2.3-19.7) H* 07/01/22 19:25 Total Protein 5.1 g/dL (6.7-8.2) L 07/06/22 05:20 Albumin 2.2 g/dL (3.2-5.5) L 07/06/22 05:20 Globulin 2.9 g/dL (2.1-4.2) 07/06/22 05:20 Albumin/Globulin Ratio 0.8 (1.0-2.2) L 07/06/22 05:20 Lipase 22 U/L (22-51) 07/01/22 15:53 TSH 0.73 uIU/mL (0.34-5.60) 07/01/22 15:53 Urine Color YELLOW 07/01/22 16:13 Urine Clarity HAZY (CLEAR) 07/01/22 16:13 Urine pH 7.0 PH (5.0-7.5) 07/01/22 16:13 Ur Specific [place] 1.010 (1.002-1.030) 07/01/22 16:13 Urine Protein 100 mg/dL (NEGATIVE) H 07/01/22 16:13 Urine Glucose (UA) NEGATIVE mg/dL (NEGATIVE) 07/01/22 16:13 Urine Ketones NEGATIVE mg/dL (NEGATIVE) 07/01/22 16:13 Urine Occult Blood LARGE (NEGATIVE) H 07/01/22 16:13 Urine Nitrite NEGATIVE (NEGATIVE) 07/01/22 16:13 Urine Bilirubin NEGATIVE (NEGATIVE) 07/01/22 16:13 Urine Urobilinogen 1 (NORMAL) E.U./dL (NORMAL) 07/01/22 16:13 Ur Leukocyte Esterase LARGE (NEGATIVE) H 07/01/22 16:13 Urine RBC 11-25 /HPF (0-5) H 07/01/22 16:13 Urine WBC >25 /HPF (0-3) H 07/01/22 16:13 Urine WBC Clumps PRESENT 07/01/22 16:13 Ur Squamous Epith Cells NONE SEEN (<= Few) 07/01/22 16:13 Urine Bacteria Many /HPF (None Seen) H 07/01/22 16:13 Ur Microscopic Review INDICATED 07/01/22 16:13 Urine Culture Comments INDICATED 07/01/22 16:13 Nasal Adenovirus (PCR) NOT DETECTED 07/01/22 16:13 Nasal B. parapertussis DNA (PCR) NOT DETECTED 07/01/22 16:13 Nasal Coronavir 229E PCR NOT DETECTED 07/01/22 16:13 Nasal Coronavir HKU1 PCR NOT DETECTED 07/01/22 16:13 Nasal Coronavir NL63 PCR NOT DETECTED 07/01/22 16:13 Nasal Coronavir OC43 PCR NOT DETECTED 07/01/22 16:13 Nasal Enterovir/Rhinovir PCR NOT DETECTED 07/01/22 16:13 Nasal Influenza B PCR NOT DETECTED 07/01/22 16:13 Nasal Influenza A PCR NOT DETECTED 07/01/22 16:13 Nasal Parainfluen 1 PCR NOT DETECTED 07/01/22 16:13 Nasal Parainfluen 2 PCR NOT DETECTED 07/01/22 16:13 Nasal Parainfluen 3 PCR NOT DETECTED 07/01/22 16:13 Nasal Parainfluen 4 PCR NOT DETECTED 07/01/22 16:13 Nasal RSV (PCR) NOT DETECTED 07/01/22 16:13 Nasal Screen MRSA (PCR) POSITIVE (NEGATIVE) A* 07/01/22 20:19 Nasal B.pertussis DNA PCR NOT DETECTED 07/01/22 16:13 Nasal C.pneumoniae (PCR) NOT DETECTED 07/01/22 16:13 [place] Human Metapneumo PCR NOT DETECTED 07/01/22 16:13 Nasal M.pneumoniae (PCR) NOT DETECTED 07/01/22 16:13 Nasal SARS-CoV-2 (PCR) NOT DETECTED 07/01/22 16:13 Last Dose Date 07/02/22 07/03/22 04:25 Last Dose Time 1155 07/03/22 04:25 Digoxin 0.5 ng/mL 07/03/22 04:25 Salicylates < 6.0 mg/dL 07/01/22 15:53 Urine Opiates Screen POSITIVE (NEGATIVE) H 07/01/22 16:13 Ur Oxycodone Screen NEGATIVE (NEGATIVE) 07/01/22 16:13 Urine Methadone Screen NEGATIVE (NEGATIVE) 07/01/22 16:13 Ur Propoxyphene Screen NEGATIVE (NEGATIVE) 07/01/22 16:13 Acetaminophen < 10 ug/mL (10-30) L 07/01/22 15:53 Ur Barbiturates Screen NEGATIVE (NEGATIVE) 07/01/22 16:13 Ur Tricyclics Screen NEGATIVE (NEGATIVE) 07/01/22 16:13 Ur Phencyclidine Scrn NEGATIVE (NEGATIVE) 07/01/22 16:13 Ur Amphetamine Screen NEGATIVE (NEGATIVE) 07/01/22 16:13 U Methamphetamines Scrn NEGATIVE (NEGATIVE) 07/01/22 16:13 U Benzodiazepines Scrn NEGATIVE (NEGATIVE) 07/01/22 16:13 Urine Cocaine Screen NEGATIVE (NEGATIVE) 07/01/22 16:13 U Cannabinoids Screen NEGATIVE (NEGATIVE) 07/01/22 16:13 Ethyl Alcohol < 5.0 mg/dL 07/01/22 15:53 - Procedures Procedures: Procedures EXCISION OF L LOW ARM SUBCU/FASCIA, OPEN APPROACH (11/03/17) OTH CHEST CAGE OSTECTOMY (09/03/12) ROTATOR CUFF REPAIR (07/12/13) Sepsis Event Note (H) - Evaluation Current Stage of Sepsis: Sepsis Possible source of Sepsis: positive: Genitourinary
[2022-07-06] MEDS: ONDANSETRON 4 MG/2 ML VIAL IVP PRN (13:51)
[2022-07-06] MEDS: FINASTERIDE 5 MG TABLET PO SCH (21:07)
[2022-07-06] MEDS: DOCUSATE SODIUM 250 MG CAPSULE PO SCH (21:09)
[2022-07-06] MEDS: SENNA 8.6 MG TABLET PO SCH (21:10)
[2022-07-07] MEDS: SODIUM CHLORIDE FLUSH 0.9% 10 ML SYRINGE IVP SCH ×3 (01:21→16:14)
[2022-07-07] MEDS: KETOROLAC 30 MG/ML VIAL IVP PRN ×3 (01:21→20:06)
[2022-07-07 05:04] LABS: BASOPHILS % (AUTO) 0.3 %; EOSINOPHILS % (AUTO) 2.6 %; HCT - HEMATOCRIT 29.5 % (42.0-52.0); HGB - HEMOGLOBIN 8.9 g/dL (14.0-18.0); LYMPHOCYTES % (AUTO) 14.5 %; MEAN CORPUSCULAR HEMOGLOBIN 33.8 pg (27.0-31.0); MEAN CORPUSCULAR HGB CONC 30.2 g/dL (32.0-36.0); MEAN CORPUSCULAR VOLUME 112.2 fL (80.0-94.0); MEAN PLATELET VOLUME 10.3 fL (7.4-11.4); MONOCYTES % (AUTO) 7.7 %; NEUTROPHILS % (AUTO) 66.8 %; PLT - PLATELET COUNT 221 10^3/uL (130-450); RED BLOOD COUNT 2.63 10^6/uL (4.70-6.10); RED CELL DISTRIBUTION WIDTH 13.4 % (12.0-15.0); WHITE BLOOD COUNT 14.8 x10^3/uL (4.8-10.8)
[2022-07-07 05:10] LABS: BAND NEUTROPHILS % (MANUAL) 0 %
[2022-07-07 05:11] LABS: ABNORMAL LYMPHS % (MANUAL) 0 %
[2022-07-07 05:20] LABS: EOSINOPHILS # (MANUAL) 0.3 10^3/uL (0-0.7); LYMPHOCYTES # (MANUAL) 2.8 10^3/uL (1.5-3.5); LYMPHOCYTES % (MANUAL) 19 %; METAMYELOCYTES % (MANUAL) 2 %; NEUTROPHILS # (MANUAL) 10.4 10^3/uL (1.5-6.6)
[2022-07-07 05:21] LABS: DIFFERENTIAL COMMENT MANUAL DIFFERENTIAL; PLATELET ESTIMATE, MANUAL NORMAL (130-450,000) (NORMAL); PLATELET MORPHOLOGY NORMAL APPEARANCE (NORMAL); RBC MORPHOLOGY (MULTIPLE) 2+ MACROCYTOSIS (NORMAL); WBC MORPHOLOGY (MULTIPLE) NORMAL APPEARANCE (NORMAL)
[2022-07-07] MEDS: ACETAMINOPHEN 325 MG TABLET PO PRN ×2 (06:25→16:13)
[2022-07-07] MEDS: ZINC OXIDE 20% OINT 30 GM TUBE TOP SCH ×2 (06:28→21:25)
[2022-07-07] MEDS: IPRATROPIUM/ALBUTEROL 3 ML NEB INH SCH ×4 (07:27→21:25)
[2022-07-07] MEDS: BUDESONIDE 0.5 MG/2 ML NEB INH SCH ×2 (07:27→21:25)
[2022-07-07] MEDS: ONDANSETRON 4 MG/2 ML VIAL IVP PRN ×2 (08:34→18:27)
[2022-07-07] MEDS: ethyl alcohoL 62% SWAB AMPULE NAS SCH ×2 (08:34→21:10)
[2022-07-07] MEDS: DOCUSATE SODIUM 250 MG CAPSULE PO SCH (08:34)
[2022-07-07] MEDS: DIGOXIN 125 MCG TABLET PO SCH (08:34)
[2022-07-07] MEDS: levoFLOXacin 250 MG TABLET PO SCH (08:35)
[2022-07-07] MEDS: TAMSULOSIN 0.4 MG CAPSULE PO SCH (08:35)
[2022-07-07] MEDS: PRENATAL VITAMIN TABLET PO SCH (08:35)
[2022-07-07] MEDS: ASPIRIN CHEW 81 MG TABLET PO SCH (08:35)
[2022-07-07] MEDS: diltiaZEM CD 240 MG CAPSULE PO SCH ×2 (08:35→21:08)
[2022-07-07] MEDS: guaiFENesin 600 MG TABLET PO SCH ×2 (08:35→21:09)
[2022-07-07] MEDS: METOPROLOL SUCCINATE 25 MG TABLET PO SCH ×2 (08:35→21:10)
[2022-07-07] MEDS: polyethylene glycoL 3350 17 GM PACKET PO SCH (08:44)
[2022-07-07] MEDS: SENNA 8.6 MG TABLET PO SCH (08:44)
[2022-07-07] MEDS: NICOTINE 14 MG PATCH TOP SCH (08:58)
[2022-07-07] MEDS: HYDROcod/ACETAM 10 MG/325 MG TABLET PO PRN ×2 (08:59→21:08)
[2022-07-07] MEDS: SACCHAROMYCES BOULARDII 250 MG CAPSULE PO SCH ×2 (08:59→17:18)
[2022-07-07] MEDS: THIAMINE 100 MG TABLET PO SCH (08:59)
--- NOTE | 2022-07-07 11:14 | PROVIDER PROGRESS NOTE ---
Assessment/Plan - Problem List (1) Bacteremia due to Enterobacter species Assessment/Plan: As per blood cx Labs were al, reviewed. His white blood count has increased ever since he was changed from IV antibiotics to p.o. Levaquin. He is not on steroids to explain this increase in WBC. In addition, the Levaquin seems to be giving him nausea Plan: We will change Levaquin to Bactrim DS 1 p.o. twice daily, based on sensitivities from the culture Because Trimethoprim can increase Digoxin levels, we will decrease her Dig dose by half and check serum Dig levels daily, for the next 3 mornings (2) UTI (urinary tract infection) Conclusion/Plan: His urine culture also grew out Enterobacter. Sensitivities were reviewed, the empiric IV Rocephin was appropriate. He has been changed to oral antibiotics usinga flouroquinolone, based on the enter factor sensitive Plan: We will change Levaquin to Bactrim DS 1 p.o. twice daily, based on sensitivities from the culture, and worsening WBC and Levaquin causing N./V Qualifiers: Urinary tract infection type: acute cystitis Hematuria presence: without hematuria Qualified Code(s): N30.00 - Acute cystitis without hematuria (3) Urinary retention He first had a [place] when in the ICU, when he was going through alcohol withdrawal. The [place] was removed 2 days ago. Yesterday 07/06 he had a post-void residual on bladder scan of 490 cc. Straight cath to be used prn was ordered Today there have been 3 episodes of voiding very little amounts and straight caths have been used x3 already today. Plan: Continue the new tamsulosin in the a.m. and finasteride in the p.m. Will order [place] to be reinserted and he will have to be [facility] with a [place] and needs Urol management after discharge (4) Atrial fibrillation Conclusion/Plan: Resolved He was admitted to the ICU needing a Cardizem drip at 5 mg/hr due to Afib with RVR. The Cardizem drip is off and the heart rate is A-fib in the 80-100s today. Since he was found on ground by family, and all work up negative for any bleedin g, Eliquis was to be resumed, but he cannot swallow. We obtained an Echocardiogram>> it showed normal LVEF of 55%, but Cor Pulmonale is present, likely from his heavy smoking Hx and COPD. From the Echo, his CHADS2 score = 0, therefore no anticoagulant is recommended, he can be on an aspirin daily for stroke prophylaxis. All labs were reviewed. His Dig level is not toxic. Plan: He is now back on his oral Dig, Cardizem and metoprolol and rate is controlled From his CHADS2 score, we ascertained that Eliquis is not necessary, he can be on an aspirin daily for stroke prophylaxis. (5) PSVT Patient presented in A-fib, presumably because he had not taken his dig, Cardi zem and metoprolol. He needed med adjustment then converted to sinus rhythm He is on MedSurg on telemetry and he had a burst of PSVT at a very rapid rate of 178. Plan: He is back on his Dig, metoprolol & Cardizem doses and no further PSVT seen. (6) Alcohol abuse Conclusion/Plan: He does drink beer, the amount is unknown. When he was here in 2019, abstaining from alcohol was advised and he refused to do that saying it was one of his pleasures. Plan: Continue CIWA protocol, with Ativan iv prn anxiety, signs of withdrawl on CIWA protocol PT/OT to continue working with him. (7) Tobacco use Despite being somnolent, he had a deep and very wet and productive cough at admission. Exam showed poor air movement, as in a COPDer. All labs were reviewed. On his BMP, he has an elevated bicarb, therefore he is likely a CO2 retainer Plan: Continue a nicotine patch topically, I decreased the dose yesterday from 21mg to 14 mg Cont p.o. meds for pulmonary toilet (8) Poor hygiene He was found on the ground of his house covered with feces Plan: When he is stable we will order OT eval and showering (9) Hypotension Resolved with iv fluids This was probably multifactorial: From his sepsis, from dehydration and from his Afib with RVR Plan: Continue on IV fluids and will taper these down to off (10) Sepsis Impression: Resolved The source appears to be a UTI. All labs were reviewed. His repeat lactic acid normalized. His hypotension and AMS resolved, and elevated Bands of 7% on his CBC decreased. Plan: Cont IV fluids Cont antibx Qualifiers: Sepsis type: sepsis due to unspecified organism Sepsis acute organ dysfunction status: without acute organ dysfunction Qualified Code(s): A41.9 - Sepsis, unspecified organism (11) Alcohol withdrawal Assessment/Plan: Resolved He reportedly lives at home alone. His family checks on him daily. EMS said that the family reported he had increased confusion over the past 1 week and when they went to check on him, they found him on the ground, covered in feces. He was mostly asleep for 3 days here, then awoke, was oriented to self and improved daily, passed a swallow screen. The persistent AMS was likely from the sepsis, hypotension and from alcohol withdrawal, all of which are better. Plan: We will ask social work to see him to offer resources for abstinence from alcoho l - Current Meds Current Meds: Current Medications Generic Name Dose Route Start Last Admin Trade Name Freq PRN Reason Stop Dose Admin Acetaminophen 650 mg 07/01/22 19:16 07/07/22 06:25 Acetaminophen 325 Mg Tablet PO 650 mg Q4HR PRN Administration Pain 1 to 4, or Fever Hydrocodone Bitart/Acetaminophen 1 - 2 tab 07/05/22 10:38 07/07/22 08:59 Hydrocod/Acetam 10 Mg/325 Mg Tablet PO 2 tab Q12H PRN Administration Moderate Pain (Level 4-6) Albuterol/Ipratropium 3 ml 07/02/22 07:00 07/07/22 10:40 Ipratropium/Albuterol 3 Ml Neb INH 3 ml RTQID STACEY Administration Alcohol 1 amp 07/02/22 21:00 07/07/22 08:34 Ethyl Alcohol 62% Swab Ampule IRVING 1 amp BID STACEY Administration Aspirin 81 mg 07/03/22 12:00 07/07/22 08:35 Aspirin Chew 81 Mg Tablet PO 81 mg DAILY STACEY Administration Budesonide 0.5 mg 07/02/22 07:00 07/07/22 07:27 Budesonide 0.5 Mg/2 Ml Neb INH 0.5 mg RTBID STACEY Administration Diltiazem HCl 240 mg 07/06/22 09:16 07/07/22 08:35 Diltiazem Cd 240 Mg Capsule PO 240 mg BID STACEY Administration Docusate Sodium 250 - 500 mg 07/06/22 21:00 07/07/22 08:34 Docusate Sodium 250 Mg Capsule PO 250 mg DAILY STACEY Administration Finasteride 5 mg 07/06/22 21:00 07/06/22 21:07 Finasteride 5 Mg Tablet PO 5 mg QPM STACEY Administration Guaifenesin 600 mg 07/03/22 09:00 07/07/22 08:35 Guaifenesin 600 Mg Tablet PO 600 mg BID STACEY Administration Guaifenesin 10 ml 07/03/22 07:47 07/04/22 00:39 Guaifenesin/Dextromethorphan 10 Ml Udc PO 10 ml Q6HR PRN Administration Cough Ketorolac Tromethamine 30 mg 07/03/22 17:43 07/07/22 01:21 Ketorolac 30 Mg/Ml Vial IVP 07/08/22 17:42 30 mg Q6HR PRN Administration Severe Pain (Level 7-10) Metoprolol Succinate 25 mg 07/03/22 21:00 07/07/22 08:35 Metoprolol Succinate 25 Mg Tablet PO 25 mg BID STACEY Administration Multi-Ingredient Ointment 1 applic 07/03/22 21:00 07/07/22 06:28 Zinc Oxide 20% Oint 30 Gm Tube TOP 1 applic BID STACEY Administration Nicotine 1 patch 07/07/22 09:00 07/07/22 08:58 Nicotine 14 Mg Patch TOP 1 patch DAILY STACEY Administration Ondansetron HCl 4 mg 07/01/22 19:16 07/07/22 08:34 Ondansetron 4 Mg/2 Ml Vial IVP 4 mg Q6HR PRN Administration Nausea / Vomiting Polyethylene Glycol 17 gm 07/07/22 09:00 07/07/22 08:44 Polyethylene Glycol 3350 17 Gm Packet PO Not Given DAILY [facility] Multivit/Folic Acid/Iron 1 tab 07/03/22 08:00 07/07/22 08:35 Vitamin Tablet PO 1 tab DAILYWM [facility] Administration Saccharomyces Boulardii 250 mg 07/07/22 09:00 07/07/22 08:59 Saccharomyces Boulardii 250 Mg Capsule PO 250 mg BIDWM STACEY Administration Senna 8.6 - 17.2 mg 07/06/22 21:00 07/07/22 08:44 Senna 8.6 Mg Tablet PO Not Given DAILY [facility] Sodium Chloride 10 ml 07/02/22 01:00 07/07/22 08:34 Sodium Chloride Flush 0.9% 10 Ml Syringe IVP 10 ml 0100,0900,1700 STACEY Administration Sodium Chloride 10 ml 07/01/22 19:16 07/06/22 13:51 Sodium Chloride Flush 0.9% 10 Ml Syringe IVP 10 ml PRN PRN Administration NEEDED PER PROVIDER ORDERS Tamsulosin HCl 0.4 mg 07/07/22 09:00 07/07/22 08:35 Tamsulosin 0.4 Mg Capsule PO 0.4 mg DAILY STACEY Administration Thiamine HCl 100 mg 07/03/22 09:00 07/07/22 08:59 Thiamine 100 Mg Tablet PO 100 mg DAILY STACEY Administration - Lab Result Fish Bone Diagrams: 07/07/22 04:29 07/06/22 05:20 - Additional Planning My Orders: My Active Orders 07/06/22 13:36 Shower [RC] ONCE 07/06/22 19:02 Straight Catheter Insertion [RC] PRN 07/06/22 21:00 Finasteride [Proscar] 5 mg PO QPM 07/07/22 CULTURE, BLOOD #1 [RM] Stat CULTURE, BLOOD #2 [RM] Stat 07/07/22 09:00 Nicotine 14 mg Patch [Nicoderm] 1 patch TOP DAILY Saccharomyces Boulardii [Florastor] 250 mg PO BIDWM Tamsulosin [Flomax] 0.4 mg PO DAILY 07/07/22 21:00 Sulfamethox/Trimeth 800/160 [Bactrim Ds 800/160] 1 tab PO BID 07/08/22 05:00 BMP - BASIC METABOLIC PANEL [CHEM] DAILYLAB CBC - COMP BLD CT W/AUTO DIFF [HEME] DAILYLAB DIGOXIN [CHEM] DAILYLAB MAGNESIUM [CHEM] DAILYLAB 07/08/22 09:00 Digoxin [Lanoxin] 62.5 mcg PO DAILY 07/09/22 05:00 DIGOXIN [CHEM] DAILYLAB 07/10/22 05:00 DIGOXIN [CHEM] DAILYLAB Subjective - Subjective Patient Reports: Nausea (After breakfast and a.m.meds today and yesterday, but feel stronger overall) Objective Vital Signs: Vital Signs - 24 hr 07/06/22 07/06/22 07/06/22 12:15 12:18 13:00 Temperature 36.6 C Heart Rate Heart Rate [ Brachial] Heart Rate [ Monitoring electrodes] Respiratory Rate Blood Pressure [Left Brachial artery] Blood Pressure 106/65 [Right Brachial artery] O2 Saturation 87 L 88 L 87 L If not protocol 1 1.5 1.5 : Oxygen Flow, liters/minute 07/06/22 07/06/22 07/06/22 15:42 19:00 20:37 Temperature 36.6 C 36.7 C Heart Rate Heart Rate [ 61 69 Brachial] Heart Rate [ Monitoring electrodes] Respiratory 18 20 Rate Blood Pressure [Left Brachial artery] Blood Pressure 102/66 116/75 [Right Brachial artery] O2 Saturation 89 L 94 If not protocol 1.5 1.5 : Oxygen Flow, liters/minute 07/07/22 07/07/22 07/07/22 00:08 03:45 07:27 Temperature 36.6 C 36.7 C Heart Rate 80 Heart Rate [ 68 63 Brachial] Heart Rate [ Monitoring electrodes] Respiratory 20 18 22 Rate Blood Pressure 108/62 [Left Brachial artery] Blood Pressure 118/72 [Right Brachial artery] O2 Saturation 94 90 L If not protocol 1.5 1.5 1 : Oxygen Flow, liters/minute 07/07/22 07/07/22 07/07/22 08:03 08:32 11:02 Temperature 36.7 C 36.6 C Heart Rate Heart Rate [ 76 67 Brachial] Heart Rate [ 91 Monitoring electrodes] Respiratory 20 20 Rate Blood Pressure [Left Brachial artery] Blood Pressure 121/64 120/59 L 115/68 [Right Brachial artery] O2 Saturation 93 94 If not protocol 1 1 : Oxygen Flow, liters/minute Oxygen O2 Source [With Activity] Nasal cannula O2 Source Nasal cannula Oxygen Flow Rate 3 I&O (Last 24 Hrs): Intake and Output Totals x24h 07/05/22 07/06/22 07/07/22 23:59 23:59 23:59 Intake Total 1360 900 415 Output Total 1450 2775 1500 Balance -90 -8177 -7152 General: Alert, Oriented x3, Other (Had a shower and is no longer disheveled) Neck: Supple, Other (Cannot eval JVP due to peoples) Neuro: Alert, Non Focal Cardiovascular: No murmurs Respiratory: No respiratory distress, Breath sounds nml Abdomen: Normal bowel sounds, Soft, No tenderness Extremities: No clubbing, No edema, No tenderness/swelling - Results Results: Laboratory Results WBC 14.8 x10^3/uL (4.8-10.8) H 07/07/22 04: RBC 2.63 10^6/uL (4.70-6.10) L 07/07/22 04: Hgb 8.9 g/dL (14.0-18.0) L 07/07/22 04:29 Hct 29.5 % (42.0-52.0) L 07/07/22 04: MCV 112.2 fL (80.0-94.0) H 07/07/22 04: MCH 33.8 pg (27.0-31.0) H 07/07/22 04: MCHC 30.2 g/dL (32.0-36.0) L 07/07/22 04: RDW 13.4 % (12.0-15.0) 07/07/22 04:29 Plt Count 221 10^3/uL (130-450) 07/07/22 04: MPV 10.3 fL (7.4-11.4) 07/07/22 04:29 Neut # (Auto) Not Reportable 07/07/22 04:29 Lymph # (Auto) Not Reportable 07/07/22 04:29 [place] # (Auto) Not Reportable 07/07/22 04:29 Eos # (Auto) Not Reportable 07/07/22 04:29 Baso # (Auto) Not Reportable 07/07/22 04:29 Absolute Nucleated RBC Not Reportable 07/07/22 04:29 Total Counted 100 07/07/22 04:29 Band Neuts % (Manual) 0 % (0-10) 07/07/22 04:29 Abnorm Lymph % (Manual) 0 % 07/07/22 04:29 Metamyelocytes % 2 % (-0) H 07/07/22 04:29 Myelocytes % 3 % (-0) H 07/06/22 05:20 Nucleated RBC % Not Reportable 07/07/22 04:29 Neutrophils # (Manual) 10.4 10^3/uL (1.5-6.6) H 07/07/22 04:29 Lymphocytes # (Manual) 2.8 10^3/uL (1.5-3.5) 07/07/22 04:29 Monocytes # (Manual) 1.0 10^3/uL (0.0-1.0) 07/07/22 04:29 Eosinophils # (Manual) 0.3 10^3/uL (0-0.7) 07/07/22 04:29 Basophils # (Manual) 0.0 10^3/uL (0-0.1) 07/07/22 04:29 Differential Comment MANUAL DIFFERENTIAL 07/07/22 04:29 Manual Slide Review Indicated 07/05/22 05:20 WBC Morphology NORMAL APPEARANCE (NORMAL) 07/07/22 04:29 Platelet Estimate NORMAL (130-450,000) (NORMAL) 07/07/22 04:29 Platelet Morphology NORMAL APPEARANCE (NORMAL) 07/07/22 04:29 RBC Morph Micro Appear 2+ MACROCYTOSIS (NORMAL) 07/07/22 04:29 VBG pH 7.490 (7.31-7.41) H 07/04/22 15:20 Ionized Calcium 1.08 mmol/L (1.15-1.33) L 07/04/22 15:20 Sodium 140 mmol/L (135-145) 07/06/22 05:20 Potassium 3.9 mmol/L (3.5-5.0) 07/06/22 05:20 Chloride 96 mmol/L (101-111) L 07/06/22 05:20 Carbon Dioxide 38 mmol/L (21-32) H 07/06/22 05:20 Anion Gap 6.0 (6-13) 07/06/22 05:20 BUN 14 mg/dL (6-20) 07/06/22 05:20 Creatinine 0.5 mg/dL (0.6-1.2) L 07/06/22 05:20 Estimated GFR (MDRD) 165 (>89) 07/06/22 05:20 Glucose 96 mg/dL (70-100) 07/06/22 05:20 Lactic Acid 0.9 mmol/L (0.5-2.2) 07/02/22 04:13 Calcium 8.0 mg/dL (8.5-10.3) L 07/06/22 05:20 Phosphorus 2.5 mg/dL (2.5-4.6) 07/03/22 04:25 Magnesium 2.0 mg/dL (1.7-2.8) 07/03/22 04:25 Total Bilirubin 0.3 mg/dL (0.2-1.0) 07/06/22 05:20 AST 22 IU/L (10-42) 07/06/22 05:20 ALT 20 IU/L (10-60) 07/06/22 05:20 Alkaline Phosphatase 83 IU/L (42-121) 07/06/22 05:20 Ammonia 29.0 umol/L (7-35) 07/05/22 09:34 Total Creatine Kinase 308 IU/L (22-269) H 07/01/22 15:53 Troponin I High Sens 50.3 ng/L (2.3-19.7) H* 07/01/22 19:25 Total Protein 5.1 g/dL (6.7-8.2) L 07/06/22 05:20 Albumin 2.2 g/dL (3.2-5.5) L 07/06/22 05:20 Globulin 2.9 g/dL (2.1-4.2) 07/06/22 05:20 Albumin/Globulin Ratio 0.8 (1.0-2.2) L 07/06/22 05:20 Lipase 22 U/L (22-51) 07/01/22 15:53 TSH 0.73 uIU/mL (0.34-5.60) 07/01/22 15:53 Urine Color YELLOW 07/01/22 16:13 Urine Clarity HAZY (CLEAR) 07/01/22 16:13 Urine pH 7.0 PH (5.0-7.5) 07/01/22 16:13 Ur Specific [place] 1.010 (1.002-1.030) 07/01/22 16:13 Urine Protein 100 mg/dL (NEGATIVE) H 07/01/22 16:13 Urine Glucose (UA) NEGATIVE mg/dL (NEGATIVE) 07/01/22 16:13 Urine Ketones NEGATIVE mg/dL (NEGATIVE) 07/01/22 16:13 Urine Occult Blood LARGE (NEGATIVE) H 07/01/22 16:13 Urine Nitrite NEGATIVE (NEGATIVE) 07/01/22 16:13 Urine Bilirubin NEGATIVE (NEGATIVE) 07/01/22 16:13 Urine Urobilinogen 1 (NORMAL) E.U./dL (NORMAL) 07/01/22 16:13 Ur Leukocyte Esterase LARGE (NEGATIVE) H 07/01/22 16:13 Urine RBC 11-25 /HPF (0-5) H 07/01/22 16:13 Urine WBC >25 /HPF (0-3) H 07/01/22 16:13 Urine WBC Clumps PRESENT 07/01/22 16:13 Ur Squamous Epith Cells NONE SEEN (<= Few) 07/01/22 16:13 Urine Bacteria Many /HPF (None Seen) H 07/01/22 16:13 Ur Microscopic Review INDICATED 07/01/22 16:13 Urine Culture Comments INDICATED 07/01/22 16:13 Nasal Adenovirus (PCR) NOT DETECTED 07/01/22 16:13 Nasal B. parapertussis DNA (PCR) NOT DETECTED 07/01/22 16:13 Nasal Coronavir 229E PCR NOT DETECTED 07/01/22 16:13 Nasal Coronavir HKU1 PCR NOT DETECTED 07/01/22 16:13 Nasal Coronavir NL63 PCR NOT DETECTED 07/01/22 16:13 Nasal Coronavir OC43 PCR NOT DETECTED 07/01/22 16:13 Nasal Enterovir/Rhinovir PCR NOT DETECTED 07/01/22 16:13 Nasal Influenza B PCR NOT DETECTED 07/01/22 16:13 Nasal Influenza A PCR NOT DETECTED 07/01/22 16:13 Nasal Parainfluen 1 PCR NOT DETECTED 07/01/22 16:13 Nasal Parainfluen 2 PCR NOT DETECTED 07/01/22 16:13 Nasal Parainfluen 3 PCR NOT DETECTED 07/01/22 16:13 Nasal Parainfluen 4 PCR NOT DETECTED 07/01/22 16:13 Nasal RSV (PCR) NOT DETECTED 07/01/22 16:13 Nasal Screen MRSA (PCR) POSITIVE (NEGATIVE) A* 07/01/22 20:19 Nasal B.pertussis DNA PCR NOT DETECTED 07/01/22 16:13 Nasal C.pneumoniae (PCR) NOT DETECTED 07/01/22 16:13 [place] Human Metapneumo PCR NOT DETECTED 07/01/22 16:13 Nasal M.pneumoniae (PCR) NOT DETECTED 07/01/22 16:13 Nasal SARS-CoV-2 (PCR) NOT DETECTED 07/01/22 16:13 Last Dose Date 07/02/22 07/03/22 04:25 Last Dose Time 1155 07/03/22 04:25 Digoxin 0.5 ng/mL 07/03/22 04:25 Salicylates < 6.0 mg/dL 07/01/22 15:53 Urine Opiates Screen POSITIVE (NEGATIVE) H 07/01/22 16:13 Ur Oxycodone Screen NEGATIVE (NEGATIVE) 07/01/22 16:13 Urine Methadone Screen NEGATIVE (NEGATIVE) 07/01/22 16:13 Ur Propoxyphene Screen NEGATIVE (NEGATIVE) 07/01/22 16:13 Acetaminophen < 10 ug/mL (10-30) L 07/01/22 15:53 Ur Barbiturates Screen NEGATIVE (NEGATIVE) 07/01/22 16:13 Ur Tricyclics Screen NEGATIVE (NEGATIVE) 07/01/22 16:13 Ur Phencyclidine Scrn NEGATIVE (NEGATIVE) 07/01/22 16:13 Ur Amphetamine Screen NEGATIVE (NEGATIVE) 07/01/22 16:13 U Methamphetamines Scrn NEGATIVE (NEGATIVE) 07/01/22 16:13 U Benzodiazepines Scrn NEGATIVE (NEGATIVE) 07/01/22 16:13 Urine Cocaine Screen NEGATIVE (NEGATIVE) 07/01/22 16:13 U Cannabinoids Screen NEGATIVE (NEGATIVE) 07/01/22 16:13 Ethyl Alcohol < 5.0 mg/dL 07/01/22 15:53 - Procedures Procedures: Procedures EXCISION OF L LOW ARM SUBCU/FASCIA, OPEN APPROACH (11/03/17) OTH CHEST CAGE OSTECTOMY (09/03/12) ROTATOR CUFF REPAIR (07/12/13) Sepsis Event Note (H) - Evaluation Current Stage of Sepsis: Sepsis Possible source of Sepsis: positive: Genitourinary
[2022-07-07] MEDS: CALCIUM CARBONATE CHEW 500 MG TABLET PO PRN (13:45)
[2022-07-07] MEDS: SODIUM CHLORIDE FLUSH 0.9% 10 ML SYRINGE IVP PRN ×2 (13:46→18:27)
[2022-07-07] MEDS ORDERED: LIDOCAINE 2% URO-JET 5 ML SYRINGE UR ONE (19:18)
[2022-07-07] MEDS: SULFAMETH/TRIMETH DS 800/160 MG TABLET PO SCH (21:09)
[2022-07-07] MEDS: FINASTERIDE 5 MG TABLET PO SCH (21:10)
[2022-07-08] MEDS: SODIUM CHLORIDE FLUSH 0.9% 10 ML SYRINGE IVP SCH ×3 (01:15→16:21)
[2022-07-08] MEDS: ZINC OXIDE 20% OINT 30 GM TUBE TOP SCH ×2 (04:22→21:12)
[2022-07-08] MEDS: SODIUM CHLORIDE FLUSH 0.9% 10 ML SYRINGE IVP PRN (04:26)
[2022-07-08] MEDS: KETOROLAC 30 MG/ML VIAL IVP PRN ×2 (04:26→14:58)
[2022-07-08 05:04] LABS: BASOPHILS % (AUTO) 0.2 %; EOSINOPHILS % (AUTO) 2.5 %; HCT - HEMATOCRIT 26.8 % (42.0-52.0); HGB - HEMOGLOBIN 8.2 g/dL (14.0-18.0); LYMPHOCYTES % (AUTO) 16.7 %; MEAN CORPUSCULAR HGB CONC 30.6 g/dL (32.0-36.0); MEAN CORPUSCULAR VOLUME 111.2 fL (80.0-94.0); MONOCYTES % (AUTO) 7.3 %; NEUTROPHILS % (AUTO) 64.1 %; PLT - PLATELET COUNT 251 10^3/uL (130-450); RED BLOOD COUNT 2.41 10^6/uL (4.70-6.10); RED CELL DISTRIBUTION WIDTH 13.3 % (12.0-15.0); WHITE BLOOD COUNT 11.5 x10^3/uL (4.8-10.8)
[2022-07-08 05:08] LABS: ABNORMAL LYMPHS % (MANUAL) 0 %; BAND NEUTROPHILS % (MANUAL) 0 %
[2022-07-08 05:14] LABS: CALCIUM 8.1 mg/dL (8.5-10.3); CREATININE 0.6 mg/dL (0.6-1.2); MAGNESIUM 1.6 mg/dL (1.7-2.8); POTASSIUM 3.9 mmol/L (3.5-5.0)
[2022-07-08 05:20] LABS: DIGOXIN 0.6 ng/mL
[2022-07-08 05:21] LABS: EOSINOPHILS # (MANUAL) 0.5 10^3/uL (0-0.7); LYMPHOCYTES # (MANUAL) 1.8 10^3/uL (1.5-3.5); LYMPHOCYTES % (MANUAL) 16 %; METAMYELOCYTES % (MANUAL) 1 %; MONOCYTES # (MANUAL) 0.9 10^3/uL (0.0-1.0); MYELOCYTES % (MANUAL) 4 %; NEUTROPHILS # (MANUAL) 7.7 10^3/uL (1.5-6.6)
[2022-07-08 05:22] LABS: DIFFERENTIAL COMMENT MANUAL DIFFERENTIAL; PLATELET ESTIMATE, MANUAL NORMAL (130-450,000) (NORMAL); PLATELET MORPHOLOGY NORMAL APPEARANCE (NORMAL); WBC MORPHOLOGY (MULTIPLE) NORMAL APPEARANCE (NORMAL)
[2022-07-08] MEDS: IPRATROPIUM/ALBUTEROL 3 ML NEB INH SCH ×4 (07:09→19:00)
[2022-07-08] MEDS: BUDESONIDE 0.5 MG/2 ML NEB INH SCH ×2 (07:09→18:59)
[2022-07-08] MEDS: polyethylene glycoL 3350 17 GM PACKET PO SCH (08:05)
[2022-07-08] MEDS: diltiaZEM CD 240 MG CAPSULE PO SCH ×2 (08:05→21:11)
[2022-07-08] MEDS: ASPIRIN CHEW 81 MG TABLET PO SCH (08:05)
[2022-07-08] MEDS: ethyl alcohoL 62% SWAB AMPULE NAS SCH ×2 (08:05→21:11)
[2022-07-08] MEDS: SACCHAROMYCES BOULARDII 250 MG CAPSULE PO SCH ×2 (08:06→16:21)
[2022-07-08] MEDS: SULFAMETH/TRIMETH DS 800/160 MG TABLET PO SCH ×2 (08:06→21:11)
[2022-07-08] MEDS: DOCUSATE SODIUM 250 MG CAPSULE PO SCH (08:06)
[2022-07-08] MEDS: TAMSULOSIN 0.4 MG CAPSULE PO SCH (08:06)
[2022-07-08] MEDS: PRENATAL VITAMIN TABLET PO SCH (08:06)
[2022-07-08] MEDS: SENNA 8.6 MG TABLET PO SCH (08:07)
[2022-07-08] MEDS: DIGOXIN 125 MCG TABLET PO SCH (08:07)
[2022-07-08] MEDS: METOPROLOL SUCCINATE 25 MG TABLET PO SCH ×2 (08:08→21:11)
[2022-07-08] MEDS: THIAMINE 100 MG TABLET PO SCH (08:08)
[2022-07-08] MEDS: NICOTINE 14 MG PATCH TOP SCH (08:11)
[2022-07-08] MEDS: guaiFENesin 600 MG TABLET PO SCH ×2 (08:14→21:11)
[2022-07-08 09:24] LABS: FOLATE 8.86 ng/mL (5.90 - >24.8)
[2022-07-08] MEDS: HYDROcod/ACETAM 10 MG/325 MG TABLET PO PRN (09:30)
[2022-07-08] MEDS ORDERED: HYDROcod/ACETAM 10 MG/325 MG TABLET PO PRN (09:47)
[2022-07-08] MEDS: ONDANSETRON 4 MG/2 ML VIAL IVP PRN ×2 (13:00→18:51)
--- NOTE | 2022-07-08 13:01 | PROVIDER PROGRESS NOTE ---
Subjective - Prog Note Date Prog Note Date: 07/08/22 Prog Note Time: 13:01 - Subjective Subjective: He is pleased that he is progressing. Walking with a walker. But he cannot believe how short of breath he is with simple things. He says that he struggles to just get out of the bed, and walk to a chair to eat breakfast. He finds that coughing gets worse when he tries to get up out of bed. Right now he is on 1 L nasal cannula He had nausea and vomiting over the weekend, attributed to antibiotics so antibiotics were switched. He says that he no longer has nausea and vomiting. Denies any specific pain. No chest pain, abdominal pain. Just kind of aches all over, and he is exhausted trying to do simple things. Cough is congested, occasional yellow to green phlegm. He takes [place] [facility] at home. He would like the [place] [facility] to be resumed the way he takes at home which is 9 AM and 9 PM. Current Medications - Current Medications Current Medications: Active Medications Acetaminophen (Acetaminophen 325 Mg Tablet) 650 mg PO Q4HR PRN PRN Reason: Pain 1 to 4, or Fever Last Admin: 07/07/22 16:13 Dose: 650 mg Hydrocodone Bitart/Acetaminophen (Hydrocod/Acetam 10 Mg/325 Mg Tablet) 1 - 2 tab PO 0900,2100 [facility] Albuterol (Albuterol Neb 2.5 Mg/3 Ml) 2.5 mg INH Q4HR PRN PRN Reason: Wheezing Albuterol/Ipratropium (Ipratropium/Albuterol 3 Ml Neb) 3 ml INH RTQID [facility] Last Admin: 07/08/22 11:07 Dose: 3 ml Alcohol (Ethyl Alcohol 62% Swab Ampule) 1 amp IRVING BID [facility] Last Admin: 07/08/22 08:05 Dose: 1 amp Aspirin (Aspirin Chew 81 Mg Tablet) 81 mg PO DAILY [facility] Last Admin: 07/08/22 08:05 Dose: 81 mg Budesonide (Budesonide 0.5 Mg/2 Ml Neb) 0.5 mg INH RTBID [facility] Last Admin: 07/08/22 07:09 Dose: 0.5 mg Calcium Carbonate/Glycine (Calcium Carbonate Chew 500 Mg Tablet) 500 mg PO TID PRN PRN Reason: INDIGESTION Last Admin: 07/07/22 13:45 Dose: 500 mg Digoxin (Digoxin 125 Mcg Tablet) 62.5 mcg PO DAILY [facility] Last Admin: 07/08/22 08:07 Dose: 62.5 mcg Diltiazem HCl (Diltiazem Cd 240 Mg Capsule) 240 mg PO BID [facility] Last Admin: 07/08/22 08:05 Dose: 240 mg Docusate Sodium (Docusate Sodium 250 Mg Capsule) 250 - 500 mg PO DAILY [facility] Last Admin: 07/08/22 08:06 Dose: 250 mg Finasteride (Finasteride 5 Mg Tablet) 5 mg PO QPM [facility] Last Admin: 07/07/22 21:10 Dose: 5 mg Guaifenesin (Guaifenesin 600 Mg Tablet) 600 mg PO BID [facility] Last Admin: 07/08/22 08:14 Dose: 600 mg Guaifenesin (Guaifenesin/Dextromethorphan 10 Ml Udc) 10 ml PO Q6HR PRN PRN Reason: Cough Last Admin: 07/04/22 00:39 Dose: 10 ml Ipratropium [place] (Ipratropium 0.2 Mg/Ml Neb) 0.5 mg INH Q6HR PRN PRN Reason: Wheezing Ketorolac Tromethamine (Ketorolac 30 Mg/Ml Vial) 30 mg IVP Q6HR PRN PRN Reason: Severe Pain (Level 7-10) Stop: 07/08/22 17:42 Last Admin: 07/08/22 04:26 Dose: 30 mg Metoprolol Succinate (Metoprolol Succinate 25 Mg Tablet) 25 mg PO BID [facility] Last Admin: 07/08/22 08:08 Dose: 25 mg Multi-Ingredient Ointment (Zinc Oxide 20% Oint 30 Gm Tube) 1 applic TOP BID [facility] Last Admin: 07/08/22 04:22 Dose: 1 applic Nicotine (Nicotine 14 Mg Patch) 1 patch TOP DAILY [facility] Last Admin: 07/08/22 08:11 Dose: 1 patch Ondansetron HCl (Ondansetron 4 Mg/2 Ml Vial) 4 mg IVP Q6HR PRN PRN Reason: Nausea / Vomiting Last Admin: 07/08/22 13:00 Dose: 4 mg Polyethylene Glycol (Polyethylene Glycol 3350 17 Gm Packet) 17 gm PO DAILY [facility] Last Admin: 07/08/22 08:05 Dose: 17 gm Multivit/Folic Acid/Iron ( Vitamin Tablet) 1 tab PO DAILYWM [facility] Last Admin: 07/08/22 08:06 Dose: 1 tab Saccharomyces Boulardii (Saccharomyces Boulardii 250 Mg Capsule) 250 mg PO BIDWM [facility] Last Admin: 07/08/22 08:06 Dose: 250 mg Senna (Senna 8.6 Mg Tablet) 8.6 - 17.2 mg PO DAILY [facility] Last Admin: 07/08/22 08:07 Dose: 8.6 mg Sodium Chloride (Sodium Chloride Flush 0.9% 10 Ml Syringe) 10 ml IVP 0100,0900,1700 [facility] Last Admin: 07/08/22 08:11 Dose: 10 ml Sodium Chloride (Sodium Chloride Flush 0.9% 10 Ml Syringe) 10 ml IVP PRN PRN PRN Reason: NEEDED PER PROVIDER ORDERS Last Admin: 07/08/22 04:26 Dose: 10 ml Tamsulosin HCl (Tamsulosin 0.4 Mg Capsule) 0.4 mg PO DAILY [facility] Last Admin: 07/08/22 08:06 Dose: 0.4 mg Thiamine HCl (Thiamine 100 Mg Tablet) 100 mg PO DAILY [facility] Last Admin: 07/08/22 08:08 Dose: 100 mg Trimethoprim/Sulfamethoxazole (Sulfameth/Trimeth Ds 800/160 Mg Tablet) 1 tab PO BID [facility] Last Admin: 07/08/22 08:06 Dose: 1 tab Albuterol Sulfate [Proair Hfa Inhaler] 1 - 2 puffs PO Q4H PRN 11/03/17 Omeprazole 1 cap PO DAILY 04/29/22 Furosemide [Lasix] 20 mg PO DAILY 07/02/22 Hydrocodone/Acetaminophen [Hydrocodone-Acetamin 10-325 mg] 1 - 2 tab PO Q12H PRN 07/02/22 Potassium Chloride [Klor-Con 10] 10 meq PO DAILY 07/02/22 Objective - Vital Signs/Intake & Output Reviewed Vital Signs: Yes Vital Signs: Vital Signs x48h Temp Pulse Pulse Resp BP Pulse Ox O2 Flow Rate 07/08/22 11:56 36.5 C 74 20 119/70 95 1 07/08/22 11:08 68 20 2 07/08/22 08:06 36.7 C 90 20 119/61 94 1 07/08/22 07:10 70 20 Intake & Output: Intake & Output 07/05/22 07/06/22 07/07/22 04/11/23 23:59 23:59 23:59 23:59 Intake Total 0124 805 5277 360 Output Total 1409 3855 0560 144 [facility] -[phone] - Objective General Appearance: positive: Alert, Other (deep Phlegmy voice, long hair and disheveled, but peoples has been parted in two and he has rubber bands keeping his peoples in check.) Eyes Bilateral: positive: PERRL, EOMI ENT: positive: Other (poor dentition w cracked teeth, carries, gingivitis) Neck: positive: No JVD, Lymphadenopathy (R) (shotty), Lymphadenopathy (L) (shotty) Respiratory: positive: No respiratory distress, Wheezes, Rhonchi, Other (When he gets excited and starts to choke, he gets short of breath, starts to cough and brings up green phlegm but no use of accessory muscles, tripoding or sternocleidomastoid) Cardiovascular: positive: Regular rate & rhythm Abdomen: positive: Non-tender, No organomegaly, Nml bowel sounds, No distention Skin: positive: Warm, Dry Extremities: positive: Full ROM, No pedal edema Neurologic/Psychiatric: positive: Oriented x3, CN's nml (2-12), Motor nml (But generalized weakness. Requires contact-guard or standby assist) - Lab Results Fish Bones: 07/08/22 04:38 07/08/22 04:38 Other Labs: Lab Results x24hrs 07/08/22 07/08/22 07/08/22 Range/Units 04:38 04:38 04:38 WBC (4.8-10.8) x10^3/uL RBC (4.70-6.10) 10^6/uL Hgb (14.0-18.0) g/dL Hct (42.0-52.0) % MCV (80.0-94.0) fL MCH (27.0-31.0) pg MCHC (32.0-36.0) g/dL RDW (12.0-15.0) % Plt Count (130-450) 10^3/uL MPV (7.4-11.4) fL Neut # (Auto) Lymph # (Auto) [place] # (Auto) Eos # (Auto) Baso # (Auto) Absolute Nucleated RBC Total Counted Band Neuts % (Manual) (0 - 10) % Abnorm Lymph % (Manual) % Metamyelocytes % ( - 0) % Myelocytes % ( - 0) % Nucleated RBC % Neutrophils # (Manual) (1.5-6.6) 10^3/uL Lymphocytes # (Manual) (1.5-3.5) 10^3/uL Monocytes # (Manual) (0.0-1.0) 10^3/uL Eosinophils # (Manual) (0-0.7) 10^3/uL Basophils # (Manual) (0-0.1) 10^3/uL Differential Comment WBC Morphology (NORMAL) Platelet Estimate (NORMAL) Platelet Morphology (NORMAL) RBC Morph Micro Appear (NORMAL) Sodium 139 (135-145) mmol/L Potassium 3.9 (3.5-5.0) mmol/L Chloride 95 L (101-111) mmol/L Carbon Dioxide 38 H (21-32) mmol/L Anion Gap 6.0 (6-13) BUN 13 (6-20) mg/dL Creatinine 0.6 (0.6-1.2) mg/dL Estimated GFR (MDRD) 133 (>89) Glucose 94 (70-100) mg/dL Calcium 8.1 L (8.5-10.3) mg/dL Magnesium 1.6 L (1.7-2.8) mg/dL Vitamin B12 398 (180-914) pg/mL Folate 8.86 (5.90 - >24.8) ng/mL Last Dose Date 07/07/22 Last Dose Time 0834 Digoxin 0.6 ng/mL 07/08/22 Range/Units 04:38 WBC 11.5 H (4.8-10.8) x10^3/uL RBC 2.41 L (4.70-6.10) 10^6/uL Hgb 8.2 L (14.0-18.0) g/dL Hct 26.8 L (42.0-52.0) % MCV 111.2 H (80.0-94.0) fL MCH 34.0 H (27.0-31.0) pg MCHC 30.6 L (32.0-36.0) g/dL RDW 13.3 (12.0-15.0) % Plt Count 251 (130-450) 10^3/uL MPV 10.0 (7.4-11.4) fL Neut # (Auto) Not Reportable Lymph # (Auto) Not Reportable [place] # (Auto) Not Reportable Eos # (Auto) Not Reportable Baso # (Auto) Not Reportable Absolute Nucleated RBC Not Reportable Total Counted 100 Band Neuts % (Manual) 0 (0 - 10) % Abnorm Lymph % (Manual) 0 % Metamyelocytes % 1 H ( - 0) % Myelocytes % 4 H ( - 0) % Nucleated RBC % Not Reportable Neutrophils # (Manual) 7.7 H (1.5-6.6) 10^3/uL Lymphocytes # (Manual) 1.8 (1.5-3.5) 10^3/uL Monocytes # (Manual) 0.9 (0.0-1.0) 10^3/uL Eosinophils # (Manual) 0.5 (0-0.7) 10^3/uL Basophils # (Manual) 0.0 (0-0.1) 10^3/uL Differential Comment MANUAL DIFFERENTIAL WBC Morphology NORMAL APPEARANCE (NORMAL) Platelet Estimate NORMAL (130-450,000) (NORMAL) Platelet Morphology NORMAL APPEARANCE (NORMAL) RBC Morph Micro Appear 1+ STOMATOCYTES (NORMAL) Sodium (135-145) mmol/L Potassium (3.5-5.0) mmol/L Chloride (101-111) mmol/L Carbon Dioxide (21-32) mmol/L Anion Gap (6-13) BUN (6-20) mg/dL Creatinine (0.6-1.2) mg/dL Estimated GFR (MDRD) (>89) Glucose (70-100) mg/dL Calcium (8.5-10.3) mg/dL Magnesium (1.7-2.8) mg/dL Vitamin B12 (180-914) pg/mL Folate (5.90 - >24.8) ng/mL Last Dose Date Last Dose Time Digoxin ng/mL ABX Reporting Has patient been on IV antibiotics over the past 48 hours?: Yes Sepsis Event Note (H) - Evaluation Current Stage of Sepsis: Sepsis Possible source of Sepsis: positive: Genitourinary Assessment/Plan - Problem List (1) Bacteremia due to Enterobacter species Impression: As per blood cx and urine culture. Labs were al, reviewed. His white blood count has increased ever since he was changed from IV antibiotics to p.o. Levaquin on 07/07. He is not on steroids to explain this increase in WBC. In addition, the Levaquin seems to be giving him nausea and emesis. So his Levaquin was changed to Bactrim DS and his first dose was 07/07 at 21:00. Because Trimethoprim can increase Digoxin levels, Dig dose was decreased by half and we are checking serum Dig levels daily, for the next 3 mornings No nausea or vomiting, tolerating Bactrim, as such I will keep him on Bactrim. Expert guidelines suggest avoiding third-generation cephalosporins as a ceftriaxone for the treatment of these organisms. There is a high risk of clinical failure. As such he was switched to a quinolone. In most cases the duration of therapy is 7 to 14 days. Today is day #8 of abx. In the uncomplicated cases you would defer to 7 days of treatment. But this patient is probably considered immunocompromised due to his alcohol abuse, and poor nutritional status and poor self-care status. So I feel a 14-day course is most likely recommended for him.This avoids beta-lactamase induction and remains a good option due to excellent bioavailability. But the patient developed nausea and vomiting with a quinolone. Bactrim has been used Instead of a quinolone for patients who developed Enterobacter infection from UTI and subsequent bacteremia, but the study quoted was too small to detect a difference in outcomes of those who received agents with low versus high bioavailability. Ceftriaxone was used July 01 through July 05. Levaquin was used July 06 and Bactrim starting at 9 PM July 07. July 05: WBC 11.4 July 06: WBC 14.7 July 07: WBC 14.8 Today: WBC 11.5 Laboratory Tests 07/03/22 07/08/22 04:25 04:38 Digoxin 0.5 0.6 Plan: Continue Bactrim until July 14. However of his white cell count goes back up, he develops a fever, he may need to go back to IV antibiotic therapy. (2) UTI (urinary tract infection) Conclusion/Plan: His urine culture also grew out Enterobacter. Sensitivities were reviewed, the empiric IV Rocephin was appropriate. Treatment is as above. Plan: We will change Levaquin to Bactrim DS 1 p.o. twice daily, based on sensitivities from the culture, and worsening WBC and Levaquin causing N./V Qualifiers: Urinary tract infection type: acute cystitis Hematuria presence: without hematuria Qualified Code(s): N30.00 - Acute cystitis without hematuria (3) Urinary retention He first had a [place] when in the ICU, when he was going through alcohol withdrawal. The [place] was removed July 05. 07/06 he had a post-void residual on bladder scan of 490 cc. Straight cath to be used prn was ordered. 07/07 there were 3 episodes of voiding very little amounts and straight caths have been used x3. He is already on tamsulosin 0.4 mg in the morning and finasteride in the evening. A [place] was reinserted July 07. Plan: Discharged with [place] catheter and see urology after discharge (4) Atrial fibrillation Conclusion/Plan: Resolved He was admitted to the ICU needing a Cardizem drip at 5 mg/hr due to Afib with RVR. The Cardizem drip is off and the heart rate is A-fib in the 80-100s 07/07. Since he was found on ground by family, and all work up negative for any bleeding, Eliquis was to be resumed, but he couldn't swallow. We obtained an Echocardiogram>> it showed normal LVEF of 55%, but Cor Pulmonale is present, likely from his heavy smoking Hx and COPD. From the Echo, his CHADS2 score = 0, therefore no anticoagulant is recommended, he can be on an aspirin daily for stroke prophylaxis. All labs were reviewed. His Dig level is not toxic. Plan: He is now back on his oral Dig, Cardizem and metoprolol and rate is controlled From his CHADS2 score, we ascertained that Eliquis is not necessary, he can be on an aspirin daily for stroke prophylaxis. (5) PSVT Patient presented in A-fib, presumably because he had not taken his dig, Cardizem and metoprolol. He needed med adjustment then converted to sinus rhythm He is on MedSurg on telemetry and he had a burst of PSVT at a very rapid rate of 178. Plan: He is back on his Dig, metoprolol & Cardizem doses and no further PSVT seen. (6) Alcohol abuse Conclusion/Plan: He does drink beer, the amount is unknown. When he was here in 2019, abstaining from alcohol was advised and he refused to do that saying it was one of his pleasures. Plan: Continue CIWA protocol, with Ativan iv prn anxiety, signs of withdrawl on CIWA protocol PT/OT to continue working with him. (7) COPD with mild exacerbation and continued Tobacco use While somnolent, he had a deep and very wet and productive cough at admission. Exam showed poor air movement, as in a COPDer. All labs were reviewed. On his BMP, he has an elevated bicarb, therefore he is likely a CO2 retainer. On today's exam he continues to have rhonchi, wheezing. He has a cough when he is excited and talking.On exam there is wheezing and rhonchi today. Chest CT on admission had mild posterior dependent atelectasis at the lung bases. No focal pulmonary contusions. As such no pneumonia. At home he does not use oxygen. Here he is on 1 L nasal cannula to maintain O2 sats to 92%. Plan: Continue a nicotine patch topically,Nicotine decreased from 21 mg to 40 mg on July 07. He should continue on 14 mg for 7 days and then he can go down to 7 mg for a week and then stop overall. Cont p.o. meds for pulmonary toilet Continue DuoNeb scheduled 4 times daily, and albuterol every 4 hours 2.5 as needed. Add Medrol Dosepak. Delay discharge until he is on room air. (8) Poor hygiene He was found on the ground of his house covered with feces. He lives in a trailer that has running water. Heat. But it does not have a toilet. He goes to an out house where he dumped his waist at that out house. Because of his illness, he may not have been able to leave the house to go to the bathroom. Plan: Currently seeing occupational therapy and working with them. They are working with him with regards to toileting needs and mobility (9) Hypotension Resolved with iv fluids This was probably multifactorial: From his sepsis, from dehydration and from his Afib with RVR Plan: Continue on IV fluids and will taper these down to off (10) Sepsis Impression: Resolved The source appears to be a UTI. All labs were reviewed. His repeat lactic acid n ormalized. His hypotension and AMS resolved, and elevated Bands of 7% on his CBC decreased. Plan: Cont IV fluids Cont antibx Qualifiers: Sepsis type: sepsis due to unspecified organism Sepsis acute organ dysfunction status: without acute organ dysfunction Qualified Code(s): A41.9 - Sepsis, unspecified organism (11) Alcohol withdrawal Assessment/Plan: Resolved He reportedly lives at home alone. His family checks on him daily. EMS said that the family reported he had increased confusion over the past 1 week and when they went to check on him, they found him on the ground, covered in feces. He was mostly asleep for 3 days here, then awoke, was oriented to self and i mproved daily, passed a swallow screen. The persistent AMS was likely from the sepsis, hypotension and from alcohol withdrawal, all of which are better. Plan: We will ask social work to see him to offer resources for abstinence from alcohol For now our plan is [place] [facility] for continued OT and PT. The delay today is due to his wheezing, needing oxygen for little bit more, and adjusting his antibiotics.
[2022-07-08] MEDS ORDERED: methylPREDNISolone 4 MG TABLET PO ONE ×2 (14:00→15:45)
[2022-07-08] MEDS: HYDROcod/ACETAM 10 MG/325 MG TABLET PO SCH (21:11)
[2022-07-08] MEDS: FINASTERIDE 5 MG TABLET PO SCH (21:11)
[2022-07-09] MEDS: SODIUM CHLORIDE FLUSH 0.9% 10 ML SYRINGE IVP SCH ×3 (01:40→17:27)
[2022-07-09] MEDS: ZINC OXIDE 20% OINT 30 GM TUBE TOP SCH ×2 (01:40→05:08)
[2022-07-09] MEDS: ACETAMINOPHEN 325 MG TABLET PO PRN ×2 (05:04→16:18)
[2022-07-09 05:41] LABS: DIGOXIN 0.5 ng/mL
[2022-07-09] MEDS: IPRATROPIUM/ALBUTEROL 3 ML NEB INH SCH ×4 (06:32→19:07)
[2022-07-09] MEDS: BUDESONIDE 0.5 MG/2 ML NEB INH SCH ×2 (06:32→19:07)
[2022-07-09] MEDS ORDERED: methylPREDNISolone 4 MG TABLET PO ONE (08:00)
[2022-07-09] MEDS: ethyl alcohoL 62% SWAB AMPULE NAS SCH ×2 (08:50→21:16)
[2022-07-09] MEDS: DIGOXIN 125 MCG TABLET PO SCH (08:50)
[2022-07-09] MEDS: PRENATAL VITAMIN TABLET PO SCH (08:50)
[2022-07-09] MEDS: SACCHAROMYCES BOULARDII 250 MG CAPSULE PO SCH ×2 (08:50→17:24)
[2022-07-09] MEDS: TAMSULOSIN 0.4 MG CAPSULE PO SCH (08:50)
[2022-07-09] MEDS: guaiFENesin 600 MG TABLET PO SCH ×2 (08:51→21:15)
[2022-07-09] MEDS: SENNA 8.6 MG TABLET PO SCH (08:51)
[2022-07-09] MEDS: DOCUSATE SODIUM 250 MG CAPSULE PO SCH (08:51)
[2022-07-09] MEDS: polyethylene glycoL 3350 17 GM PACKET PO SCH (08:52)
[2022-07-09] MEDS: METOPROLOL SUCCINATE 25 MG TABLET PO SCH ×2 (08:52→21:17)
[2022-07-09] MEDS: THIAMINE 100 MG TABLET PO SCH (08:52)
[2022-07-09] MEDS: NICOTINE 14 MG PATCH TOP SCH (08:52)
[2022-07-09] MEDS: SULFAMETH/TRIMETH DS 800/160 MG TABLET PO SCH ×2 (08:52→21:16)
[2022-07-09] MEDS: ASPIRIN CHEW 81 MG TABLET PO SCH (08:52)
[2022-07-09] MEDS: diltiaZEM CD 240 MG CAPSULE PO SCH ×2 (08:53→21:16)
[2022-07-09] MEDS: HYDROcod/ACETAM 10 MG/325 MG TABLET PO SCH ×2 (09:02→21:15)
[2022-07-09] MEDS: MAGNESIUM OXIDE 400 MG TABLET PO SCH (09:29)
[2022-07-09] MEDS: guaiFENesin/DEXTROMETHORPHAN 10 ML UDC PO PRN (11:04)
--- NOTE | 2022-07-09 14:03 | PROVIDER PROGRESS NOTE ---
Subjective - Prog Note Date Prog Note Date: 07/09/22 Prog Note Time: 13:53 - Subjective Pt reports feeling: No change Subjective: Continues to have intermittently good appetite. His stomach is queasy. Current Medications - Current Medications Current Medications: Active Medications Acetaminophen (Acetaminophen 325 Mg Tablet) 650 mg PO Q4HR PRN PRN Reason: Pain 1 to 4, or Fever Last Admin: 07/09/22 05:04 Dose: 650 mg Hydrocodone Bitart/Acetaminophen (Hydrocod/Acetam 10 Mg/325 Mg Tablet) 1 - 2 tab PO 0900,2100 [facility] Last Admin: 07/09/22 09:02 Dose: 2 tab Albuterol (Albuterol Neb 2.5 Mg/3 Ml) 2.5 mg INH Q4HR PRN PRN Reason: Wheezing Albuterol/Ipratropium (Ipratropium/Albuterol 3 Ml Neb) 3 ml INH RTQID [facility] Last Admin: 07/09/22 10:57 Dose: 3 ml Alcohol (Ethyl Alcohol 62% Swab Ampule) 1 amp IRVING BID [facility] Last Admin: 07/09/22 08:50 Dose: 1 amp Aspirin (Aspirin Chew 81 Mg Tablet) 81 mg PO DAILY [facility] Last Admin: 07/09/22 08:52 Dose: 81 mg Budesonide (Budesonide 0.5 Mg/2 Ml Neb) 0.5 mg INH RTBID [facility] Last Admin: 07/09/22 06:32 Dose: 0.5 mg Calcium Carbonate/Glycine (Calcium Carbonate Chew 500 Mg Tablet) 500 mg PO TID PRN PRN Reason: INDIGESTION Last Admin: 07/07/22 13:45 Dose: 500 mg Digoxin (Digoxin 125 Mcg Tablet) 62.5 mcg PO DAILY [facility] Last Admin: 07/09/22 08:50 Dose: 62.5 mcg Diltiazem HCl (Diltiazem Cd 240 Mg Capsule) 240 mg PO BID [facility] Last Admin: 07/09/22 08:53 Dose: 240 mg Docusate Sodium (Docusate Sodium 250 Mg Capsule) 250 - 500 mg PO DAILY [facility] Last Admin: 07/09/22 08:51 Dose: 250 mg Finasteride (Finasteride 5 Mg Tablet) 5 mg PO QPM [facility] Last Admin: 07/08/22 21:11 Dose: 5 mg Guaifenesin (Guaifenesin 600 Mg Tablet) 600 mg PO BID [facility] Last Admin: 07/09/22 08:51 Dose: 600 mg Guaifenesin (Guaifenesin/Dextromethorphan 10 Ml Udc) 10 ml PO Q6HR PRN PRN Reason: Cough Last Admin: 07/09/22 11:04 Dose: 10 ml Ipratropium Raven (Ipratropium 0.2 Mg/Ml Neb) 0.5 mg INH Q6HR PRN PRN Reason: Wheezing Magnesium Oxide (Magnesium Oxide 400 Mg Tablet) 400 mg PO DAILYWM [facility] Last Admin: 07/09/22 09:29 Dose: 400 mg Methylprednisolone (Methylprednisolone 4 Mg Tablet) 16 mg PO DAILYWM ONE Stop: 07/10/22 08:01 Methylprednisolone (Methylprednisolone 4 Mg Tablet) 12 mg PO DAILYWM ONE Stop: 07/11/22 08:01 Methylprednisolone (Methylprednisolone 4 Mg Tablet) 8 mg PO DAILYWM ONE Stop: 07/12/22 08:01 Methylprednisolone (Methylprednisolone 4 Mg Tablet) 4 mg PO DAILYWM ONE Stop: 07/13/22 08:01 Metoprolol Succinate (Metoprolol Succinate 25 Mg Tablet) 25 mg PO BID [facility] Last Admin: 07/09/22 08:52 Dose: 25 mg Multi-Ingredient Ointment (Zinc Oxide 20% Oint 30 Gm Tube) 1 applic TOP BID [facility] Last Admin: 07/09/22 05:08 Dose: 1 applic Nicotine (Nicotine 14 Mg Patch) 1 patch TOP DAILY [facility] Last Admin: 07/09/22 08:52 Dose: 1 patch Ondansetron HCl (Ondansetron 4 Mg/2 Ml Vial) 4 mg IVP Q6HR PRN PRN Reason: Nausea / Vomiting Last Admin: 07/08/22 18:51 Dose: 4 mg Polyethylene Glycol (Polyethylene Glycol 3350 17 Gm Packet) 17 gm PO DAILY [facility] Last Admin: 07/09/22 08:52 Dose: 17 gm Multivit/Folic Acid/Iron ( Vitamin Tablet) 1 tab PO DAILYWM [facility] Last Admin: 07/09/22 08:50 Dose: 1 tab Saccharomyces Boulardii (Saccharomyces Boulardii 250 Mg Capsule) 250 mg PO BIDWM [facility] Last Admin: 07/09/22 08:50 Dose: 250 mg Senna (Senna 8.6 Mg Tablet) 8.6 - 17.2 mg PO DAILY [facility] Last Admin: 07/09/22 08:51 Dose: 8.6 mg Sodium Chloride (Sodium Chloride Flush 0.9% 10 Ml Syringe) 10 ml IVP 0100,0900,1700 [facility] Last Admin: 07/09/22 09:11 Dose: 10 ml Sodium Chloride (Sodium Chloride Flush 0.9% 10 Ml Syringe) 10 ml IVP PRN PRN PRN Reason: NEEDED PER PROVIDER ORDERS Last Admin: 07/08/22 04:26 Dose: 10 ml Tamsulosin HCl (Tamsulosin 0.4 Mg Capsule) 0.4 mg PO DAILY [facility] Last Admin: 07/09/22 08:50 Dose: 0.4 mg Thiamine HCl (Thiamine 100 Mg Tablet) 100 mg PO DAILY [facility] Last Admin: 07/09/22 08:52 Dose: 100 mg Trimethoprim/Sulfamethoxazole (Sulfameth/Trimeth Ds 800/160 Mg Tablet) 1 tab PO BID [facility] Last Admin: 07/09/22 08:52 Dose: 1 tab Albuterol Sulfate [Proair Hfa Inhaler] 1 - 2 puffs PO Q4H PRN 11/03/17 Omeprazole 1 cap PO DAILY 04/29/22 Furosemide [Lasix] 20 mg PO DAILY 07/02/22 Hydrocodone/Acetaminophen [Hydrocodone-Acetamin 10-325 mg] 1 - 2 tab PO Q12H PRN 07/02/22 Potassium Chloride [Klor-Con 10] 10 meq PO DAILY 07/02/22 Objective - Vital Signs/Intake & Output Reviewed Vital Signs: Yes Vital Signs: Vital Signs x48h Temp Pulse Pulse Resp BP Pulse Ox O2 Flow Rate 07/09/22 12:24 36.3 C L 74 18 113/64 93 1 07/09/22 11:01 68 20 07/09/22 08:15 36.4 C L 69 20 120/68 92 1 07/09/22 06:32 68 22 2 Intake & Output: Intake & Output 07/06/22 07/07/22 07/08/22 07/09/22 23:59 23:59 23:59 23:59 Intake Total 900 1485 1700 470 Output Total 6605 2100 7107 925 Balance -1875 -615 -275 -455 - Objective General Appearance: positive: Alert, Other (Disheveled, longhaired, bearded elderly man who looks much older than stated age.) Eyes Bilateral: positive: PERRL, EOMI ENT: positive: Other (Acneiform eruption on his face. Gingivitis and dental caries.) Neck: positive: No JVD, Lymphadenopathy (R) (Shotty), Lymphadenopathy (L) (Shotty) Respiratory: positive: No respiratory distress, Rhonchi (Phlegmy breathing. He coughs and clears momentarily but then returns. He does have prolonged and exhalation phase but no outright wheezing) Cardiovascular: positive: Regular rate & rhythm Abdomen: positive: Non-tender, No organomegaly, Nml bowel sounds, No distention, Other (Last bowel movement July 07. [place] draining clear yellow urine.) Skin: positive: Warm, Dry Extremities: positive: Full ROM, Pedal edema (Ankles and feet) Neurologic/Psychiatric: positive: Oriented x3 (Vague on the date but he knows that is either May or June), CN's nml (2-12), Motor nml - Lab Results Fish Bones: 07/09/22 14:27 07/09/22 14:27 Other Labs: Lab Results x24hrs 07/09/22 Range/Units 05:03 Last Dose Date 07/08/22 Last Dose Time 0807 Digoxin 0.5 ng/mL ABX Reporting Has patient been on IV antibiotics over the past 48 hours?: Yes Sepsis Event Note (H) - Evaluation Current Stage of Sepsis: Sepsis Possible source of Sepsis: positive: Genitourinary Assessment/Plan - Problem List (1) Bacteremia due to Enterobacter species Impression: As per blood cx and urine culture. Labs were al, reviewed. His white blood count has increased ever since he was changed from IV antibiotics to p.o. Levaquin on 07/07. He is not on steroids to explain this increase in WBC. In addition, the Levaquin seems to be giving him nausea and emesis. So his Levaquin was changed to Bactrim DS and his first dose was 07/07 at 21:00. Because Trimethoprim can increase Digoxin levels, Dig dose was decreased by half and we are checking serum Dig levels daily, for the next 3 mornings No nausea or vomiting, tolerating Bactrim, as such I will keep him on Bactrim. Expert guidelines suggest avoiding third-generation cephalosporins as a ceftriaxone for the treatment of these organisms. There is a high risk of clinical failure. As such he was switched to a quinolone. In most cases the duration of therapy is 7 to 14 days. Today is day #9 of abx. In the uncomplica cherelle cases you would defer to 7 days of treatment. But this patient is probably considered immunocompromised due to his alcohol abuse, and poor nutritional status and poor self-care status. So I feel a 14-day course is most likely recommended for him.This avoids beta-lactamase induction and remains a good option due to excellent bioavailability. But the patient developed nausea and vomiting with a quinolone. Bactrim has been used Instead of a quinolone for patients who developed Enterobacter infection from UTI and subsequent bacteremia, but the study quoted was too small to detect a difference in outcomes of those who received agents with low versus high bioavailability. Ceftriaxone was used July 01 through July 05. Levaquin was used July 06 and Bactrim starting at 9 PM July 07. July 05: WBC 11.4 July 06: WBC 14.7 July 07: WBC 14.8 July 08: WBC 11.5 Today: WBC is 14.8 Laboratory Tests 07/03/22 07/08/22 04:25 04:38 Digoxin 0.5 0.6 Laboratory Tests 07/09/22 05:03 Digoxin 0.5 Plan: Continue Bactrim until July 14. However if his white cell count goes back up, he develops a fever, he may need to go back to IV antibiotic therapy. As of today, his white cell count is slightly higher than yesterday and as such I interpret this responding to therapy and I do not need to go back to IV antibiotic therapy yet since no fever. His digoxin level is not rising with the Bactrim. As such no drug interaction. No change in dig dosing needed (2) UTI (urinary tract infection) Conclusion/Plan: His urine culture also grew out Enterobacter. Sensitivities were reviewed, the empiric IV Rocephin was appropriate. Treatment is as above. Plan: I changed Levaquin to Bactrim DS 1 p.o. twice daily, based on sensitivities from the culture, and worsening WBC and Levaquin causing N./V. Day #2 of Bactrim but Day #9 for abx overall. Qualifiers: Urinary tract infection type: acute cystitis Hematuria presence: without hematuria Qualified Code(s): N30.00 - Acute cystitis without hematuria (3) Urinary retention He first had a Tijerina when in the ICU, when he was going through alcohol withdrawal. The Tijerina was removed July 05. 07/06 he had a post-void residual on bladder scan of 490 cc. Straight cath to be used prn was ordered. 07/07 there were 3 episodes of voiding very little amounts and straight caths have been used x3. He is already on tamsulosin 0.4 mg in the morning and finasteride in the evening. A Tijerina was reinserted July 07. Plan: Discharged with Tijerina catheter and see urology after discharge (4) Atrial fibrillation Conclusion/Plan: Resolved He was admitted to the ICU needing a Cardizem drip at 5 mg/hr due to Afib with RVR. The Cardizem drip is off and the heart rate is A-fib in the 80-100s 07/07. Since he was found on ground by family, and all work up negative for any bleeding, Eliquis was to be resumed, but he couldn't swallow. We obtained an Echocardiogram>> it showed normal LVEF of 55%, but Cor Pulmonale is present, likely from his heavy smoking Hx and COPD. From the Echo, his DC S2 score = 0, therefore no anticoagulant is recommended, he can be on an aspirin daily for stroke prophylaxis. All labs were reviewed. His Dig level is not toxic. Plan: He is now back on his oral Dig, Cardizem and metoprolol and rate is controlled From his CHADS2 score, we ascertained that Eliquis is not necessary, he can be on an aspirin daily for stroke prophylaxis. (5) PSVT Patient presented in A-fib, presumably because he had not taken his dig, Cardizem and metoprolol. He needed med adjustment then converted to sinus rhythm He is on MedSurg on telemetry and he had a burst of PSVT at a very rapid rate of 178. Plan: He is back on his Dig, metoprolol & Cardizem doses and no further PSVT seen. (6) Alcohol abuse with dementia Conclusion/Plan: He does drink beer, the amount is unknown. When he was here in 2019, abstaining from alcohol was advised and he refused to do that saying it was one of his pleasures. It is unclear whether his chronic alcohol abuse or aging has left him with dementia. But he has definite cognitive deficits. Poor judgment. Poor insight. Daughter states that he is very reclusive. When he is feeling better he just wants to stay in his house and drink beer. But it only repeats the cycle.We are currently trying I am currently trying to get him to work with physical therapy and Occupational Therapy to see if we could improve his mobility. With current deconditioning, gait ataxia, cognitive deficit, they are recommending nursing home facility for physical rehab. Plan: Stop Librium, stop Ativan. PT/OT to continue working with him. (7) COPD with mild exacerbation and continued Tobacco use While somnolent, he had a deep and very wet and productive cough at admission. Exam showed poor air movement, as in a COPDer. All labs were reviewed. On his BMP, he has an elevated bicarb, therefore he is likely a CO2 retainer. On today's exam he continues to have rhonchi, wheezing. He has a cough when he is excited and talking.On exam there is wheezing and rh onchi today. Chest CT on admission had mild posterior dependent atelectasis at the lung bases. No focal pulmonary contusions. As such no pneumonia. At home he does not use oxygen. Here he is on 1 L nasal cannula to maintain O2 sats to 92%. He has been down to 1 liter for 2 days. Plan: Continue a nicotine patch topically,Nicotine decreased from 21 mg to 14 mg on July 07. He should continue on 14 mg for 7 days and then he can go down to 7 mg for a week and then stop overall. Cont p.o. meds for pulmonary toilet Continue DuoNeb scheduled 4 times daily, and albuterol every 4 hours 2.5 as nee ded. Add Medrol Dosepak. Delay discharge until he is on room air. (8) Poor hygiene He was found on the ground of his house covered with feces. He lives in a trailer that has running water. Heat. But it does not have a toilet. He goes to an out house where he dumped his waist at that out house. Because of his illness, he may not have been able to leave the house to go to the bathroom. Plan: Currently seeing occupational therapy and working with them. They are working with him with regards to toileting needs and mobility (9) Hypotension Resolved with iv fluids This was probably multifactorial: From his sepsis, from dehydration and from his Afib with RVR Plan: Continue on IV fluids and will taper these down to off (10) Sepsis resolved Impression: Resolved The source appears to be a UTI. All labs were reviewed. His repeat lactic acid normalized. His hypotension and AMS resolved, and elevated Bands of 7% on his CBC decreased. Plan: Cont IV fluids Cont antibx Qualifiers: Sepsis type: sepsis due to unspecified organism Sepsis acute organ dysfunction status: without acute organ dysfunction Qualified Code(s): A41.9 - Sepsis, unspecified organism (11) Alcohol withdrawal Assessment/Plan: Resolved He reportedly lives at home alone. His family checks on him daily. EMS said that the family reported he had increased confusion over the past 1 week and when they went to check on him, they found him on the ground, covered in feces. He was mostly asleep for 3 days here, then awoke, was oriented to self and improved daily, passed a swallow screen. The persistent AMS was likely from the sepsis, hypotension and from alcohol withdrawal, all of which are better. Plan: social work to see him to offer resources for abstinence from alcohol once his sensorium is baseline For now our plan is discharged to a nursing home facility for continued OT and PT. The delay today is due to his wheezing, needing oxygen for little bit more, and adjusting his antibiotics.
[2022-07-09 14:32] LABS: BASOPHILS % (AUTO) 0.1 %; HGB - HEMOGLOBIN 9.1 g/dL (14.0-18.0); LYMPHOCYTES # (AUTO) 0.7 10^3/uL (1.5-3.5); LYMPHOCYTES % (AUTO) 4.7 %; MEAN CORPUSCULAR HEMOGLOBIN 34.6 pg (27.0-31.0); MEAN CORPUSCULAR HGB CONC 31.4 g/dL (32.0-36.0); MEAN CORPUSCULAR VOLUME 110.3 fL (80.0-94.0); MEAN PLATELET VOLUME 9.7 fL (7.4-11.4); MONOCYTES # (AUTO) 0.4 10^3/uL (0.0-1.0); MONOCYTES % (AUTO) 2.6 %; NEUTROPHILS # (AUTO) 12.8 10^3/uL (1.5-6.6); NEUTROPHILS % (AUTO) 86.5 %; PLT - PLATELET COUNT 340 10^3/uL (130-450); RED BLOOD COUNT 2.63 10^6/uL (4.70-6.10); RED CELL DISTRIBUTION WIDTH 13.7 % (12.0-15.0); WHITE BLOOD COUNT 14.8 x10^3/uL (4.8-10.8)
[2022-07-09 14:42] LABS: CALCIUM 8.4 mg/dL (8.5-10.3); CREATININE 0.8 mg/dL (0.6-1.2); POTASSIUM 4.7 mmol/L (3.5-5.0)
[2022-07-09] MEDS: ONDANSETRON 4 MG/2 ML VIAL IVP PRN (17:27)
[2022-07-09] MEDS ORDERED: DOXYCYCLINE 100 MG TABLET PO SCH (21:00)
[2022-07-09] MEDS: FINASTERIDE 5 MG TABLET PO SCH (21:15)
[2022-07-10] MEDS: SODIUM CHLORIDE FLUSH 0.9% 10 ML SYRINGE IVP SCH ×3 (01:55→17:11)
[2022-07-10 05:11] LABS: BASOPHILS % (AUTO) 0.1 %; EOSINOPHILS % (AUTO) 0.1 %; HCT - HEMATOCRIT 27.1 % (42.0-52.0); HGB - HEMOGLOBIN 8.4 g/dL (14.0-18.0); LYMPHOCYTES % (AUTO) 9.7 %; MEAN CORPUSCULAR HEMOGLOBIN 34.1 pg (27.0-31.0); MEAN CORPUSCULAR VOLUME 110.2 fL (80.0-94.0); MEAN PLATELET VOLUME 9.9 fL (7.4-11.4); MONOCYTES % (AUTO) 5.5 %; NEUTROPHILS % (AUTO) 79.6 %; PLT - PLATELET COUNT 350 10^3/uL (130-450); RED BLOOD COUNT 2.46 10^6/uL (4.70-6.10); RED CELL DISTRIBUTION WIDTH 14.1 % (12.0-15.0); WHITE BLOOD COUNT 14.5 x10^3/uL (4.8-10.8)
[2022-07-10 05:16] LABS: ABNORMAL LYMPHS % (MANUAL) 0 %
[2022-07-10 05:29] LABS: DIGOXIN 0.5 ng/mL
[2022-07-10 05:30] LABS: BUN - BLOOD UREA NITROGEN 14 mg/dL (6-20); CALCIUM 8.1 mg/dL (8.5-10.3); CARBON DIOXIDE - CO2 36 mmol/L (21-32); CHLORIDE 95 mmol/L (101-111); CREATININE 0.7 mg/dL (0.6-1.2); GFR - MDRD 111 (>89); GLUCOSE 125 mg/dL (70-100); POTASSIUM 4.6 mmol/L (3.5-5.0); SODIUM 136 mmol/L (135-145)
[2022-07-10 05:40] LABS: BAND NEUTROPHILS % (MANUAL) 2 %; LYMPHOCYTES # (MANUAL) 1.9 10^3/uL (1.5-3.5); LYMPHOCYTES % (MANUAL) 13 %; METAMYELOCYTES % (MANUAL) 1 %; MONOCYTES # (MANUAL) 0.7 10^3/uL (0.0-1.0); MYELOCYTES % (MANUAL) 4 %; NEUTROPHILS # (MANUAL) 11.2 10^3/uL (1.5-6.6)
[2022-07-10 05:41] LABS: DIFFERENTIAL COMMENT MANUAL DIFFERENTIAL; PLATELET ESTIMATE, MANUAL NORMAL (130-450,000) (NORMAL); PLATELET MORPHOLOGY NORMAL APPEARANCE (NORMAL); WBC MORPHOLOGY (MULTIPLE) NORMAL APPEARANCE (NORMAL)
[2022-07-10] MEDS: BUDESONIDE 0.5 MG/2 ML NEB INH SCH ×2 (07:05→18:03)
[2022-07-10] MEDS: IPRATROPIUM/ALBUTEROL 3 ML NEB INH SCH ×4 (07:05→18:03)
[2022-07-10] MEDS ORDERED: methylPREDNISolone 4 MG TABLET PO ONE (08:00)
[2022-07-10] MEDS: ONDANSETRON 4 MG/2 ML VIAL IVP PRN (08:29)
[2022-07-10] MEDS: polyethylene glycoL 3350 17 GM PACKET PO SCH (09:10)
[2022-07-10] MEDS: ethyl alcohoL 62% SWAB AMPULE NAS SCH ×2 (09:11→20:30)
[2022-07-10] MEDS: NICOTINE 14 MG PATCH TOP SCH (09:11)
[2022-07-10] MEDS: guaiFENesin 600 MG TABLET PO SCH ×2 (09:13→20:29)
[2022-07-10] MEDS: SULFAMETH/TRIMETH DS 800/160 MG TABLET PO SCH ×2 (09:14→20:29)
[2022-07-10] MEDS: TAMSULOSIN 0.4 MG CAPSULE PO SCH (09:16)
[2022-07-10] MEDS: diltiaZEM CD 240 MG CAPSULE PO SCH ×2 (09:16→20:29)
[2022-07-10] MEDS: METOPROLOL SUCCINATE 25 MG TABLET PO SCH ×2 (09:16→20:29)
[2022-07-10] MEDS: PRENATAL VITAMIN TABLET PO SCH (09:16)
[2022-07-10] MEDS: DOCUSATE SODIUM 250 MG CAPSULE PO SCH (09:17)
[2022-07-10] MEDS: SACCHAROMYCES BOULARDII 250 MG CAPSULE PO SCH ×2 (09:17→16:54)
[2022-07-10] MEDS: DIGOXIN 125 MCG TABLET PO SCH (09:24)
[2022-07-10] MEDS: HYDROcod/ACETAM 10 MG/325 MG TABLET PO SCH ×2 (09:27→20:30)
[2022-07-10] MEDS: SENNA 8.6 MG TABLET PO SCH (09:29)
[2022-07-10] MEDS: ASPIRIN CHEW 81 MG TABLET PO SCH (09:29)
[2022-07-10] MEDS: MAGNESIUM OXIDE 400 MG TABLET PO SCH (09:30)
[2022-07-10] MEDS: THIAMINE 100 MG TABLET PO SCH (09:31)
[2022-07-10] MEDS: ZINC OXIDE 20% OINT 30 GM TUBE TOP SCH ×2 (09:32→20:31)
--- NOTE | 2022-07-10 10:40 | XRAY Report ---
PROCEDURE: Chest 1 View X-Ray INDICATIONS: Hypoxia TECHNIQUE: One view of the chest was acquired. COMPARISON: Chest CT with, 07/01/2022. FINDINGS: Surgical changes and devices: None. Lungs and pleura: There is diffuse interstitial prominence. No focal dilatation. Possible small righ t pleural effusion. No pneumothorax. Mediastinum: Mediastinal contours appear normal. Heart size is mildly increased. Bones and chest wall: No suspicious bony lesions. Overlying soft tissues appear unremarkable. IMPRESSION: 1. Diffuse interstitial prominence. 2. Possible small right effusion. Reviewed by: Myles Ruiz MD on 07/10/2022 10:39 AM PDT Approved by: Myles Ruiz MD on 07/10/2022 10:39 AM PDT Station ID: [id number]
[2022-07-10] MEDS: CALCIUM CARBONATE CHEW 500 MG TABLET PO PRN (11:15)
[2022-07-10] MEDS: ACETAMINOPHEN 325 MG TABLET PO PRN (15:43)
--- NOTE | 2022-07-10 15:46 | PROVIDER PROGRESS NOTE ---
Assessment/Plan - Problem List (1) Bacteremia due to Enterobacter species Assessment/Plan: As per blood cx Labs were al, reviewed. WBC stable Previous leukocytosis may have been partly related to steroid use in addition to the bacteremia Blood cultures now negative x2 days Continue PO Bactrim (2) COPD exacerbation Assessment/Plan: Improving Lung exam many coarse breath sounds CXR shows diffuse interstitial prominence, etiology uncertain Monitor labs, vitals, and if worsened, could consider 2nd abx Otherwise, cont steroid taper (3) Urinary retention Assessment/Plan: He first had a [place] when in the ICU, when he was going through alcohol withdrawal. The [place] was removed 2 days ago. Yesterday 07/06 he had a post-void residual on bladder scan of 490 cc. Straight cath to be used prn was ordered Today there have been 3 episodes of voiding very little amounts and straight caths have been used x3 already today. Plan: Continue the new tamsulosin in the a.m. and finasteride in the p.m. Will order [place] to be reinserted and he will have to be Dch with a Tijer[place] and needs Urol management after discharge (4) UTI (urinary tract infection) Qualifiers: Urinary tract infection type: acute cystitis Hematuria presence: without hematuria Qualified Code(s): N30.00 - Acute cystitis without hematuria Assessment/Plan: Cont bactrim (5) Afib Qualifiers: Atrial fibrillation type: paroxysmal Qualified Code(s): I48.0 - Paroxysmal atrial fibrillation Assessment/Plan: Resolved He was admitted to the ICU needing a Cardizem drip at 5 mg/hr due to Afib with RVR. The Cardizem drip is off and the heart rate is A-fib in the 80-100s today. Since he was found on ground by family, and all work up negative for any bleeding, Eliquis was to be resumed, but he cannot swallow. We obtained an Echocardiogram>> it showed normal LVEF of 55%, but Cor Pulmonale is present, likely from his heavy smoking Hx and COPD. From the Echo, his CHADS2 score = 0, therefore no anticoagulant is recommended, he can be on an aspirin daily for stroke prophylaxis. All labs were reviewed. His Dig level is not toxic. Plan: He is now back on his oral Dig, Cardizem and metoprolol and rate is controlled From his CHADS2 score, we ascertained that Eliquis is not necessary, he can be on an aspirin daily for stroke prophylaxis. (6) Alcohol abuse Assessment/Plan: Pt no interested in quitting, despite repeated counseling to quit (7) Tobacco use Assessment/Plan: Nicotine patch - Current Meds Current Meds: Current Medications Generic Name Dose Route Start Last Admin Trade Name Freq PRN Reason Stop Dose Admin Acetaminophen 650 mg 07/01/22 19:16 07/09/22 16:18 Acetaminophen 325 Mg Tablet PO 650 mg Q4HR PRN Administration Pain 1 to 4, or Fever Albuterol/Ipratropium 3 ml 07/02/22 07:00 07/10/22 14:20 Ipratropium/Albuterol 3 Ml Neb INH 3 ml RTQID STACEY Administration Alcohol 1 amp 07/02/22 21:00 07/10/22 09:11 Ethyl Alcohol 62% Swab Ampule [place] 1 amp BID STACEY Administration Aspirin 81 mg 07/03/22 12:00 07/10/22 09:29 Aspirin Chew 81 Mg Tablet PO 81 mg DAILY STACEY Administration Budesonide 0.5 mg 07/02/22 07:00 07/10/22 07:05 Budesonide 0.5 Mg/2 Ml Neb INH 0.5 mg RTBID STACEY Administration Calcium Carbonate/Glycine 500 mg 07/07/22 11:15 07/10/22 11:15 Calcium Carbonate Chew 500 Mg Tablet PO 500 mg TID PRN Administration INDIGESTION Digoxin 62.5 mcg 07/08/22 09:00 07/10/22 09:24 Digoxin 125 Mcg Tablet PO 62.5 mcg DAILY STACEY Administration Diltiazem HCl 240 mg 07/06/22 09:16 07/10/22 09:16 Diltiazem Cd 240 Mg Capsule PO 240 mg BID STACEY Administration Docusate Sodium 250 - 500 mg 07/06/22 21:00 07/10/22 09:17 Docusate Sodium 250 Mg Capsule PO 250 mg DAILY STACEY Administration Finasteride 5 mg 07/06/22 21:00 07/09/22 21:15 Finasteride 5 Mg Tablet PO 5 mg QPM STACEY Administration Guaifenesin 600 mg 07/03/22 09:00 07/10/22 09:13 Guaifenesin 600 Mg Tablet PO 600 mg BID STACEY Administration Guaifenesin 10 ml 07/03/22 07:47 07/09/22 11:04 Guaifenesin/Dextromethorphan 10 Ml Udc PO 10 ml Q6HR PRN Administration Cough Magnesium Oxide 400 mg 07/09/22 09:00 07/10/22 09:30 Magnesium Oxide 400 Mg Tablet PO 400 mg DAILYWM STACEY Administration Metoprolol Succinate 25 mg 07/03/22 21:00 07/10/22 09:16 Metoprolol Succinate 25 Mg Tablet PO 25 mg BID STACEY Administration Multi-Ingredient Ointment 1 applic 07/03/22 21:00 07/10/22 09:32 Zinc Oxide 20% Oint 30 Gm Tube TOP 1 applic BID STACEY Administration Nicotine 1 patch 07/07/22 09:00 07/10/22 09:11 Nicotine 14 Mg Patch TOP 1 patch DAILY STACEY Administration Ondansetron HCl 4 mg 07/01/22 19:16 07/10/22 08:29 Ondansetron 4 Mg/2 Ml Vial IVP 4 mg Q6HR PRN Administration Nausea / Vomiting Polyethylene Glycol 17 gm 07/07/22 09:00 07/10/22 09:10 Polyethylene Glycol 3350 17 Gm Packet PO 17 gm DAILY STACEY Administration Multivit/Folic Acid/Iron 1 tab 07/03/22 08:00 07/10/22 09:16 Vitamin Tablet PO 1 tab DAILYWM STACEY Administration Saccharomyces Boulardii 250 mg 07/07/22 09:00 07/10/22 09:17 Saccharomyces Boulardii 250 Mg Capsule PO 250 mg BIDWM STACEY Administration Senna 8.6 - 17.2 mg 07/06/22 21:00 07/10/22 09:29 Senna 8.6 Mg Tablet PO 8.6 mg DAILY STACEY Administration Sodium Chloride 10 ml 07/02/22 01:00 07/10/22 08:29 Sodium Chloride Flush 0.9% 10 Ml Syringe IVP 10 ml 0100,0900,1700 STACEY Administration Sodium Chloride 10 ml 07/01/22 19:16 07/08/22 04:26 Sodium Chloride Flush 0.9% 10 Ml Syringe IVP 10 ml PRN PRN Administration NEEDED PER PROVIDER ORDERS Tamsulosin HCl 0.4 mg 07/07/22 09:00 07/10/22 09:16 Tamsulosin 0.4 Mg Capsule PO 0.4 mg DAILY STACEY Administration Thiamine HCl 100 mg 07/03/22 09:00 07/10/22 09:31 Thiamine 100 Mg Tablet PO 100 mg DAILY STACEY Administration Trimethoprim/Sulfamethoxazole 1 tab 07/07/22 21:00 07/10/22 09:14 Sulfameth/Trimeth Ds 800/160 Mg Tablet PO 1 tab BID STACEY Administration - Lab Result Fish Bone Diagrams: 07/10/22 04:29 07/10/22 04:29 - Additional Planning My Orders: My Active Orders 07/10/22 COVID-19 [facility] Routine 07/10/22 21:00 HYDROcodone/ACET 10/325 [[place] 10 mg/325 mg] 2 tab PO 0900,2100 Plan Discussed with:: Patient Subjective - Subjective Patient Reports: Feeling Better Objective Vital Signs: Vital Signs - 24 hr 07/09/22 07/09/22 07/09/22 15:45 16:00 16:03 Temperature 36.4 C L Heart Rate 67 Heart Rate [ 75 Brachial] Respiratory 16 22 Rate Blood Pressure 118/68 [Right Brachial artery] O2 Saturation 94 If not protocol 1 1 : Oxygen Flow, liters/minute 07/09/22 07/09/22 07/10/22 19:05 20:28 00:11 Temperature 36.7 C 36.7 C Heart Rate 78 Heart Rate [ 84 74 Brachial] Respiratory 18 18 18 Rate Blood Pressure 113/62 107/58 L [Right Brachial artery] O2 Saturation 93 94 If not protocol 1 1 1 : Oxygen Flow, liters/minute 07/10/22 07/10/22 07/10/22 04:32 07:09 08:17 Temperature 36.7 C 36.6 C Heart Rate 95 Heart Rate [ 67 75 Brachial] Respiratory 18 19 20 Rate Blood Pressure 116/67 138/70 H [Right Brachial artery] O2 Saturation 95 95 If not protocol 1 1 1 : Oxygen Flow, liters/minute 07/10/22 07/10/22 07/10/22 10:45 12:16 14:20 Temperature 36.5 C Heart Rate 79 75 Heart Rate [ 65 Brachial] Respiratory 18 18 19 Rate Blood Pressure 102/55 L [Right Brachial artery] O2 Saturation 95 If not protocol 1 2 2 : Oxygen Flow, liters/minute Oxygen O2 Source [With Activity] Nasal cannula O2 Source Nasal cannula Oxygen Flow Rate 3 I&O (Last 24 Hrs): Intake and Output Totals x24h 07/08/22 07/09/22 07/10/22 23:59 23:59 23:59 Intake Total 1700 1540 370 Output Total 1974 1610 5 Balance -275 310 -997 General: Oriented x3, Cooperative HEENT: Atraumatic, EOMI Neuro: Alert, CN 2-12 Grossly Intact Cardiovascular: Regular rate, Normal S1, Normal S2 Respiratory: Rhonchi, Other (coarse breathsounds bilaterally) Extremities: No edema - Results Results: Laboratory Results WBC 14.5 x10^3/uL (4.8-10.8) H 07/10/22 04:29 RBC 2.46 10^6/uL (4.70-6.10) L 07/10/22 04:29 Hgb 8.4 g/dL (14.0-18.0) L 07/10/22 04:29 Hct 27.1 % (42.0-52.0) L 07/10/22 04:29 MCV 110.2 fL (80.0-94.0) H 07/10/22 04:29 MCH 34.1 pg (27.0-31.0) H 07/10/22 04:29 MCHC 31.0 g/dL (32.0-36.0) L 07/10/22 04:29 RDW 14.1 % (12.0-15.0) 07/10/22 04:29 Plt Count 350 10^3/uL (130-450) 07/10/22 04:29 MPV 9.9 fL (7.4-11.4) 07/10/22 04:29 Neut # (Auto) Not Reportable 07/10/22 04:29 Lymph # (Auto) Not Reportable 07/10/22 04:29 [place] # (Auto) Not Reportable 07/10/22 04:29 Eos # (Auto) Not Reportable 07/10/22 04:29 Baso # (Auto) Not Reportable 07/10/22 04:29 Absolute Nucleated RBC Not Reportable 07/10/22 04:29 Total Counted 100 07/10/22 04:29 Band Neuts % (Manual) 2 % (0-10) 07/10/22 04:29 Abnorm Lymph % (Manual) 0 % 07/10/22 04:29 Metamyelocytes % 1 % (-0) H 07/10/22 04: Myelocytes % 4 % (-0) H 07/10/22 04: Nucleated RBC % Not Reportable 07/10/22 04:29 Neutrophils # (Manual) 11.2 10^3/uL (1.5-6.6) H 07/10/22 04:29 Lymphocytes # (Manual) 1.9 10^3/uL (1.5-3.5) 07/10/22 04: Monocytes # (Manual) 0.7 10^3/uL (0.0-1.0) 07/10/22 04: Eosinophils # (Manual) 0.0 10^3/uL (0-0.7) 07/10/22 04: Basophils # (Manual) 0.0 10^3/uL (0-0.1) 07/10/22 04: Differential Comment MANUAL DIFFERENTIAL 07/10/22 04: Manual Slide Review Indicated 07/05/22 05:20 WBC Morphology NORMAL APPEARANCE (NORMAL) 07/10/22 04: Platelet Estimate NORMAL (130-450,000) (NORMAL) 07/10/22 04: Platelet Morphology NORMAL APPEARANCE (NORMAL) 07/10/22 04:29 RBC Morph Micro Appear 2+ MACROCYTOSIS (NORMAL) 1+ STOMATOCYTES (NORMAL) 07/10/22 04: RBC Morph Micro Appear 2+ MACROCYTOSIS (NORMAL) 1+ STOMATOCYTES (NORMAL) 07/10/22 04:29 VBG pH 7.490 (7.31-7.41) H 07/04/22 15:20 Ionized Calcium 1.08 mmol/L (1.15-1.33) L 07/04/22 15:20 Sodium 136 mmol/L (135-145) 07/10/22 04:29 Potassium 4.6 mmol/L (3.5-5.0) 07/10/22 04: Chloride 95 mmol/L (101-111) L 07/10/22 04: Carbon Dioxide 36 mmol/L (21-32) H 07/10/22 04:29 Anion Gap 5.0 (6-13) L 07/10/22 04: BUN 14 mg/dL (6-20) 07/10/22 04:29 Creatinine 0.7 mg/dL (0.6-1.2) 07/10/22 04:29 Estimated GFR (MDRD) 111 (>89) 07/10/22 04:29 Glucose 125 mg/dL (70-100) H 07/10/22 04:29 Lactic Acid 0.9 mmol/L (0.5-2.2) 07/02/22 04:13 Calcium 8.1 mg/dL (8.5-10.3) L 07/10/22 04:29 Phosphorus 2.5 mg/dL (2.5-4.6) 07/03/22 04:25 Magnesium 1.6 mg/dL (1.7-2.8) L 07/08/22 04:38 Total Bilirubin 0.3 mg/dL (0.2-1.0) 07/06/22 05:20 AST 22 IU/L (10-42) 07/06/22 05:20 ALT 20 IU/L (10-60) 07/06/22 05:20 Alkaline Phosphatase 83 IU/L (42-121) 07/06/22 05:20 Ammonia 29.0 umol/L (7-35) 07/05/22 09:34 Total Creatine Kinase 308 IU/L (22-269) H 07/01/22 15:53 Troponin I High Sens 50.3 ng/L (2.3-19.7) H* 07/01/22 19:25 Total Protein 5.1 g/dL (6.7-8.2) L 07/06/22 05:20 Albumin 2.2 g/dL (3.2-5.5) L 07/06/22 05:20 Globulin 2.9 g/dL (2.1-4.2) 07/06/22 05:20 Albumin/Globulin Ratio 0.8 (1.0-2.2) L 07/06/22 05:20 Lipase 22 U/L (22-51) 07/01/22 15:53 Vitamin B12 398 pg/mL (180-914) 07/08/22 04:38 Folate 8.86 ng/mL (5.90 - >24.8) 07/08/22 04:38 TSH 0.73 uIU/mL (0.34-5.60) 07/01/22 15:53 Urine Color YELLOW 07/01/22 16:13 Urine Clarity HAZY (CLEAR) 07/01/22 16:13 Urine pH 7.0 PH (5.0-7.5) 07/01/22 16:13 Ur Specific [place] 1.010 (1.002-1.030) 07/01/22 16:13 Urine Protein 100 mg/dL (NEGATIVE) H 07/01/22 16:13 Urine Glucose (UA) NEGATIVE mg/dL (NEGATIVE) 07/01/22 16:13 Urine Ketones NEGATIVE mg/dL (NEGATIVE) 07/01/22 16:13 Urine Occult Blood LARGE (NEGATIVE) H 07/01/22 16:13 Urine Nitrite NEGATIVE (NEGATIVE) 07/01/22 16:13 Urine Bilirubin NEGATIVE (NEGATIVE) 07/01/22 16:13 Urine Urobilinogen 1 (NORMAL) E.U./dL (NORMAL) 07/01/22 16:13 Ur Leukocyte Esterase LARGE (NEGATIVE) H 07/01/22 16:13 Urine RBC 11-25 /HPF (0-5) H 07/01/22 16:13 Urine WBC >25 /HPF (0-3) H 07/01/22 16:13 Urine WBC Clumps PRESENT 07/01/22 16:13 Ur Squamous Epith Cells NONE SEEN (<= Few) 07/01/22 16:13 Urine Bacteria Many /HPF (None Seen) H 07/01/22 16:13 Ur Microscopic Review INDICATED 07/01/22 16:13 Urine Culture Comments INDICATED 07/01/22 16:13 Nasal Adenovirus (PCR) NOT DETECTED 07/01/22 16:13 Nasal B. parapertussis DNA (PCR) NOT DETECTED 07/01/22 16:13 Nasal Coronavir 229E PCR NOT DETECTED 07/01/22 16:13 Nasal Coronavir HKU1 PCR NOT DETECTED 07/01/22 16:13 Nasal Coronavir NL63 PCR NOT DETECTED 07/01/22 16:13 Nasal Coronavir OC43 PCR NOT DETECTED 07/01/22 16:13 Nasal Enterovir/Rhinovir PCR NOT DETECTED 07/01/22 16:13 Nasal Influenza B PCR NOT DETECTED 07/01/22 16:13 Nasal Influenza A PCR NOT DETECTED 07/01/22 16:13 Nasal Parainfluen 1 PCR NOT DETECTED 07/01/22 16:13 Nasal Parainfluen 2 PCR NOT DETECTED 07/01/22 16:13 Nasal Parainfluen 3 PCR NOT DETECTED 07/01/22 16:13 Nasal Parainfluen 4 PCR NOT DETECTED 07/01/22 16:13 Nasal RSV (PCR) NOT DETECTED 07/01/22 16:13 Nasal Screen MRSA (PCR) POSITIVE (NEGATIVE) A* 07/01/22 20:19 Nasal B.pertussis DNA PCR NOT DETECTED 07/01/22 16:13 Nasal C.pneumoniae (PCR) NOT DETECTED 07/01/22 16:13 [place] Human Metapneumo PCR NOT DETECTED 07/01/22 16:13 Nasal M.pneumoniae (PCR) NOT DETECTED 07/01/22 16:13 Nasal SARS-CoV-2 (PCR) NOT DETECTED 07/01/22 16:13 Last Dose Date 07/09/22 07/10/22 04:29 Last Dose Time 0850 07/10/22 04:29 Digoxin 0.5 ng/mL 07/10/22 04:29 Salicylates < 6.0 mg/dL 07/01/22 15:53 Urine Opiates Screen POSITIVE (NEGATIVE) H 07/01/22 16:13 Ur Oxycodone Screen NEGATIVE (NEGATIVE) 07/01/22 16:13 Urine Methadone Screen NEGATIVE (NEGATIVE) 07/01/22 16:13 Ur Propoxyphene Screen NEGATIVE (NEGATIVE) 07/01/22 16:13 Acetaminophen < 10 ug/mL (10-30) L 07/01/22 15:53 Ur Barbiturates Screen NEGATIVE (NEGATIVE) 07/01/22 16:13 Ur Tricyclics Screen NEGATIVE (NEGATIVE) 07/01/22 16:13 Ur Phencyclidine Scrn NEGATIVE (NEGATIVE) 07/01/22 16:13 Ur Amphetamine Screen NEGATIVE (NEGATIVE) 07/01/22 16:13 U Methamphetamines Scrn NEGATIVE (NEGATIVE) 07/01/22 16:13 U Benzodiazepines Scrn NEGATIVE (NEGATIVE) 07/01/22 16:13 Urine Cocaine Screen NEGATIVE (NEGATIVE) 07/01/22 16:13 U Cannabinoids Screen NEGATIVE (NEGATIVE) 07/01/22 16:13 Ethyl Alcohol < 5.0 mg/dL 07/01/22 15:53 - Procedures Procedures: Procedures EXCISION OF L LOW ARM SUBCU/FASCIA, OPEN APPROACH (11/03/17) OTH CHEST CAGE OSTECTOMY (09/03/12) ROTATOR CUFF REPAIR (07/12/13) Sepsis Event Note (H) - Evaluation Current Stage of Sepsis: Sepsis Possible source of Sepsis: positive: Genitourinary ABX Reporting Has patient been on IV antibiotics over the past 48 hours?: No Current Medications - Current Medications Current Medications: Active Medications Acetaminophen (Acetaminophen 325 Mg Tablet) 650 mg PO Q4HR PRN PRN Reason: Pain 1 to 4, or Fever Last Admin: 07/10/22 15:43 Dose: 650 mg Hydrocodone Bitart/Acetaminophen (Hydrocod/Acetam 10 Mg/325 Mg Tablet) 2 tab PO 0900,2100 [facility] Albuterol (Albuterol Neb 2.5 Mg/3 Ml) 2.5 mg INH Q4HR PRN PRN Reason: Wheezing Albuterol/Ipratropium (Ipratropium/Albuterol 3 Ml Neb) 3 ml INH RTQID [facility] Last Admin: 07/10/22 14:20 Dose: 3 ml Alcohol (Ethyl Alcohol 62% Swab Ampule) 1 amp [place] BID [facility] Last Admin: 07/10/22 09:11 Dose: 1 amp Aspirin (Aspirin Chew 81 Mg Tablet) 81 mg PO DAILY [facility] Last Admin: 07/10/22 09:29 Dose: 81 mg Budesonide (Budesonide 0.5 Mg/2 Ml Neb) 0.5 mg INH RTBID [facility] Last Admin: 07/10/22 07:05 Dose: 0.5 mg Calcium Carbonate/Glycine (Calcium Carbonate Chew 500 Mg Tablet) 500 mg PO TID PRN PRN Reason: INDIGESTION Last Admin: 07/10/22 11:15 Dose: 500 mg Digoxin (Digoxin 125 Mcg Tablet) 62.5 mcg PO DAILY [facility] Last Admin: 07/10/22 09:24 Dose: 62.5 mcg Diltiazem HCl (Diltiazem Cd 240 Mg Capsule) 240 mg PO BID [facility] Last Admin: 07/10/22 09:16 Dose: 240 mg Docusate Sodium (Docusate Sodium 250 Mg Capsule) 250 - 500 mg PO DAILY [facility] Last Admin: 07/10/22 09:17 Dose: 250 mg Finasteride (Finasteride 5 Mg Tablet) 5 mg PO QPM [facility] Last Admin: 07/09/22 21:15 Dose: 5 mg Guaifenesin (Guaifenesin 600 Mg Tablet) 600 mg PO BID [facility] Last Admin: 07/10/22 09:13 Dose: 600 mg Guaifenesin (Guaifenesin/Dextromethorphan 10 Ml Udc) 10 ml PO Q6HR PRN PRN Reason: Cough Last Admin: 07/09/22 11:04 Dose: 10 ml Ipratropium [place] (Ipratropium 0.2 Mg/Ml Neb) 0.5 mg INH Q6HR PRN PRN Reason: Wheezing Magnesium Oxide (Magnesium Oxide 400 Mg Tablet) 400 mg PO DAILYWM [facility] Last Admin: 07/10/22 09:30 Dose: 400 mg Methylprednisolone (Methylprednisolone 4 Mg Tablet) 12 mg PO DAILYWM ONE Stop: 07/11/22 08:01 Methylprednisolone (Methylprednisolone 4 Mg Tablet) 8 mg PO DAILYWM ONE Stop: 07/12/22 08:01 Methylprednisolone (Methylprednisolone 4 Mg Tablet) 4 mg PO DAILYWM ONE Stop: 07/13/22 08:01 Metoprolol Succinate (Metoprolol Succinate 25 Mg Tablet) 25 mg PO BID [facility] Last Admin: 07/10/22 09:16 Dose: 25 mg Multi-Ingredient Ointment (Zinc Oxide 20% Oint 30 Gm Tube) 1 applic TOP BID [facility] Last Admin: 07/10/22 09:32 Dose: 1 applic Nicotine (Nicotine 14 Mg Patch) 1 patch TOP DAILY [facility] Last Admin: 07/10/22 09:11 Dose: 1 patch Ondansetron HCl (Ondansetron 4 Mg/2 Ml Vial) 4 mg IVP Q6HR PRN PRN Reason: Nausea / Vomiting Last Admin: 07/10/22 08:29 Dose: 4 mg Polyethylene Glycol (Polyethylene Glycol 3350 17 Gm Packet) 17 gm PO DAILY [facility] Last Admin: 07/10/22 09:10 Dose: 17 gm Multivit/Folic Acid/Iron ( Vitamin Tablet) 1 tab PO DAILYWM [facility] Last Admin: 07/10/22 09:16 Dose: 1 tab Saccharomyces Boulardii (Saccharomyces Boulardii 250 Mg Capsule) 250 mg PO BIDWM [facility] Last Admin: 07/10/22 09:17 Dose: 250 mg Senna (Senna 8.6 Mg Tablet) 8.6 - 17.2 mg PO DAILY [facility] Last Admin: 07/10/22 09:29 Dose: 8.6 mg Sodium Chloride (Sodium Chloride Flush 0.9% 10 Ml Syringe) 10 ml IVP 0100,0900,1700 [facility] Last Admin: 07/10/22 08:29 Dose: 10 ml Sodium Chloride (Sodium Chloride Flush 0.9% 10 Ml Syringe) 10 ml IVP PRN PRN PRN Reason: NEEDED PER PROVIDER ORDERS Last Admin: 07/08/22 04:26 Dose: 10 ml Tamsulosin HCl (Tamsulosin 0.4 Mg Capsule) 0.4 mg PO DAILY [facility] Last Admin: 07/10/22 09:16 Dose: 0.4 mg Thiamine HCl (Thiamine 100 Mg Tablet) 100 mg PO DAILY [facility] Last Admin: 07/10/22 09:31 Dose: 100 mg Trimethoprim/Sulfamethoxazole (Sulfameth/Trimeth Ds 800/160 Mg Tablet) 1 tab PO BID [facility] Last Admin: 07/10/22 09:14 Dose: 1 tab Albuterol Sulfate [Proair Hfa Inhaler] 1 - 2 puffs PO Q4H PRN 11/03/17 Omeprazole 1 cap PO DAILY 04/29/22 Furosemide [Lasix] 20 mg PO DAILY 07/02/22 Hydrocodone/Acetaminophen [Hydrocodone-Acetamin 10-325 mg] 1 - 2 tab PO Q12H PRN 07/02/22 Potassium Chloride [Klor-Con 10] 10 meq PO DAILY 07/02/22
[2022-07-10] MEDS ORDERED: HYDROcod/ACETAM 5/325 MG TABLET PO PRN (16:58)
[2022-07-10] MEDS: FINASTERIDE 5 MG TABLET PO SCH (20:29)
[2022-07-11] MEDS: SODIUM CHLORIDE FLUSH 0.9% 10 ML SYRINGE IVP SCH ×3 (01:28→16:37)
[2022-07-11 05:12] LABS: BASOPHILS % (AUTO) 0.2 %; EOSINOPHILS % (AUTO) 0.1 %; HCT - HEMATOCRIT 28.3 % (42.0-52.0); HGB - HEMOGLOBIN 8.7 g/dL (14.0-18.0); LYMPHOCYTES % (AUTO) 11.7 %; MEAN CORPUSCULAR HEMOGLOBIN 33.9 pg (27.0-31.0); MEAN CORPUSCULAR HGB CONC 30.7 g/dL (32.0-36.0); MEAN CORPUSCULAR VOLUME 110.1 fL (80.0-94.0); MEAN PLATELET VOLUME 9.5 fL (7.4-11.4); MONOCYTES % (AUTO) 5.2 %; NEUTROPHILS % (AUTO) 79.4 %; PLT - PLATELET COUNT 363 10^3/uL (130-450); RED BLOOD COUNT 2.57 10^6/uL (4.70-6.10); RED CELL DISTRIBUTION WIDTH 14.1 % (12.0-15.0)
[2022-07-11 05:18] LABS: ABNORMAL LYMPHS % (MANUAL) 0 %; CALCIUM 8.4 mg/dL (8.5-10.3); CREATININE 0.7 mg/dL (0.6-1.2); POTASSIUM 5.1 mmol/L (3.5-5.0)
[2022-07-11 05:39] LABS: BAND NEUTROPHILS % (MANUAL) 1 %; DIFFERENTIAL COMMENT MANUAL DIFFERENTIAL; LYMPHOCYTES # (MANUAL) 1.3 10^3/uL (1.5-3.5); LYMPHOCYTES % (MANUAL) 8 %; NEUTROPHILS # (MANUAL) 13.8 10^3/uL (1.5-6.6); PLATELET ESTIMATE, MANUAL NORMAL (130-450,000) (NORMAL)
[2022-07-11] MEDS: IPRATROPIUM/ALBUTEROL 3 ML NEB INH SCH ×4 (07:32→20:40)
[2022-07-11] MEDS: BUDESONIDE 0.5 MG/2 ML NEB INH SCH ×2 (07:32→20:40)
[2022-07-11] MEDS: ONDANSETRON 4 MG/2 ML VIAL IVP PRN ×2 (07:47→16:37)
[2022-07-11] MEDS ORDERED: methylPREDNISolone 4 MG TABLET PO ONE (08:00)
[2022-07-11] MEDS: polyethylene glycoL 3350 17 GM PACKET PO SCH (08:05)
[2022-07-11] MEDS: NICOTINE 14 MG PATCH TOP SCH (08:05)
[2022-07-11] MEDS: THIAMINE 100 MG TABLET PO SCH (08:07)
[2022-07-11] MEDS: DOCUSATE SODIUM 250 MG CAPSULE PO SCH (08:08)
[2022-07-11] MEDS: guaiFENesin 600 MG TABLET PO SCH ×2 (08:08→20:35)
[2022-07-11] MEDS: SENNA 8.6 MG TABLET PO SCH (08:08)
[2022-07-11] MEDS: MAGNESIUM OXIDE 400 MG TABLET PO SCH (08:08)
[2022-07-11] MEDS: HYDROcod/ACETAM 10 MG/325 MG TABLET PO SCH ×2 (08:09→20:34)
[2022-07-11] MEDS: diltiaZEM CD 240 MG CAPSULE PO SCH ×2 (08:09→20:35)
[2022-07-11] MEDS: ASPIRIN CHEW 81 MG TABLET PO SCH (08:09)
[2022-07-11] MEDS: SACCHAROMYCES BOULARDII 250 MG CAPSULE PO SCH ×2 (08:10→16:37)
[2022-07-11] MEDS: TAMSULOSIN 0.4 MG CAPSULE PO SCH (08:10)
[2022-07-11] MEDS: METOPROLOL SUCCINATE 25 MG TABLET PO SCH ×2 (08:10→20:35)
[2022-07-11] MEDS: SULFAMETH/TRIMETH DS 800/160 MG TABLET PO SCH ×2 (08:10→20:35)
[2022-07-11] MEDS: DIGOXIN 125 MCG TABLET PO SCH (08:10)
[2022-07-11] MEDS: ethyl alcohoL 62% SWAB AMPULE NAS SCH ×2 (08:11→20:35)
[2022-07-11] MEDS: ZINC OXIDE 20% OINT 30 GM TUBE TOP SCH ×2 (08:14→22:48)
--- NOTE | 2022-07-11 10:30 | Discharge Plan ---
Discharge Plan Problem Reviewed?: Yes Disposition: [facility] DC/Xfer Condition: Stable Prescriptions: Sulfamethox/Trimeth 800/160 [Bactrim Ds] 1 tab PO BID #8 tab Docusate Sodium 250Mg Capsule [Colace 250Mg Capsule] 250 - 500 mg PO DAILY #30 cap Ipratropium/Albuterol [Duoneb] 3 ml INH RTQID #30 ml Tamsulosin [Flomax] 0.4 mg PO DAILY #30 cap Magnesium Oxide [Mag Ox] 400 mg PO DAILYWM #30 tab polyethylene glycoL 3350 [Miralax] 17 gm PO DAILY #30 packet Budesonide [Pulmicort] 0.5 mg INH RTBID #1 ml Calcium Carbonate [Tums (Calcium Carbonate 500mg)] 500 mg PO TID PRN #90 tab PRN Reason: Indigestion Thiamine [Vitamin B-1] 100 mg PO DAILY #30 tab Diet: Low Sodium Activity Restrictions: Activity as Tolerated No Smoking: If you smoke, Please STOP! Call for help.
--- NOTE | 2022-07-11 10:48 | Discharge Plan ---
"Discharge Plan for SNF / [facility] - Discharge Plan And Transition Orders Problem Reviewed?: Yes Disposition: 03 SNF DC/Xfer Condition: Stable Allergies and Adverse Reactions: Allergies Allergy/AdvReac Type Severity Reaction Status Date / Time No Known Drug Allergies Allergy Verified 04/28/22 10:16 - SNF / [facility] Transition Orders Discharge Diagnosis: Bacteremia UTI Acute COPD exacerbation Afib Urinary retention Medicare Certification Statement: I certify that [facility] care is medically necessary on a continuing basis for any of the conditions for which she/he is receiving care during hospitalization. Notify PCP of admission and forward orders to primary provider for signature. Weight on admission and: Weekly Other Notification Orders: Call PCP immediately if patient develops dyspnea, chest pain/tightness or edema. House Bowel Program: Yes Additional Bowel Program Orders: If no BM after 2 days, nurse may give M.O.M. 30ml PO PRN and/or ducolax Supp 1 [place] and/or MANUEL 250mg P.O., and/or senna 1-2 tabs PO. On day 3 nurse may give repeat above order until residents constipation is resolved. Annual Influenza Vaccine (between Nov 28 and June 27): Yes Two-step PPD per [facility] [phone] or approved exception documents: Yes Lab Tests or X-ray Orders: CBC within 5 days to confirm improvement of leukocytosis, BMP once within 2 days to confirm normal K level. Medication Orders: PLEASE REFER TO THE DISCHARGE MEDICATION LIST. Insulin Orders?: No - Medications New Prescriptions: Sulfamethox/Trimeth 800/160 [Bactrim Ds] 1 tab PO BID #8 tab Docusate Sodium 250Mg Capsule [Colace 250Mg Capsule] 250 - 500 mg PO DAILY #30 cap Ipratropium/Albuterol [Duoneb] 3 ml INH RTQID #30 ml Tamsulosin [Flomax] 0.4 mg PO DAILY #30 cap Magnesium Oxide [Mag Ox] 400 mg PO DAILYWM #30 tab polyethylene glycoL 3350 [Miralax] 17 gm PO DAILY #30 packet Budesonide [Pulmicort] 0.5 mg INH RTBID #1 ml Calcium Carbonate [Tums (Calcium Carbonate 500mg)] 500 mg PO TID PRN #90 tab PRN Reason: Indigestion Thiamine [Vitamin B-1] 100 mg PO DAILY #30 tab - Diet Type: No added salt - Therapies | Activity Therapy: Evaluation | Treat if indicated: OT Rehabilitation Potential: Maximize functional status Activity: Activity as Tolerated Follow Up: F/u with PCP w/ in 1 week of d/c."
[2022-07-11] MEDS: PRENATAL VITAMIN TABLET PO SCH (12:26)
[2022-07-11] MEDS: CALCIUM CARBONATE CHEW 500 MG TABLET PO PRN (12:49)
--- NOTE | 2022-07-11 14:56 | PROVIDER PROGRESS NOTE ---
Assessment/Plan - Problem List (1) Bacteremia due to Enterobacter species Assessment/Plan: As per blood cx Labs were all, reviewed. WBC stable Leukocytosis persists however procalcitonin level is negative indicating that leukocytosis most likely related to steroid use rather than active infection. Further supported by negative blood cultures x2 days Blood cultures now negative x4 days Continue PO Bactrim (2) COPD exacerbation Assessment/Plan: Lung exam many coarse breath sounds, but somewhat improved from yesterday CXR shows diffuse interstitial prominence, etiology uncertain Monitor labs, vitals, and if worsened, could consider 2nd abx Otherwise, cont steroid taper (3) Urinary retention Assessment/Plan: He first had a T[place] when in the ICU, when he was going through alcohol withdrawal. The [place] was removed 2 days ago. Yesterday 07/06 he had a post-void residual on bladder scan of 490 cc. Straight cath to be used prn was ordered Today there have been 3 episodes of voiding very little amounts and straight caths have been used x3 already today. Plan: Continue the new tamsulosin in the a.m. and finasteride in the p.m. Will order Tijer[place] to be reinserted and he will have to be [facility] with a Tijerina and needs Urol management after discharge (4) UTI (urinary tract infection) Qualifiers: Urinary tract infection type: acute cystitis Hematuria presence: without hematuria Qualified Code(s): N30.00 - Acute cystitis without hematuria Assessment/Plan: Continue Bactrim (5) Afib Qualifiers: Atrial fibrillation type: paroxysmal Qualified Code(s): I48.0 - Paroxysmal atrial fibrillation Assessment/Plan: Resolved He was admitted to the ICU needing a Cardizem drip at 5 mg/hr due to Afib with RVR. The Cardizem drip is off and the heart rate is A-fib in the 80-100s today. Since he was found on ground by family, and all work up negative for any bleeding, Eliquis was to be resumed, but he cannot swallow. We obtained an Echocardiogram>> it showed normal LVEF of 55%, but Cor Pulmonale is present, likely from his heavy smoking Hx and COPD. From the Echo, his CHADS2 score = 0, therefore no anticoagulant is recommended, he can be on an aspirin daily for stroke prophylaxis. All labs were reviewed. His Dig level is not toxic. Plan: He is now back on his oral Dig, Cardizem and metoprolol and rate is controlled From his CHADS2 score, we ascertained that Eliquis is not necessary, he can be on an aspirin daily for stroke prophylaxis. (6) Alcohol abuse Assessment/Plan: Pt no interested in quitting, despite repeated counseling to quit (7) Tobacco use Assessment/Plan: Nicotine patch - Current Meds Current Meds: Current Medications Generic Name Dose Route Start Last Admin Trade Name Juanito PRN Reason Stop Dose Admin Acetaminophen 650 mg 07/01/22 19:16 07/10/22 15:43 Acetaminophen 325 Mg Tablet PO 650 mg Q4HR PRN Administration Pain 1 to 4, or Fever Hydrocodone Bitart/Acetaminophen 2 tab 07/10/22 21:00 07/11/22 08:09 Hydrocod/Acetam 10 Mg/325 Mg Tablet PO 2 tab 0900,2100 STACEY Administration Hydrocodone Bitart/Acetaminophen 1 tab 07/10/22 16:58 07/10/22 17:11 Hydrocod/Acetam 5/325 Mg Tablet PO 1 tab Q4HR PRN Administration Moderate Pain (Level 4-6) Albuterol/Ipratropium 3 ml 07/02/22 07:00 07/11/22 11:35 Ipratropium/Albuterol 3 Ml Neb INH 3 ml RTQID STACEY Administration Alcohol 1 amp 07/02/22 21:00 07/11/22 08:11 Ethyl Alcohol 62% Swab Ampule IRVING 1 amp BID STACEY Administration Aspirin 81 mg 07/03/22 12:00 07/11/22 08:09 Aspirin Chew 81 Mg Tablet PO 81 mg DAILY STACEY Administration Budesonide 0.5 mg 07/02/22 07:00 07/11/22 07:32 Budesonide 0.5 Mg/2 Ml Neb INH 0.5 mg RTBID STACEY Administration Calcium Carbonate/Glycine 500 mg 07/07/22 11:15 07/11/22 12:49 Calcium Carbonate Chew 500 Mg Tablet PO 500 mg TID PRN Administration INDIGESTION Digoxin 62.5 mcg 07/08/22 09:00 07/11/22 08:10 Digoxin 125 Mcg Tablet PO 62.5 mcg DAILY STACEY Administration Diltiazem HCl 240 mg 07/06/22 09:16 07/11/22 08:09 Diltiazem Cd 240 Mg Capsule PO 240 mg BID STACEY Administration Docusate Sodium 250 - 500 mg 07/06/22 21:00 07/11/22 08:08 Docusate Sodium 250 Mg Capsule PO 250 mg DAILY STACEY Administration Finasteride 5 mg 07/06/22 21:00 07/10/22 20:29 Finasteride 5 Mg Tablet PO 5 mg QPM STACEY Administration Guaifenesin 600 mg 07/03/22 09:00 07/11/22 08:08 Guaifenesin 600 Mg Tablet PO 600 mg BID STACEY Administration Guaifenesin 10 ml 07/03/22 07:47 07/09/22 11:04 Guaifenesin/Dextromethorphan 10 Ml Udc PO 10 ml Q6HR PRN Administration Cough Magnesium Oxide 400 mg 07/09/22 09:00 07/11/22 08:08 Magnesium Oxide 400 Mg Tablet PO 400 mg DAILYWM STACEY Administration Metoprolol Succinate 25 mg 07/03/22 21:00 07/11/22 08:10 Metoprolol Succinate 25 Mg Tablet PO 25 mg BID STACEY Administration Multi-Ingredient Ointment 1 applic 07/03/22 21:00 07/11/22 08:14 Zinc Oxide 20% Oint 30 Gm Tube TOP 1 applic BID STACEY Administration Nicotine 1 patch 07/07/22 09:00 07/11/22 08:05 Nicotine 14 Mg Patch TOP 1 patch DAILY STACEY Administration Ondansetron HCl 4 mg 07/01/22 19:16 07/11/22 07:47 Ondansetron 4 Mg/2 Ml Vial IVP 4 mg Q6HR PRN Administration Nausea / Vomiting Polyethylene Glycol 17 gm 07/07/22 09:00 07/11/22 08:05 Polyethylene Glycol 3350 17 Gm Packet PO 17 gm DAILY STACEY Administration Multivit/Folic Acid/Iron 1 tab 07/03/22 08:00 07/11/22 12:26 Vitamin Tablet PO Not Given DAILYWM STACEY Saccharomyces Boulardii 250 mg 07/07/22 09:00 07/11/22 08:10 Saccharomyces Boulardii 250 Mg Capsule PO 250 mg BIDWM STACEY Administration Senna 8.6 - 17.2 mg 07/06/22 21:00 07/11/22 08:08 Senna 8.6 Mg Tablet PO 8.6 mg DAILY STACEY Administration Sodium Chloride 10 ml 07/02/22 01:00 07/11/22 07:47 Sodium Chloride Flush 0.9% 10 Ml Syringe IVP 10 ml 0100,0900,1700 STACEY Administration Sodium Chloride 10 ml 07/01/22 19:16 07/08/22 04:26 Sodium Chloride Flush 0.9% 10 Ml Syringe IVP 10 ml PRN PRN Administration NEEDED PER PROVIDER ORDERS Tamsulosin HCl 0.4 mg 07/07/22 09:00 07/11/22 08:10 Tamsulosin 0.4 Mg Capsule PO 0.4 mg DAILY STACEY Administration Thiamine HCl 100 mg 07/03/22 09:00 07/11/22 08:07 Thiamine 100 Mg Tablet PO 100 mg DAILY STACEY Administration Trimethoprim/Sulfamethoxazole 1 tab 07/07/22 21:00 07/11/22 08:10 Sulfameth/Trimeth Ds 800/160 Mg Tablet PO 1 tab BID STACEY Administration - Lab Result Lab results reviewed: Yes Fish Bone Diagrams: 07/11/22 04:53 07/11/22 04:53 - Additional Planning Condition/Complexity: Stable My Orders: My Active Orders 07/10/22 16:58 HYDROcod/ACETAM 5/325 [Stuart 5/325] 1 tab PO Q4HR PRN 07/10/22 21:00 HYDROcodone/ACET 10/325 [Stuart 10 mg/325 mg] 2 tab PO 0900,2100 07/11/22 09:51 Flutter [Acapella (Flutter Valve Device] [RC] TID 07/11/22 11:30 Heat [Cold / Heat Application] [RC] PRN Subjective - Subjective Patient Reports: Feeling Better, Other Objective Vital Signs: Vital Signs - 24 hr 07/10/22 07/10/22 07/10/22 16:20 18:03 21:00 Temperature 36.6 C 36.7 C Heart Rate 78 Heart Rate [ 62 75 Brachial] Heart Rate [ Monitoring electrodes] Respiratory 20 22 20 Rate Blood Pressure 104/58 L 106/79 [Right Brachial artery] O2 Saturation 96 97 If not protocol 2 2 2 : Oxygen Flow, liters/minute 07/11/22 07/11/22 07/11/22 00:16 05:00 07:28 Temperature 36.6 C 36.8 C 36.6 C Heart Rate Heart Rate [ 67 65 73 Brachial] Heart Rate [ Monitoring electrodes] Respiratory 16 16 22 Rate Blood Pressure 118/65 125/67 121/70 [Right Brachial artery] O2 Saturation 96 92 93 If not protocol 2 2 2 : Oxygen Flow, liters/minute 07/11/22 07/11/22 07/11/22 07:33 11:38 12:03 Temperature 36.5 C Heart Rate 64 56 L Heart Rate [ Brachial] Heart Rate [ 59 L Monitoring electrodes] Respiratory 16 16 20 Rate Blood Pressure 104/58 L [Right Brachial artery] O2 Saturation 95 If not protocol 2 2 2 : Oxygen Flow, liters/minute Oxygen O2 Source [With Activity] Nasal cannula O2 Source Nasal cannula Oxygen Flow Rate 3 I&O (Last 24 Hrs): Intake and Output Totals x24h 07/09/22 07/10/22 07/11/22 23:59 23:59 23:59 Intake Total 1540 790 480 Output Total 1850 1495 2050 Balance -827 -753 -2831 General: Alert, Oriented x3 HEENT: Atraumatic Cardiovascular: Regular rate, Normal S1, Normal S2 Respiratory: Chest non-tender Abdomen: Normal bowel sounds, No tenderness, No hepatospenomegaly Extremities: No clubbing, No cyanosis, No edema - Results Results: Laboratory Results WBC 16.0 x10^3/uL (4.8-10.8) H 07/11/22 04:53 RBC 2.57 10^6/uL (4.70-6.10) L 07/11/22 04:53 Hgb 8.7 g/dL (14.0-18.0) L 07/11/22 04:53 Hct 28.3 % (42.0-52.0) L 07/11/22 04:53 MCV 110.1 fL (80.0-94.0) H 07/11/22 04:53 MCH 33.9 pg (27.0-31.0) H 07/11/22 04:53 MCHC 30.7 g/dL (32.0-36.0) L 07/11/22 04:53 RDW 14.1 % (12.0-15.0) 07/11/22 04:53 Plt Count 363 10^3/uL (130-450) 07/11/22 04:53 MPV 9.5 fL (7.4-11.4) 07/11/22 04:53 Neut # (Auto) Not Reportable 07/11/22 04:53 Lymph # (Auto) Not Reportable 07/11/22 04:53 [place] # (Auto) Not Reportable 07/11/22 04:53 Eos # (Auto) Not Reportable 07/11/22 04:53 Baso # (Auto) Not Reportable 07/11/22 04:53 Absolute Nucleated RBC Not Reportable 07/11/22 04:53 Total Counted 100 07/11/22 04:53 Band Neuts % (Manual) 1 % (0-10) 07/11/22 04:53 Abnorm Lymph % (Manual) 0 % 07/11/22 04:53 Metamyelocytes % 1 % (-0) H 07/10/22 04:29 Myelocytes % 4 % (-0) H 07/10/22 04:29 Nucleated RBC % Not Reportable 07/11/22 04:53 Neutrophils # (Manual) 13.8 10^3/uL (1.5-6.6) H 07/11/22 04:53 Lymphocytes # (Manual) 1.3 10^3/uL (1.5-3.5) L 07/11/22 04:53 Monocytes # (Manual) 1.0 10^3/uL (0.0-1.0) 07/11/22 04:53 Eosinophils # (Manual) 0.0 10^3/uL (0-0.7) 07/11/22 04:53 Basophils # (Manual) 0.0 10^3/uL (0-0.1) 07/11/22 04:53 Differential Comment MANUAL DIFFERENTIAL 07/11/22 04:53 Manual Slide Review Indicated 07/05/22 05:20 WBC Morphology NORMAL APPEARANCE (NORMAL) 07/10/22 04:29 Platelet Estimate NORMAL (130-450,000) (NORMAL) 07/11/22 04:53 Platelet Morphology NORMAL APPEARANCE (NORMAL) 07/10/22 04:29 RBC Morph Micro Appear 2+ MACROCYTOSIS (NORMAL) 1+ HYPOCHROMASIA (NORMAL) 07/11/22 04:53 RBC Morph Micro Appear 2+ MACROCYTOSIS (NORMAL) 1+ HYPOCHROMASIA (NORMAL) 07/11/22 04:53 VBG pH 7.490 (7.31-7.41) H 07/04/22 15:20 Ionized Calcium 1.08 mmol/L (1.15-1.33) L 07/04/22 15:20 Sodium 137 mmol/L (135-145) 07/11/22 04:53 Potassium 5.1 mmol/L (3.5-5.0) H 07/11/22 04:53 Chloride 93 mmol/L (101-111) L 07/11/22 04:53 Carbon Dioxide 36 mmol/L (21-32) H 07/11/22 04:53 Anion Gap 8.0 (6-13) 07/11/22 04:53 BUN 12 mg/dL (6-20) 07/11/22 04:53 Creatinine 0.7 mg/dL (0.6-1.2) 07/11/22 04:53 Estimated GFR (MDRD) 111 (>89) 07/11/22 04:53 Glucose 101 mg/dL (70-100) H 07/11/22 04:53 Lactic Acid 0.9 mmol/L (0.5-2.2) 07/02/22 04:13 Calcium 8.4 mg/dL (8.5-10.3) L 07/11/22 04:53 Phosphorus 2.5 mg/dL (2.5-4.6) 07/03/22 04:25 Magnesium 1.6 mg/dL (1.7-2.8) L 07/08/22 04:38 Total Bilirubin 0.3 mg/dL (0.2-1.0) 07/06/22 05:20 AST 22 IU/L (10-42) 07/06/22 05:20 ALT 20 IU/L (10-60) 07/06/22 05:20 Alkaline Phosphatase 83 IU/L (42-121) 07/06/22 05:20 Ammonia 29.0 umol/L (7-35) 07/05/22 09:34 Total Creatine Kinase 308 IU/L (22-269) H 07/01/22 15:53 Troponin I High Sens 50.3 ng/L (2.3-19.7) H* 07/01/22 19:25 Total Protein 5.1 g/dL (6.7-8.2) L 07/06/22 05:20 Albumin 2.2 g/dL (3.2-5.5) L 07/06/22 05:20 Globulin 2.9 g/dL (2.1-4.2) 07/06/22 05:20 Albumin/Globulin Ratio 0.8 (1.0-2.2) L 07/06/22 05:20 Lipase 22 U/L (22-51) 07/01/22 15:53 Vitamin B12 398 pg/mL (180-914) 07/08/22 04:38 Folate 8.86 ng/mL (5.90 - >24.8) 07/08/22 04:38 Procalcitonin 0.06 ng/mL (<0.5) 07/11/22 04:53 TSH 0.73 uIU/mL (0.34-5.60) 07/01/22 15:53 Urine Color YELLOW 07/01/22 16:13 Urine Clarity HAZY (CLEAR) 07/01/22 16:13 Urine pH 7.0 PH (5.0-7.5) 07/01/22 16:13 Ur Specific [place] 1.010 (1.002-1.030) 07/01/22 16:13 Urine Protein 100 mg/dL (NEGATIVE) H 07/01/22 16:13 Urine Glucose (UA) NEGATIVE mg/dL (NEGATIVE) 07/01/22 16:13 Urine Ketones NEGATIVE mg/dL (NEGATIVE) 07/01/22 16:13 Urine Occult Blood LARGE (NEGATIVE) H 07/01/22 16:13 Urine Nitrite NEGATIVE (NEGATIVE) 07/01/22 16:13 Urine Bilirubin NEGATIVE (NEGATIVE) 07/01/22 16:13 Urine Urobilinogen 1 (NORMAL) E.U./dL (NORMAL) 07/01/22 16:13 Ur Leukocyte Esterase LARGE (NEGATIVE) H 07/01/22 16:13 Urine RBC 11-25 /HPF (0-5) H 07/01/22 16:13 Urine WBC >25 /HPF (0-3) H 07/01/22 16:13 Urine WBC Clumps PRESENT 07/01/22 16:13 Ur Squamous Epith Cells NONE SEEN (<= Few) 07/01/22 16:13 Urine Bacteria Many /HPF (None Seen) H 07/01/22 16:13 Ur Microscopic Review INDICATED 07/01/22 16:13 Urine Culture Comments INDICATED 07/01/22 16:13 Nasal Adenovirus (PCR) NOT DETECTED 07/01/22 16:13 Nasal B. parapertussis DNA (PCR) NOT DETECTED 07/01/22 16:13 Nasal Coronavir 229E PCR NOT DETECTED 07/01/22 16:13 Nasal Coronavir HKU1 PCR NOT DETECTED 07/01/22 16:13 Nasal Coronavir NL63 PCR NOT DETECTED 07/01/22 16:13 Nasal Coronavir OC43 PCR NOT DETECTED 07/01/22 16:13 Nasal Enterovir/Rhinovir PCR NOT DETECTED 07/01/22 16:13 Nasal Influenza B PCR NOT DETECTED 07/01/22 16:13 Nasal Influenza A PCR NOT DETECTED 07/01/22 16:13 Nasal Parainfluen 1 PCR NOT DETECTED 07/01/22 16:13 Nasal Parainfluen 2 PCR NOT DETECTED 07/01/22 16:13 Nasal Parainfluen 3 PCR NOT DETECTED 07/01/22 16:13 Nasal Parainfluen 4 PCR NOT DETECTED 07/01/22 16:13 Nasal RSV (PCR) NOT DETECTED 07/01/22 16:13 Nasal Screen MRSA (PCR) POSITIVE (NEGATIVE) A* 07/01/22 20:19 Nasal B.pertussis DNA PCR NOT DETECTED 07/01/22 16:13 Nasal C.pneumoniae (PCR) NOT DETECTED 07/01/22 16:13 [place] Human Metapneumo PCR NOT DETECTED 07/01/22 16:13 Nasal M.pneumoniae (PCR) NOT DETECTED 07/01/22 16:13 Nasal SARS-CoV-2 (PCR) NOT DETECTED 07/01/22 16:13 Last Dose Date 07/09/22 07/10/22 04:29 Last Dose Time 0850 07/10/22 04:29 Digoxin 0.5 ng/mL 07/10/22 04:29 Salicylates < 6.0 mg/dL 07/01/22 15:53 Urine Opiates Screen POSITIVE (NEGATIVE) H 07/01/22 16:13 Ur Oxycodone Screen NEGATIVE (NEGATIVE) 07/01/22 16:13 Urine Methadone Screen NEGATIVE (NEGATIVE) 07/01/22 16:13 Ur Propoxyphene Screen NEGATIVE (NEGATIVE) 07/01/22 16:13 Acetaminophen < 10 ug/mL (10-30) L 07/01/22 15:53 Ur Barbiturates Screen NEGATIVE (NEGATIVE) 07/01/22 16:13 Ur Tricyclics Screen NEGATIVE (NEGATIVE) 07/01/22 16:13 Ur Phencyclidine Scrn NEGATIVE (NEGATIVE) 07/01/22 16:13 Ur Amphetamine Screen NEGATIVE (NEGATIVE) 07/01/22 16:13 U Methamphetamines Scrn NEGATIVE (NEGATIVE) 07/01/22 16:13 U Benzodiazepines Scrn NEGATIVE (NEGATIVE) 07/01/22 16:13 Urine Cocaine Screen NEGATIVE (NEGATIVE) 07/01/22 16:13 U Cannabinoids Screen NEGATIVE (NEGATIVE) 07/01/22 16:13 Ethyl Alcohol < 5.0 mg/dL 07/01/22 15:53 SARS-CoV-2 (PCR) NOT DETECTED 07/10/22 18:30 - Procedures Procedures: Procedures EXCISION OF L LOW ARM SUBCU/FASCIA, OPEN APPROACH (11/03/17) OTH CHEST CAGE OSTECTOMY (09/03/12) ROTATOR CUFF REPAIR (07/12/13) Sepsis Event Note (H) - Evaluation Current Stage of Sepsis: Sepsis Possible source of Sepsis: positive: Genitourinary ABX Reporting Has patient been on IV antibiotics over the past 48 hours?: No Current Medications - Current Medications Current Medications: Active Medications Generic Name Dose Route Start Last Admin Trade Name Freq PRN Reason Stop Dose Admin Acetaminophen 650 mg 07/01/22 19:16 07/10/22 15:43 Acetaminophen 325 Mg Tablet PO 650 mg Q4HR PRN Administration Pain 1 to 4, or Fever Hydrocodone Bitart/Acetaminophen 2 tab 07/10/22 21:00 07/11/22 08:09 Hydrocod/Acetam 10 Mg/325 Mg Tablet PO 2 tab 0900,2100 STACEY Administration Hydrocodone Bitart/Acetaminophen 1 tab 07/10/22 16:58 07/10/22 17:11 Hydrocod/Acetam 5/325 Mg Tablet PO 1 tab Q4HR PRN Administration Moderate Pain (Level 4-6) Albuterol 2.5 mg 07/01/22 19:16 Albuterol Neb 2.5 Mg/3 Ml INH Q4HR PRN Wheezing Albuterol/Ipratropium 3 ml 07/02/22 07:00 07/11/22 11:35 Ipratropium/Albuterol 3 Ml Neb INH 3 ml RTQID STACEY Administration Alcohol 1 amp 07/02/22 21:00 07/11/22 08:11 Ethyl Alcohol 62% Swab Ampule IRVING 1 amp BID STACEY Administration Aspirin 81 mg 07/03/22 12:00 07/11/22 08:09 Aspirin Chew 81 Mg Tablet PO 81 mg DAILY STACEY Administration Budesonide 0.5 mg 07/02/22 07:00 07/11/22 07:32 Budesonide 0.5 Mg/2 Ml Neb INH 0.5 mg RTBID STACEY Administration Calcium Carbonate/Glycine 500 mg 07/07/22 11:15 07/11/22 12:49 Calcium Carbonate Chew 500 Mg Tablet PO 500 mg TID PRN Administration INDIGESTION Digoxin 62.5 mcg 07/08/22 09:00 07/11/22 08:10 Digoxin 125 Mcg Tablet PO 62.5 mcg DAILY STACEY Administration Diltiazem HCl 240 mg 07/06/22 09:16 07/11/22 08:09 Diltiazem Cd 240 Mg Capsule PO 240 mg BID STACEY Administration Docusate Sodium 250 - 500 mg 07/06/22 21:00 07/11/22 08:08 Docusate Sodium 250 Mg Capsule PO 250 mg DAILY STACEY Administration Finasteride 5 mg 07/06/22 21:00 07/10/22 20:29 Finasteride 5 Mg Tablet PO 5 mg QPM STACEY Administration Guaifenesin 600 mg 07/03/22 09:00 07/11/22 08:08 Guaifenesin 600 Mg Tablet PO 600 mg BID STACEY Administration Guaifenesin 10 ml 07/03/22 07:47 07/09/22 11:04 Guaifenesin/Dextromethorphan 10 Ml Udc PO 10 ml Q6HR PRN Administration Cough Ipratropium Oneco 0.5 mg 07/01/22 19:16 Ipratropium 0.2 Mg/Ml Neb INH Q6HR PRN Wheezing Magnesium Oxide 400 mg 07/09/22 09:00 07/11/22 08:08 Magnesium Oxide 400 Mg Tablet PO 400 mg DAILYWM STACEY Administration Methylprednisolone 8 mg 07/12/22 08:00 Methylprednisolone 4 Mg Tablet PO 07/12/22 08:01 DAILYWM ONE Methylprednisolone 4 mg 07/13/22 08:00 Methylprednisolone 4 Mg Tablet PO 07/13/22 08:01 DAILYWM ONE Metoprolol Succinate 25 mg 07/03/22 21:00 07/11/22 08:10 Metoprolol Succinate 25 Mg Tablet PO 25 mg BID STACEY Administration Multi-Ingredient Ointment 1 applic 07/03/22 21:00 07/11/22 08:14 Zinc Oxide 20% Oint 30 Gm Tube TOP 1 applic BID STACEY Administration Nicotine 1 patch 07/07/22 09:00 07/11/22 08:05 Nicotine 14 Mg Patch TOP 1 patch DAILY STACEY Administration Ondansetron HCl 4 mg 07/01/22 19:16 07/11/22 07:47 Ondansetron 4 Mg/2 Ml Vial IVP 4 mg Q6HR PRN Administration Nausea / Vomiting Polyethylene Glycol 17 gm 07/07/22 09:00 07/11/22 08:05 Polyethylene Glycol 3350 17 Gm Packet PO 17 gm DAILY STACEY Administration Multivit/Folic Acid/Iron 1 tab 07/03/22 08:00 07/11/22 12:26 Vitamin Tablet PO Not Given DAILYWM [facility] Saccharomyces Boulardii 250 mg 07/07/22 09:00 07/11/22 08:10 Saccharomyces Boulardii 250 Mg Capsule PO 250 mg BIDWM [facility] Administration Senna 8.6 - 17.2 mg 07/06/22 21:00 07/11/22 08:08 Senna 8.6 Mg Tablet PO 8.6 mg DAILY STACEY Administration Sodium Chloride 10 ml 07/02/22 01:00 07/11/22 07:47 Sodium Chloride Flush 0.9% 10 Ml Syringe IVP 10 ml 0100,0900,1700 STACEY Administration Sodium Chloride 10 ml 07/01/22 19:16 07/08/22 04:26 Sodium Chloride Flush 0.9% 10 Ml Syringe IVP 10 ml PRN PRN Administration NEEDED PER PROVIDER ORDERS Tamsulosin HCl 0.4 mg 07/07/22 09:00 07/11/22 08:10 Tamsulosin 0.4 Mg Capsule PO 0.4 mg DAILY STACEY Administration Thiamine HCl 100 mg 07/03/22 09:00 07/11/22 08:07 Thiamine 100 Mg Tablet PO 100 mg DAILY STACEY Administration Trimethoprim/Sulfamethoxazole 1 tab 07/07/22 21:00 07/11/22 08:10 Sulfameth/Trimeth Ds 800/160 Mg Tablet PO 1 tab BID STACEY Administration Albuterol Sulfate [Proair Hfa Inhaler] 1 - 2 puffs PO Q4H PRN 11/03/17 Omeprazole 1 cap PO DAILY 04/29/22 Hydrocodone/Acetaminophen [Hydrocodone-Acetamin 10-325 mg] 1 - 2 tab PO Q12H PRN 07/02/22
[2022-07-11] MEDS: ACETAMINOPHEN 325 MG TABLET PO PRN (16:37)
[2022-07-11] MEDS: FINASTERIDE 5 MG TABLET PO SCH (20:35)
[2022-07-12] MEDS: SODIUM CHLORIDE FLUSH 0.9% 10 ML SYRINGE IVP SCH ×2 (00:31→08:35)
[2022-07-12] MEDS: ZINC OXIDE 20% OINT 30 GM TUBE TOP SCH ×2 (00:42→04:51)
[2022-07-12 05:30] LABS: BASOPHILS % (AUTO) 0.2 %; EOSINOPHILS % (AUTO) 0.2 %; HCT - HEMATOCRIT 26.8 % (42.0-52.0); HGB - HEMOGLOBIN 8.4 g/dL (14.0-18.0); LYMPHOCYTES # (AUTO) 2.2 10^3/uL (1.5-3.5); LYMPHOCYTES % (AUTO) 13.4 %; MEAN CORPUSCULAR HEMOGLOBIN 34.1 pg (27.0-31.0); MEAN CORPUSCULAR HGB CONC 31.3 g/dL (32.0-36.0); MEAN CORPUSCULAR VOLUME 108.9 fL (80.0-94.0); MEAN PLATELET VOLUME 9.5 fL (7.4-11.4); NEUTROPHILS # (AUTO) 12.9 10^3/uL (1.5-6.6); NEUTROPHILS % (AUTO) 77.6 %; PLT - PLATELET COUNT 400 10^3/uL (130-450); RED BLOOD COUNT 2.46 10^6/uL (4.70-6.10); WHITE BLOOD COUNT 16.6 x10^3/uL (4.8-10.8)
[2022-07-12 05:39] LABS: CALCIUM 8.3 mg/dL (8.5-10.3); CREATININE 0.7 mg/dL (0.6-1.2)
[2022-07-12] MEDS ORDERED: methylPREDNISolone 4 MG TABLET PO ONE (08:00)
[2022-07-12] MEDS: BUDESONIDE 0.5 MG/2 ML NEB INH SCH (08:02)
[2022-07-12] MEDS: IPRATROPIUM/ALBUTEROL 3 ML NEB INH SCH ×2 (08:02→11:38)
[2022-07-12] MEDS: MAGNESIUM OXIDE 400 MG TABLET PO SCH (08:33)
[2022-07-12] MEDS: HYDROcod/ACETAM 10 MG/325 MG TABLET PO SCH (08:33)
[2022-07-12] MEDS: METOPROLOL SUCCINATE 25 MG TABLET PO SCH (08:33)
[2022-07-12] MEDS: ASPIRIN CHEW 81 MG TABLET PO SCH (08:33)
[2022-07-12] MEDS: THIAMINE 100 MG TABLET PO SCH (08:33)
[2022-07-12] MEDS: DOCUSATE SODIUM 250 MG CAPSULE PO SCH (08:33)
[2022-07-12] MEDS: SACCHAROMYCES BOULARDII 250 MG CAPSULE PO SCH (08:34)
[2022-07-12] MEDS: TAMSULOSIN 0.4 MG CAPSULE PO SCH (08:34)
[2022-07-12] MEDS: guaiFENesin 600 MG TABLET PO SCH (08:34)
[2022-07-12] MEDS: PRENATAL VITAMIN TABLET PO SCH (08:34)
[2022-07-12] MEDS: ethyl alcohoL 62% SWAB AMPULE NAS SCH (08:34)
[2022-07-12] MEDS: diltiaZEM CD 240 MG CAPSULE PO SCH (08:34)
[2022-07-12] MEDS: SENNA 8.6 MG TABLET PO SCH (08:34)
[2022-07-12] MEDS: DIGOXIN 125 MCG TABLET PO SCH (08:34)
[2022-07-12] MEDS: NICOTINE 14 MG PATCH TOP SCH (08:34)
[2022-07-12] MEDS: SULFAMETH/TRIMETH DS 800/160 MG TABLET PO SCH (08:34)
[2022-07-12] MEDS: polyethylene glycoL 3350 17 GM PACKET PO SCH (08:35)
--- NOTE | 2022-07-12 12:43 | DISCHARGE SUMMARY ---
Discharge Summary Admit Date: 07/05/22 Discharge Date: 07/12/22 Discharging Provider: Dr Fadi Arambula Code Status: Do Not Attempt Resuscitation Condition at Discharge: Stable Discharge Disposition: 03 SNF DC/Xfer - DIAGNOSES Admission Diagnoses: A-fib with rapid ventricular response Sepsis UTI Alcohol abuse Tachycardia - HPI History of Present Illness: Patient is a 71-year-old male who is brought in by EMS today. Reported complaint is weakness and confusion. He reportedly lives at home alone. His family checks on him daily. EMS states that the family told them he has had increased confusion over the past 1 week. Today they went to check on him and found him on the ground, covered in feces. EMS was dispatched and brought the patient here. Upon arrival, the patient is awake, alert. He states that he fell this morning, injuring his back. He states he did strike his head. He is on Eliquis for atrial fibrillation. Denies any fevers. States that he has a chronic cough. He states that he has mid and low back pain. No numbness or tingling. He usually takes Vicodin for pain at home. He does drink beer on a regular basis. 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 No other active complaints, has 2 ivlines, refused central line,hemodyanmics are acceptable, continue to be on Cardizem drip for his A fib for rate control, EKG pending ER MD will call me if any significant abnormality. - HOSPITAL COURSE Hospital Course: Patient had a diagnosis of sepsis on admission secondary to UTI which further led to enterococcal bacteremia.. He was started on IV Rocephin and after3 days this was changed to p.o. Levaquin. He tolerated this well but after 2 more days he was transitioned to p.o. Bactrim. In addition to his sepsis, he underwent alcohol withdrawal and was in the ICU for the first 2 days. During this time he had urinary retention and a [place] catheter was placed. After a voiding trial was failed to [place] catheter was reinserted with plans for outpatient urology follow-up. He had a persistent leukocytosis which was thought to be secondary to steroid use. He was given steroids due to mild hypoxia thought to be COPD exacerbation. He remained hypoxic requiring 2 L nasal cannula oxygen support. He was tapered down off steroids on discharge. Repeat blood cultures are negative for growth after 3 days. - ALLERGIES Allergies/Adverse Reactions: Allergies Allergy/AdvReac Type Severity Reaction Status Date / Time No Known Drug Allergies Allergy Verified 04/28/22 10:16 - MEDICATIONS Home Medications: Ambulatory Orders Medication Instructions Recorded Confirmed Albuterol Sulfate [Proair Hfa 1 - 2 puffs PO Q4H PRN 11/03/17 07/02/22 Inhaler] Omeprazole 1 cap PO DAILY 04/29/22 07/02/22 Digoxin [Lanoxin] 125 mcg PO DAILY #30 tablet 05/05/22 07/02/22 Metoprolol Tartrate [Lopressor] 100 mg PO BID #60 tab 05/05/22 07/02/22 [id number] CD [Cardizem Cd] 240 mg PO BID #60 cap 05/05/22 07/02/22 Hydrocodone/Acetaminophen 1 - 2 tab PO Q12H PRN 07/02/22 07/02/22 [Hydrocodone-Acetamin 10-325 mg] Budesonide [Pulmicort] 0.5 mg INH RTBID #1 ml 07/11/22 Calcium Carbonate [Tums (Calcium 500 mg PO TID PRN #90 tab 07/11/22 Carbonate 500mg)] Docusate Sodium 250Mg Capsule 250 - 500 mg PO DAILY #30 cap 07/11/22 [Colace 250Mg Capsule] HYDROcod/ACETAM 5/325 [[place] 5/325] 1 tab PO Q4HR PRN tab 07/11/22 Ipratropium/Albuterol [Duoneb] 3 ml INH RTQID #30 ml 07/11/22 Magnesium Oxide [Mag Ox] 400 mg PO DAILYWM #30 tab 07/11/22 Nicotine 14 mg Patch [Nicoderm] 1 patch TOP DAILY patch 07/11/22 Sulfamethox/Trimeth 800/160 1 tab PO BID #8 tab 07/11/22 [Bactrim Ds] Tamsulosin [Flomax] 0.4 mg PO DAILY #30 cap 07/11/22 Thiamine [Vitamin B-1] 100 mg PO DAILY #30 tab 07/11/22 guaiFENesin [Mucinex] 600 mg PO BID tab 07/11/22 polyethylene glycoL 3350 [Miralax] 17 gm PO DAILY #30 packet 07/11/22 - PHYSICAL EXAM AT DISCHARGE General Appearance: positive: No acute distress Eyes Bilateral: positive: Normal inspection Respiratory: positive: No respiratory distress, Rhonchi Cardiovascular: positive: No murmur, No gallop, Irregularly irregular Abdomen: positive: Non-tender, No organomegaly, Nml bowel sounds Skin: positive: No rash, Warm, Dry Neurologic/Psychiatric: positive: Oriented x3, CN's nml (2-12) - LABS Result Diagrams: 07/12/22 04:58 07/12/22 04:58 - SEPSIS Current Stage of Sepsis: Sepsis Possible source of Sepsis: Genitourinary - TIME SPENT Time Spent in Discharge (Minutes): 41
[2022-07-12 13:26] VITALS: BP 98/66
[2022-07-13] MEDS ORDERED: methylPREDNISolone 4 MG TABLET PO ONE (08:00)
== END 2022-07-12 13:45 | DRG 872 ==
LOC: EDUNIT# → ED 15:18 → ICU 19:16 → MS2 07-04 13:46
PROVIDERS: ADMIT Internal Medicine; ATTEND Family Medicine Sports Medicine
DX: A41.9 Sepsis, unspecified organism (principal); A41.81 Sepsis due to Enterococcus; N30.00 Acute cystitis without hematuria; F10.139 Alcohol abuse with withdrawal, unspecified; I47.1 Supraventricular tachycardia; J43.9 Emphysema, unspecified; R09.02 Hypoxemia; D72.829 Elevated white blood cell count, unspecified; F17.200 Nicotine dependence, unspecified, uncomplicated; T38.0X5A Adverse effect of glucocorticoids and synthetic analogues, initial encounter; M54.6 Pain in thoracic spine; M54.50 Low back pain, unspecified; Y92.230 Patient room in hospital as the place of occurrence of the external cause; W19.XXXA Unspecified fall, initial encounter; Y92.009 Unspecified place in unspecified non-institutional (private) residence as the place of occurrence of the external cause; I48.91 Unspecified atrial fibrillation; I71.43 Infrarenal abdominal aortic aneurysm, without rupture; Z79.01 Long term (current) use of anticoagulants; I10 Essential (primary) hypertension; S09.90XA Unspecified injury of head, initial encounter; R05.3 Chronic cough; Z66 Do not resuscitate; K21.9 Gastro-esophageal reflux disease without esophagitis; G89.29 Other chronic pain; F17.210 Nicotine dependence, cigarettes, uncomplicated; R41.0 Disorientation, unspecified; E86.0 Dehydration; I95.9 Hypotension, unspecified; S51.812A Laceration without foreign body of left forearm, initial encounter; Z20.822 Contact with and (suspected) exposure to COVID-19; R33.9 Retention of urine, unspecified; I27.81 Cor pulmonale (chronic); R13.10 Dysphagia, unspecified; R11.2 Nausea with vomiting, unspecified; T36.8X5A Adverse effect of other systemic antibiotics, initial encounter; F03.90 Unspecified dementia, unspecified severity, without behavioral disturbance, psychotic disturbance, mood disturbance, and anxiety
CPT/HCPCS: 36415; 70450; 71045; 71260; 72125; 74177; 80048; 80053; 80162; 80306; 80307; 81001; 82140; 82330; 82550; 82607; 82746; 83605; 83690; 83735; 84100; 84132; 84145; 84443; 84484; 85025; 85027; 87040; 87077; 87086; 87150; 87181; 87633; 87635; 93005; 93306; 94640; 96361; 96365; 96375; 97162; 97166; 97530; 97535; 99285; A9270; G0480; J2060; J7509; J7626; Q9967; 80320; 80329; 81003

== ENCOUNTER 2022-07-12 13:49 | Outpatient (CLI) | payer MEDICARE | END 2022-07-12 13:50 | LOC: EMS 13:49 | PROVIDERS: ATTEND Specialist | DX: R53.1 Weakness (principal); A41.9 Sepsis, unspecified organism; N39.0 Urinary tract infection, site not specified; Z74.01 Bed confinement status | CPT/HCPCS: A0425; A0428 ==

== ENCOUNTER 2022-07-17 11:50 | Outpatient (CLI) | payer MEDICARE ==
[2022-07-17 12:20] LABS: DIGOXIN 0.4 ng/mL
== END 2022-07-17 11:51 | disposition home or self-care (01) ==
LOC: LAB.R 11:50
PROVIDERS: ATTEND Registered Nurse
DX: Z51.81 Encounter for therapeutic drug level monitoring (principal)
CPT/HCPCS: 80162

== ENCOUNTER 2022-08-21 12:42 | Outpatient (CLI) | payer MEDICARE | END 2022-08-21 12:43 | disposition short-term general hospital (02) | LOC: EMS 12:42 | DX: T20.29XA Burn of second degree of multiple sites of head, face, and neck, initial encounter (principal); X04.XXXA Exposure to ignition of highly flammable material, initial encounter; Z99.81 Dependence on supplemental oxygen; F17.210 Nicotine dependence, cigarettes, uncomplicated | CPT/HCPCS: A0425; A0429 ==

== ENCOUNTER 2023-06-09 13:15 | Outpatient (CLI) | payer MEDICARE | END 2023-06-09 23:59 | disposition E | LOC: EMS 13:15 ==